=== PATIENT | male | born 1945 | race Caucasian/White ===

== ENCOUNTER 2016-07-21 18:34 | Outpatient (CLI) ==
[2016-07-21 22:03] VITALS: BMI 20.9
== END 2016-07-21 18:35 | disposition home or self-care (01) ==
LOC: AMBL 18:34
PROVIDERS: ATTEND Internal Medicine Geriatric Medicine
DX: R06.02 Shortness of breath (principal); R07.9 Chest pain, unspecified; I45.10 Unspecified right bundle-branch block; I69.398 Other sequelae of cerebral infarction; R47.9 Unspecified speech disturbances

== ENCOUNTER 2016-07-21 18:42 | Inpatient (IN) ==
[2016-07-21] MEDS ORDERED: XOPENEX 1.25 MG NEB STA (18:48)
[2016-07-21] MEDS ORDERED: ROCEPHIN ONE (19:01)
[2016-07-21] MEDS: ROCEPHIN 1 GM in SODIUM CHLORIDE 50 ML IV STA ×2 (19:03)
[2016-07-21 19:07] LABS: BASOPHILS % (AUTO) 0.3 % (0.0-3.0); EOSINOPHILS # (AUTO) 0.1 K/ul (0.0-0.7); EOSINOPHILS % (AUTO) 1.1 % (0.0-7.0); HEMATOCRIT 34.6 % (42.0-52.0); HEMOGLOBIN 12.2 g/dl (14.0-18.0); IMMATURE GRANULOCYTE % (AUTO) 0.7 % (0.0-5.0); LYMPHOCYTES # (AUTO) 1.4 K/uL (0.60-3.4); LYMPHOCYTES % (AUTO) 10.9 (10.0-50.0); MEAN CORPUSCULAR HGB CONC 35.3 (31.8-35.4); MEAN CORPUSCULAR VOLUME 93.5 fl (80.0-94.0); MONOCYTES # (AUTO) 0.8 K/uL (0.4-2.0); MONOCYTES % (AUTO) 6.1 (0-10); NEUTROPHILS # (AUTO) 10.7 K/ul (2.0-6.9); NEUTROPHILS % (AUTO) 80.9; PLATELET COUNT 298 10^3/uL (140-440); WHITE BLOOD COUNT 13.22 K/ul (4.2-10.2)
[2016-07-21] MEDS ORDERED: SODIUM CHLORIDE 1,000 ML IV STA (19:08)
[2016-07-21] MEDS ORDERED: ZOFRAN 4 MG/2 ML IVP STA (19:09)
[2016-07-21 19:32] LABS: PROTHROMBIN TIME 23.8 SEC (9.3-11.0)
[2016-07-21 19:43] LABS: ALANINE AMINOTRANSFERASE 32 U/L (12-78); ALBUMIN/GLOBULIN RATIO 1.33; ALKALINE PHOSPHATASE 105 U/L (56-119); ANION GAP 14.9; ASPARTATE AMINO TRANSFERASE 68 U/L (15-37); BILIRUBIN,TOTAL 0.32 mg/dL (0.00-1.20); BLOOD UREA NITROGEN 25 mg/dL (7-18); BUN/CREATININE RATIO 16.66; CALCIUM 9.5 mg/dL (8.2-10.2); CARBON DIOXIDE 26 mmol/L (23-31); CHLORIDE 100 mmol/L (98-107); CREATINE KINASE 140 U/L; GLUCOSE 117 mg/dL (82-115); POTASSIUM 3.9 mmol/L (3.5-5.1); SODIUM 137 mmol/L (136-145)
[2016-07-21 19:46] LABS: ABG BASE EXCESS 1 (-2.0-2.0); ABG HCO3 25.1 (22.0-26.0); ABG PCO2 38.9 mmHg (35-45); ABG PH 7.418 (7.35-7.45); ABG TCO2 26 (22.0-28.0)
[2016-07-21 19:48] LABS: CREATINE KINASE MB 2.9 ng/ml (0.0-3.6)
[2016-07-21 20:06] LABS: AMYLASE 2649 U/L (25-115)
--- NOTE | 2016-07-21 20:08 | CT ---
EXAM: CT of the chest without contrast. HISTORY: Dyspnea. Shortness of breath. COMPARISON: 03/09/2016 and 01/19/1950. TECHNIQUE: Contiguous axial images at 5 mm intervals obtained from the lung apices to the upper abd omen. Study was performed without IV contrast. Sagittal and coronal reformats were reviewed. FINDINGS: There is no lobar consolidation or effusion. Minimal atelectasis is seen in the right sanjiv ng base. Emphysematous changes are seen bilaterally. In the right upper lobe, there is a subpleura l nodular opacity, measuring 1.3 x 1.6 cm. Previously, this measured 1.2 1.4 cm. Adjacent inflamma tory process is seen. No other suspicious nodules are identified. Subpleural blebs are seen bilate rally. There are fibrotic changes in the right apex. Calcified granulomas are seen bilaterally. The heart size is within normal limits. Coronary artery calcifications are seen. Aortic valve calc ifications are noted. There are multiple calcified mediastinal lymph nodes. Limited views of the upper abdomen. The aorta is heavily calcified. There is a cyst in the right u pper kidney measuring 3.5 cm. The visualized portion of the liver, spleen, pancreas adrenal glands are normal. The osseous structures are normal for age. No acute fractures are identified. IMPRESSION: 1. No acute pulmonary disease. 2. Emphysema changes of the lungs. Subpleural blebs are seen. 3. Subpleural nodular density in the right upper lobe measures up to 1.6 x 1.3 cm. This is larger t alvarez on both prior studies. Given its change in size, recommend PET-CT. 4. Coronary artery disease.
--- NOTE | 2016-07-21 20:29 | CT ---
Exam: CT exam of the abdomen pelvis without intravenous contrast administration. Comparison: 03/09/2016. Reason for exam: Vomiting. FINDINGS: Image interpretation is limited by the lack of intravenous contrast administration. There is mild atelectasis in the partially imaged lung bases without focal consolidation or pleural effusion. Atherosclerotic disease is seen within the aorta and distal arterial vasculature. There is a significant amount of streak artifact seen on the patient's hands there are overlying the mid abdomen. Within the limitations of the exam, the spleen and right adrenal gland are unremarkable. There is s imilar appearing nodularity of the left adrenal gland. There is a 1.1 cm hypodensity in the right he patic lobe seen on coronal image number 36. There are multiple cystic appearing structures in both kidneys that are incompletely evaluated witho ut intravenous contrast administration. No inflammatory changes are seen in the mesenteric or pelvic fat. There is no intra-abdominal free air. Diverticular disease is seen throughout the colon witho ut surrounding inflammatory change. Degenerative disease of the lumbosacral spine without osteoblastic or osteolytic lesion. No hydronephrosis, hydroureter, or nephrolithiasis in either kidney. There are multiple nondilated fluid filled loops of small bowel. Cortical irregularity in the right acetabulum likely secondary to previous injury. Impression: 1. Similar appearing left adrenal gland nodularity. If clinical concern exists, follow-up imaging with an adrenal gland protocol or MRI may be performed. 2. Incompletely evaluated 1.1 cm hypodensity in the right hepatic lobe. 3. Multiple renal cysts and cystic renal structures bilaterally. Recommend follow-up evaluation wi th ultrasound for further characterization. 4. Multiple nondilated fluid filled loops of small bowel may suggest enteritis. 5. No acute imaging findings are seen within the abdomen or pelvis. 6. Likely old right acetabular fracture. Image interpretation faxed at 2023 hours on 07/21/2016.
[2016-07-21 20:35] LABS: LIPASE 13102 U/L (8-78)
[2016-07-21] MEDS ORDERED: NICODERM 21 MG TD STA (20:35)
--- NOTE | 2016-07-21 20:38 | ED.PDOC ---
General ED Provider: Dr. STEPHANIE MCCLOUD-ER Chief Complaint: Shortness of Air Stated Complaint: i was hurting and im sick Time Seen by Physician: 18:45 Mode of Arrival: Ambulance Information Source: Patient, Family, EMT Exam Limitations: No limitations Primary Care Provider: [facility] Nursing and Triage Documentation Reviewed and Agree: Yes GI Complaint Exam - Abdominal Pain Complaint/Exam Onset: Gradual Duration: this afternoon Symptoms Are: Still present Timing: Intermittent Initial Severity: Mild Current Severity: Mild Location of Pain: Epigastric Character: Reports: Dull, Aching, Cramping Aggravating: Reports: None Alleviating: Reports: Spontaneous resolution Associated Signs and Symptoms: Reports: Decreased appetite, Nausea, Vomiting. Denies: Diaphoresis, Fever, Cough, Chest pain, Dizziness, Back pain, Constipation, Blood in stool, Dysuria, Urinary frequency, Decreased urine output , Discharge, Diarrhea, Decreased activity AAA Risk Factors: Reports: Smoking, Hypertension, Atherosclerosis Cardiac Risk Factors: Reports: Hypertension, Smoking, CAD Testicular Torsion Risk Factors: Reports: None Surgical Obstruction Risk Factors: Reports: Colicky abdominal pain Abdominal Findings: Present: None Differential Diagnoses: Pancreatitis, Other Quality Indicator For Non-Traumatic Chest Pain/Syncope: EKG Performed Review of Systems - Review Of Systems Constitutional: Reports: No symptoms Eyes: Reports: No symptoms Ears, Nose, Mouth, Throat: Reports: No symptoms Respiratory: Reports: No symptoms Cardiac: Reports: No symptoms GI: Reports: Abdominal pain, Nausea, Vomiting : Reports: No symptoms Musculoskeletal: Reports: No symptoms Skin: Reports: No symptoms Neurological: Reports: No symptoms Endocrine: Reports: No symptoms Hematologic/Lymphatic: Reports: No symptoms All Other Systems: Reviewed and Negative Past Medical History - Past Medical History Endocrine: Reports: None Cardiovascular: Reports: Hypertension Respiratory: Reports: None Hematological: Reports: None Gastrointestinal: Reports: None Genitourinary: Reports: None Neuro/Psych: Reports: CVA Musculoskeletal: Reports: Other Cancer: Reports: None - Surgical History General Surgical History: Reports: Other (URETHRA SURGERY) - Family History Family History: Reports: Unknown - Social History Smoking Status: Current every day smoker Hx Substance Use: No Alcohol Screening: Heavy Lives: With family - Immunizations Tetanus Shot up to Date: Yes Physical Exam - Physical Exam Appearance: Well-appearing Pain Distress: Moderate Eyes: BRANDON, EOMI, Conjunctiva clear ENT: Ears normal, Nose normal, Oropharynx normal Neck: Supple Respiratory: Airway patent, Breath sounds clear, Breath sounds equal, Respirations nonlabored Cardiovascular: RRR, Pulses normal, No rub, No murmur GI/: Soft, No masses, Bowel sounds normal, No Organomegaly, Tender Musculoskeletal: Normal strength, ROM intact, No edema, No calf tenderness Skin: Warm Neurological: Sensation intact, Motor intact, Reflexes intact, Cranial nerves intact, Alert, Oriented Psychiatric: Affect appropriate, Mood appropriate Interpretation - Radiology Interpretation Radiology Interpretation By: Radiologist Radiology Results: Positive Exam Interpreted: CT Scan Re-Evaluation - Re-Evaluation Time of Re-Evaluation: 20:40 Status: Improved (no nausea or pain) Vital Signs Stable: Yes Pain Level: 0 Appearance: NAD Lungs: Clear Skin: Warm and Dry Neuro: Alert and Oriented X3 CV: RRR Physician Notification - Case Discussed Physician Notified: dr camp of admission and pulmonary nodule Time of Notification: 20:40 Critical Care Note - Critical Care Note Total Time (mins): 10 Course - Course Hematology/Chemistry: 07/21/16 19:00 07/21/16 19:00 Orders, Labs, Meds: Lab Review 07/21/16 19:00 WBC 13.22 H RBC 3.70 L Hgb 12.2 L Hct 34.6 L MCV 93.5 MCH 33.0 H MCHC 35.3 RDW Coeff of Audrey 13.2 Plt Count 298 Immature Gran % (Auto) 0.7 Neut % (Auto) 80.9 Lymph % (Auto) 10.9 [place] % (Auto) 6.1 Eos % (Auto) 1.1 Baso % (Auto) 0.3 Immature Gran # (Auto) 0.1 Neut # 10.7 H Lymph # 1.4 [place] # 0.8 Eos # 0.1 Baso # 0.0 PT 23.8 H INR 2.31 D-Dimer (Manual) 341.28 Puncture Site Lb O2 Saturation 92.0 L ABG pH 7.418 ABG pCO2 38.9 ABG pO2 62.0 L ABG HCO3 25.1 ABG Total CO2 26 ABG Base Excess 1 Nico Test + FiO2 % 21.0 Sodium 137 Potassium 3.9 Chloride 100 Carbon Dioxide 26 Anion Gap 14.9 BUN 25 H Creatinine 1.50 H Estimated GFR (MDRD) 46.00 BUN/Creatinine Ratio 16.66 Glucose 117 H Calcium 9.5 Total Bilirubin 0.32 AST 68 H ALT 32 Alkaline Phosphatase 105 Total Creatine Kinase 140 CK-MB (CK-2) 2.9 CK-MB (CK-2) % 2.60624 Troponin I < 0.0100 B-Natriuretic Peptide 18 Total Protein 7.0 Albumin 4.0 Globulin 3.0 Albumin/Globulin Ratio 1.33 Amylase 2649 H* Lipase 98983 H* Plasma/Serum Alcohol < 10.0 Orders Category Date Time Status ADMIT PATIENT INPATIENT .TO MEDSURG (MONITORED BED) ADMISSION 07/21/16 20: 42 Active ABG DRAW REQUEST Stat CARDIO 07/21/16 18:46 Completed EKG-(ED ONLY) Stat CARDIO 07/21/16 18:46 Completed NEBULIZER TREATMENT Stat CARDIO 07/21/16 18:48 Completed NEBULIZER TREATMENT Stat CARDIO 07/21/16 20:52 Ordered OXYGEN Routine CARDIO 07/21/16 20:43 Ordered ACTIVITY .BR with BRP CARE 07/21/16 20:42 Active INTAKE & OUTPUT Q8HR CARE 07/21/16 20:42 Active TELEMETRY MONITORING TELE CARE 07/21/16 20:42 Active VITAL SIGNS Q4HR CARE 07/21/16 20:42 Active NOTHING BY MOUTH DIETARY 07/21/16 Breakfast Ordered Flare Breaker [ED MERCHANDISE PROCESSOR APPLIED] .ONCE EMERGENCY 07/21/16 18:48 Active IV [ED IV/MEDIPORT/POWERPORT] .ONCE EMERGENCY 07/21/16 18:47 Active ABG Stat LAB 07/21/16 19:00 Completed AMYLASE DAILY@0600 LAB 07/22/16 06:00 Ordered AMYLASE Stat LAB 07/21/16 19:00 Completed B-TYPE NATRIURETIC PEPTIDE Stat LAB 07/21/16 19:00 Completed BLOOD CULTURE Stat LAB 07/21/16 19:00 Received CBC W/ AUTO DIFF DAILY@0600 LAB 07/22/16 06:00 Ordered CBC W/ AUTO DIFF DAILY@0600 LAB 07/23/16 06:00 Ordered CBC W/ AUTO DIFF DAILY@0600 LAB 07/24/16 06:00 Ordered CBC W/ AUTO DIFF DAILY@0600 LAB 07/25/16 06:00 Ordered CBC W/ AUTO DIFF DAILY@0600 LAB 07/26/16 06:00 Ordered CBC W/ AUTO DIFF DAILY@0600 LAB 07/27/16 06:00 Ordered CBC W/ AUTO DIFF DAILY@0600 LAB 07/28/16 06:00 Ordered CBC W/ AUTO DIFF DAILY@0600 LAB 07/29/16 06:00 Ordered CBC W/ AUTO DIFF DAILY@0600 LAB 07/30/16 06:00 Ordered CBC W/ AUTO DIFF DAILY@0600 LAB 07/31/16 06:00 Ordered CBC W/ AUTO DIFF DAILY@0600 LAB 08/01/16 06:00 Ordered CBC W/ AUTO DIFF DAILY@0600 LAB 08/02/16 06:00 Ordered CBC W/ AUTO DIFF DAILY@0600 LAB 08/03/16 06:00 Ordered CBC W/ AUTO DIFF DAILY@0600 LAB 08/04/16 06:00 Ordered CBC W/ AUTO DIFF DAILY@0600 LAB 08/05/16 06:00 Ordered CBC W/ AUTO DIFF DAILY@0600 LAB 08/06/16 06:00 Ordered CBC W/ AUTO DIFF DAILY@0600 LAB 08/07/16 06:00 Ordered CBC W/ AUTO DIFF DAILY@0600 LAB 08/08/16 06:00 Ordered CBC W/ AUTO DIFF DAILY@06 LAB 08/09/16 06:00 Ordered CBC W/ AUTO DIFF DAILY@06 LAB 08/10/16 06:00 Ordered CBC W/ AUTO DIFF Stat LAB 07/21/16 19:00 Completed COMPREHENSIVE METABOLIC PANEL DAILY@0600 LAB 07/22/16 06:00 Ordered COMPREHENSIVE METABOLIC PANEL DAILY@0600 LAB 07/23/16 06:00 Ordered COMPREHENSIVE METABOLIC PANEL DAILY@0600 LAB 07/24/16 06:00 Ordered COMPREHENSIVE METABOLIC PANEL DAILY@0600 LAB 07/25/16 06:00 Ordered COMPREHENSIVE METABOLIC PANEL DAILY@0600 LAB 07/26/16 06:00 Ordered COMPREHENSIVE METABOLIC PANEL DAILY@0600 LAB 07/27/16 06:00 Ordered COMPREHENSIVE METABOLIC PANEL DAILY@0600 LAB 07/28/16 06:00 Ordered COMPREHENSIVE METABOLIC PANEL DAILY@0600 LAB 07/29/16 06:00 Ordered COMPREHENSIVE METABOLIC PANEL DAILY@0600 LAB 07/30/16 06:00 Ordered COMPREHENSIVE METABOLIC PANEL DAILY@0600 LAB 07/31/16 06:00 Ordered COMPREHENSIVE METABOLIC PANEL DAILY@0600 LAB 08/01/16 06:00 Ordered COMPREHENSIVE METABOLIC PANEL DAILY@0600 LAB 08/02/16 06:00 Ordered COMPREHENSIVE METABOLIC PANEL DAILY@0600 LAB 08/03/16 06:00 Ordered COMPREHENSIVE METABOLIC PANEL DAILY@0600 LAB 08/04/16 06:00 Ordered COMPREHENSIVE METABOLIC PANEL DAILY@0600 LAB 08/05/16 06:00 Ordered COMPREHENSIVE METABOLIC PANEL DAILY@0600 LAB 08/06/16 06:00 Ordered COMPREHENSIVE METABOLIC PANEL DAILY@0600 LAB 08/07/16 06:00 Ordered COMPREHENSIVE METABOLIC PANEL DAILY@0600 LAB 08/08/16 06:00 Ordered COMPREHENSIVE METABOLIC PANEL DAILY@0600 LAB 08/09/16 06:00 Ordered COMPREHENSIVE METABOLIC PANEL DAILY@0600 LAB 08/10/16 06:00 Ordered COMPREHENSIVE METABOLIC PANEL Stat LAB 07/21/16 19:00 Completed CREATINE KINASE Stat LAB 07/21/16 19:00 Completed D-DIMER Stat LAB 07/21/16 19:00 Completed ETOH LEVEL [BLOOD ALCOHOL] Stat LAB 07/21/16 19:00 Completed LIPASE DAILY@0600 LAB 07/22/16 06:00 Ordered LIPASE Stat LAB 07/21/16 19:00 Completed PT WITH INR DAILY@0600 LAB 07/22/16 06:00 Ordered PT WITH INR DAILY@0600 LAB 07/23/16 06:00 Ordered PT WITH INR DAILY@0600 LAB 07/24/16 06:00 Ordered PT WITH INR DAILY@0600 LAB 07/25/16 06:00 Ordered PT WITH INR DAILY@0600 LAB 07/26/16 06:00 Ordered PT WITH INR DAILY@0600 LAB 07/27/16 06:00 Ordered PT WITH INR DAILY@0600 LAB 07/28/16 06:00 Ordered PT WITH INR DAILY@0600 LAB 07/29/16 06:00 Ordered PT WITH INR DAILY@0600 LAB 07/30/16 06:00 Ordered PT WITH INR DAILY@0600 LAB 07/31/16 06:00 Ordered PT WITH INR DAILY@0600 LAB 08/01/16 06:00 Ordered PT WITH INR DAILY@0600 LAB 08/02/16 06:00 Ordered PT WITH INR DAILY@0600 LAB 08/03/16 06:00 Ordered PT WITH INR DAILY@0600 LAB 08/04/16 06:00 Ordered PT WITH INR DAILY@0600 LAB 08/05/16 06:00 Ordered PT WITH INR DAILY@0600 LAB 08/06/16 06:00 Ordered PT WITH INR DAILY@0600 LAB 08/07/16 06:00 Ordered PT WITH INR DAILY@0600 LAB 08/08/16 06:00 Ordered PT WITH INR DAILY@0600 LAB 08/09/16 06:00 Ordered PT WITH INR DAILY@0600 LAB 08/10/16 06:00 Ordered PT WITH INR Stat LAB 07/21/16 19:00 Completed TROPONIN I Stat LAB 07/21/16 19:00 Completed 0.9 % Sodium Chloride [Saline Flush] MEDS 07/21/16 18:47 Ordered 1 syr IVF PRN PRN Ceftriaxone Sodium [Rocephin] MEDS 07/21/16 19:01 Discontinued 1 gm .ROUTE .STK-MED ONE Ceftriaxone Sodium [Rocephin] 1 gm MEDS 07/21/16 18:48 Discontinued 0.9 % Sodium Chloride [Sodium Chloride] 50 ml IV ONCE Hydromorphone HCl [Dilaudid 1 mg/ml Syringe] MEDS 07/21/16 20:46 Ordered 1 mg IVP Q4HR PRN Levalbuterol HCl [Xopenex 0.63 mg] MEDS 07/21/16 22:00 Ordered 1 vial NEB RTQ8H Levalbuterol HCl [Xopenex 1.25 mg] MEDS 07/21/16 18:48 Discontinued 1 vial NEB ONCE STA Lorazepam Inj [Ativan] MEDS 07/21/16 20:48 Ordered 1 mg IVP Q4H PRN Nicotine 21 mg [Nicoderm 21 mg] MEDS 07/22/16 09:00 Ordered 1 patch TD DAILY Nicotine 21 mg [Nicoderm 21 mg] MEDS 07/21/16 20:35 Discontinued 1 patch TD ONCE STA Ondansetron HCl/Pf [Zofran 4 mg/2 ml] MEDS 07/21/16 19:09 Discontinued 4 mg IVP ONCE STA Ondansetron HCl/Pf [Zofran 4 mg/2 ml] MEDS 07/21/16 20:47 Ordered 4 mg IVP Q4HR PRN Potassium Chloride/D5-0.9%NaCl [D5%-Ns-KCl 20 Meq/l IV MEDS 07/21/16 21:00 Ordered Jacki] 1,000 ml IV 125 mls/hr Promethazine HCl [Phenergan 50Mg/ml Amp] 12.5 mg MEDS 07/21/16 20:47 Ordered 0.9 % Sodium Chloride [Sodium Chloride] 50 ml IV Q6H Sodium Chloride 0.9% [Sodium Chloride] 1,000 ml MEDS 07/21/16 19:08 Discontinued IV 100 mls/hr RESUSCITATION STATUS Routine OTHERS 07/21/16 20:[address] ABDOMEN/PELVIS WO CONTRAST Stat RADS 07/21/16 19:[address] CHEST W/O CONTRAST Stat RADS 07/21/16 18:49 Completed Medications Generic Name Dose Route Start Last Admin Trade Name Nayeli PRN Reason Stop Dose Admin Hydromorphone HCl 1 mg 07/21/16 20:46 Dilaudid 1 Mg/Ml Syringe IVP Q4HR PRN Abdominal Pain Potassium Chloride/Dextrose/Sod Cl 1,000 mls @ 125 mls/hr 07/21/16 21:00 D5%-Ns-Kcl 20 Meq/L Iv Jacki IV .Q8H MELINDA Promethazine HCl 12.5 mg/ 50.25 mls @ 75 mls/hr 07/21/16 20:47 Sodium Chloride IV Q6H PRN Nausea / Vomiting Levalbuterol HCl 1 vial 07/21/16 22:00 Xopenex 0.63 Mg NEB RTQ8H MELINDA Lorazepam 1 mg 07/21/16 20:48 Ativan IVP Q4H PRN Anxiety Nicotine 1 patch 07/22/16 09:00 Nicoderm 21 Mg TD DAILY MELINDA Ondansetron HCl 4 mg 07/21/16 20:47 Zofran 4 Mg/2 Ml IVP Q4HR PRN Nausea / Vomiting Sodium Chloride 1 syr 07/21/16 18:47 Saline Flush IVF PRN PRN To flush IV Discontinued Medications Generic Name Dose Route Start Last Admin Trade Name Nayeli PRN Reason Stop Dose Admin Ceftriaxone Sodium 1 gm/ 50 mls @ 75 mls/hr 07/21/16 18:48 07/21/16 19:03 Sodium Chloride IV 07/21/16 19:27 Not Given ONCE STA Sodium Chloride 1,000 mls @ 100 mls/hr 07/21/16 19:08 07/21/16 20:08 Sodium Chloride IV 07/22/16 05:07 100 mls/hr .Q10H STA Administration Levalbuterol HCl 1 vial 07/21/16 18:48 07/21/16 19:14 Xopenex 1.25 Mg NEB 07/21/16 18:49 1 vial ONCE STA Administration Nicotine 1 patch 07/21/16 20:35 07/21/16 20:51 Nicoderm 21 Mg TD 07/21/16 20:36 1 patch ONCE STA Administration Ondansetron HCl 4 mg 07/21/16 19:09 07/21/16 19:17 Zofran 4 Mg/2 Ml IVP 07/21/16 19:10 4 mg ONCE STA Administration Vital Signs: Temp Pulse Resp BP Pulse Ox 07/21/16 18:43 96.9 F L 77 20 138/90 98 despite the pancreatic enzymes and nausea--mr sheffield is not complaining of pain at all) Departure - Departure Time of Disposition: 20:41 Disposition: ADMITTED INPATIENT Discharge Problem: Pancreatitis, Lung nodule Condition: Fair Pt referred to PMD for follow-up: Yes Allergies/Adverse Reactions: Allergies No Known Allergies Allergy (Unverified 07/21/16 19:09) Home Medications: Ambulatory Orders Famotidine 20 mg PO BID 07/21/16 Phenytoin Cap [Dilantin] 100 mg PO TID 07/21/16 Quinapril HCl 40 mg PO BID 07/21/16 Tizanidine HCl 4 mg PO BID 07/21/16 Warfarin Sodium [Coumadin] 3 mg PO DAILY 07/21/16 Disposition Discussed With: Patient, Family
[2016-07-21] MEDS ORDERED: DILAUDID 1 MG/ML SYRINGE IVP PRN (20:46)
[2016-07-21] MEDS ORDERED: PHENERGAN IV PRN (20:47)
[2016-07-21] MEDS ORDERED: SODIUM CHLORIDE IV PRN (20:47)
[2016-07-21] MEDS ORDERED: ZOFRAN 4 MG/2 ML IVP PRN (20:47)
[2016-07-21] MEDS ORDERED: ATIVAN IVP PRN (20:48)
[2016-07-21] MEDS ORDERED: PHENERGAN 50MG/ML AMP ONE (20:57)
[2016-07-21] MEDS: XOPENEX 0.63 MG NEB SCH (21:23)
[2016-07-21 22:03] VITALS: BMI 20.9
[2016-07-21] MEDS: D5%-NS-KCL 20 MEQ/L IV SOL 1,000 ML IV SCH (23:19)
[2016-07-22] MEDS: XOPENEX 0.63 MG NEB SCH ×3 (05:13→21:41)
[2016-07-22 06:23] LABS: BASOPHILS % (AUTO) 0.3 % (0.0-3.0); EOSINOPHILS % (AUTO) 0.3 % (0.0-7.0); HEMATOCRIT 31.7 % (42.0-52.0); IMMATURE GRANULOCYTE % (AUTO) 0.5 % (0.0-5.0); LYMPHOCYTES # (AUTO) 1.5 K/uL (0.60-3.4); LYMPHOCYTES % (AUTO) 20.5 (10.0-50.0); MEAN CORPUSCULAR HEMOGLOBIN 32.2 pg (27.0-31.0); MEAN CORPUSCULAR HGB CONC 34.7 (31.8-35.4); MEAN CORPUSCULAR VOLUME 92.7 fl (80.0-94.0); MONOCYTES # (AUTO) 0.5 K/uL (0.4-2.0); MONOCYTES % (AUTO) 7.3 (0-10); NEUTROPHILS # (AUTO) 5.2 K/ul (2.0-6.9); NEUTROPHILS % (AUTO) 71.1; PLATELET COUNT 249 10^3/uL (140-440); RED BLOOD COUNT 3.42 10^6/ul (4.70-6.10); WHITE BLOOD COUNT 7.28 K/ul (4.2-10.2)
[2016-07-22 06:43] LABS: PROTHROMBIN TIME 26.6 SEC (9.3-11.0)
[2016-07-22 06:50] LABS: ALBUMIN 3.6 g/dL (3.4-5.0); ALBUMIN/GLOBULIN RATIO 1.44; ANION GAP 11.9; BILIRUBIN,TOTAL 0.23 mg/dL (0.00-1.20); BUN/CREATININE RATIO 18.89; CALCIUM 8.7 mg/dL (8.2-10.2); CREATININE 1.27 mg/dL (0.60-1.10); POTASSIUM 3.9 mmol/L (3.5-5.1); TOTAL PROTEIN 6.1 g/dL (5.8-8.1)
[2016-07-22] MEDS: D5%-NS-KCL 20 MEQ/L IV SOL 1,000 ML IV SCH ×2 (07:32→16:41)
[2016-07-22] MEDS: PROTONIX IV 40 MG in SODIUM CHLORIDE 100 ML IV SCH (09:34)
[2016-07-22] MEDS: DILANTIN PO SCH ×3 (09:34→20:33)
[2016-07-22] MEDS: ACCUPRIL PO SCH ×2 (09:34→20:32)
[2016-07-22] MEDS: NICODERM 21 MG TD SCH (09:35)
[2016-07-22] MEDS ORDERED: THIAMINE IM SCH (22:30)
[2016-07-22] MEDS ORDERED: THIAMINE ONE (23:52)
[2016-07-23] MEDS: D5%-NS-KCL 20 MEQ/L IV SOL 1,000 ML IV SCH ×3 (00:23→12:45)
[2016-07-23] MEDS: XOPENEX 0.63 MG NEB SCH ×3 (05:07→21:46)
[2016-07-23 05:43] LABS: BASOPHILS % (AUTO) 0.6 % (0.0-3.0); EOSINOPHILS # (AUTO) 0.1 K/ul (0.0-0.7); EOSINOPHILS % (AUTO) 1.7 % (0.0-7.0); HEMATOCRIT 30.5 % (42.0-52.0); HEMOGLOBIN 10.2 g/dl (14.0-18.0); IMMATURE GRANULOCYTE % (AUTO) 0.3 % (0.0-5.0); LYMPHOCYTES # (AUTO) 1.3 K/uL (0.60-3.4); LYMPHOCYTES % (AUTO) 19.5 (10.0-50.0); MEAN CORPUSCULAR HEMOGLOBIN 32.2 pg (27.0-31.0); MEAN CORPUSCULAR HGB CONC 33.4 (31.8-35.4); MEAN CORPUSCULAR VOLUME 96.2 fl (80.0-94.0); MONOCYTES # (AUTO) 0.6 K/uL (0.4-2.0); MONOCYTES % (AUTO) 9.4 (0-10); NEUTROPHILS # (AUTO) 4.5 K/ul (2.0-6.9); NEUTROPHILS % (AUTO) 68.5; PLATELET COUNT 250 10^3/uL (140-440); RED BLOOD COUNT 3.17 10^6/ul (4.70-6.10); WHITE BLOOD COUNT 6.57 K/ul (4.2-10.2)
[2016-07-23 05:54] LABS: PROTHROMBIN TIME 27.1 SEC (9.3-11.0)
[2016-07-23 06:13] LABS: ALBUMIN 3.3 g/dL (3.4-5.0); ALBUMIN/GLOBULIN RATIO 1.32; ANION GAP 10.6; BILIRUBIN,TOTAL 0.32 mg/dL (0.00-1.20); BUN/CREATININE RATIO 17.7; CALCIUM 8.5 mg/dL (8.2-10.2); CREATININE 0.96 mg/dL (0.60-1.10); POTASSIUM 4.6 mmol/L (3.5-5.1); TOTAL PROTEIN 5.8 g/dL (5.8-8.1)
[2016-07-23] MEDS: NICODERM 21 MG TD SCH (08:45)
[2016-07-23] MEDS: ACCUPRIL PO SCH ×2 (08:45→20:59)
[2016-07-23] MEDS: DILANTIN PO SCH ×3 (08:45→21:00)
[2016-07-23] MEDS: PROTONIX IV 40 MG in SODIUM CHLORIDE 100 ML IV SCH (08:45)
[2016-07-23] MEDS ORDERED: COZAAR ONE (17:58)
[2016-07-23] MEDS: COZAAR PO SCH (18:00)
[2016-07-23] MEDS: ZANAFLEX PO SCH (21:00)
[2016-07-23] MEDS: THIAMINE IM SCH (21:00)
[2016-07-24 05:00] LABS: BASOPHILS # (AUTO) 0.1 K/uL (0-0.2); BASOPHILS % (AUTO) 0.6 % (0.0-3.0); EOSINOPHILS # (AUTO) 0.2 K/ul (0.0-0.7); EOSINOPHILS % (AUTO) 2.2 % (0.0-7.0); HEMATOCRIT 32.2 % (42.0-52.0); HEMOGLOBIN 11.2 g/dl (14.0-18.0); LYMPHOCYTES # (AUTO) 1.6 K/uL (0.60-3.4); LYMPHOCYTES % (AUTO) 17.8 (10.0-50.0); MEAN CORPUSCULAR HEMOGLOBIN 32.4 pg (27.0-31.0); MEAN CORPUSCULAR HGB CONC 34.8 (31.8-35.4); MEAN CORPUSCULAR VOLUME 93.1 fl (80.0-94.0); MONOCYTES % (AUTO) 10.8 (0-10); NEUTROPHILS % (AUTO) 67.6; PLATELET COUNT 266 10^3/uL (140-440); RED BLOOD COUNT 3.46 10^6/ul (4.70-6.10); WHITE BLOOD COUNT 8.81 K/ul (4.2-10.2)
[2016-07-24 05:08] LABS: PROTHROMBIN TIME 20.1 SEC (9.3-11.0)
[2016-07-24] MEDS: XOPENEX 0.63 MG NEB SCH ×3 (05:12→22:06)
[2016-07-24 05:33] LABS: ALBUMIN 3.4 g/dL (3.4-5.0); ALBUMIN/GLOBULIN RATIO 1.21; ANION GAP 12.9; BILIRUBIN,TOTAL 0.45 mg/dL (0.00-1.20); BUN/CREATININE RATIO 10.2; CALCIUM 9.2 mg/dL (8.2-10.2); CREATININE 0.98 mg/dL (0.60-1.10); POTASSIUM 4.9 mmol/L (3.5-5.1); TOTAL PROTEIN 6.2 g/dL (5.8-8.1)
[2016-07-24] MEDS: PROTONIX IV 40 MG in SODIUM CHLORIDE 100 ML IV SCH (08:44)
[2016-07-24] MEDS: ZANAFLEX PO SCH ×2 (08:44→21:52)
[2016-07-24] MEDS: COZAAR PO SCH (08:44)
[2016-07-24] MEDS: ACCUPRIL PO SCH ×2 (08:44→21:52)
[2016-07-24] MEDS: NICODERM 21 MG TD SCH (08:44)
[2016-07-24] MEDS: DILANTIN PO SCH ×3 (08:44→21:51)
[2016-07-24] MEDS ORDERED: PHENERGAN 25 MG/ML VIAL 12.5 MG in SODIUM CHLORIDE 50 ML IV PRN (09:25)
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
--- NOTE | 2016-07-24 12:36 | PCM.PROG ---
Attending Provider: ATTENDING PROVIDER: Dr. GLADYS BRUNO DATE OF SERVICE: 07/24/16 SUBJECTIVE: This 70 year old WHITE/ M was hospitalized 07/21/16. The patient is hospitalized with acute pancreatitis. The patient's amylase is 213 and lipase normal (was 2000 and 10,000 respectively). The patient is hungry. REVIEW OF SYSTEMS: CONSTITUTIONAL: No night sweats. No fatigue, malaise, lethargy. No fever or chills. HEENT: Eyes: No visual changes. No eye pain. No eye discharge. ENT: No runny nose. No epistaxis. No sinus pain. No odynophagia. No congestion. RESPIRATORY: No cough, no congestion. No hemoptysis. CARDIOVASCULAR: No angina symptoms. No CHF symptoms. No atypical chest pain for CAD. No palpitations. No shortness of breath. GASTROINTESTINAL: No abdominal pain. No nausea or vomiting. No diarrhea or constipation. No hematemesis. No hematochezia. GENITOURINARY: No urgency. No frequency. No dysuria. No hematuria. No obstructive symptoms. No discharge. No pain. No significant abnormal bleeding. MUSCULOSKELETAL: No musculoskeletal pain; no joint swelling. NEUROLOGICAL: Awake, alert, oriented to time, place and person. No headache. No neck pain. No syncope. No seizures. No dizziness. PSYCHIATRIC: Not anxious. No depression. No suicidal thoughts. No homicidal thoughts. SKIN: No rash. No lesions. No wounds. ENDOCRINE: No unexplained weight loss. No weight gain. HEMATOLOGIC/LYMPHATIC: No anemia. No purpura. No petechiae. No prolonged or excessive bleeding. No palpable lymph nodes. PHYSICAL EXAMINATION: GENERAL: The patient is awake, alert and oriented, lying in bed in no distress. VITAL SIGNS: Temperature 97.7 F, Pulse 84, Respiratory Rate 16, BP 141/77, Pulse Ox 95% HEENT: Head normocephalic, atraumatic. Eyes: Extraocular muscles are intact. Pupils are equal, round and reactive to light and accommodation. Ears: No lesions. Nose appeared normal. Throat: No exudate or erythema. NECK: Supple. No JVD, no carotid bruit. No lymphadenopathy or thyromegaly. LUNGS: Clear to auscultation. Percussion note normal. Chest symmetrical. HEART: S1, S2, no S3. No murmurs. No cyanosis or clubbing. No ascites. Pulses: Dorsalis pedis and posterior tibial pulses +1 to +2 both sides. ABDOMEN: Soft. Non-tender. Bowel sounds active. No CVA tenderness. No mass felt. EXTREMITIES: No edema. Full range of motion of all extremities, equal. NEUROLOGIC: No focal deficit. Cranial nerves II through XII are grossly intact. No headache, no double vision or headache. SKIN: Not dry. Intact. Turgor-normal. LYMPHATIC: No palpable lymph nodes/no lymphedema. MUSCULOSKELETAL: Normal joints with no swelling. Muscle tone is normal. LAB REVIEW: 07/24/16 04:20 07/24/16 04:20 07/24/16 04:20: WBC 8.81, RBC 3.46 L, Hgb 11.2 L, Hct 32.2 L, MCV 93.1, MCH 32.4 H, MCHC 34.8, RDW Coeff of Audrey 12.9, Plt Count 266, Immature Gran % (Auto) 1.0, Neut % (Auto) 67.6, Lymph % (Auto) 17.8, [place] % (Auto) 10.8 H, Eos % (Auto ) 2.2, Baso % (Auto) 0.6, Immature Gran # (Auto) 0.1, Neut # 6.0, Lymph # 1.6, [place] # 1.0, Eos # 0.2, Baso # 0.1, PT 20.1 H D, INR 1.95, Sodium 131 L, Potassium 4.9, Chloride 102, Carbon Dioxide 21 L, Anion Gap 12.9, BUN 10, Creatinine 0.98, Estimated GFR (MDRD) 76.00, BUN/Creatinine Ratio 10.20, Glucose 96, Calcium 9.2, Total Bilirubin 0.45, AST 25, ALT 29, Alkaline Phosphatase 95, Total Protein 6.2, Albumin 3.4, Globulin 2.8, Albumin/Globulin Ratio 1.21, Amylase 213 H D, Lipase 56 D, Phenytoin 8.82 L ASSESSMENT: 1. Acute pancreatitis resolved. 2. Alcoholism - no DTs. 3. Nicotine use - states he has quit. PLAN: 1. Soft diet. 2. D/C telemetry Plan and coordination of the patient's care discussed in the presence of [employer]cer and nurse. EDUCATION: Strongly advised the patient to quit alcohol. The patient refuses help. Counseling for smoking done; the patient states he has quit and on nicotine patch. CONDITION: Stable SCRIBED BY: JULIANNE PERSAUD, Machine Tool Technician Instructor scribed while in presence of service performed by Dr. GLADYS BRUNO on 07/24/16 ([id number])
[2016-07-24] MEDS: D5%-NS-KCL 20 MEQ/L IV SOL 1,000 ML IV SCH (14:43)
--- NOTE | 2016-07-24 14:57 | HP ---
DATE OF SERVICE: 07/21/16 REASON FOR HOSPITALIZATION: Abdominal pain and acute pancreatitis HISTORY OF PRESENT ILLNESS: The patient is a 70 year old white male who is an alcoholic for number of years was brought to the emergency room by family because of vomiting, nausea and abdominal pain. On further workup by the ER attending the patient's amylase is 1 ,000 with lipase of more than 10,000. After settling down in the emergency room with some pain medication the patient is feeling a lot better. The patient is heavy smoker and alcoholic for number of years. He also had a history of stroke which has made him handicap. He had been on the scooter and unable to ambulate without help. REVIEW OF SYSTEMS: CONSTITUTIONAL: No night sweats. No fatigue, malaise, lethargy. No fever or chills. HEENT: Eyes: No visual changes. No eye pain. No eye discharge. ENT: No runny nose. No epistaxis. No sinus pain. No sore throat. No odynophagia. No congestion. RESPIRATORY: No cough, no congestion. No hemoptysis. CARDIOVASCULAR: No angina symptoms. No CHF symptoms. No atypical chest pain for CAD. No palpitations. No shortness of breath. GASTROINTESTINAL: No abdominal pain. No nausea or vomiting. No diarrhea or constipation. No hematemesis. No hematochezia. GENITOURINARY: No urgency. No frequency. No dysuria. No hematuria. No obstructive symptoms. No discharge. No pain. No significant abnormal bleeding. MUSCULOSKELETAL: No musculoskeletal pain; no joint swelling. NEUROLOGICAL: No headache. No neck pain. No syncope. No seizures. No dizziness. PSYCHIATRIC: Not anxious. No depression. No suicidal thoughts. No homicidal thoughts. SKIN: No rash. No lesions. No wounds. ENDOCRINE: No unexplained weight loss. No weight gain. HEMATOLOGIC/LYMPHATIC: No anemia. No purpura. No petechiae. No prolonged or excessive bleeding. No palpable lymph nodes. PERSONAL/FAMILY/SOCIAL HISTORY: The patient lives by himself with help of daughter. Long history of alcohol abuse. Smokes a lot. Does most of the activity of daily living except bathing, needs some help. PAST MEDICAL/SURGICAL HISTORY: Hypertension GERD Post abdominal surgery, prostate surgery Dr. Brown. Hyperlipidemia Stroke syndrome, right hemiparesis Depression Laminectomy with disc removal, one cervical interspace MEDICATIONS: Dilantin 100mg PO three times a day Famotidine 20mg PO twice a day Coumadin 3mg PO daily Quinapril 40mg PO twice a day Tizanidine 4mg PO twice a day ALLERGIES: No known allergies PHYSICAL EXAMINATION: GENERAL: The patient is oriented to time, place and person, not in distress. VITAL SIGNS: Stable. HEENT: Head normocephalic, atraumatic. Eyes: Extraocular muscles are intact. Pupils are equal, round and reactive to light and accommodation. Ears: No lesions. Nose appeared normal. Throat: No exudate or erythema. NECK: Supple. No JVD, no carotid bruit. No lymphadenopathy or thyromegaly. LUNGS: Decreased breath sounds but clear to auscultation. Percussion note normal. Chest symmetrical. HEART: S1, S2, no S3. No murmurs. No cyanosis or clubbing. No ascites. Pulses: Dorsalis pedis and posterior tibial pulses +1 to +2 both sides. ABDOMEN: Soft. Tenderness in the left upper quadrant and epigastric area. Bowel sounds active. No CVA tenderness. No mass felt. Not distended. EXTREMITIES: No edema. Full range of motion of all extremities, equal. NEUROLOGIC: No focal deficit. Cranial nerves II through XII are grossly intact. No headache, no double vision or headache. SKIN: Not dry. Intact. Turgor - Mildly dehydrated. LYMPHATIC: No palpable lymph nodes/no lymphedema. MUSCULOSKELETAL: Normal joints with no swelling. Muscle tone is normal. ASSESSMENT: 1. Acute pancreatitis with nausea and vomiting 2. Alcoholism 3. Heavy smoking with chronic lung disease 4. Hypertension 5. Dyslipidemia 6. Status post CVA PLAN: 1. IV fluids 2. NPO 3. Analgesics 4. Thymine IV 5. Watch for DT's CONDITION: Stable Prognosis: Guarded Counseling for smoking and counseling for alcoholism done. He doesn't want any help for alcoholism. The patient already wants nicotine patch. TIME SPENT: More than [address] [facility]
--- NOTE | 2016-07-24 15:14 | PN ---
DATE OF SERVICE: 07/22/16 SUBJECTIVE: The patient is a 70 year old white male hospitalized with acute pancreatitis. The patient is feeling a lot better with no abdominal pain at all. He wants to eat and he is very hungry. REVIEW OF SYSTEMS: CONSTITUTIONAL: No night sweats. No fatigue, malaise, lethargy. No fever or chills. HEENT: Eyes: No visual changes. No eye pain. No eye discharge. ENT: No runny nose. No epistaxis. No sinus pain. No sore throat. No odynophagia. No congestion. RESPIRATORY: No cough, no congestion. No hemoptysis. CARDIOVASCULAR: No angina symptoms. No CHF symptoms. No atypical chest pain for CAD. No palpitations. No shortness of breath. GASTROINTESTINAL: No abdominal pain. No nausea or vomiting. No diarrhea or constipation. No hematemesis. No hematochezia. GENITOURINARY: No urgency. No frequency. No dysuria. No hematuria. No obstructive symptoms. No discharge. No pain. No significant abnormal bleeding. MUSCULOSKELETAL: No musculoskeletal pain; no joint swelling. NEUROLOGICAL: No headache. No neck pain. No syncope. No seizures. No dizziness. PSYCHIATRIC: Not anxious. No depression. No suicidal thoughts. No homicidal thoughts. SKIN: No rash. No lesions. No wounds. ENDOCRINE: No unexplained weight loss. No weight gain. HEMATOLOGIC/LYMPHATIC: No anemia. No purpura. No petechiae. No prolonged or excessive bleeding. No palpable lymph nodes. PHYSICAL EXAMINATION: GENERAL: The patient is oriented to time, place and person. VITAL SIGNS: Temperature 97.1, pulse 84, respiratory rate 20, blood pressure 144/82 and pulse 100. HEENT: Head normocephalic, atraumatic. Eyes: Extraocular muscles are intact. Pupils are equal, round and reactive to light and accommodation. Ears: No lesions. Nose appeared normal. Throat: No exudate or erythema. NECK: Supple. No JVD, no carotid bruit. No lymphadenopathy or thyromegaly. LUNGS: Decreased breath sounds but clear to auscultation. Percussion note normal. Chest symmetrical. HEART: S1, S2, no S3. No murmurs. No cyanosis or clubbing. No ascites. Pulses: Dorsalis pedis and posterior tibial pulses +1 to +2 both sides. ABDOMEN: Soft. Mild tenderness in right upper quadrant. Bowel sounds active. No CVA tenderness. No mass felt. EXTREMITIES: No edema. Full range of motion of all extremities, equal. NEUROLOGIC: No focal deficit. Cranial nerves II through XII are grossly intact. No headache, no double vision or headache. SKIN: Not dry. Intact. Turgor - normal. LYMPHATIC: No palpable lymph nodes/no lymphedema. MUSCULOSKELETAL: Normal joints with no swelling. Muscle tone is normal. LABS: Amylase from 2,649 down 2,100, lipase 13,000 still pending, AST 65 has gone up to 75, PT is 26.6 with INR 2.5 ASSESSMENT: 1. Acute pancreatis 2. Alcoholism 3. Heavy Smoking with chronic lung disease 4. Hypertension 5. Dyslipidemia 6. Status post CVA PLAN: 1. Hold Coumadin 2. Continue IV fluids 3. Continue NPO 4. Counseling for smoking done 5. Counseling for alcoholism done, patient refuses help for alcoholism 6. Will watch him for DT 7. Continue 1,000cc D5 1/2 normal saline Q 8 hours 8. Xopenex treatment 9. Nicoderm for the cessation of smoking 10. Zofran as needed. CONDITION: Stable TIME SPENT: More than 30 minutes. Plan and coordination of the patient's care discussed in the presence of nurse. JOSE E
[2016-07-24] MEDS: THIAMINE IM SCH (21:49)
[2016-07-25] MEDS: D5%-NS-KCL 20 MEQ/L IV SOL 1,000 ML IV SCH (04:40)
[2016-07-25] MEDS: XOPENEX 0.63 MG NEB SCH (05:00)
[2016-07-25 05:22] LABS: BASOPHILS % (AUTO) 0.5 % (0.0-3.0); EOSINOPHILS # (AUTO) 0.2 K/ul (0.0-0.7); EOSINOPHILS % (AUTO) 2.8 % (0.0-7.0); HEMATOCRIT 31.4 % (42.0-52.0); HEMOGLOBIN 11.2 g/dl (14.0-18.0); IMMATURE GRANULOCYTE % (AUTO) 0.4 % (0.0-5.0); LYMPHOCYTES # (AUTO) 1.5 K/uL (0.60-3.4); LYMPHOCYTES % (AUTO) 19.4 (10.0-50.0); MEAN CORPUSCULAR HEMOGLOBIN 32.6 pg (27.0-31.0); MEAN CORPUSCULAR HGB CONC 35.7 (31.8-35.4); MEAN CORPUSCULAR VOLUME 91.3 fl (80.0-94.0); MONOCYTES # (AUTO) 0.9 K/uL (0.4-2.0); MONOCYTES % (AUTO) 10.7 (0-10); NEUTROPHILS # (AUTO) 5.3 K/ul (2.0-6.9); NEUTROPHILS % (AUTO) 66.2; PLATELET COUNT 281 10^3/uL (140-440); RED BLOOD COUNT 3.44 10^6/ul (4.70-6.10); WHITE BLOOD COUNT 7.93 K/ul (4.2-10.2)
[2016-07-25 05:28] LABS: PROTHROMBIN TIME 13.8 SEC (9.3-11.0)
[2016-07-25 05:51] LABS: ALBUMIN 3.4 g/dL (3.4-5.0); ALBUMIN/GLOBULIN RATIO 1.06; ANION GAP 11.1; BILIRUBIN,TOTAL 0.44 mg/dL (0.00-1.20); BUN/CREATININE RATIO 13.13; CALCIUM 9.1 mg/dL (8.2-10.2); CREATININE 0.99 mg/dL (0.60-1.10); POTASSIUM 4.1 mmol/L (3.5-5.1); TOTAL PROTEIN 6.6 g/dL (5.8-8.1)
[2016-07-25] MEDS: DILANTIN PO SCH (08:03)
[2016-07-25] MEDS: PROTONIX IV 40 MG in SODIUM CHLORIDE 100 ML IV SCH (08:03)
[2016-07-25] MEDS: COZAAR PO SCH (08:04)
[2016-07-25] MEDS: ACCUPRIL PO SCH (08:04)
[2016-07-25] MEDS: ZANAFLEX PO SCH (08:04)
[2016-07-25] MEDS: NICODERM 21 MG TD SCH (08:05)
[2016-07-25 10:30] VITALS: BP 97/67; TEMP 97
--- NOTE | 2016-07-25 10:50 | CM.DICTOOL ---
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 WITH RIGHT HEMIPARESIS, 2000 HYPERTENSION DYSLIPIDEMIA GERD URETHRA SURGERY LAST VITALS Temp Pulse Resp BP Pulse Ox 97.7 F 80 20 139/78 96 07/25/16 05:21 07/25/16 05:21 07/25/16 05:21 07/25/16 05:21 07/25/16 05:21 ACTIVE MEDICATIONS Famotidine 20 mg PO BID Losartan Potassium (Cozaar) 50 mg PO DAILY [facility] ([facility]) Last Admin: 07/25/16 08:04 Dose: 50 mg Phenytoin Sodium (Dilantin) 100 mg PO TID [facility] Last Admin: 07/25/16 08:03 Dose: 100 mg Quinapril HCl (Accupril) 40 mg PO BID [facility] Last Admin: 07/25/16 08:04 Dose: 40 mg Tizanidine HCl (Zanaflex) 4 mg PO BID [facility] Last Admin: 07/25/16 08:04 Dose: 4 mg Warfarin Sodium (Coumadin) 3 mg PO DAILY ALLERGIES No Known Allergies Allergy (Unverified 07/21/16 19:09) NEW PRESCRIPTIONS: LOSARTAN POTASSIUM (COZAAR) 50 MG, TAKE ONE TABLET BY MOUTH DAILY SMOKING: THE PATIENT IS A CURRENT HEAVY SMOKER. HE HAS BEEN PROVIDED TEACHING REGARDING ADDED RISK FACTORS WITH CONTINUED USE. HE HAS ALSO BEEN PROVIDED BENEFITS OF SMOKING CESSATION. HE USED A NICOTINE PATCH DURING THIS STAY. THE PATIENT TELLS US HE HAS STOPPED SMOKING . DISEASE SPECIFIC EDUCATION: PANCREATITIS ALCOHOL AVOIDANCE DIET ACTIVITY FOLLOW UP LAB REVIEW: 07/25/16 05:16 07/25/16 05:16 07/25/16 05:16: WBC 7.93, RBC 3.44 L, Hgb 11.2 L, Hct 31.4 L, MCV 91.3, MCH 32.6 H, MCHC 35.7 H, RDW Coeff of Audrey 12.8, Plt Count 281, Immature Gran % (Auto ) 0.4, Neut % (Auto) 66.2, Lymph % (Auto) 19.4, [place] % (Auto) 10.7 H, Eos % ( Auto) 2.8, Baso % (Auto) 0.5, Immature Gran # (Auto) 0.0, Neut # 5.3, Lymph # 1.5, [place] # 0.9, Eos # 0.2, Baso # 0.0, PT 13.8 H D, INR 1.34, Sodium 130 L, Potassium 4.1, Chloride 103, Carbon Dioxide 20 L, Anion Gap 11.1, BUN 13, Creatinine 0.99, Estimated GFR (MDRD) 75.00, BUN/Creatinine Ratio 13.13, Glucose 100, Calcium 9.1, Total Bilirubin 0.44, AST 19, ALT 25, Alkaline Phosphatase 102, Total Protein 6.6, Albumin 3.4, Globulin 3.2, Albumin/Globulin Ratio 1.06, Amylase 139 H D, Lipase 56 PLAN: DISCHARGE HOME TODAY RETURN TO SEE DR. KIMBALL IN 7-10 DAYS. RETURN TO [facility] TO HAVE LABS DRAWN ON 07/28/16 (PT/INR) RESUME YOUR HOME MEDICATIONS PER LIST PROVIDED BY THE NURSING STAFF YOU MAY RESUME YOUR COUMADIN AT THE SAME DOSE (3 MG EVERY EVENING) NEW PRESCRIPTIONS: LOSARTAN POTASSIUM (COZAAR) 50 MG, TAKE ONE TABLET BY MOUTH DAILY ACTIVITY: GET PLENTY OF REST AT HOME. GRADUALLY INCREASE YOUR ACTIVITY ACCORDING TO YOUR TOLERATION DIET: FREQUENT SMALL MEALS DAILY SUMMARY: THE PATIENT IS ALERT AND ORIENTED X3. HE HAS A SPEECH IMPEDIMENT BY HISTORY. HE IS ABLE TO COMMUNICATE EFFECTIVELY DESPITE HIS DIFFICULTY. CURRRENTLY HE RESIDES AT HOME ALONE. 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 THESE SERVICES WILL BE CONTINUED AFTER DISCHARGE. THE PATIENT'S SKIN TURGOR IS INTACT AND WITHOUT DECUBITUS ULCERS. HIS HYDRATION STATUS IS IMPROVED. HE HAS SHOWN GOOD CLINICAL PROGRESS DURING THIS HOSPITALIZATION. HE IS AWARE AND AGREEABLE FOR TODAY'S DISCHARGE. GLADYS BRUNO M.D.
--- NOTE | 2016-07-25 11:16 | PN ---
DATE OF SERVICE: 07/23/16 SUBJECTIVE: The patient is a 70 year old white male hospitalized with acute pancreatitis. The is alcoholic. The patient so far is feeling a lot better. His serum amylase has gone down to 571 from more 2,000 on admission, Lipase is 277. It was 10,000 on admission. The patient feels hungry and he wants to eat. He has been hungry for past 24 hours. The patient is going to be started full liquid and avoid milk and milks products and advance it to soft diet as tolerated. The patient's IV fluids will be decreased to 70cc per hour. REVIEW OF SYSTEMS: CONSTITUTIONAL: No night sweats. No fatigue, malaise, lethargy. No fever or chills. HEENT: Eyes: No visual changes. No eye pain. No eye discharge. ENT: No runny nose. No epistaxis. No sinus pain. No sore throat. No odynophagia. No congestion. RESPIRATORY: No cough, no congestion. No hemoptysis. CARDIOVASCULAR: No angina symptoms. No CHF symptoms. No atypical chest pain for CAD. No palpitations. No shortness of breath. GASTROINTESTINAL: No abdominal pain. No nausea or vomiting. No diarrhea or constipation. No hematemesis. No hematochezia. GENITOURINARY: No urgency. No frequency. No dysuria. No hematuria. No obstructive symptoms. No discharge. No pain. No significant abnormal bleeding. MUSCULOSKELETAL: No musculoskeletal pain; no joint swelling. NEUROLOGICAL: No headache. No neck pain. No syncope. No seizures. No dizziness. PSYCHIATRIC: Not anxious. No depression. No suicidal thoughts. No homicidal thoughts. SKIN: No rash. No lesions. No wounds. ENDOCRINE: No unexplained weight loss. No weight gain. HEMATOLOGIC/LYMPHATIC: No anemia. No purpura. No petechiae. No prolonged or excessive bleeding. No palpable lymph nodes. PHYSICAL EXAMINATION: GENERAL: The patient is oriented to time, place and person. VITAL SIGNS: Temperature 97, pulse 80, respiratory rate 18, blood pressure 160/ 75 and pulse ox 95%. HEENT: Head normocephalic, atraumatic. Eyes: Extraocular muscles are intact. Pupils are equal, round and reactive to light and accommodation. Ears: No lesions. Nose appeared normal. Throat: No exudate or erythema. NECK: Supple. No JVD, no carotid bruit. No lymphadenopathy or thyromegaly. LUNGS: Decreased breath sound but clear to auscultation. Percussion note normal. Chest symmetrical. HEART: S1, S2, no S3. No murmurs. No cyanosis or clubbing. No ascites. Pulses: Dorsalis pedis and posterior tibial pulses +1 to +2 both sides. ABDOMEN: Soft. Nontender. Bowel sounds active. No CVA tenderness. No mass felt. EXTREMITIES: No edema. Full range of motion of all extremities, equal. NEUROLOGIC: No focal deficit. Cranial nerves II through XII are grossly intact. No headache, no double vision or headache. SKIN: Not dry. Intact. Turgor - normal. LYMPHATIC: No palpable lymph nodes/no lymphedema. MUSCULOSKELETAL: Normal joints with no swelling. Muscle tone is normal. LABS: Hgb 10.2, hct 30, WBC 6,500 normal differential, creatinine 0.9, BUN 17, potassium 4.6, glucose 95, amylase 531 and lipase 270. ASSESSMENT: 1. Acute pancreatitis seems to be resolving 2. Alcoholism with no evidence of DT the patient is on Thiamine 3. Chronic heavy smoking with chronic lung disease 4. Right Hemiparesis with left CVA, 15 years ago 5. Hypertension 6. Dyslipidemia PLAN: 1. As above start liquid and advance it to soft diet 2. Alcohol discussed with pancreatis, refuses to put away or refuses any help for alcoholism 3. For smoking he has started having Nicotine patch then smoked at the hospital 4. INR is 2.6 today 5. Dilantin level and add Cozaar 50mg to bring the systolic below 140. CONDITION: Stable TIME SPENT: More than 30 minutes. Plan and coordination of the patient's care discussed in the presence of nurse. JOSE E
--- NOTE | 2016-07-27 11:06 | DS ---
DATE OF SERVICE: 07/25/16 FINAL DIAGNOSIS: 1. Acute pancreatitis 2. Coronary artery disease 3. Chronic lung disease (Heavy smoker-stopped smoking 07/10) 4. Subpleural nodular opacity, right upper lobe 1.3x1.6cm (CT chest 07/21/16) 5. Alcoholism 6. Carotid occlusive disease (carotid Doppler ultrasound 01/16/15) 7. Left ICA complete occlusion, mild stenosis of proximal right ICA 8. CVA with right hemiparesis, 2000 9. Hypertension 10.Dyslipidemia 11.GERD 12.Urethra surgery LAST VITALS: Temperature 97.7, pulse 80, respiratory rate 20, blood pressure 139/79 and pulse ox 96%. DISCHARGE INSTRUCTIONS: Discharge home today. Return to see Dr. Hays in 7-10 days. Return to [facility] to have labs drawn on 07/28/16(PT/INR). Resume home medication as per list provided by the nursing staff. May resume Coumadin at the same dose (3mg every evening) MEDICATIONS AT DISCHARGE: Cozaar 50mg PO daily Dilantin 100mg PO three times a day Accupril 40mg Po twice a day Zanaflex 4mg PO twice a day Coumadin 3mg PO daily ALLERGIES: No known allergies NEW PRESCRIPTIONS: Cozaar 50mg take one tablet by mouth daily DIET INSTRUCTIONS: Frequent small meals daily ACTIVITY: Get plenty of rest at home. Gradually increase activity according to toleration. SMOKING: The patient is a current heavy smoker. He has been provided teaching regarding added risk factors with continued use. He has also been provided benefits of smoking cessation. he used a nicotine patch during this stay. The patient tells us he has stopped smoking. DISEASE SPECIFIC EDUCATION: Pancreatitis Alcohol avoidance Diet Activity Followup HOSPITAL COURSE: The patient is a 70 year old white male was hospitalized with acute pancreatitis. The patient's lipase was more than 10,000 and amylase was more than 2,000. Within few days that patient's amylase and lipase returned to normal. On the very first day within 24 hours he was hungry and ready to eat. He was kept NPO for nearly two days. At the time of discharge he is eating normally and he does not have any nausea, no vomiting and no abdominal pain. His bowel movements are regular and his amylase and lipase are normal. The patient's condition is normal and he was discharged in stable condition to be followed as an outpatient. He has declined any help for alcoholism and also advised to quit smoking. He is wearing the patch and he says that he is going to try to quit smoking. The patient had subpleural nodular in the right upper lobe 1.6x1.3cm this is larger than both prior studies. Given the change in the size the patient has been recommended PET CT scan. At present time the patient has declined to undergo. He wants to go home. The patient also has coronary artery disease by CT scan. He is has no symptoms. CONDITION: Stable. TIME SPENT: More than 60 minutes. JOSE E
--- NOTE | 2016-07-27 11:07 | PN ---
07/21/16: Level 5 07/22/16: Intermediate 07/23/16: Intermediate 07/24/16: Intermediate 07/25/16: D as in discharge MTDD
--- NOTE | 2016-07-27 11:21 | PN ---
DATE OF SERVICE: 07/25/16 SUBJECTIVE: The patient is a 70 year old white male hospitalized with acute pancreatitis which resulted from alcohol intake. The patient is intelligent and explained about it. He was strongly advised to quit drinking alcohol, he agreed. REVIEW OF SYSTEMS: CONSTITUTIONAL: No night sweats. No fatigue, malaise, lethargy. No fever or chills. HEENT: Eyes: No visual changes. No eye pain. No eye discharge. ENT: No runny nose. No epistaxis. No sinus pain. No sore throat. No odynophagia. No congestion. RESPIRATORY: No cough, no congestion. No hemoptysis. CARDIOVASCULAR: No angina symptoms. No CHF symptoms. No atypical chest pain for CAD. No palpitations. No shortness of breath. GASTROINTESTINAL: No abdominal pain. No nausea or vomiting. No diarrhea or constipation. No hematemesis. No hematochezia. GENITOURINARY: No urgency. No frequency. No dysuria. No hematuria. No obstructive symptoms. No discharge. No pain. No significant abnormal bleeding. MUSCULOSKELETAL: No musculoskeletal pain; no joint swelling. NEUROLOGICAL: No headache. No neck pain. No syncope. No seizures. No dizziness. PSYCHIATRIC: Not anxious. No depression. No suicidal thoughts. No homicidal thoughts. SKIN: No rash. No lesions. No wounds. ENDOCRINE: No unexplained weight loss. No weight gain. HEMATOLOGIC/LYMPHATIC: No anemia. No purpura. No petechiae. No prolonged or excessive bleeding. No palpable lymph nodes. PHYSICAL EXAMINATION: GENERAL: The patient is oriented to time, place and person. VITAL SIGNS: Temperature 97.7, pulse 80, respiratory rate 20, blood pressure 139 /78 and pulse 96%. HEENT: Head normocephalic, atraumatic. Eyes: Extraocular muscles are intact. Pupils are equal, round and reactive to light and accommodation. Ears: No lesions. Nose appeared normal. Throat: No exudate or erythema. NECK: Supple. No JVD, no carotid bruit. No lymphadenopathy or thyromegaly. LUNGS: Decreased breath sounds but clear to auscultation. Percussion note normal. Chest symmetrical. HEART: S1, S2, no S3. No murmurs. No cyanosis or clubbing. No ascites. Pulses: Dorsalis pedis and posterior tibial pulses +1 to +2 both sides. ABDOMEN: Soft. Nontender. Bowel sounds active. No CVA tenderness. No mass felt. EXTREMITIES: No edema. Full range of motion of all extremities, equal. NEUROLOGIC: No focal deficit. Cranial nerves II through XII are grossly intact. No headache, no double vision or headache. SKIN: Not dry. Intact. Turgor - normal. LYMPHATIC: No palpable lymph nodes/no lymphedema. MUSCULOSKELETAL: Normal joints with no swelling. Muscle tone is normal. LABS: Hgb 11.2, hct 31, WBC 7,900 normal differential, creatinine 0.9, BUN 13, potassium 4.1. The patient's lipase and amylase is normal. ASSESSMENT: 1. Acute pancreatitis, clinically as well as labs wynn resolved 2. Alcoholism 3. Chronic lung disease 4. CVA 5. Hypertension PLAN: 1. Discharge patient home 2. Advise to discontinued alcohol completely 3. Small multiple meals everyday, large meal can stimulate the pancreas and cause pancreatitis CONDITION: Stable PROGNOSIS: Poor because he is non-complaint and he is not going to listen. He is going to continue to smoke and drink. TIME SPENT: More than 30 minutes. Plan and coordination of the patient's care discussed in the presence of nurse. JOSE E
== END 2016-07-25 11:40 | disposition home or self-care (01) | DRG 439 ==
LOC: ED 18:42 → MEDSURG B 20:57
PROVIDERS: ADMIT Internal Medicine; ATTEND Internal Medicine
DX: K85.90 Acute pancreatitis without necrosis or infection, unspecified (principal); I69.351 Hemiplegia and hemiparesis following cerebral infarction affecting right dominant side; R91.1 Solitary pulmonary nodule; R06.02 Shortness of breath; I10 Essential (primary) hypertension; I25.10 Atherosclerotic heart disease of native coronary artery without angina pectoris; J44.9 Chronic obstructive pulmonary disease, unspecified; E78.5 Hyperlipidemia, unspecified; F10.20 Alcohol dependence, uncomplicated; F17.200 Nicotine dependence, unspecified, uncomplicated; Z86.79 Personal history of other diseases of the circulatory system; Z79.01 Long term (current) use of anticoagulants; Z79.899 Other long term (current) drug therapy
CPT/HCPCS: 36415; 80053; 80185; 80307; 82150; 82550; 82553; 82803; 83690; 83880; 84484; 85025; 85379; 85610; 87040; 93005; 93010; 94640; 96361; 96365; 96366; 96375; 99284; 99285

== ENCOUNTER 2016-07-28 07:58 | Outpatient (CLI) ==
[2016-07-28 08:38] LABS: PROTHROMBIN TIME 11.6 SEC (9.3-11.0)
== END 2016-07-28 07:59 | disposition home or self-care (01) ==
LOC: LAB 07:58
PROVIDERS: ATTEND Internal Medicine
DX: Z51.81 Encounter for therapeutic drug level monitoring (principal); Z79.01 Long term (current) use of anticoagulants
CPT/HCPCS: 36415; 85610

== ENCOUNTER 2016-08-14 10:09 | Outpatient (CLI) ==
[2016-08-14 11:03] LABS: PROTHROMBIN TIME 24.9 SEC (9.3-11.0)
== END 2016-08-14 10:10 | disposition home or self-care (01) ==
LOC: LAB 10:09
PROVIDERS: ATTEND Internal Medicine
DX: Z51.81 Encounter for therapeutic drug level monitoring (principal); Z79.899 Other long term (current) drug therapy; I63.50 Cerebral infarction due to unspecified occlusion or stenosis of unspecified cerebral artery
CPT/HCPCS: 36415; 85610

== ENCOUNTER 2017-04-04 07:20 | Outpatient (CLI) ==
--- NOTE | 2017-04-04 09:53 | CT ---
EXAM: CT THORAX HISTORY: Solitary pulmonary nodule. TECHNIQUE: CT thorax without intravenous contrast. Multiplanar images presented. Coronal and sagit shandra re-formations. COMPARISON: 07/21/2016 FINDINGS: Normal heart size. No pericardial effusion. Moderately severe atherosclerotic disease. No gross me diastinal or hilar mass/lymphadenopathy within limits of this unenhanced exam. Lungs reveal evidence of moderate emphysema. There is biapical paraseptal emphysema and irregular pl europarenchymal thickening, the latter likely related to fibrosis. Redemonstration of the posterior right apical irregular opacity mentioned previously has indeterminate currently measuring approximate ly 9.1 x 13.6 x 12.8 mm. This does not appear noticeably changed in size since previous exam and may be related to fibrosis. No obvious acute infiltrates. No vascular congestion or pleural fluid. The bones reveal exaggerated thoracic kyphosis. Incidental note of a 1.7 cm low attenuation lesion o f the anterior right hepatic lobe which is stable, possibly a cyst. IMPRESSION: 1. Moderate pulmonary emphysema with biapical irregular pleuroparenchymal thickening likely fibrotic in nature. The aforementioned posterior right upper lung nodule is not changed in size and may be pa rt of the fibrosis. 2. Moderately severe atherosclerotic disease.
== END 2017-04-04 07:21 | disposition home or self-care (01) ==
LOC: RAD 07:20
PROVIDERS: ATTEND Internal Medicine Pulmonary Disease
DX: R91.1 Solitary pulmonary nodule (principal); J43.2 Centrilobular emphysema
CPT/HCPCS: 36415; 82565; 84520

== ENCOUNTER 2017-04-05 20:28 | Outpatient (CLI) | END 2017-04-05 20:46 | disposition home or self-care (01) | LOC: AMBL 20:28 | PROVIDERS: ATTEND Emergency Medicine | DX: M54.5 Low back pain (principal) ==

== ENCOUNTER 2017-04-28 15:50 | Emergency (ER) ==
[2017-04-28 15:59] VITALS: BP 153/79; TEMP 100.3; BMI 20.6
--- NOTE | 2017-04-28 16:59 | ED.PDOC ---
General ED Provider: Dr. STEPHANIE GREEN Chief Complaint: Fall Stated Complaint: Lt hip pain. Onset after falling at home yesterday; Daughter states he recently fell resulting in 3 right rib fractures.Hx of CVA with Rt sided hemiplegia Time Seen by Physician: 17:15 Mode of Arrival: Wheelchair Information Source: Patient, Family Primary Care Provider: GLADYS JUDD Referred to ED by: PCP Nursing and Triage Documentation Reviewed and Agree: Yes Reviewed sepsis parameters & appropriate labs ordered?: Yes System Inflammatory Response Syndrome: Not Applicable Sepsis Protocol: For patient's 13 years and over: Temp is 96.8 and below OR 101 and greater Pulse >90 BPM Resp >20/minute Acutely Altered Mental Status Are patient's symptoms suggestive of a new infection, such as: -Pneumonia -Skin, Soft Tissue -Endocarditis -UTI -Bone, Joint Infection -Implantable Device -Acute Abdominal Infection -Wound Infection -Meningitis -Blood Stream Catheter Infection -Unknown System Inflammatory Response Syndrome: Not Applicable Musculoskeletal Complaint Exam - Hip/Pelvis Complaint/Exam Location of Pain: Reports: Right, Left Mechanism of Injury: Reports: Trauma Symptoms Are: Still present Initial Severity: Moderate Current Severity: Moderate Location: Reports: Diffuse Character: Reports: Sharp Aggravating: Reports: Movement Alleviating: Reports: None Associated Signs and Symptoms: Reports: Weakness Able to Bear Weight: No Review of Systems - Review Of Systems Constitutional: Reports: No symptoms, Fever, Weakness Eyes: Reports: No symptoms Ears, Nose, Mouth, Throat: Reports: No symptoms Respiratory: Reports: Cough Cardiac: Reports: No symptoms GI: Reports: No symptoms : Reports: No symptoms Musculoskeletal: Reports: No symptoms, Back pain, Joint pain, Joint swelling Skin: Reports: No symptoms Neurological: Reports: Other (Rt Hemiplegia) All Other Systems: Reviewed and Negative Past Medical History - Past Medical History Endocrine: Reports: None Cardiovascular: Reports: Hypertension Respiratory: Reports: None Hematological: Reports: None Gastrointestinal: Reports: None Genitourinary: Reports: None Neuro/Psych: Reports: CVA Musculoskeletal: Reports: Other Cancer: Reports: None - Surgical History General Surgical History: Reports: Other (URETHRA SURGERY) - Family History Family History: Reports: Unknown - Social History Smoking Status: Current every day smoker Hx Substance Use: No Alcohol Screening: Heavy - Immunizations Tetanus Shot up to Date: Yes Physical Exam - Physical Exam Appearance: Thin Ill-appearing: Moderate Pain Distress: Moderate Eyes: BRANDON, EOMI, Conjunctiva clear ENT: Ears normal, Nose normal, Oropharynx normal Neck: Nonsupple Respiratory: Airway patent, Breath sounds clear, Breath sounds equal Cardiovascular: RRR, Pulses normal, No rub GI/: Soft, Nontender, No masses, Tender Musculoskeletal: Normal strength, ROM intact, No edema Skin: Warm, Dry, Normal color Neurological: Motor intact (hemiplegic RUE/RLE), Alert Psychiatric: Affect appropriate (Has dysrthria/confusion/disorientation ) Critical Care Note - Critical Care Note Total Time (mins): 30 Course - Course Hematology/Chemistry: 04/28/17 17:20 04/28/17 17:20 Orders, Labs, Meds: Lab Review 04/28/17 04/28/17 04/28/17 17:20 17:20 17:20 WBC 11.91 H RBC 3.08 L Hgb 10.2 L Hct 28.8 L MCV 93.5 MCH 33.1 H MCHC 35.4 RDW Coeff of Audrey 12.8 Plt Count 262 Immature Gran % (Auto) 0.7 Neut % (Auto) 77.0 Lymph % (Auto) 11.5 Harvey % (Auto) 10.3 H Eos % (Auto) 0.2 Baso % (Auto) 0.3 Immature Gran # (Auto) 0.1 Neut # 9.2 H Lymph # 1.4 Harvey # 1.2 Eos # 0.0 Baso # 0.0 PT INR Sodium 136 Potassium 4.1 Chloride 104 Carbon Dioxide 23 Anion Gap 13.1 BUN 34 H Creatinine 1.34 H Estimated GFR (MDRD) 53.00 BUN/Creatinine Ratio 25.37 Glucose 82 Lactic Acid Calcium 9.7 Total Bilirubin 0.3 AST 30 ALT 33 Alkaline Phosphatase 100 Total Protein 7.0 Albumin 3.8 Globulin 3.2 Albumin/Globulin Ratio 1.19 Lipase 18 Procalcitonin 0.22 Urine Color Urine Clarity Urine pH Ur Specific [place] Urine Protein Urine Glucose (UA) Urine Ketones Urine Blood Urine Nitrite Urine Bilirubin Urine Urobilinogen Ur Leukocyte Esterase Urine Microscopic RBC Urine Microscopic WBC Ur Squamous Epith Cells Ur Renal Epithelial Cell Amorphous Sediment Urine Bacteria Hyaline Casts Urine Mucus 04/28/17 04/28/17 04/28/17 17:20 17:20 17:51 WBC RBC Hgb Hct MCV MCH MCHC RDW Coeff of Audrey Plt Count Immature Gran % (Auto) Neut % (Auto) Lymph % (Auto) Harvey % (Auto) Eos % (Auto) Baso % (Auto) Immature Gran # (Auto) Neut # Lymph # Harvey # Eos # Baso # PT 33.0 H INR 3.36 Sodium Potassium Chloride Carbon Dioxide Anion Gap BUN Creatinine Estimated GFR (MDRD) BUN/Creatinine Ratio Glucose Lactic Acid 14.1 Calcium Total Bilirubin AST ALT Alkaline Phosphatase Total Protein Albumin Globulin Albumin/Globulin Ratio Lipase Procalcitonin Urine Color Yellow Urine Clarity Clear Urine pH 5.5 Ur Specific [place] 1.020 Urine Protein Trace Urine Glucose (UA) Negative Urine Ketones Negative Urine Blood Trace-lysed Urine Nitrite Negative Urine Bilirubin Negative Urine Urobilinogen 0.2 Ur Leukocyte Esterase Negative Urine Microscopic RBC 2-5 Urine Microscopic WBC 0-2 Ur Squamous Epith Cells Not present Ur Renal Epithelial Cell 0-2 Amorphous Sediment Trace Urine Bacteria Trace Hyaline Casts 0-2 Urine Mucus Trace Orders Category Date Time Status EKG-(ED ONLY) Stat CARDIO 04/28/17 18:29 Ordered BLOOD CULTURE (ED ONLY) Stat LAB 04/28/17 17:20 Received CBC W/ AUTO DIFF Stat LAB 04/28/17 17:20 Completed CMP [COMPREHENSIVE METABOLIC PANEL] Stat LAB 04/28/17 17:20 Completed LACTIC ACID Stat LAB 04/28/17 17:20 Completed LIPASE Stat LAB 04/28/17 17:20 Completed PROCALCITONIN Stat LAB 04/28/17 17:20 Completed PT WITH INR Stat LAB 04/28/17 17:20 Completed URINALYSIS C & S IF INDICATED Stat LAB 04/28/17 17:51 Completed CHEST, 2 VIEWS PA & LAT Stat RADS 04/28/17 16:[address] ABDOMEN/PELVIS WO CONTRAST Stat RADS 04/28/17 16:[address] HIP LEFT WITHOUT CONTRAST Stat RADS 04/28/17 16:[address] LUMBAR SPINE W/O CONTRAST Stat RADS 04/28/17 16:45 Completed Vital Signs: Temp Pulse Resp BP Pulse Ox 04/28/17 15:53 100.3 F H 103 H 20 153/79 H 98 Departure - Departure Time of Disposition: 19:30 Disposition: TSF SHORT-TRM HOSP Discharge Problem: Pelvic fracture, Sacral fracture, Retroperitoneal hematoma Condition: Fair Pt referred to PMD for follow-up: No IPMP verified?: No Additional Instructions: Discussed with Dr Judd and explained condition /xray result/ Request transfer to Ortho in [facility] Discussed case with DR Clay of ortho service at [facility] who agreed to consult if patient transferred/call hospitalist/Dicuss with Dr Lopez who advised pt should be on trauma service therefore spoke with Dr Chacko Gen Surgeon who agreed to accept patient. Allergies/Adverse Reactions: Allergies No Known Allergies Allergy (Verified 04/28/17 16:03) Home Medications: Ambulatory Orders Phenytoin Cap [Dilantin] 100 mg PO TID 07/21/16 Quinapril HCl 40 mg PO BID 07/21/16 Warfarin Sodium [Coumadin] 3 mg PO DAILY 07/21/16 Ezetimibe/Simvastatin [Ezetimibe-Simvastatin 10-40 mg] 1 tab PO DAILY 04/28/17 Ferrous Sulfate 325 mg PO BID BREAKFAST&LUNCH 04/28/17 Oxycodone HCl/Acetaminophen [Oxycodon-Acetaminophen 7.5-325] 1 tab PO Q4-6H PRN 04/28/17 Pantoprazole Sodium 40 mg PO BID 04/28/17 Sucralfate 1 gm PO QID 04/28/17 Transfer Form Completed: Yes Disposition Discussed With: Patient, Family (Results of lab discussed with accepting physician; INR at 3.36, result called to ICU by Dave PHAN)
--- NOTE | 2017-04-28 17:23 | CT ---
EXAM: CT ABDOMEN AND PELVIS HISTORY: Abdominal pain TECHNIQUE: CT abdomen and pelvis without intravenous contrast. Images were reconstructed using 3 mm section thickness. Reformations were prepared. COMPARISON: 07/21/2016 FINDINGS: Diagnostic limitations exist without including contrast enhanced images. No focal hepatic or splenic lesions. Gallbladder, pancreas and adrenal glands reveal no acute finding. Renal cortical masses ap pear grossly stable and may represent cysts. One 2 cm entity of the lateral right renal cortex shoul d be evaluated by ultrasound. No hydronephrosis. Severe atherosclerotic disease. No gastric distension. Normal appendix. Nonobstructive bowel gas pattern. Urinary bladder within n ormal limits. Mild prostate enlargement. There is stranding of the lower anterior abdominal omentum . There is a small high-density fluid collection in the right anterior retroperitoneum placing minim al mass effect on the urinary bladder probably a hematoma. Bones are demineralized. There is a fracture of the anterior aspect of the right pubic bone which is new and may account for the hematoma and omental stranding. There is a new fracture of the right sac ral body. Old fracture of the right acetabulum. No pneumoperitoneum. Lung bases are clear. IMPRESSION: 1. New fractures involving the anterior right pubic bone and the right sacral body with a small lowe r anterior retroperitoneal hematoma. Old fracture of the right acetabulum incompletely united. 2. Masses of the renal cortices may represent cysts. Especially one lateral proximally 2 cm right r enal cortical finding should be followed by ultrasound on a non emergent basis.
--- NOTE | 2017-04-28 17:31 | CT ---
EXAM: CT left hip without intravenous contrast 04/28/2017. Sagittal and coronal reformatted images obtained HISTORY: Pain COMPARISON: 07/21/2016 FINDINGS: No gross soft tissue abnormality. The visualized portion of the bony pelvis appears intac t. The left hip aligns normally. The proximal femur is intact. Mild chronic osteoarthritic degenerative change. No fracture or dislocation. IMPRESSION: No acute process.
--- NOTE | 2017-04-28 17:32 | CT ---
Exam: CT scan of lumbar spine. Date: 04/28/2017. Comparison: None. HISTORY: Fell with pain. TECHNIQUE: Helical scan of the lumbar spine was performed. FINDINGS: There are five lumbar vertebral bodies with 13 degrees of levoscoliosis. There is straigh tening of the normal lumbar lordosis. There is mild loss of intervertebral disc space height at L5-S 1. The vertebral body heights are maintained at all levels. No spondylolysis or spondylolisthesis i s seen. Vascular calcifications are present. Segmental analysis: T12-L1: There is a fracture through the medial left 12th rib at the costovertebral junction with poss ible associated nondisplaced fracture of the left T12 transverse process. There is no significant im pression upon the thecal sac. The foramen are patent. L1-2: There is a possible transverse fracture of the left L1 transverse process. There is no signif icant impression upon the thecal sac. There is mild right neural foraminal narrowing from facet hype rtrophy. L2-3: There is central canal stenosis from diffuse disc bulge which extends into the right neural fo ramen. The canal diameter measures just under 1 cm. There is mild right neural foraminal narrowing. L3-4: There is diffuse disc bulge with an impression upon the thecal sac, but the canal diameter exc eeds 1 cm. There is mild right neural foraminal narrowing from facet ligamentum flavum hypertrophy. L4-5: There is a diffuse disc bulge with mild impression upon the thecal sac. There is mild right n eural foraminal narrowing from facet ligamentum flavum hypertrophy. L5-S1: There is mild diffuse disc bulge with mild impression upon the thecal sac. The foramen are p atent. There is a vertical nondisplaced fracture through the right sacral ala. Impression: There is a vertical nondisplaced fracture through the right sacral ala with a fracture t hrough the medial left 12th rib at the costovertebral junction with possible associated nondisplaced fracture of the left T12 and left L1 transverse processes. In addition, there is subtle diffuse scler osis involving the sacrum which could indicate additional fractures through the body of the sacrum. I f further evaluation is needed then MRI may be of value. Multilevel degenerative changes as described above including central canal stenosis at L2-3.
--- NOTE | 2017-04-28 17:56 | DI ---
EXAM: Chest two views HISTORY: Pain COMPARISON: 02/28/2016 TECHNIQUE: Two views of the chest were performed FINDINGS: No airspace consolidation. Granulomatous calcification. Emphysematous change. Chronic mavis cification or postsurgical change right lung apex. There is no pleural effusion or pneumothorax. The heart is normal in size. The mediastinal contour is unchanged, noting atherosclerosis. There are n o acute abnormalities of the bones. IMPRESSION: Emphysematous change. No acute cardiopulmonary process.
--- NOTE | 2017-05-01 13:23 | ER ---
DATE OF SERVICE: 04/28/2017 HISTORY OF PRESENT ILLNESS: This 71-year-old male was brought to the emergency room late this afternoon by his family with report that he had sustained multiple falls recently. He fell last Sunday and required evaluation at [facility] ER and was advised that he had fractured right ribs. Today apparently he fell again sustaining injuries to his hip and pelvis and could not bear weight. The patient has a known past history of a previous old left-sided CVA with right-sided hemiplegia and hemiparesis. The patient does not answer questions well. He has a degree of dysarthria and has difficulty with some degree of comprehension. PAST MEDICAL HISTORY: Significant in addition to the CVA of pancreatitis, a lung nodule, hypertension , hyperlipidemia, chronic pain, gastroesophageal reflux and chronic Coumadin therapy. In addition, he has a known history of moderate pulmonary emphysema and a posterior right upper lung nodule which has not changed from previous CT scan from March. PHYSICAL EXAMINATION: Examination was performed revealing the patient's vital signs: BP 153/79, pulse 103, respirations, 02 sat 98%, temperature 100.3. He was pleasant, alert and cooperative to examination. He has a significant degree of dysarthria and difficulties with dysarthria. HEENT: Clear. NECK: Soft and supple. No adenopathy. CHEST: Auscultation reveals lungs to be clear. CARDIAC: Regular rate and rhythm. ABDOMEN: Soft, tenderness to palpation in the right lower quadrant with guarding with no rebound. Bowel sounds are normoactive. MUSCULOSKELETAL: Revealed significant tenderness to palpation about his pelvis and low back. LOWER EXTREMITIES: Reveals the left lower extremity to be straightened with no evidence of external rotation or shortening. He has difficulty with movement of the right lower extremity because of his previous stroke. DIAGNOSTIC LABS: Were obtained including serum chemistry and hematology. His x-rays demonstrated chest x-ray showing emphysematous changes. CT scan of the left hip shows no evidence of fracture. CT scan of the pelvis and abdomen demonstrates evidence of a vertical nondisplaced fracture through the right sacral ala,fracture through the medial left 12th rib at the costovertebral junction and associated nondisplaced fracture left T12 and left L1. In addition there is subtle sclerosis involving the sacrum suspicious for additional fracture through the body of the sacrum. There is multiple level degenerative disk disease. In addition, images on the CT scan of the abdomen showed findings suggestive of a small lower anterior retroperitoneal hematoma, fractures involving anterior right pubic bone and right cerebral body. ASSESSMENT: 1. MULTIPLE PELVIC FRACTURES 2. SACRAL FRACTURE 3. RIB FRACTURES 4. HYPERTENSION 5. HISTORY OF PANCREATITIS 6. HISTORY OF PREVIOUS CVA PLAN: I consulted Dr. Judd who recommended transferring the patient to [facility] or [facility]. Orthopedic solution specialist at [facility] was consulted, Dr. Clay , who agreed to see the patient in consult, recommended consulting with the hospitalist. I spoke with Dr. Feliciano, the hospitalist, who agreed to see the patient in consult but because of this being a trauma patient it was finally suggested we consult with general surgery; therefore, Dr. Chacko was contacted. The case was discussed with her, she was very cordial and agreed to accept the patient in transfer and would admit the patient to the ICU. Additional evaluation including a PT/INR will be obtained because of the patient's history of being on Coumadin therapy. At this time, the patient has an IV running of 0.9 NS at 80 cc/hr. He has remained clinically stable throughout the course of this ER stay. Results of my findings and plan of treatment were then explained to the patient's family with their stated understanding and in agreement. JOSE E
== END 2017-04-28 19:20 | disposition short-term general hospital (02) ==
LOC: ED 15:50
DX: S32.10XA Unspecified fracture of sacrum, initial encounter for closed fracture (principal); S32.9XXA Fracture of unspecified parts of lumbosacral spine and pelvis, initial encounter for closed fracture; S36.892A Contusion of other intra-abdominal organs, initial encounter; I69.351 Hemiplegia and hemiparesis following cerebral infarction affecting right dominant side; S22.41XD Multiple fractures of ribs, right side, subsequent encounter for fracture with routine healing; W19.XXXA Unspecified fall, initial encounter; I10 Essential (primary) hypertension; F17.210 Nicotine dependence, cigarettes, uncomplicated; Z79.01 Long term (current) use of anticoagulants; Z79.899 Other long term (current) drug therapy
CPT/HCPCS: 36415; 80053; 81001; 83605; 83690; 84145; 85025; 85610; 87040; 99285

== ENCOUNTER 2017-09-13 10:13 | Outpatient (CLI) | payer OTHER ==
--- NOTE | 2017-09-13 11:25 | CT ---
EXAM: CT of the abdomen pelvis without contrast History: Abdominal and pelvic pain, trauma. Comparison: CT chest 09/13/2017, CT abdomen pelvis 04/28/2017 Technique: Multiplanar CT images through the abdomen pelvis were obtained without the administration of IV contrast. Findings: Coronary calcifications. Lung bases are free of consolidation. There is a new compressio n fracture involving superior endplate of L2 with about 60% loss of height. Healing right pelvic frac tures with callous formation. Healing right sacral fracture with callus formation. There is a heali ng fracture of the left 11th and 12th lateral ribs with callus formation. Atherosclerotic vascular calcifications. No change in the right renal cysts. No renal stones and no hydronephrosis. Nonspecific bilateral perinephric stranding. No discrete gallstones identified by CT. Stable small simple hepatic cyst. Spleen is unremarkable. No peripancreatic inflammation. Adr enal glands are within normal limits. No dilated loops of bowel. No bladder wall thickening. Prost ate is not enlarged. No free air and no ascites. Scattered colonic stool. Colonic diverticulosis. Impression: 1. No acute intra-abdominal or pelvic process. 2. Colonic diverticulosis. 3. Atherosclerotic vascular disease. 4. New compression fracture of L2. 5. Healing right pelvic fractures and healing right sacral fracture. Also healing left-sided rib fr actures.
--- NOTE | 2017-09-13 11:29 | CT ---
EXAM: CT chest without contrast. HISTORY: Initial presentation for chest pain following a fall. Right pulmonary nodule. COMPARISON: 04/04/2017, 07/21/2016, 03/09/2016, 01/19/2015. TECHNIQUE: Multiple axial images of the chest were obtained without intravenous contrast. Images we re reformatted in the sagittal and coronal planes. FINDINGS: Evaluation for lymphadenopathy is limited by lack of intravenous contrast but calcified me diastinal and hilar lymph nodes are present. Heart size is normal. Atherosclerotic calcifications a re present. The ascending aorta measures up to 3.9 cm diameter. Biapical scarring noted with calcifications at the right apex. Calcified granulomatous changes are p resent. Posterior right upper lobe 1 x 0.9 cm nodule on axial image 15 present with adjacent ground- glass opacities. Mild emphysematous changes present. No consolidation, pleural effusion or pneumoth orax identified. Limited images of the upper abdomen demonstrate a right renal cyst. Old right and left-sided rib fra ctures are present. Mild superior endplate compression deformities of T12 and L2 are noted. IMPRESSION: 1. Stable right upper lobe nodule since 2014. 2. Emphysema and calcified granulomatous changes. 3. Atherosclerosis with ascending thoracic aorta measuring 3.9 cm.
== END 2017-09-13 10:14 | disposition home or self-care (01) ==
LOC: RAD 10:13
PROVIDERS: ATTEND Internal Medicine
DX: R07.9 Chest pain, unspecified (principal); W19.XXXA Unspecified fall, initial encounter; S32.9XXD Fracture of unspecified parts of lumbosacral spine and pelvis, subsequent encounter for fracture with routine healing

== ENCOUNTER 2017-10-01 08:38 | Inpatient (IN) | payer OTHER ==
[2017-10-01] MEDS ORDERED: SODIUM CHLORIDE 500 ML IV STA (08:51)
--- NOTE | 2017-10-01 09:00 | ED.PDOC ---
General ED Provider: Dr. CARTER MCCONNELL Chief Complaint: Fall Stated Complaint: fall Time Seen by Physician: 08:40 (nery present at all times ) Mode of Arrival: Ambulance Information Source: Patient, Family, EMT Exam Limitations: No limitations Primary Care Provider: GLADYS BRUNO Referred to ED by: Other (no neck pain admitts to heavy smoking) Nursing and Triage Documentation Reviewed and Agree: Yes Does patient meet sepsis criteria?: Yes If yes, has appropriate treatment been initiated?: No System Inflammatory Response Syndrome: Not Applicable Sepsis Protocol: For patient's 13 years and over: Temp is 96.8 and below OR 101 and greater Pulse >90 BPM Resp >20/minute Acutely Altered Mental Status Are patient's symptoms suggestive of a new infection, such as: -Pneumonia -Skin, Soft Tissue -Endocarditis -UTI -Bone, Joint Infection -Implantable Device -Acute Abdominal Infection -Wound Infection -Meningitis -Blood Stream Catheter Infection -Unknown Neurological Complaint Exam - Weakness Complaint/Exam Last Known Well: uncertain but frequent fall is the concer on the family and weaker no pain Onset: Gradual Duration: 1 week Symptoms Are: Still present Timing: Intermittent Episodes Lasting: Days Initial Severity: Moderate Current Severity: Mild Character: Reports: Weak Aggravating: Reports: Headache Alleviating: Reports: None Associated Signs and Symptoms: Denies: Nausea, Vomiting, Diaphoresis, Tinnitus, Chest pain, Short of air, Palpitations, Unsteady gait, GI blood loss, Visual changes, Decreased oral intake, Change in medication, Change in diet, OTC meds, Loss of balance Related History: Similar episode (falls right leg is in a BRACE AT THE LEVEL OF THE KNEE A CHRONIC ISSUE) Cardiac Risk Factors: Reports: Hypertension, Smoking CVA Risk Factors: Reports: Hypertension, Smoking Related Surgical History: Reports: None JVD Present: No Carotid Bruit Present: No Rectal Heme Positive: No Glascow Coma Scale (see protocol): 15 Nystagmus Present: Yes Gag Reflex Present: No Meningeal Signs Positive: No Focal Weakness: Present: None Focal Sensory Loss: Present: None Gait: Unable Romberg Test Positive: No (UNABLE TO PERFORM ) Heel to Toe Normal: No (UNABLE ) Differential Diagnoses: CAD, Dysrhythmia, Hypovolemia, Medication reaction, Metabolic abnormalities, Vasovagal reaction Quality Indicators for Cardiac Chest Pain: EKG in 10min. Quality Indicators for AMI: EKG in 10min. Quality Indicator For Non-Traumatic Chest Pain/Syncope: EKG Performed Review of Systems - Review Of Systems Constitutional: Reports: Malaise, Weakness Eyes: Reports: No symptoms Ears, Nose, Mouth, Throat: Reports: No symptoms Respiratory: Reports: Cough Cardiac: Reports: No symptoms GI: Reports: No symptoms : Reports: No symptoms Musculoskeletal: Reports: No symptoms Skin: Reports: No symptoms Neurological: Reports: No symptoms Endocrine: Reports: No symptoms Hematologic/Lymphatic: Reports: No symptoms All Other Systems: Reviewed and Negative Past Medical History - Past Medical History Previously Healthy: Yes Endocrine: Reports: None Cardiovascular: Reports: Hypertension Respiratory: Reports: None Hematological: Reports: None Gastrointestinal: Reports: None Genitourinary: Reports: None Neuro/Psych: Reports: CVA Musculoskeletal: Reports: Other Cancer: Reports: None - Surgical History General Surgical History: Reports: Other (URETHRA SURGERY) - Family History Family History: Reports: Unknown - Social History Smoking Status: Current every day smoker Hx Substance Use: No Alcohol Screening: Heavy - Immunizations Tetanus Shot up to Date: Yes Physical Exam - Physical Exam Appearance: Ill-appearing Ill-appearing: Mild Pain Distress: Mild Eyes: BRANDON, EOMI, Conjunctiva clear ENT: Dry mucosa Respiratory: Airway patent, Breath sounds clear, Breath sounds equal, Respirations nonlabored Cardiovascular: RRR, Pulses normal, No rub, No murmur GI/: Soft, Nontender, No masses, Bowel sounds normal, No Organomegaly Musculoskeletal: Normal strength, ROM intact, No edema, No calf tenderness Skin: Warm, Dry, Normal color Neurological: Sensation intact, Motor intact, Reflexes intact, Cranial nerves intact, Alert, Oriented Psychiatric: Affect appropriate, Mood appropriate Critical Care Note - Critical Care Note Total Time (mins): 0 Course - Course Hematology/Chemistry: 10/01/17 09:15 10/01/17 09:15 Orders, Labs, Meds: Lab Review 10/01/17 10/01/17 10/01/17 09:07 09:15 09:15 WBC 9.89 RBC 2.35 L Hgb 7.5 L Hct 22.3 L MCV 94.9 H MCH 31.9 H MCHC 33.6 RDW Coeff of Audrey 14.5 Plt Count 339 Immature Gran % (Auto) 0.5 Neut % (Auto) 81.0 Lymph % (Auto) 9.8 L [place] % (Auto) 8.4 Eos % (Auto) 0.0 Baso % (Auto) 0.3 Immature Gran # (Auto) 0.1 Neut # (Auto) 8.0 H Lymph # (Auto) 1.0 [place] # (Auto) 0.8 Eos # (Auto) 0.0 Baso # (Auto) 0.0 Puncture Site R rad O2 Saturation 99.0 ABG pH 7.500 H ABG pCO2 30.9 L ABG pO2 112.0 H ABG HCO3 24.1 ABG Total CO2 25 ABG Base Excess 1 Nico Test + FiO2 % 21.0 Sodium 135 L Potassium 4.3 Chloride 102 Carbon Dioxide 24 Anion Gap 13.3 BUN 40 H Creatinine 1.25 H Estimated GFR (MDRD) 57.00 BUN/Creatinine Ratio 32.00 Glucose 130 H Lactic Acid Calcium 9.2 Total Bilirubin 0.7 AST 15 ALT 9 L Alkaline Phosphatase 100 Total Creatine Kinase 460 CK-MB (CK-2) 2.8 CK-MB (CK-2) % 0.41463 Troponin I 0.0230 B-Natriuretic Peptide Total Protein 6.6 Albumin 3.3 L Globulin 3.3 Albumin/Globulin Ratio 1.00 Procalcitonin TSH 1.023 Free T4 0.96 10/01/17 10/01/17 10/01/17 09:15 09:15 09:15 WBC RBC Hgb Hct MCV MCH MCHC RDW Coeff of Audrey Plt Count Immature Gran % (Auto) Neut % (Auto) Lymph % (Auto) [place] % (Auto) Eos % (Auto) Baso % (Auto) Immature Gran # (Auto) Neut # (Auto) Lymph # (Auto) [place] # (Auto) Eos # (Auto) Baso # (Auto) Puncture Site O2 Saturation ABG pH ABG pCO2 ABG pO2 ABG HCO3 ABG Total CO2 ABG Base Excess Nico Test FiO2 % Sodium Potassium Chloride Carbon Dioxide Anion Gap BUN Creatinine Estimated GFR (MDRD) BUN/Creatinine Ratio Glucose Lactic Acid 11.2 Calcium Total Bilirubin AST ALT Alkaline Phosphatase Total Creatine Kinase CK-MB (CK-2) CK-MB (CK-2) % Troponin I B-Natriuretic Peptide 32 Total Protein Albumin Globulin Albumin/Globulin Ratio Procalcitonin 0.19 TSH Free T4 Orders Category Date Time Status ABG DRAW REQUEST Routine CARDIO 10/01/17 08:50 Ordered ABG DRAW REQUEST Stat CARDIO 10/01/17 09:07 Completed EKG-(ED ONLY) Stat CARDIO 10/01/17 08:49 Completed ED IV/MEDIPORT/POWERPORT .ONCE EMERGENCY 10/01/17 08:49 Active ARTERIAL BLOOD GAS [ABG] Stat LAB 10/01/17 09:07 Completed B-TYPE NATRIURETIC PEPTIDE Stat LAB 10/01/17 09:15 Completed BLOOD CULTURE Stat LAB 10/01/17 09:15 Received CBC W/ AUTO DIFF Stat LAB 10/01/17 09:15 Completed COMPREHENSIVE METABOLIC PANEL Stat LAB 10/01/17 09:15 Completed CREATINE KINASE Stat LAB 10/01/17 09:15 Completed FREE T4 (FREE THYROXINE) Stat LAB 10/01/17 09:15 Completed LACTIC ACID Stat LAB 10/01/17 09:15 Completed PROCALCITONIN Stat LAB 10/01/17 09:15 Completed THYROID STIMULATING HORMONE Stat LAB 10/01/17 09:15 Completed TROPONIN I Stat LAB 10/01/17 09:15 Completed URINALYSIS C & S IF INDICATED Stat LAB 10/01/17 08:49 Uncollected 0.9 % Sodium Chloride [Saline Flush] MEDS 10/01/17 08:49 Active 1 syr IVF PRN PRN Sodium Chloride 0.9% [Sodium Chloride] 500 ml MEDS 10/01/17 08:51 Active IV 100 mls/hr CT CHEST W/O CONTRAST Stat RADS 10/01/17 08:[address] HEAD W/O CONTRAST Stat RADS 10/01/17 08:50 Completed Medications Generic Name Dose Route Start Last Admin Trade Name Freq PRN Reason Stop Dose Admin Sodium Chloride 500 mls @ 100 mls/hr 10/01/17 08:51 10/01/17 09:38 Sodium Chloride IV 10/01/17 13:50 100 mls/hr .Q5H STA Administration Sodium Chloride 1 syr 10/01/17 08:49 Saline Flush IVF PRN PRN To flush IV Vital Signs: Temp Pulse Resp BP Pulse Ox 10/01/17 08:38 98.6 F 93 H 16 123/82 100 Departure - Departure Time of Disposition: 11:00 Disposition: ADMITTED INPATIENT Discharge Problem: Weakness, Renal insufficiency Anemia Qualifiers: Anemia type: unspecified type Qualified Code(s): D64.9 - Anemia, unspecified Instructions: Weakness (ED) Condition: Good Pt referred to PMD for follow-up: Yes IPMP verified?: No Additional Instructions: Please call your Family Physician as soon as possible to schedule a follow-up appointment. Allergies/Adverse Reactions: Allergies No Known Allergies Allergy (Verified 04/28/17 16:03) Home Medications: Ambulatory Orders Phenytoin Cap [Dilantin] 100 mg PO TID 07/21/16 Quinapril HCl 40 mg PO BID 07/21/16 Warfarin Sodium [Coumadin] 3 mg PO DAILY 07/21/16 Ezetimibe/Simvastatin [Ezetimibe-Simvastatin 10-40 mg] 1 tab PO DAILY 04/28/17 Ferrous Sulfate 325 mg PO BID BREAKFAST&LUNCH 04/28/17 Oxycodone HCl/Acetaminophen [Oxycodon-Acetaminophen 7.5-325] 1 tab PO Q4-6H PRN 04/28/17 Pantoprazole Sodium 40 mg PO BID 04/28/17 Sucralfate 1 gm PO QID 04/28/17 Tizanidine HCl [Zanaflex] 4 mg PO BID 10/01/17 Triamterene/Hydrochlorothiazid [Dyazide 37.5-25 Capsule] 1 each PO 3 TIMES PER WEEK 10/01/17 Disposition Discussed With: Patient
--- NOTE | 2017-10-01 10:11 | CT ---
EXAM: CT head without contrast HISTORY: Headache with fall last night and history of seizures COMPARISON: CT head 03/09/2016 and MRI brain 06/09/2010 TECHNIQUE: Serial axial images of the brain were obtained from the skull base to the vertex without IV contrast. FINDINGS: There is a left cerebral hemisphere encephalomalacia and low attenuation extending into th e basal ganglia consistent with change of chronic infarct. There is scattered generalized volume los s throughout the intracranial contents. There is low attenuation in the remaining periventricular wh ite matter. The ventricles, cisterns and sulci are unchanged. The elizondo-white matter junction is sta ble. No midline shift or mass is identified. There is no abnormal intra or extra-axial fluid collec tion. The paranasal sinuses and mastoid air cells are clear. The osseous calvarium is intact. IMPRESSION: No acute intracranial abnormality or hemorrhage. If further evaluation is indicated, MRI may be obta ined. Scattered microangiopathy and changes of encephalomalacia and prior left-sided MCA territory stroke.
--- NOTE | 2017-10-01 10:17 | CT ---
EXAM: CT chest without contrast. HISTORY: Cough. COMPARISON: 09/13/2017, 04/04/2017, 03/09/2016. TECHNIQUE: Multiple axial images of the chest were obtained without intravenous contrast. Images we re reformatted in the sagittal and coronal planes. FINDINGS: Evaluation for lymphadenopathy is limited by lack of intravenous contrast. Calcified medi astinal and hilar lymph nodes are present. Heart size is normal. Atherosclerotic calcifications pre sent. Ascending aorta measures up to 3.8 cm diameter. No pericardial effusion detected. Calcified granulomata noted in both lungs. Biapical scarring again seen. Mild emphysematous changes are present. Nodular consolidation in the posterior right upper lobe is stable which measures appro ximately 1.1 x 0.8 cm on axial image 19. No pleural effusion or pneumothorax detected. Probable muc us in the trachea and right main bronchus. No acute abnormality identified in the upper abdomen. Old bilateral rib fractures and old T12 and L2 compression deformities again seen. IMPRESSION: 1. No acute cardiopulmonary process. 2. Stable right upper lobe micronodule, biapical scarring and evidence of prior granulomatous diseas e. 3. Emphysema. 4. Atherosclerosis. 5. Sequela of prior granulomatous disease.
[2017-10-01] MEDS ORDERED: PERCOCET 7.5-325 PO PRN (10:23)
[2017-10-01] MEDS ORDERED: THIAMINE 100 MG in SODIUM CHLORIDE 50 ML IV STA (10:29)
[2017-10-01] MEDS ORDERED: ATIVAN IVP PRN (10:31)
[2017-10-01] MEDS ORDERED: THIAMINE ONE (10:37)
[2017-10-01] MEDS ORDERED: LIBRIUM PO STA (11:32)
[2017-10-01] MEDS ORDERED: NON-FORMULARY MEDICATION (Ferrous Sulfate [Ferrous Sulfate] 325 MG) PO SCH (12:00)
[2017-10-01 12:20] VITALS: BMI 17.9
[2017-10-01] MEDS: SODIUM CHLORIDE 1,000 ML IV SCH (12:41)
[2017-10-01] MEDS: CARAFATE PO SCH ×3 (12:54→20:31)
[2017-10-01] MEDS: FERROUS SULFATE PO SCH (12:54)
--- NOTE | 2017-10-01 15:06 | HP ---
DATE OF SERVICE: 10/01/17 REASON FOR HOSPITALIZATION/HISTORY OF PRESENT ILLNESS: 72 year old white male who has a history of recurrent CVA and wheelchair bound. He has weakness on both sides due to multiple CVA's. He is a heavy drinker. He is Coumadin for the CVA apparently experienced some falls over the weekend and his daughter brought to him to the emergency room. PAST MEDICAL HISTORY: L2 compression fracture History of multiple falls Retroperitoneal hematoma History of pelvic fracture Right upper lobe nodule, stable GERD Hypertension Esophageal reflux Prostate Hypertrophy Dyslipidemia CVA with right hemiparesis Anemia Depression Alcohol Abuse COPD Elevated liver function Peripheral arterial disease Left ICA stenosis PAST SURGICAL HISTORY: Status post prostate surgery History of laminectomy years ago REVIEW OF SYSTEMS: CONSTITUTIONAL: No night sweats. No fatigue, malaise, lethargy. No fever or chills. Weakness. Pallor. HEENT: Eyes: No visual changes. No eye pain. No eye discharge. ENT: No runny nose. No epistaxis. No sinus pain. No sore throat. No odynophagia. No ear pain. No congestion. RESPIRATORY: No cough, no congestion. No hemoptysis. No shortness of breath. CARDIOVASCULAR: No angina symptoms. No CHF symptoms. No atypical chest pain for CAD. No palpitations. No PND. No orthopnea. GASTROINTESTINAL: No abdominal pain. No nausea or vomiting. No diarrhea or constipation. No hematemesis. No hematochezia. GENITOURINARY: No urgency. No frequency. No dysuria. No hematuria. No obstructive symptoms. No discharge. No pain. No significant abnormal bleeding. MUSCULOSKELETAL: No musculoskeletal pain. No joint swelling. No arthritis. NEUROLOGICAL: No headache. No neck pain. No syncope. No seizures. No dizziness. PSYCHIATRIC: Not anxious. No depression. No suicidal thoughts. No homicidal thoughts. SKIN: No rash. No lesions. No wounds. ENDOCRINE: No unexplained weight loss. No weight gain. HEMATOLOGIC/LYMPHATIC: No anemia. No purpura. No petechiae. No prolonged or excessive bleeding. No palpable lymph nodes. PERSONAL/FAMILY/SOCIAL HISTORY: The patient currently lives alone and he is wheelchair bound although tries to do most of his activities of daily living. He is a current heavy smoker, 2 packs per day for number of years. He has heavy alcohol consumption. He is . MEDICATIONS: Dilantin 100mg PO three times a day Coumadin 3mg Po daily Quinapril HCl 40mg Po twice a day Sucralfate gram PO four times a day Pantoprazole Sodium 40mg PO twice a day Oxycodone-Acetaminophen 7.5-325 PO Q 4-6 hours PRN Ferrous Sulfate 325mg PO twice a day Ezetimibe-Simvastatin 10-40 one tablet PO daily Dyazide 37.5-25mg PO MOWEFR Zanaflex 4mg Po twice a day ALLERGIES: No known allergies PHYSICAL EXAMINATION: GENERAL: The patient is alert and oriented to person and place and time. HEENT: Head normocephalic, atraumatic. Eyes: Extraocular muscles are intact. Pupils are equal, round and reactive to light and accommodation. Ears: No lesions. Nose appeared normal. Throat: No exudate or erythema. NECK: Supple. No JVD, no carotid bruit. No lymphadenopathy or thyromegaly. LUNGS: Severely diminished breath sounds bilaterally. Pallor. Clear to auscultation. Percussion note normal. Chest symmetrical. HEART: S1, S2, no S3. No murmurs. No cyanosis or clubbing. No ascites. Pulses: Dorsalis pedis and posterior tibial pulses +1 to +2 bilaterally. Regular rate and rhythm. ABDOMEN: Soft. Nontender. Bowel sounds active. No CVA tenderness. No mass felt. EXTREMITIES: No edema. Full range of motion of all extremities, equal. NEUROLOGIC: No focal deficit. Cranial nerves II through XII are grossly intact. No headache, no double vision or headache. SKIN: Not dry. Intact. Turgor - normal. LYMPHATIC: No palpable lymph nodes/no lymphedema. MUSCULOSKELETAL: Normal joints with no swelling. Muscle tone is normal. LABS: ABG on room air pH 7.5, pCO2 30.9, pO2 112, bicarb 24.1, TCO2 25, O2 saturation 99, WBC 9.89, hgb 7.5, hct 22.3, plt count 339, sodium 135, potassium 4.3, BUN 40, creatinine 1.25, GFR 57, total bilirubin 0.7, AST 15, ALT 9, Total protein 6.6, Albumin 3.3, Globulin 3.3, Free T4 0.96, TSH 0.1023, BNP 32, PT 51, INR 5.36, PTT 70.4. CT of the chest showed no acute cardiopulmonary process, stable right upper lobe nodules, emphysema and Arthrosclerosis. CT of the head without contrast showed no acute intracranial abnormality or hemorrhage. Scattered microangiopathy and changes in encephalomalacia and prior to left sided MCA stroke. ASSESSMENT: 1. Acute anemia 2. Hypercoagulation 3. Severe COPD 4. CVA with right sided hemiparesis 5. Stable right upper lobe nodule 6. Generalized weakness 7. History of falls 8. L2 compression fracture 9. GERD 10.Dyslipidemia 11.Depression 12.Alcohol abuse PLAN: 1. Will admit to the floor 2. Type and cross and transfuse two units of packed red blood cells. 3. Stool for occult blood 4. U/A 5. Routine Telemetry orders 6. CBC and CMP daily 7. PT/INR daily 8. Hold Coumadin 9. Oxygen as needed for now 10.Continue home medications 11. Thiamine 12. Add Librium 25mg three times a day scheduled PO and one now 13. Regular diet 14. IV fluids normal saline at 75cc an hour 15. Fall precautions. Will monitor closely. TIME SPENT: More than 70 minutes. JOSE E
[2017-10-01] MEDS: LIBRIUM PO SCH ×2 (16:21→20:31)
[2017-10-01] MEDS: DILANTIN PO SCH ×2 (16:22→20:31)
[2017-10-01] MEDS ORDERED: COUMADIN PO SCH (17:00)
[2017-10-01] MEDS: PROTONIX PO SCH (17:26)
[2017-10-01] MEDS: ZANAFLEX PO SCH (20:30)
[2017-10-01] MEDS: ACCUPRIL PO SCH (20:31)
[2017-10-01] MEDS ORDERED: NON-FORMULARY MEDICATION (Tizanidine Hcl [Zanaflex] 4 MG) PO SCH (21:00)
[2017-10-02] MEDS: SODIUM CHLORIDE 1,000 ML IV SCH ×2 (06:16→22:55)
[2017-10-02] MEDS: PROTONIX PO SCH ×2 (06:16→16:06)
[2017-10-02] MEDS: CARAFATE PO SCH ×4 (06:16→20:51)
[2017-10-02] MEDS ORDERED: SIMVASTATIN PO SCH (09:00)
[2017-10-02] MEDS ORDERED: EZETIMIBE PO SCH (09:00)
--- NOTE | 2017-10-02 09:52 | PCM.PROG ---
Attending Provider: ATTENDING PROVIDER: Dr. GLADYS BRUNO This patient is seen with Fanny Chaparro, Nurse Practitioner. DATE OF SERVICE: 10/02/17 SUBJECTIVE: This 72 year old WHITE/ M was hospitalized 10/01/17. Lying in bed alert. The patient had multiple falls over the weekend where he was unable to get himself up. Will do further scans on back, pelvis and hips. REVIEW OF SYSTEMS: CONSTITUTIONAL: Worsening weakness. No night sweats. No malaise, lethargy. No fever or chills. HEENT: Eyes: No visual changes. No eye pain. No eye discharge. ENT: No runny nose. No epistaxis. No sinus pain. No odynophagia. No congestion. RESPIRATORY: No cough, no congestion. No hemoptysis. No shortness of breath. CARDIOVASCULAR: No angina symptoms. No CHF symptoms. No atypical chest pain for CAD. No palpitations. No orthopnea.. GASTROINTESTINAL: No abdominal pain. No nausea or vomiting. No diarrhea or constipation. No hematemesis. No hematochezia. GENITOURINARY: No urgency. No frequency. No dysuria. No hematuria. No obstructive symptoms. No discharge. No pain. No significant abnormal bleeding. MUSCULOSKELETAL: Generalized pain. NEUROLOGICAL: Awake, alert, oriented to time, place and person. No headache. No neck pain. No syncope. No seizures. No dizziness. PSYCHIATRIC: Not anxious. No depression. No suicidal thoughts. No homicidal thoughts. SKIN: No rash. No lesions. No wounds. ENDOCRINE: No unexplained weight loss. No weight gain. HEMATOLOGIC/LYMPHATIC: Anemia. No purpura. No petechiae. No prolonged or excessive bleeding. No palpable lymph nodes. PHYSICAL EXAMINATION: GENERAL: The patient is awake, alert and oriented, lying in bed in no distress. VITAL SIGNS: Temperature 97.4 F, Pulse 81, Respiratory Rate 18, BP 121/64, Pulse Ox 100% HEENT: Head normocephalic, atraumatic. Eyes: Extraocular muscles are intact. Pupils are equal, round and reactive to light and accommodation. Ears: No lesions. Nose appeared normal. Throat: No exudate or erythema. NECK: Supple. No JVD, no carotid bruit. No lymphadenopathy or thyromegaly. LUNGS: Diminished breath sounds. Clear to auscultation. Percussion note normal. Chest symmetrical. HEART: S1, S2, no S3. No murmurs. No cyanosis or clubbing. No ascites. Pulses: Dorsalis pedis and posterior tibial pulses +1 to +2 both sides. ABDOMEN: Soft. Non-tender. Bowel sounds active. No CVA tenderness. No mass felt. EXTREMITIES: No edema. Full range of motion of all extremities, equal. NEUROLOGIC: No focal deficit. Cranial nerves II through XII are grossly intact. No headache, no double vision or headache. SKIN: Not dry. Intact. Turgor-normal. LYMPHATIC: No palpable lymph nodes/no lymphedema. MUSCULOSKELETAL: Normal joints with no swelling. Muscle tone is normal. LAB REVIEW: 10/02/17 05:00 10/02/17 05:00 10/02/17 05:00: WBC 8.92, RBC 2.79 L, Hgb 8.9 L, Hct 25.9 L, MCV 92.8, MCH 31.9 H, MCHC 34.4, RDW Coeff of Audrey 14.5, Plt Count 287, Immature Gran % (Auto) 0.7, Neut % (Auto) 73.7, Lymph % (Auto) 15.1, [place] % (Auto) 9.3, Eos % (Auto) 0.9, Baso % (Auto) 0.3, Immature Gran # (Auto) 0.1, Neut # (Auto) 6.6, Lymph # (Auto ) 1.4, [place] # (Auto) 0.8, Eos # (Auto) 0.1, Baso # (Auto) 0.0 10/02/17 05:00: Sodium 134 L, Potassium 4.2, Chloride 105, Carbon Dioxide 22 L, Anion Gap 11.2, BUN 35 H, Creatinine 1.05, Estimated GFR (MDRD) 69.00, BUN/ Creatinine Ratio 33.33, Glucose 107, Calcium 8.5, Total Bilirubin 0.6, AST 14 L , ALT 7 L, Alkaline Phosphatase 76, Total Creatine Kinase 466, CK-MB (CK-2) 2.7 , CK-MB (CK-2) % 0.01101, Troponin I 0.0110, Total Protein 5.6 L, Albumin 2.8 L , Globulin 2.8, Albumin/Globulin Ratio 1.00 10/01/17 22:51: Hgb 8.7 L, Hct 25.6 L 10/01/17 22:51: Total Creatine Kinase 388, CK-MB (CK-2) 2.2, CK-MB (CK-2) % 0.19087, Troponin I 0.0170 10/01/17 16:20: Urine Color Yellow, Urine Clarity Clear, Urine pH 6.0, Ur Specific [place] 1.015, Urine Protein Negative, Urine Glucose (UA) Negative, Urine Ketones Negative, Urine Blood Negative, Urine Nitrite Negative, Urine Bilirubin Negative, Urine Urobilinogen 0.2, Ur Leukocyte Esterase Negative 10/01/17 11:30: Blood Type O POSITIVE, Antibody Screen Negative, Crossmatch (AHG ) See Detail 10/01/17 09:15: Phenytoin 12.47 10/01/17 09:15: Blood Type O POSITIVE 10/01/17 09:15: PT 51.0 H, INR 5.36 H*, APTT 70.4 H 10/01/17 09:15: Procalcitonin 0.19 10/01/17 09:15: Lactic Acid 11.2 10/01/17 09:15: B-Natriuretic Peptide 32 10/01/17 09:15: Sodium 135 L, Potassium 4.3, Chloride 102, Carbon Dioxide 24, Anion Gap 13.3, BUN 40 H, Creatinine 1.25 H, Estimated GFR (MDRD) 57.00, BUN/ Creatinine Ratio 32.00, Glucose 130 H, Calcium 9.2, Total Bilirubin 0.7, AST 15 , ALT 9 L, Alkaline Phosphatase 100, Total Creatine Kinase 460, CK-MB (CK-2) 2.8 , CK-MB (CK-2) % 0.17934, Troponin I 0.0230, Total Protein 6.6, Albumin 3.3 L, Globulin 3.3, Albumin/Globulin Ratio 1.00, TSH 1.023, Free T4 0.96 10/01/17 09:15: WBC 9.89, RBC 2.35 L, Hgb 7.5 L, Hct 22.3 L, MCV 94.9 H, MCH 31.9 H, MCHC 33.6, RDW Coeff of Audrey 14.5, Plt Count 339, Immature Gran % (Auto) 0.5, Neut % (Auto) 81.0, Lymph % (Auto) 9.8 L, [place] % (Auto) 8.4, Eos % (Auto) 0.0, Baso % (Auto) 0.3, Immature Gran # (Auto) 0.1, Neut # (Auto) 8.0 H, Lymph # (Auto) 1.0, [place] # (Auto) 0.8, Eos # (Auto) 0.0, Baso # (Auto) 0.0 10/01/17 09:07: Puncture Site R rad, O2 Saturation 99.0, ABG pH 7.500 H, ABG pCO2 30.9 L, ABG pO2 112.0 H, ABG HCO3 24.1, ABG Total CO2 25, ABG Base Excess 1 , Nico Test +, FiO2 % 21.0 ASSESSMENT: ANEMIA HYPERCOAGULATION RECENT MULTIPLE FALLS HISTORY OF PELVIC FRACTURE HYPONATREMIA DEHYDRATION ALCHOL ABUSE COPD PLAN: 1. INR daily 2. Stool for occult blood 3. CT hips and pelvis and L-spine without contrast 4. A1C Plan and coordination of the patient's care discussed in the presence of Continuous Improvement Black Belt and nurse. CONDITION: Stable SCRIBED BY: JULIANNE PERSAUD Home Care Nurse scribed while in presence of service performed by Dr. Bruno/Fanny Chaparro APRN on 10/02/17 ([id number])
[2017-10-02] MEDS: ACCUPRIL PO SCH ×2 (10:20→20:50)
[2017-10-02] MEDS: ZANAFLEX PO SCH ×2 (10:23→20:50)
[2017-10-02] MEDS: FERROUS SULFATE PO SCH ×2 (10:23→14:57)
[2017-10-02] MEDS: DILANTIN PO SCH ×3 (10:23→20:51)
[2017-10-02] MEDS: LIBRIUM PO SCH ×3 (10:23→20:51)
[2017-10-02] MEDS: ZETIA PO SCH (10:24)
[2017-10-02] MEDS: ZOCOR PO SCH (10:24)
[2017-10-02] MEDS: NICODERM 21 MG TD SCH (10:24)
--- NOTE | 2017-10-02 14:15 | CT ---
EXAM: CT pelvis HISTORY: Fall at home, pain. TECHNIQUE: CT pelvis without contrast. Multiplanar images provided. FINDINGS: Comparison is to 09/13/2017. Bones are significantly demineralized. Redemonstration of fractures involving the right acetabulum, lower iliac and pubic bones as well as the lower right sacral ala. Some these fractures show early h ealing reaction. No definite new fracture is seen. The acetabular fracture may have slightly greater distraction when compared to previous. Hip joints are intact. The sacroiliac joints are intact. There has been development of large hematomas about the right hip laterally which are difficult to me asure due to their multilocular architecture although the largest discrete entity which is just later al to the greater trochanter measures 4.6 x 10.5 cm axial dimension. Some of these hematomas extendin g inferiorly off of the field of view. The intrapelvic structures are intact including the urinary b ladder. There is no obvious retroperitoneal hemorrhage or intraperitoneal blood product. Severe ath erosclerotic disease is incidentally noted. IMPRESSION: 1. Multiple right-sided pelvic fractures, some which have slightly greater distraction since previou s exam although no definite evidence of new fracture is seen. 2. Interval development of large right-sided hip hematomas.
--- NOTE | 2017-10-02 14:27 | CT ---
EXAM: CT lumbar spine without contrast. HISTORY: Fall at home with back pain COMPARISON: CT lumbar spine 04/28/2017 TECHNIQUE: Serial axial images of the spine were obtained from the lower thoracic spine through the pelvis without contrast. These were viewed in multiple planes. FINDINGS: Vertebral bodies demonstrate new, 60 - 70% compression fracture of the superior endplate o f L2 and mild superior endplate compression compression deformity at the T12. This area was not eval uated on prior study. There is scattered moderate facet arthropathy. There is narrowing of the lumbo sacral junction. Small posterior disc bulges are unremarkable. There is a nondisplaced posterior rig ht 12th rib fracture. There are healing changes of old right sacral fracture. L1-L2: There is mild facet arthropathy with no central or neural foraminal narrowing. L2-L3: Broad-based disc bulge and facet arthropathy with no significant central or neural L3-L4: Broad-based disc bulge with facet arthropathy with no significant central or neural foraminal narrowing. L4-L5: Broad-based disc bulge with facet arthropathy and no significant neural foraminal narrowing. L5-S1: Disc space narrowing with posterior disc osteophyte Limited views of the soft tissues are unchanged. IMPRESSION: 1. New compression fracture at L2 with questionable superior endplate deformity at T12. 2. 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 3. Nondisplaced right 12th rib fracture.
[2017-10-02] MEDS ORDERED: VITAMIN K ORAL SOLUTION 5 MG/5 ML PO STA (15:11)
[2017-10-02] MEDS: TORADOL IVP SCH ×2 (16:02→20:46)
[2017-10-03] MEDS: PROTONIX PO SCH ×2 (05:50→17:19)
[2017-10-03] MEDS: TORADOL IVP SCH (05:50)
[2017-10-03] MEDS: CARAFATE PO SCH ×4 (05:50→21:05)
[2017-10-03] MEDS: ZOCOR PO SCH (09:23)
[2017-10-03] MEDS: LIBRIUM PO SCH ×3 (09:23→21:04)
[2017-10-03] MEDS: ZANAFLEX PO SCH (09:23)
[2017-10-03] MEDS: ACCUPRIL PO SCH ×2 (09:24→21:05)
[2017-10-03] MEDS: DILANTIN PO SCH ×3 (09:24→21:05)
[2017-10-03] MEDS: ZETIA PO SCH (09:24)
[2017-10-03] MEDS: DYAZIDE PO SCH (09:24)
[2017-10-03] MEDS: NICODERM 21 MG TD SCH (09:24)
[2017-10-03] MEDS: FERROUS SULFATE PO SCH ×2 (09:24→13:06)
--- NOTE | 2017-10-03 09:50 | PN ---
DATE OF SERVICE: 10/02/17 SUBJECTIVE: The patient was seen and examined with Nurse Practitioner. The patient was hospitalized with profound anemia, symptomatic. He has been given two units of packed red cells, it is 8.9. The patient is abrasive to his daughter, He needs to go to the nurse home where he is taken care of. He needs physical therapy, he is still declining it. He is unable to take care of himself. We will do stool of occult blood. INR to be done daily. The patient is alcoholic, no DT's so far. CONDITION: Stable. TIME SPENT: More than 30 minutes. Plan and coordination of the patient's care discussed in the presence of nurse. JOSE E
--- NOTE | 2017-10-03 10:42 | PN ---
DATE OF SERVICE: 10/01/17 ADMIT NOTE SUBJECTIVE: 72 year old white male was seen in the hospital with profound anemia. The patient will be given 2 units of packed red cells. His cardiovascular status is stable. He is alcoholic with no evidence of active GI bleed. He was explained about alcoholic gastritis and bleeding. Advised to discontinue any nonsteroid anti-inflammatory. The patient's hgb was 10.3 a month and a half ago and now it is 7.3, he is symptomatic from it. He is short of breath, unable to walk and falling more frequently. The patient's doesn't have DT's right now. We will watch DT's. He will be continued on Thiamine. CONDITION: Stable PROGNOSIS: Poor The patient was seen and examined with Nurse Practitioner. TIME SPENT: More than 30 minutes. Plan and coordination of the patient's care discussed in the presence of nurse. JOSE E
[2017-10-03] MEDS ORDERED: TORADOL IVP PRN (11:04)
[2017-10-03] MEDS ORDERED: PERCOCET 7.5-325 PO PRN (11:04)
[2017-10-03] MEDS: SODIUM CHLORIDE 1,000 ML IV SCH ×2 (13:09→13:10)
[2017-10-03] MEDS ORDERED: DECADRON 4 MG/ML SDV 4 MG in SODIUM CHLORIDE 50 ML IV STA (13:14)
[2017-10-03] MEDS ORDERED: DECADRON 4 MG/ML SDV ONE (13:55)
[2017-10-03] MEDS ORDERED: LIBRIUM PO SCH (15:00)
[2017-10-04] MEDS: PROTONIX PO SCH ×2 (06:11→16:58)
[2017-10-04] MEDS: CARAFATE PO SCH ×4 (06:11→20:40)
[2017-10-04] MEDS: SODIUM CHLORIDE 1,000 ML IV SCH ×2 (06:14→21:44)
[2017-10-04] MEDS: NICODERM 21 MG TD SCH (08:47)
[2017-10-04] MEDS: ZOCOR PO SCH (08:48)
[2017-10-04] MEDS: ZETIA PO SCH (08:48)
[2017-10-04] MEDS: FERROUS SULFATE PO SCH ×2 (08:48→12:49)
[2017-10-04] MEDS: LIBRIUM PO SCH ×3 (08:49→20:40)
[2017-10-04] MEDS: DILANTIN PO SCH ×3 (08:49→20:40)
[2017-10-04] MEDS: ATIVAN PO SCH ×2 (08:54→15:26)
[2017-10-04] MEDS: ACCUPRIL PO SCH ×2 (08:54→20:39)
--- NOTE | 2017-10-04 08:59 | PCM.PROG ---
Attending Provider: ATTENDING PROVIDER: Dr. GLADYS BRUNO This patient is seen with Fanny Chaparro, Nurse Practitioner. DATE OF SERVICE: 10/04/17 SUBJECTIVE: This 72 year old WHITE/ M was hospitalized 10/01/17. The patient is lying in bed, alert. The patient is agitated. He wants to leave today and is refusing to go to [facility] for rehab. Hemoglobin is stable at 9.7 today. REVIEW OF SYSTEMS: CONSTITUTIONAL: Weakness. No night sweats. No malaise, lethargy. No fever or chills. HEENT: Eyes: No visual changes. No eye pain. No eye discharge. ENT: No runny nose. No epistaxis. No sinus pain. No odynophagia. No congestion. RESPIRATORY: No cough, no congestion. No hemoptysis. No shortness of breath. CARDIOVASCULAR: No angina symptoms. No CHF symptoms. No atypical chest pain for CAD. No palpitations. No orthopnea.. GASTROINTESTINAL: No abdominal pain. No nausea or vomiting. No diarrhea or constipation. No hematemesis. No hematochezia. GENITOURINARY: No urgency. No frequency. No dysuria. No hematuria. No obstructive symptoms. No discharge. No pain. No significant abnormal bleeding. MUSCULOSKELETAL: No musculoskeletal pain; no joint swelling. NEUROLOGICAL: Awake, alert, oriented to place and person. No headache. No neck pain. No syncope. No seizures. No dizziness. PSYCHIATRIC: Agitated. No depression. No suicidal thoughts. No homicidal thoughts. SKIN: No rash. No lesions. No wounds. ENDOCRINE: No unexplained weight loss. No weight gain. HEMATOLOGIC/LYMPHATIC: No anemia. No purpura. No petechiae. No prolonged or excessive bleeding. No palpable lymph nodes. PHYSICAL EXAMINATION: GENERAL: The patient is awake, alert and oriented, lying in bed in no distress. VITAL SIGNS: Temperature 97.5 F, Pulse 80, Respiratory Rate 19, BP 149/83, Pulse Ox 99% HEENT: Head normocephalic, atraumatic. Eyes: Extraocular muscles are intact. Pupils are equal, round and reactive to light and accommodation. Ears: No lesions. Nose appeared normal. Throat: No exudate or erythema. NECK: Supple. No JVD, no carotid bruit. No lymphadenopathy or thyromegaly. LUNGS: Diminished breath sounds. Clear to auscultation. Percussion note normal. Chest symmetrical. HEART: S1, S2, no S3. No murmurs. No cyanosis or clubbing. No ascites. Pulses: Dorsalis pedis and posterior tibial pulses +1 to +2 both sides. ABDOMEN: Soft. Non-tender. Bowel sounds active. No CVA tenderness. No mass felt. EXTREMITIES: No edema. Full range of motion of all extremities, equal. NEUROLOGIC: Agitation, irritability. No focal deficit. Cranial nerves II through XII are grossly intact. No headache, no double vision or headache. SKIN: Positive for large hematoma right hip. Warm and dry. Intact. Turgor- normal. LYMPHATIC: No palpable lymph nodes/no lymphedema. MUSCULOSKELETAL: Normal joints with no swelling. Muscle tone is normal. LAB REVIEW: 10/04/17 04:30 10/04/17 04:30 10/04/17 04:30: Sodium 130 L, Potassium 4.8, Chloride 105, Carbon Dioxide 17 L, Anion Gap 12.8, BUN 33 H, Creatinine 0.93, Estimated GFR (MDRD) 80.00, BUN/ Creatinine Ratio 35.48, Glucose 81 L, Calcium 8.6, Total Bilirubin 0.6, AST 38 H , ALT 27, Alkaline Phosphatase 88, Total Protein 5.6 L, Albumin 2.5 L, Globulin 3.1, Albumin/Globulin Ratio 0.81 10/04/17 04:30: WBC 9.19, RBC 3.07 L, Hgb 9.7 L, Hct 29.6 L, MCV 96.4 H, MCH 31.6 H, MCHC 32.8, RDW Coeff of Audrey 14.8, Plt Count 301, Immature Gran % (Auto) 0.4, Neut % (Auto) 67.4, Lymph % (Auto) 21.1, [place] % (Auto) 9.0, Eos % (Auto) 1.8, Baso % (Auto) 0.3, Immature Gran # (Auto) 0.0, Neut # (Auto) 6.2, Lymph # ( Auto) 1.9, [place] # (Auto) 0.8, Eos # (Auto) 0.2, Baso # (Auto) 0.0 10/04/17 04:30: PT 13.2 H, INR 1.33 10/03/17 20:29: Hgb 9.1 L 10/03/17 20:22: Hct 26.1 L 10/03/17 08:45: Uric Acid 5.9 10/03/17 08:35: PT 17.6 H D, INR 1.79 D 10/03/17 08:35: Sodium 133 L, Potassium 3.7, Chloride 104, Carbon Dioxide 23, Anion Gap 9.7, BUN 32 H, Creatinine 0.90, Estimated GFR (MDRD) 83.00, BUN/ Creatinine Ratio 35.55, Glucose 90, Calcium 8.5, Total Bilirubin 0.6, AST 22, ALT 12, Alkaline Phosphatase 73, Total Protein 5.1 L, Albumin 2.5 L, Globulin 2.6, Albumin/Globulin Ratio 0.96 10/03/17 08:35: WBC 6.49, RBC 2.34 L, Hgb 7.7 L, Hct 22.2 L, MCV 94.9 H, MCH 32.9 H, MCHC 34.7, RDW Coeff of Audrey 14.6, Plt Count 268, Immature Gran % (Auto) 1.1, Neut % (Auto) 69.8, Lymph % (Auto) 16.9, [place] % (Auto) 9.4, Eos % (Auto) 2.5, Baso % (Auto) 0.3, Immature Gran # (Auto) 0.1, Neut # (Auto) 4.5, Lymph # ( Auto) 1.1, [place] # (Auto) 0.6, Eos # (Auto) 0.2, Baso # (Auto) 0.0 10/01/17 11:30: Blood Type O POSITIVE, Antibody Screen Negative, Crossmatch (AHG ) See Detail ASSESSMENT: 1. ANEMIA 2. HYPERCOAGULATION, RESOLVED 3. RECENT MULTIPLE FALLS 4. LARGE RIGHT HIP HEMATOMA 5. HISTORY OF PELVIC FRACTURE 6. HYPONATREMIA 7. DEHYDRATION 8. ALCOHOL ABUSE 9. COPD PLAN: 1. Ativan 1 mg b.i.d. (one now and one at 4 p.m.) 2. Restart Coumadin 2 mg Plan and coordination of the patient's care discussed in the presence of Direct Marketing Analyst and nurse. CONDITION: Stable SCRIBED BY: JULIANNE PERSAUD Dinkey Skinner scribed while in presence of service performed by Dr. Bruno/Fanny Chaparro APRN on 10/04/17 ([id number])
--- NOTE | 2017-10-04 09:16 | PN ---
DATE OF SERVICE: 10/03/17 SUBJECTIVE: The patient has aches and pain which are somewhat generalized. He is somewhat sleepy. REVIEW OF SYSTEMS: CONSTITUTIONAL: No night sweats. No fatigue, malaise, lethargy. No fever or chills. HEENT: Eyes: No visual changes. No eye pain. No eye discharge. ENT: No runny nose. No epistaxis. No sinus pain. No sore throat. No odynophagia. No congestion. RESPIRATORY: No cough, no congestion. No hemoptysis. No shortness of breath. CARDIOVASCULAR: No angina symptoms. No CHF symptoms. No atypical chest pain for CAD. No palpitations. No orthopnea. GASTROINTESTINAL: No abdominal pain. No nausea or vomiting. No diarrhea or constipation. No hematemesis. No hematochezia. GENITOURINARY: No urgency. No frequency. No dysuria. No hematuria. No obstructive symptoms. No discharge. No pain. No significant abnormal bleeding. MUSCULOSKELETAL: No musculoskeletal pain; no joint swelling. NEUROLOGICAL: No headache. No neck pain. No syncope. No seizures. No dizziness. PSYCHIATRIC: Not anxious. No depression. No suicidal thoughts. No homicidal thoughts. SKIN: No rash. No lesions. No wounds. ENDOCRINE: No unexplained weight loss. No weight gain. HEMATOLOGIC/LYMPHATIC: No anemia. No purpura. No petechiae. No prolonged or excessive bleeding. No palpable lymph nodes. PHYSICAL EXAMINATION: GENERAL: The patient is oriented to person and place. HEENT: Head normocephalic, atraumatic. Eyes: Extraocular muscles are intact. Pupils are equal, round and reactive to light and accommodation. Ears: No lesions. Nose appeared normal. Throat: No exudate or erythema. NECK: Supple. No JVD, no carotid bruit. No lymphadenopathy or thyromegaly. LUNGS: Clear to auscultation. Percussion note normal. Chest symmetrical. HEART: S1, S2, no S3. No murmurs. No cyanosis or clubbing. No ascites. Pulses: Dorsalis pedis and posterior tibial pulses +1 to +2 both sides. ABDOMEN: Soft. Nontender. Bowel sounds active. No CVA tenderness. No mass felt. EXTREMITIES: No edema. Full range of motion of all extremities, equal. Right sided hemiparesis. NEUROLOGIC: No focal deficit. Cranial nerves II through XII are grossly intact. No headache, no double vision or headache. SKIN: Not dry. Intact. Turgor - normal. LYMPHATIC: No palpable lymph nodes/no lymphedema. MUSCULOSKELETAL: Normal joints with no swelling. Muscle tone is normal. LABS: Hgb 7.7, hct 22. ASSESSMENT: 1. Coagulopathy with high INR and PTT likely combination of alcoholism and Coumadin therapy 2. Large hematoma which seems to have stayed the same or decreased in size on the right pelvic area. 3. He was explained about L2 new compression fracture and also fractures of the pelvic bones. Eventually after long discussion he has agreed to go to the assisted for physical therapy. Daughter in the room and she is happy about that. PLAN: 1. The patient will be given 1 unit of packed red cells because the patient is still light headed and weak according to him 2. The patient was given 1mg Vitamin K, now INR is 1.9 which is acceptable. TIME SPENT: More than 30 minutes. Plan and coordination of the patient's care discussed in the presence of nurse. JOSE E
[2017-10-04] MEDS ORDERED: COUMADIN PO SCH (17:00)
[2017-10-05] MEDS: CARAFATE PO SCH ×2 (05:47→11:10)
[2017-10-05] MEDS: PROTONIX PO SCH (05:47)
[2017-10-05] MEDS: ZETIA PO SCH (08:51)
[2017-10-05] MEDS: LIBRIUM PO SCH (08:51)
[2017-10-05] MEDS: SODIUM CHLORIDE 1,000 ML IV SCH ×2 (08:52→08:53)
[2017-10-05] MEDS: ACCUPRIL PO SCH (08:52)
[2017-10-05] MEDS: ATIVAN PO SCH (08:52)
[2017-10-05] MEDS: FERROUS SULFATE PO SCH ×2 (08:52→12:35)
[2017-10-05] MEDS: DYAZIDE PO SCH (08:52)
[2017-10-05] MEDS: DILANTIN PO SCH (08:52)
[2017-10-05] MEDS: ZOCOR PO SCH (08:52)
--- NOTE | 2017-10-05 08:54 | PCM.PROG ---
Attending Provider: ATTENDING PROVIDER: Dr. GLADYS BRUNO DATE OF SERVICE: 10/05/17 SUBJECTIVE: This 72 year old WHITE/ M was hospitalized 10/01/17. The patient is doing well, not in any distress. Hemoglobin and hematocrit are stable. No evidence of active GI bleeding. Blood loss probably likely in the pelvic area with large hematoma, which seems to be resolving. The patient has multiple fractures mostly old involving pelvic bones, compression fractures, fracture of the rib. The patient is high risk for fall, is noncompliant, an alcoholic and is a smoker. He has abusive language, reluctantly [facility]. The patient lives at home alone with help of daughter. The daughter strongly feels that he should be in the [facility] but the patient has declined that. The patient's prognosis is poor. The [facility] has agreed to [facility] to [facility] for [facility]. LAB REVIEW: 10/05/17 04:30 10/05/17 04:30 10/05/17 04:30: Sodium 130 L, Potassium 4.7, Chloride 104, Carbon Dioxide 20 L, Anion Gap 10.7, BUN 22 H, Creatinine 0.90, Estimated GFR (MDRD) 83.00, BUN/ Creatinine Ratio 24.44, Glucose 89, Calcium 8.5, Total Bilirubin 0.5, AST 26, ALT 23, Alkaline Phosphatase 84, Total Protein 5.3 L, Albumin 2.4 L, Globulin 2.9, Albumin/Globulin Ratio 0.83 10/05/17 04:30: WBC 7.76, RBC 2.98 L, Hgb 9.4 L, Hct 30.0 L, MCV 100.7 H, MCH 31.5 H, MCHC 31.3 L, RDW Coeff of Audrey 15.2 H, Plt Count 397 D, Immature Gran % (Auto) 0.5, Neut % (Auto) 71.4, Lymph % (Auto) 17.3, [place] % (Auto) 8.0, Eos % ( Auto) 2.3, Baso % (Auto) 0.5, Immature Gran # (Auto) 0.0, Neut # (Auto) 5.5, Lymph # (Auto) 1.3, [place] # (Auto) 0.6, Eos # (Auto) 0.2, Baso # (Auto) 0.0 10/05/17 04:30: PT 12.6 H, INR 1.27 10/04/17 10:45: Stl Occult Blood (IFOB) Positive, Stool Occult Blood #2 No specimen received, Stool Occult Blood #3 No specimen received CONDITION: Stable SCRIBED BY: JULIANNE PERSAUD, [employer] scribed while in presence of service performed by Dr. GLADYS BRUNO on 10/05/17 ([id number])
[2017-10-05] MEDS: NICODERM 21 MG TD SCH (08:55)
[2017-10-05 09:38] VITALS: BP 150/75; TEMP 98.8
--- NOTE | 2017-10-05 11:33 | CM.DICTOOL ---
ADMISSION: 10/01/17 10:52 DISCHARGE: 10/05/17 DATE OF SERVICE: 10/05/17 FINAL DIAGNOSIS PROFOUND ANEMIA (TRANSFUSED 2 UNITS PRBC'S 10/01/17, 1 UNIT ON 10/03/17) MULTIPLE RIGHT SIDED PELVIC FRACTURES BY HISTORY LARGE RIGHT SIDED HIP HEMATOMAS (10/02/17) RIGHT SACRAL FRACTURE, HEALING (09-13-17) LEFT SIDED RIB FRACTURES (09-13-17) COMPRESSION FRACTURE AT T12 & L2 () COLONIC DIVERTICULOSIS (CT ABD/PELVIS 09-13-17) HISTORY OF RECENT AND MULTIPLE FALLS AT HOME RIGHT UPPER LOBE LUNG NODULE, STABLE, 2015 GERD HYPERTENSION COPD GERD BPH DYSLIPIDEMIA CVA WITH RIGHT HEMIPARESIS, 2002 ANEMIA DEPRESSION ALCOHOL ABUSE HISTORY OF ELEVATED LIVER FUNCTION LABS LEFT ICA STENOSIS PROSTATE SURGERY LAMINECTOMY CURRENT EVERYDAY SMOKER LAST VITALS Temp Pulse Resp BP Pulse Ox 98.8 F 92 H 24 150/75 H 99 10/05/17 09:37 10/05/17 09:37 10/05/17 09:37 10/05/17 09:37 10/05/17 09:37 TAKE THESE MEDICATIONS AT HOME Chlordiazepoxide HCl (Librium) 10 mg PO TID [facility] Last Admin: 10/05/17 08:51 Dose: 10 mg Ezetimibe/Simvastatin 10-40 mg PO DAILY [facility] Last Admin: 10/05/17 08:51 Dose: 10-40 mg Ferrous Sulfate (Ferrous Sulfate) 324 mg PO BID BREAKFAST&LUNCH [facility] Last Admin: 10/05/17 08:52 Dose: 324 mg Lorazepam (Ativan) 0.5 mg PO 0700,1600 [facility] Last Admin: 10/05/17 08:52 Dose: 0.5 mg Oxycodone/Acetaminophen (Percocet 7.5-325) 0.5 tab BID [facility] PRN Reason: Analgesia Pantoprazole Sodium (Protonix) 40 mg PO BIDAC [facility] Last Admin: 10/05/17 05:47 Dose: 40 mg Phenytoin Sodium (Dilantin) 100 mg PO TID [facility] Last Admin: 10/05/17 08:52 Dose: 100 mg Quinapril HCl (Accupril) 40 mg PO BID [facility] Last Admin: 10/05/17 08:52 Dose: 40 mg Sucralfate (Carafate) 1 gm PO ACHS [facility] Last Admin: 10/05/17 05:47 Dose: 1 gm Triamterene/HCTZ (Dyazide) 1 cap PO MoWeFr@0900 [facility] Last Admin: 10/05/17 08:52 Dose: 1 cap Warfarin Sodium (Coumadin) 3 mg PO QPM [facility] Last Admin: 10/04/17 16:58 Dose: 2 mg ALLERGIES No Known Allergies Allergy (Verified 04/28/17 16:03) NEW PRESCRIPTIONS: Chlordiazepoxide HCl [Librium] 10 mg PO TID #90 capsule 10/05/17 Lorazepam [Ativan] 0.5 mg PO 0700,1600 #60 tablet 10/05/17 Oxycodone HCl/Acetaminophen [Percocet 7.5-325 mg Tablet] 1 each PO BID #60 tablet 10/05/17 SMOKING: CURRENT SMOKER THE PATIENT HAS NOT SMOKED DURING THIS HOSPITALIZATION. WE HAVE PROVIDED A NICOTINE PATCH. HE IS AWARE OF THE RISKS AND BENEFITS OF SMOKING VS CESSATION. HE HAS NO DESIRE TO STOP SMOKING. WE WILL CONTINUE TO PROVIDE EDUCATION AND ENCOURAGEMENT FOR COMPLETE CESSATION. DISEASE SPECIFIC EDUCATION: FRACTURES PT/INR (COUMADIN DOSING) ANEMIA BLOOD TRANSFUSIONS HALFWAY ADMISSION HOME MEDICATIONS TO BE CONTINUED CHANGES IN THE HOME MEDICATIONS FOLLOW UP LAB REVIEW: 10/05/17 04:30 10/05/17 04:30 10/05/17 04:30: Sodium 130 L, Potassium 4.7, Chloride 104, Carbon Dioxide 20 L, Anion Gap 10.7, BUN 22 H, Creatinine 0.90, Estimated GFR (MDRD) 83.00, BUN/ Creatinine Ratio 24.44, Glucose 89, Calcium 8.5, Total Bilirubin 0.5, AST 26, ALT 23, Alkaline Phosphatase 84, Total Protein 5.3 L, Albumin 2.4 L, Globulin 2.9, Albumin/Globulin Ratio 0.83 10/05/17 04:30: WBC 7.76, RBC 2.98 L, Hgb 9.4 L, Hct 30.0 L, MCV 100.7 H, MCH 31.5 H, MCHC 31.3 L, RDW Coeff of Audrey 15.2 H, Plt Count 397 D, Immature Gran % (Auto) 0.5, Neut % (Auto) 71.4, Lymph % (Auto) 17.3, [place] % (Auto) 8.0, Eos % ( Auto) 2.3, Baso % (Auto) 0.5, Immature Gran # (Auto) 0.0, Neut # (Auto) 5.5, Lymph # (Auto) 1.3, [place] # (Auto) 0.6, Eos # (Auto) 0.2, Baso # (Auto) 0.0 10/05/17 04:30: PT 12.6 H, INR 1.27 10/04/17 10:45: Stl Occult Blood (IFOB) Positive, Stool Occult Blood #2 No specimen received, Stool Occult Blood #3 No specimen received PLAN: DISCHARGE TO [facility] TODAY, 10/05/17 DR. BRUNO/ELIJAH LEONARD, CANDELARIO, WILL FOLLOW THE PATIENT DURING USUAL HALFWAY ROUNDS IN APPROXIMATELY ONE WEEK RESUME YOUR HOME MEDICATIONS AT THE HALFWAY PER LIST PROVIDED BY THE [facility] NURSING STAFF TIZANIDINE HCL (ZANAFLEX) HAS BEEN DISCONTINUED BY PLEASE NOTE THE CHANGES IN THE PERCOCET DOSING FROM 7.5-325 MG, 0.5 TAB (ONE- HALF TAB) PO Q4-6H PRN CHANGED TO BID SCHEDULED PRESCRIPTIONS OXYCODONE/ACETAMINOPHEN (PERCOCET) 7.5-325 MG, GIVE 0.5 (ONE-HALF) TABLET PO BID SCHEDULED ACTIVITY MAY PARTICIPATE IN HALFWAY ACTIVITY PROGRAM TOLERATED PT/OT PLEASE EVALUATE AND TREAT INDICATED DIET REGULAR VIDEO NEWS EDITOR PLEASE CONSULT TO PROVIDE FOR OPTIMAL NUTRITIONAL NEEDS LABS PT/INR, CBC WITH DIFF AND CMP ON 10/08/16 V/S DAILY SUMMARY THE PATIENT IS ALERT AND ORIENTED X3. HE HAS SPEECH DIFFICULTY DUE TO A PAST CVA BUT IS ABLE TO MAKE HIS WANTS AND NEEDS KNOWN. HE OFTEN BECOMES IRRITATED AND USES PROFANITY BUT HAS NOT BECOME VIOLENT. HE IS INCONTINENT OF BOTH BOWEL AND BLADDER AND REQUIRES ASSISTANCE WITH ADL'S. HE IS ABLE TO FEED HIMSELF BUT IS NOT ABLE TO AMBULATE DUE TO THE SEVERE RIGHT SIDED WEAKNESS. HE USES A MOTORIZED SCOOTER FOR MOBILITY AT HOME. MR. CORONADO HAS BEEN LIVING ALONE PRIOR TO THIS HOSPITALIZATION. HIS DAUGHTER, CONY SUN, HAS BEEN PROVIDING CARE AND ASSISTANCE. RECENTLY MR. CORONADO HAS BEEN FALLING FREQUENTLY AND REQUIRES MORE ASSISTANCE. HE HAS BEEN UNABLE TO PERFORM SELF CARE AT THE LEVEL HE NOW REQUIRES. BOTH CONY AND THE PATIENT ARE AGREEABLE FOR ADMISSION TO A LOCAL HALFWAY AFTER DISCHARGE. THEY HAVE CHOSEN [facility]. THIS HALFWAY HAS ACCEPTED MR. CORONADO FOR ADMISSION THERE. THE RIGHT HIP HAS A LARGE AREA OF ECCHYMOSIS FROM THE ANTERIOR PORTION EXTENDING LATERALLY TO THE RIGHT UPPER BUTTOCKS/RIGHT SACRUM. THERE IS ALSO A LARGE HEMATOMA TO THE RIGHT ANTEROLATERAL HIP REGION EXTENDING TO THE GROIN AREA. THE HEMATOMA IS FLUCTUANT AND HAS VERY LIGHT BRUISING. BOTH THESE ARE FROM PAST AND RECENT FALLS THE PATIENT SUSTAINED AT HOME. HE ALSO HAS OLD LEFT SIDE RIB FRACTURES, OLD RIGHT SIDE RIB FRACTURES AND SUPERIOR ENDPLATE COMPRESSION FRACTURES AT T12 AND L2. ALL ARE DUE TO PAST FALLS SUSTAINED AT HOME. THERE IS NO VISIBLE EVIDENCE OF THE OLD INJURIES. THESE ARE NOTED RADIOLOGICALLY. THE PATIENT IS THIN BUT HAS A GOOD APPETITE. HIS HYDRATION STATUS IS GOOD. HE HAS SEVERE WEAKNESS TO THE RIGHT LIMBS DUE TO PAST CVA, BUT ATTEMPTS TO REMAIN INDEPENDENT POSSIBLE. HE DESIRES TO BECOME STRONGER AND HAVE MORE STAMINA SO THAT HE MAY RETURN TO HIS HOME. WE HAVE MADE NECESSARY CHANGES TO THE HOME MEDICATIONS INCLUDING CONSIDERATION FOR PAIN CONTROL WHILE AT THE HALFWAY. WE WILL MONITOR HIS PT/INR AND OTHER LABS CLOSELY. AND WILL FOLLOW HIM THERE. CURRENT CODE STATUS DO NOT RESUSCITATE ELIJAH LEONARD APRN GLADYS BRUNO M.D.
--- NOTE | 2017-10-05 14:15 | DS ---
DATE OF SERVICE: 10/05/17 FINAL DIAGNOSIS: PROFOUND ANEMIA (TRANSFUSED 2 UNITS PRBC'S 10/01/17, 1 UNIT ON 10/03/17) MULTIPLE RIGHT SIDED PELVIC FRACTURES BY HISTORY LARGE RIGHT SIDED HIP HEMATOMAS (10/02/17) RIGHT SACRAL FRACTURE, HEALING (09-13-17) LEFT SIDED RIB FRACTURES (09-13-17) COMPRESSION FRACTURE AT T12 & L2 () COLONIC DIVERTICULOSIS (CT ABD/PELVIS 09-13-17) HISTORY OF RECENT AND MULTIPLE FALLS AT HOME RIGHT UPPER LOBE LUNG NODULE, STABLE, 2014 GERD HYPERTENSION COPD GERD BPH DYSLIPIDEMIA CVA WITH RIGHT HEMIPARESIS, 2002 ANEMIA DEPRESSION ALCOHOL ABUSE HISTORY OF ELEVATED LIVER FUNCTION LABS LEFT ICA STENOSIS PROSTATE SURGERY LAMINECTOMY CURRENT EVERYDAY SMOKER LAST VITALS: Temp Pulse Resp BP Pulse Ox 98.8 F 92 H 24 150/75 H 99 TAKE THESE MEDICATIONS AT HOME: Chlordiazepoxide HCl (Librium) 10 mg PO TID MELINDA Ezetimibe/Simvastatin 10-40 mg PO DAILY MELINDA Ferrous Sulfate (Ferrous Sulfate) 324 mg PO BID BREAKFAST&LUNCH MELINDA Lorazepam (Ativan) 0.5 mg PO 0700,1600 MELINDA Oxycodone/Acetaminophen (Percocet 7.5-325) 0.5 tab BID MELINDA Pantoprazole Sodium (Protonix) 40 mg PO BIDAC MELINDA Phenytoin Sodium (Dilantin) 100 mg PO TID MELINDA Quinapril HCl (Accupril) 40 mg PO BID MELINDA Sucralfate (Carafate) 1 gm PO ACHS MELINDA Triamterene/HCTZ (Dyazide) 1 cap PO MoWeFr@0900 MELINDA Warfarin Sodium (Coumadin) 3 mg PO QPM MELINDA ALLERGIES: No Known Allergies Allergy (Verified 04/28/17 16:03) NEW PRESCRIPTIONS: Chlordiazepoxide HCl [Librium] 10 mg PO TID #90 capsule 10/05/17 Lorazepam [Ativan] 0.5 mg PO 0700,1600 #60 tablet 10/05/17 Oxycodone HCl/Acetaminophen [Percocet 7.5-325 mg Tablet] 1 each PO BID #60 tablet 10/05/17 SMOKING: CURRENT SMOKER THE PATIENT HAS NOT SMOKED DURING THIS HOSPITALIZATION. WE HAVE PROVIDED A NICOTINE PATCH. HE IS AWARE OF THE RISKS AND BENEFITS OF SMOKING VS CESSATION. HE HAS NO DESIRE TO STOP SMOKING. WE WILL CONTINUE TO PROVIDE EDUCATION AND ENCOURAGEMENT FOR COMPLETE CESSATION. DISEASE SPECIFIC EDUCATION: FRACTURES PT/INR (COUMADIN DOSING) ANEMIA BLOOD TRANSFUSIONS DETENTION ADMISSION HOME MEDICATIONS TO BE CONTINUED CHANGES IN THE HOME MEDICATIONS FOLLOW UP PLAN: DISCHARGE TO [facility] TODAY, 10/05/17 DR. BRUNO/ELIJAH LEONARD APRN, WILL FOLLOW THE PATIENT DURING USUAL DETENTION ROUNDS IN APPROXIMATELY ONE WEEK RESUME YOUR HOME MEDICATIONS AT THE DETENTION PER LIST PROVIDED BY THE [facility] TIZANIDINE HCL (ZANAFLEX) HAS BEEN DISCONTINUED BY PLEASE NOTE THE CHANGES IN THE PERCOCET DOSING FROM 7.5-325 MG, 0.5 TAB (ONE- HALF TAB) PO Q4-6H PRN CHANGED TO BID SCHEDULED ACTIVITY: MAY PARTICIPATE IN DETENTION ACTIVITY PROGRAM TOLERATED PT/OT PLEASE EVALUATE AND TREAT INDICATED DIET: REGULAR FLUE BLOWER PLEASE CONSULT TO PROVIDE FOR OPTIMAL NUTRITIONAL NEEDS LABS: PT/INR, CBC WITH DIFF AND CMP ON 10/08/16 V/S: DAILY HOSPITAL COURSE: The patient was hospitalized with anemia and there was no evidence of active GI bleed. The patient likely had blood loss because of right sided pelvic hematoma. The patient is also alcoholic and could have alcoholic gastritis. Nutritional problems. The patient was given a couple of units of packed red cells. On discharge the patient's hgb was 9 with hct 28. It is has been stable. He was restarted on Coumadin and is going to the [facility] for physical therapy and occupational therapy. His pelvic fractures are old and also has rib fracture along with a new compression fracture, L2. The patient has history of old CVA. He is more or less in a wheelchair. He is heavy smoker. The patient is a high risk for fall. He continued to fall inspite of the precautions because he doesn't listen to the instructions. He has very abusive language. The daughter understands that patient is high risk for fall. The patient has reluctantly agreed to go to the [facility] for physical therapy and occupational therapy after that he is going to go home and live by himself. He has severe osteoporosis. He refuses any medications. PROGNOSIS: Poor. TIME SPENT: More than 60 minutes. MTDD
--- NOTE | 2017-10-05 14:17 | PN ---
10/01/17: Level 5 10/02/17: Intermediate 10/03/17: Intermediate 10/04/17: Intermediate 10/05/17: D as in discharge MTDD
--- NOTE | 2017-10-05 15:58 | DS ---
DATE OF SERVICE: 10/05/17 FINAL DIAGNOSIS: PROFOUND ANEMIA (TRANSFUSED 2 UNITS PRBC'S 10/01/17, 1 UNIT ON 10/03/17) MULTIPLE RIGHT SIDED PELVIC FRACTURES BY HISTORY LARGE RIGHT SIDED HIP HEMATOMAS (10/02/17) RIGHT SACRAL FRACTURE, HEALING (09-13-17) LEFT SIDED RIB FRACTURES (09-13-17) COMPRESSION FRACTURE AT T12 & L2 () COLONIC DIVERTICULOSIS (CT ABD/PELVIS 09-13-17) HISTORY OF RECENT AND MULTIPLE FALLS AT HOME RIGHT UPPER LOBE LUNG NODULE, STABLE, 2014 GERD HYPERTENSION COPD GERD BPH DYSLIPIDEMIA CVA WITH RIGHT HEMIPARESIS, 2002 ANEMIA DEPRESSION ALCOHOL ABUSE HISTORY OF ELEVATED LIVER FUNCTION LABS LEFT ICA STENOSIS PROSTATE SURGERY LAMINECTOMY CURRENT EVERYDAY SMOKER LAST VITALS: Temp Pulse Resp BP Pulse Ox 98.8 F 92 H 24 150/75 H 99 TAKE THESE MEDICATIONS AT HOME: Chlordiazepoxide HCl (Librium) 10 mg PO TID MELINDA Ezetimibe/Simvastatin 10-40 mg PO DAILY MELINDA Ferrous Sulfate (Ferrous Sulfate) 324 mg PO BID BREAKFAST&LUNCH MELINDA Lorazepam (Ativan) 0.5 mg PO 0700,1600 MELINDA Oxycodone/Acetaminophen (Percocet 7.5-325) 0.5 tab BID MELINDA Pantoprazole Sodium (Protonix) 40 mg PO BIDAC MELINDA Phenytoin Sodium (Dilantin) 100 mg PO TID MELINDA Quinapril HCl (Accupril) 40 mg PO BID MELINDA Sucralfate (Carafate) 1 gm PO ACHS MELINDA Triamterene/HCTZ (Dyazide) 1 cap PO MoWeFr@0900 MELINDA Warfarin Sodium (Coumadin) 3 mg PO QPM MELINDA ALLERGIES: No Known Allergies Allergy (Verified 04/28/17 16:03) NEW PRESCRIPTIONS: Chlordiazepoxide HCl [Librium] 10 mg PO TID #90 capsule 10/05/17 Lorazepam [Ativan] 0.5 mg PO 0700,1600 #60 tablet 10/05/17 Oxycodone HCl/Acetaminophen [Percocet 7.5-325 mg Tablet] 1 each PO BID #60 tablet 10/05/17 SMOKING: CURRENT SMOKER THE PATIENT HAS NOT SMOKED DURING THIS HOSPITALIZATION. WE HAVE PROVIDED A NICOTINE PATCH. HE IS AWARE OF THE RISKS AND BENEFITS OF SMOKING VS CESSATION. HE HAS NO DESIRE TO STOP SMOKING. WE WILL CONTINUE TO PROVIDE EDUCATION AND ENCOURAGEMENT FOR COMPLETE CESSATION. DISEASE SPECIFIC EDUCATION: FRACTURES PT/INR (COUMADIN DOSING) ANEMIA BLOOD TRANSFUSIONS INTERMEDIATE ADMISSION HOME MEDICATIONS TO BE CONTINUED CHANGES IN THE HOME MEDICATIONS FOLLOW UP PLAN: DISCHARGE TO [facility] TODAY, 10/05/17 DR. 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 Initial hgb was 7.1 he was hypercoagulated with an initial INR 5.3. The following day after admission it elevated even more to 5.85. He was given 1mg of Vitamin K PO. He was transfused two units of packed red cells on 10/01 then again one unit on 10/03. He has a history of falls. He has severe weakness and is limited due to history of multiple strokes. CT scan of the pelvis and hips showed that he had multiple right sided pelvic fractures which were from a previous fall back in March and April of this past year for which he also had a retroperitoneal hematoma so there were no new fractures during this fall, the right sacral fracture was healing however it did say that he has very large right sided hip hematoma which felt that was part of the reason his hgb was dropping. He has left sided rib fractures which were also old. Compression fractures at T12(also old) a new one at L2. He is an alcoholic and he is very noncompliant and he is very difficulty to deal with. He refuses most recommendations. He is heavy current daily smoker. He previously lives at home by himself. When brought to the emergency room by his daughter this was the third time that he had fallen within the past week. Finally after much discussion he has agreed to go to [facility] for physical therapy. He adamantly states that she reed not want to stay there. Due to his heavy alcohol use she has been on Librium 10mg PO three times a day since admission along with Ativan 0.5mg twice a day along with all his other home medications. We put him on Toradol 30mg IV for pain control. All his fractures have been reviewed and discussed with him. He demonstrates understandings. His anemia has been discussed. Hgb has been stable for the past two days and is 9.4 today. All of his medications have been reviewed. His INR went down after the Vitamin K administration to 1.3. We restarted his Coumadin yesterday with no change in his hgb as it is stable. We will give him prescriptions for his Percocet as he has takes half a tablet twice a day scheduled. He will also with Ativan. He will have a repeat CBC, CMP and PT/INR on Sunday at the assisted and then I will plan on following him there. Fall precautions have been discussed. He is to undergo physical and occupational therapy there and we will continue to follow him closely. TIME SPENT: More than 60 minutes. JOSE E
== END 2017-10-05 12:30 | DRG 551 ==
LOC: ED 08:38 → MEDSURG B 10:52
PROVIDERS: ADMIT Internal Medicine; ATTEND Internal Medicine
PROC: 30233N1 Transfusion of Nonautologous Red Blood Cells into Peripheral Vein, Percutaneous Approach (ICD-10-PCS; principal; 2017-10-01)
PROC: 30233N1 Transfusion of Nonautologous Red Blood Cells into Peripheral Vein, Percutaneous Approach (ICD-10-PCS; 2017-10-03)
DX: S32.029A Unspecified fracture of second lumbar vertebra, initial encounter for closed fracture (principal); I63.9 Cerebral infarction, unspecified; S32.82XA Multiple fractures of pelvis without disruption of pelvic ring, initial encounter for closed fracture; S22.31XA Fracture of one rib, right side, initial encounter for closed fracture; D68.59 Other primary thrombophilia; I10 Essential (primary) hypertension; I25.10 Atherosclerotic heart disease of native coronary artery without angina pectoris; I49.9 Cardiac arrhythmia, unspecified; D64.9 Anemia, unspecified; N28.9 Disorder of kidney and ureter, unspecified; N40.0 Benign prostatic hyperplasia without lower urinary tract symptoms; M79.661 Pain in right lower leg; J44.9 Chronic obstructive pulmonary disease, unspecified; R51 Headache; S70.01XA Contusion of right hip, initial encounter; K21.9 Gastro-esophageal reflux disease without esophagitis; F32.9 Major depressive disorder, single episode, unspecified; F10.10 Alcohol abuse, uncomplicated; W19.XXXA Unspecified fall, initial encounter; Z72.0 Tobacco use; Z91.81 History of falling
CPT/HCPCS: 36415; 36430; 80053; 80185; 81001; 82272; 82550; 82553; 82803; 83036; 83605; 83880; 84145; 84439; 84443; 84484; 84550; 85014; 85018; 85025; 85610; 85730; 86850; 86900; 86922; 87040; 87070; 93005; 93010; 96360; 96361; 99284

== ENCOUNTER 2018-01-28 09:59 | Emergency (ER) | payer OTHER ==
[2018-01-28 10:07] VITALS: BP 146/85; TEMP 99.6; BMI 21.2
--- NOTE | 2018-01-28 11:08 | ED.PDOC ---
General ED Provider: Dr. STEPHANIE HURST MD Chief Complaint: Fall Stated Complaint: falling lately decrease energy in th emorning Time Seen by Physician: 10:50 Mode of Arrival: Wheelchair Information Source: Patient, Family Exam Limitations: No limitations Primary Care Provider: GLADYS BRUNO Nursing and Triage Documentation Reviewed and Agree: Yes Does patient meet sepsis criteria?: No If yes, has appropriate treatment been initiated?: Yes System Inflammatory Response Syndrome: Not Applicable Sepsis Protocol: For patient's 13 years and over: Temp is 96.8 and below OR 101 and greater Pulse >90 BPM Resp >20/minute Acutely Altered Mental Status Are patient's symptoms suggestive of a new infection, such as: -Pneumonia -Skin, Soft Tissue -Endocarditis -UTI -Bone, Joint Infection -Implantable Device -Acute Abdominal Infection -Wound Infection -Meningitis -Blood Stream Catheter Infection -Unknown Miscellaneous Complaint Exam - Physical Examination Complaint/Exam Onset/Duration: week Symptoms Are: Still present Timing: Intermittent Episodes Lasting: Minutes Initial Severity: Mild Current Severity: Mild Review of Systems - Review Of Systems Constitutional: Reports: No symptoms Eyes: Reports: No symptoms Ears, Nose, Mouth, Throat: Reports: No symptoms Respiratory: Reports: No symptoms Cardiac: Reports: No symptoms GI: Reports: No symptoms : Reports: No symptoms Musculoskeletal: Reports: No symptoms Skin: Reports: No symptoms Neurological: Reports: No symptoms, Weakness Endocrine: Reports: No symptoms Hematologic/Lymphatic: Reports: No symptoms All Other Systems: Reviewed and Negative Past Medical History - Past Medical History Previously Healthy: Yes Endocrine: Reports: None Cardiovascular: Reports: Hypertension Respiratory: Reports: None Hematological: Reports: None Gastrointestinal: Reports: None Genitourinary: Reports: None Neuro/Psych: Reports: CVA Musculoskeletal: Reports: Other Cancer: Reports: None - Surgical History General Surgical History: Reports: Other (URETHRA SURGERY) - Family History Family History: Reports: Unknown - Social History Smoking Status: Current every day smoker, Heavy tobacco smoker Hx Substance Use: No Alcohol Screening: Occasionally Lives: Alone Physical Exam - Physical Exam Appearance: Well-appearing, No pain distress, Well-nourished, Thin Ill-appearing: Mild Pain Distress: None Eyes: BRANDON, EOMI, Conjunctiva clear ENT: Ears normal, Nose normal, Oropharynx normal Respiratory: Airway patent, Breath sounds clear, Breath sounds equal, Respirations nonlabored, Rhonchi Cardiovascular: RRR, Pulses normal, No rub, No murmur GI/: Soft, Nontender, No masses, Bowel sounds normal, No Organomegaly Musculoskeletal: Normal strength, ROM intact, No edema, No calf tenderness Skin: Warm, Dry, Normal color Neurological: Focal Deficit Psychiatric: Affect appropriate, Mood appropriate Critical Care Note - Critical Care Note Total Time (mins): 0 Course - Course Hematology/Chemistry: 01/28/18 11:10 01/28/18 11:10 Orders, Labs, Meds: Lab Review 01/28/18 01/28/18 11:10 11:10 WBC 9.67 RBC 3.52 L Hgb 11.5 L Hct 32.5 L MCV 92.3 MCH 32.7 H MCHC 35.4 RDW Coeff of Audrey 14.0 Plt Count 300 Immature Gran % (Auto) 0.4 Neut % (Auto) 72.1 Lymph % (Auto) 14.8 Williams % (Auto) 11.7 H Eos % (Auto) 0.4 Baso % (Auto) 0.6 Immature Gran # (Auto) 0.0 Neut # (Auto) 7.0 H Lymph # (Auto) 1.4 Williams # (Auto) 1.1 Eos # (Auto) 0.0 Baso # (Auto) 0.1 Sodium 133.1 L Potassium 3.56 Chloride 99.0 Carbon Dioxide 28.8 Anion Gap 8.86 BUN 17.7 Creatinine 1.14 H Estimated GFR (MDRD) 63.00 BUN/Creatinine Ratio 15.52 Glucose 104.9 Calcium 9.20 Orders Category Date Time Status BMP [BASIC METABOLIC PANEL] Stat LAB 01/28/18 11:10 Completed CBC W/ AUTO DIFF Stat LAB 01/28/18 11:10 Completed CXR [CHEST, 1V AP ONLY] Stat RADS 01/28/18 12:26 Ordered Vital Signs: Temp Pulse Resp BP Pulse Ox 01/28/18 10:00 99.6 F 96 H 20 146/85 H 96 Departure - Departure Time of Disposition: 07:15 Disposition: HOME SELF-CARE Discharge Problem: Weakness Anemia Qualifiers: Anemia type: iron deficiency Instructions: Weakness (ED) Condition: Stable Pt referred to PMD for follow-up: Yes IPMP verified?: No Allergies/Adverse Reactions: Allergies No Known Allergies Allergy (Verified 01/28/18 10:06) Home Medications: Ambulatory Orders Phenytoin Cap [Dilantin] 100 mg PO TID 07/21/16 Quinapril HCl 40 mg PO BID 07/21/16 Warfarin Sodium [Coumadin] 3 mg PO DAILY 07/21/16 Ezetimibe/Simvastatin [Ezetimibe-Simvastatin 10-40 mg] 1 tab PO DAILY 04/28/17 Ferrous Sulfate 325 mg PO BID BREAKFAST&LUNCH 04/28/17 Pantoprazole Sodium 40 mg PO BID 04/28/17 Sucralfate 1 gm PO QID 04/28/17 Triamterene/Hydrochlorothiazid [Dyazide 37.5-25 Capsule] 1 each PO MOWEFR Oxycodone HCl/Acetaminophen [Percocet 7.5-325 mg Tablet] 1 each PO BID #60 tablet 10/05/17 Tizanidine HCl [Zanaflex] 4 mg PO BID 01/28/18
--- NOTE | 2018-01-28 13:02 | DI ---
EXAM: Chest one view, frontal view only. HISTORY: Shortness of breath. COMPARISON: 10/01/2017. FINDINGS: Heart size is normal. Atherosclerotic calcifications present. The lungs are clear save f or calcified granulomatous changes. Right upper lobe nodule noted on prior CT is poorly seen by radi ograph. No pleural effusion or pneumothorax identified. No acute osseous abnormality is seen. Since the prior study, there has been no significant interval change. IMPRESSION: No acute process.
== END 2018-01-28 13:34 | disposition home or self-care (01) ==
LOC: ED 09:59
DX: D50.9 Iron deficiency anemia, unspecified (principal); R53.1 Weakness; R29.6 Repeated falls; W19.XXXA Unspecified fall, initial encounter; I10 Essential (primary) hypertension; Z86.73 Personal history of transient ischemic attack (TIA), and cerebral infarction without residual deficits; F17.210 Nicotine dependence, cigarettes, uncomplicated; Z79.01 Long term (current) use of anticoagulants; Z79.899 Other long term (current) drug therapy
CPT/HCPCS: 36415; 80048; 85025; 99283

== ENCOUNTER 2018-06-12 06:12 | Emergency (ER) | payer OTHER ==
[2018-06-12 06:27] VITALS: BP 169/96; TEMP 99; BMI 18.6
--- NOTE | 2018-06-12 06:55 | ED.PDOC ---
General ED Provider: Dr. STEPHANIE HURST MD Chief Complaint: Abdominal Pain Stated Complaint: Abd Pain Time Seen by Physician: 06:44 Mode of Arrival: Ambulance Information Source: Patient Exam Limitations: Altered mental status, Physical impairment, Other (s/p stroke , aphasia) Primary Care Provider: GLADYS BRUNO Nursing and Triage Documentation Reviewed and Agree: Yes Does patient meet sepsis criteria?: No If yes, has appropriate treatment been initiated?: Yes System Inflammatory Response Syndrome: Not Applicable Sepsis Protocol: For patient's 13 years and over: Temp is 96.8 and below OR 101 and greater Pulse >90 BPM Resp >20/minute Acutely Altered Mental Status Are patient's symptoms suggestive of a new infection, such as: -Pneumonia -Skin, Soft Tissue -Endocarditis -UTI -Bone, Joint Infection -Implantable Device -Acute Abdominal Infection -Wound Infection -Meningitis -Blood Stream Catheter Infection -Unknown Review of Systems - Review Of Systems Constitutional: Reports: No symptoms Eyes: Reports: No symptoms Ears, Nose, Mouth, Throat: Reports: No symptoms Respiratory: Reports: No symptoms Cardiac: Reports: No symptoms GI: Reports: Abdominal pain (called daughter said he neede tpo go to hospital h /o pancreatitis) : Reports: No symptoms Musculoskeletal: Reports: No symptoms Skin: Reports: No symptoms Neurological: Reports: No symptoms Endocrine: Reports: No symptoms Hematologic/Lymphatic: Reports: No symptoms All Other Systems: Reviewed and Negative Past Medical History - Past Medical History Previously Healthy: Yes Endocrine: Reports: None Cardiovascular: Reports: Hypertension Respiratory: Reports: None Hematological: Reports: None Gastrointestinal: Reports: None Genitourinary: Reports: None Neuro/Psych: Reports: CVA Musculoskeletal: Reports: Other Cancer: Reports: None - Surgical History General Surgical History: Reports: Other (URETHRA SURGERY) - Family History Family History: Reports: Unknown - Social History Smoking Status: Current every day smoker, Heavy tobacco smoker Hx Substance Use: Yes (ALCOHOL) Alcohol Screening: Heavy - Immunizations Tetanus Shot up to Date: Yes Physical Exam - Physical Exam Appearance: Thin Ill-appearing: Mild Pain Distress: None Eyes: BRANDON, EOMI, Conjunctiva clear ENT: Ears normal Neck: Supple Respiratory: Airway patent, Breath sounds clear, Breath sounds equal, Respirations nonlabored Cardiovascular: RRR, Pulses normal, No rub, No murmur GI/: Soft, Nontender, No masses, Bowel sounds normal Musculoskeletal: Normal strength, ROM intact, No edema, No calf tenderness Skin: Warm Neurological: Sensation intact, Motor intact, Reflexes intact, Cranial nerves intact, Alert, Oriented Psychiatric: Affect appropriate, Mood appropriate Interpretation - Radiology Interpretation Radiology Results: Negative Xray Comments: largfe amt gas non-obstructing Critical Care Note - Critical Care Note Total Time (mins): 0 Course - Course Hematology/Chemistry: 06/12/18 07:09 06/12/18 07:09 Orders, Labs, Meds: Lab Review 06/12/18 06/12/18 06/12/18 07:09 07:09 07:22 WBC 9.61 RBC 3.71 L Hgb 12.1 L Hct 34.6 L MCV 93.3 MCH 32.6 H MCHC 35.0 RDW Coeff of Audrey 13.0 Plt Count 285 Immature Gran % (Auto) 0.5 Neut % (Auto) 75.9 Lymph % (Auto) 13.1 Warrick % (Auto) 9.2 Eos % (Auto) 0.8 Baso % (Auto) 0.5 Immature Gran # (Auto) 0.1 Neut # (Auto) 7.3 H Lymph # (Auto) 1.3 Warrick # (Auto) 0.9 Eos # (Auto) 0.1 Baso # (Auto) 0.1 Sodium 133.8 L Potassium 3.86 Chloride 101.3 Carbon Dioxide 25.7 Anion Gap 10.66 BUN 19.0 Creatinine 0.95 Estimated GFR (MDRD) 78.00 BUN/Creatinine Ratio 20.00 Glucose 99.4 Calcium 9.29 Total Bilirubin 0.40 AST 35.7 ALT 47.1 Alkaline Phosphatase 122.7 H Total Protein 6.85 Albumin 4.09 Globulin 2.76 Albumin/Globulin Ratio 1.48 Amylase 105.0 Urine Color Yellow Urine Clarity Clear Urine pH 7.5 Ur Specific Philipp 1.015 Urine Protein Negative Urine Glucose (UA) Negative Urine Ketones Negative Urine Blood Negative Urine Nitrite Negative Urine Bilirubin Negative Urine Urobilinogen 0.2 Ur Leukocyte Esterase Negative Orders Category Date Time Status IV [ED IV/MEDIPORT/POWERPORT] .ONCE EMERGENCY 06/12/18 07:00 Active AMYLASE Stat LAB 06/12/18 07:09 Completed CBC W/ AUTO DIFF Stat LAB 06/12/18 07:09 Completed CMP [COMPREHENSIVE METABOLIC PANEL] Stat LAB 06/12/18 07:09 Completed UA [URINALYSIS C & S IF INDICATED] Stat LAB 06/12/18 07:22 Completed 0.9 % Sodium Chloride [Saline Flush] MEDS 06/12/18 07:00 Active 1 syr IVF PRN PRN Sodium Chloride 0.9% [Sodium Chloride] 500 ml MEDS 06/12/18 07:01 Discontinued IV BOLUS KUB [ABDOMEN 1 VIEW] Stat RADS 06/12/18 07:00 Completed Medications Generic Name Dose Route Start Last Admin Trade Name Freq PRN Reason Stop Dose Admin Sodium Chloride 1 syr 06/12/18 07:00 Saline Flush IVF PRN PRN To flush IV Discontinued Medications Generic Name Dose Route Start Last Admin Trade Name Freq PRN Reason Stop Dose Admin Sodium Chloride 500 mls @ 500 mls/hr 06/12/18 07:01 06/12/18 07:31 Sodium Chloride IV 06/12/18 08:00 500 mls/hr BOLUS STA Administration Vital Signs: Temp Pulse Resp BP Pulse Ox 06/12/18 06:15 99 F 91 H 20 169/96 H 95 Departure - Departure Time of Disposition: 08:42 Disposition: HOME SELF-CARE Discharge Problem: Abdominal pain in male Instructions: Simethicone (By mouth) Condition: Good Pt referred to PMD for follow-up: Yes IPMP verified?: No Allergies/Adverse Reactions: Allergies No Known Allergies Allergy (Verified 06/12/18 06:25) Home Medications: Ambulatory Orders Phenytoin Cap [Dilantin] 100 mg PO TID 07/21/16 Quinapril HCl 40 mg PO BID 07/21/16 Warfarin Sodium [Coumadin] 3 mg PO DAILY 07/21/16 Ezetimibe/Simvastatin [Ezetimibe-Simvastatin 10-40 mg] 1 tab PO DAILY 04/28/17 Ferrous Sulfate 325 mg PO BID BREAKFAST&LUNCH 04/28/17 Pantoprazole Sodium 40 mg PO BID 04/28/17 Sucralfate 1 gm PO QID 04/28/17 Triamterene/Hydrochlorothiazid [Dyazide 37.5-25 Capsule] 1 each PO MOWEFR Tizanidine HCl [Zanaflex] 4 mg PO BID 01/28/18 Disposition Discussed With: Patient, Family
[2018-06-12] MEDS ORDERED: SODIUM CHLORIDE 500 ML IV STA (07:01)
--- NOTE | 2018-06-12 07:52 | DI ---
Exam: Single view of the abdomen. Comparison: CT abdomen pelvis performed 09/13/2017. Reason for exam: Pain. History of pancreatitis. FINDINGS: The bowel gas pattern is nonspecific and nonobstructive. Air filled loops of small and la rge bowel are seen throughout the abdomen. Stool is seen to the level rectosigmoid. Impression: Nonspecific, nonobstructive bowel gas pattern with a large amount of nondilated air-filled loops of b owel seen throughout the abdomen and pelvis. Findings can be seen with enteritis and diarrhea.
[2018-06-12] MEDS ORDERED: MYLICON PO STA (08:04)
== END 2018-06-12 08:50 | disposition home or self-care (01) ==
LOC: ED 06:12
DX: R10.9 Unspecified abdominal pain (principal)
CPT/HCPCS: 36415; 80053; 81001; 82150; 85025; 96360; 99284

== ENCOUNTER 2018-06-14 14:15 | Emergency (ER) ==
[2018-06-14 14:16] VITALS: BMI 18.6
[2018-06-14 14:20] VITALS: BP 102/66; TEMP 99.1
--- NOTE | 2018-06-14 15:08 | ED.PDOC ---
General ED Provider: Dr. 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 Time Seen by Physician: 14:20 Mode of Arrival: Ambulance Information Source: Patient, Family, EMT Exam Limitations: No limitations Primary Care Provider: GLADYS BRUNO Nursing and Triage Documentation Reviewed and Agree: Yes Does patient meet sepsis criteria?: No System Inflammatory Response Syndrome: Not Applicable Sepsis Protocol: For patient's 13 years and over: Temp is 96.8 and below OR 101 and greater Pulse >90 BPM Resp >20/minute Acutely Altered Mental Status Are patient's symptoms suggestive of a new infection, such as: -Pneumonia -Skin, Soft Tissue -Endocarditis -UTI -Bone, Joint Infection -Implantable Device -Acute Abdominal Infection -Wound Infection -Meningitis -Blood Stream Catheter Infection -Unknown Musculoskeletal Complaint Exam - Hip/Pelvis Complaint/Exam Mechanism of Injury: Reports: Trauma Onset/Duration: fell within last week/falls frequently due to his condition/ Symptoms Are: Still present Initial Severity: Moderate Current Severity: Mild Location: Reports: Discrete Character: Reports: Aching Aggravating: Reports: Movement Alleviating: Reports: Rest Related History: Reports: Similar episode Able to Bear Weight: No Related Surgical History: Reports: None Pelvis Palpation: Stable Hip/Pelvis Findings: Present: Extremity shortened Tenderness: Present: Right Range of Motion Limited In: Present: Flexion, Extension NV Bundle Intact Distal to Injury: Yes Differential Diagnoses: Contusion, Dislocation, Fracture, Sciatica Review of Systems - Review Of Systems Constitutional: Reports: Malaise Eyes: Reports: No symptoms Ears, Nose, Mouth, Throat: Reports: No symptoms Respiratory: Reports: No symptoms Cardiac: Reports: No symptoms GI: Reports: No symptoms : Reports: No symptoms Musculoskeletal: Reports: Muscle pain Skin: Reports: No symptoms Neurological: Reports: Unable to move lower ext, Weakness, Other Endocrine: Reports: No symptoms Hematologic/Lymphatic: Reports: No symptoms All Other Systems: Reviewed and Negative Past Medical History - Past Medical History Previously Healthy: Yes Endocrine: Reports: None Cardiovascular: Reports: Hypertension Respiratory: Reports: None Hematological: Reports: None Gastrointestinal: Reports: None Genitourinary: Reports: None Neuro/Psych: Reports: CVA Musculoskeletal: Reports: Other Cancer: Reports: None - Surgical History General Surgical History: Reports: Other (URETHRA SURGERY) - Family History Family History: Reports: Unknown - Social History Smoking Status: Current every day smoker, Heavy tobacco smoker Hx Substance Use: No Alcohol Screening: Heavy - Immunizations Tetanus Shot up to Date: No Physical Exam - Physical Exam Appearance: Thin Ill-appearing: Mild Pain Distress: Mild Eyes: BRANDON ENT: Ears normal Neck: Supple Respiratory: Airway patent Cardiovascular: RRR GI/: Soft Musculoskeletal: Normal strength Skin: Warm Psychiatric: Affect appropriate Critical Care Note - Critical Care Note Total Time (mins): 0 Course - Course Orders, Labs, Meds: Orders Category Date Time Status TIBIA/FIBULA, RIGHT 2 VIEW Stat RADS 06/14/18 15:45 Completed Vital Signs: Temp Pulse Resp BP Pulse Ox 06/14/18 14:16 99.1 F 102 H 16 102/66 95 Departure - Departure Time of Disposition: 17:25 Disposition: HOME SELF-CARE Discharge Problem: Lower extremity pain Instructions: Paresthesia (ED) Condition: Good Pt referred to PMD for follow-up: Yes (follow with PCP) IPMP verified?: No Allergies/Adverse Reactions: Allergies No Known Allergies Allergy (Verified 06/14/18 15:34) Home Medications: Ambulatory Orders Phenytoin Cap [Dilantin] 100 mg PO TID 07/21/16 Quinapril HCl 40 mg PO BID 07/21/16 Warfarin Sodium [Coumadin] 3 mg PO DAILY 07/21/16 Ezetimibe/Simvastatin [Ezetimibe-Simvastatin 10-40 mg] 1 tab PO DAILY 04/28/17 Ferrous Sulfate 325 mg PO BID BREAKFAST&LUNCH 04/28/17 Pantoprazole Sodium 40 mg PO BID 04/28/17 Sucralfate 1 gm PO QID 04/28/17 Triamterene/Hydrochlorothiazid [Dyazide 37.5-25 Capsule] 1 each PO MOWEFR Tizanidine HCl [Zanaflex] 4 mg PO BID 01/28/18 Disposition Discussed With: Patient, Family
--- NOTE | 2018-06-14 16:08 | DI ---
EXAM: Two views of the right tibia and fibula. History: Right lower leg pain. Findings: Atherosclerotic vascular calcifications. No acute fracture or dislocation. Mild tricompa rtmental joint space narrowing at the knee with small osteophytes. There is mild osteopenia. Impression: 1. No acute osseous abnormality. 2. Mild arthritis. 3. Atherosclerotic vascular disease. 4. Mild osteopenia
== END 2018-06-14 17:50 | disposition home or self-care (01) ==
LOC: ED 14:15
DX: M79.661 Pain in right lower leg (principal); W19.XXXA Unspecified fall, initial encounter; R47.01 Aphasia; R29.6 Repeated falls; I10 Essential (primary) hypertension; F17.210 Nicotine dependence, cigarettes, uncomplicated; Z86.73 Personal history of transient ischemic attack (TIA), and cerebral infarction without residual deficits; Z79.01 Long term (current) use of anticoagulants; Z79.899 Other long term (current) drug therapy; I69.361 Other paralytic syndrome following cerebral infarction affecting right dominant side; G82.20 Paraplegia, unspecified
CPT/HCPCS: 99283

== ENCOUNTER 2018-06-18 12:33 | Inpatient (IN) ==
[2018-06-18] MEDS ORDERED: NITROSTAT SL PRN (13:34)
[2018-06-18] MEDS ORDERED: VISTARIL INJ IM PRN (13:34)
[2018-06-18] MEDS ORDERED: TYLENOL PO PRN (13:34)
[2018-06-18] MEDS ORDERED: ATROPINE SULFATE PFS IVP PRN (13:34)
[2018-06-18] MEDS ORDERED: TORADOL IVP PRN (13:41)
[2018-06-18] MEDS: LIBRIUM PO SCH ×2 (14:41→21:23)
[2018-06-18] MEDS: DILANTIN PO SCH ×2 (14:41→21:23)
[2018-06-18] MEDS: NICODERM 21 MG TD SCH (14:48)
[2018-06-18] MEDS: SODIUM CHLORIDE 1,000 ML IV SCH (16:24)
[2018-06-18] MEDS: CARAFATE PO SCH ×2 (16:47→21:23)
[2018-06-18] MEDS: PROTONIX PO SCH (16:47)
--- NOTE | 2018-06-18 16:57 | CT ---
Exam: Chest CT with and without contrast. HISTORY: Generalized weakness. Procedures: contiguous axial images were obtained through the chest prior to and following the intra venous administration of contrast. Sagittal and coronal reformatted images were also created and rev iewed. Comparison: CT chest without contrast 10/01/[address] chest without contrast 03/09/2016.. Findings: Please refer to the dedicated CT of the abdomen and pelvis this same date for details belo w the diaphragms. There is no axillary lymphadenopathy. A 6 mm hypodense nodule in the right thyroi d lobe appears stable. There is redemonstration of calcified mediastinal and hilar lymph nodes. No noncalcified mediastinal lymphadenopathy is identified. There is diffuse atherosclerotic disease, in cluding the coronary arteries. The ascending thoracic aorta measures up to 3.6 cm x 3.7 cm. No thor acic aortic dissection is identified. Lung windows again demonstrate pulmonary emphysematous disease . There is redemonstration of a peripherally calcified bleb at the right apex with adjacent pleural parenchymal thickening. Mild left apical pleural parenchymal thickening/scarring appears stable. In the posterior aspect of the right upper lobe is a subpleural nodule measuring up to 10 mm which does not appear changed from prior. Calcified granulomata are again noted. Bone windows demonstrate multilevel degenerative disease in the spine, mild. There is no acute fract ure seen. No osseous erosions. Impressions: Pulmonary emphysematous disease. Atherosclerosis, including the coronary arteries. Ectatic ascending thoracic aorta up to 3.6 cm x 3.7 cm, stable. Subpleural nodule in the posterior right upper lobe does not appear changed compared to 03/09/2016. No explanation for generalized weakness is identified on this examination. Findings were faxed to the nurses station at 4:45 p.m.
--- NOTE | 2018-06-18 17:02 | CT ---
Exam: CT head with and without contrast. HISTORY: Generalized weakness. Procedures: 5 mm contiguous axial images were obtained through the skull prior to and following the intravenous administration of contrast. Sagittal and coronal reformated images were also created and reviewed. Comparison: 10/01/2017. FINDINGS: There is redemonstration of prominence of the bilateral lateral ventricles and cerebral paul lci. There is redemonstration of a left frontal temporal parietal encephalomalacia. Mild diffuse pe riventricular white matter hypodensity is again noted.There is no intracranial hemorrhage, mass effec t, hydrocephalus, extra-axial fluid collection or midline shift. The ventricles and basal cisterns a re patent. There is no evidence of acute large vessel infarct. There is no abnormal enhancement see n. Bone windows demonstrate normal aeration of the mastoid air cells and the visualized portions of the paranasal sinuses. Atherosclerotic plaque is noted. There is no acute fracture. IMPRESSION: No acute intracranial process. Redemonstration of cerebral atrophy and changes most likely related to microvascular ischemic disease . Redemonstration of left frontal temporal parietal encephalomalacia. Findings were faxed to the nurses station at 4:45 p.m.
--- NOTE | 2018-06-18 17:35 | DI ---
Exam: Right tibia and fibula two-view. HISTORY: Right lower extremity weakness. Comparison: 06/14/2018. Findings: Four images of the right tibia and fibula are submitted. These demonstrate diffusely oste openic patient with no acute fracture or dislocation. There is no osseous erosion or radiodense fore ign body. Atherosclerotic plaque is again noted. There is no focal soft tissue swelling. Impressions: No acute fracture or dislocation in the right tibia or fibula. Atherosclerosis. The examination appears stable from 06/14/2018.
--- NOTE | 2018-06-18 17:36 | DI ---
Exam: Right foot three-view. HISTORY: Right extremity weakness. Comparison: 06/19/2013. Findings: Three images of the right foot are submitted. These demonstrate a diffusely osteopenic pa tient with no acute fracture or dislocation. Mild degenerative disease is again noted at the first m etatarsophalangeal joint. The subtalar joints appear maintained. There is no osseous erosion or rad iodense foreign body. Atherosclerotic plaque is seen. There is no focal soft tissue swelling. Impressions: No acute fracture or dislocation of the right foot. Atherosclerosis.
--- NOTE | 2018-06-18 17:57 | CT ---
EXAM: CT abdomen pelvis with and without contrast HISTORY: Generalized weakness COMPARISON: None TECHNIQUE: CT abdomen pelvis performed with and without intravenous contrast. Coronal and sagittal reformatted images obtained. FINDINGS: Please refer to separate report CT chest regarding findings in the lower chest. No free air. Old healed fracture right inferior and superior pubic rami. Chronic remodeling changes right sacral ala likely due to old fracture. Mild compression deformity T12. Moderate chronic comp ression deformity L2. Acute compression fracture L4 with severe loss of vertebral body height centra lly . 2 mm retropulsion superior endplate L4 contributing to central canal narrowing (associated pos terior disc osteophyte complex and facet arthrosis) causing probably moderate central canal narrowing . Stable hypodensity in the liver, image 27 measures 1.4 cm, unchanged from 2016, most consistent with benign etiology, probably a hemangioma. Additional small stable liver cyst. Gallbladder unremarkabl e. Pancreas unremarkable. Spleen unremarkable. Adrenals unremarkable. Bilateral renal cysts measu ring up to 4.1 cm in the right kidney. Additionally, there is a 2.4 cm lesion right mid kidney later ally that is similar to minimally increased from 12/22/2015. This is mildly increased in density on postcontrast imaging, may reflect mild enhancement versus pseudo enhancement. High density left perico l lesion measuring 1.7 cm image 32 without enhancement, likely a hemorrhagic cyst. Additional sub ce ntimeter hypodensities in the kidneys, too small to characterize. No hydronephrosis or nephrolithia sis. Aorta normal in caliber. Extensive atherosclerosis. Bladder unremarkable. Suggestion of TURP defect. Wall thickening of the stomach versus underdistension. No dilated loops small bowel. Appe ndix appears normal. Colonic diverticulosis. Mild retention in the colon. IMPRESSION: 1. Acute compression fracture L4 with severe loss of vertebral body height centrally. 2 mm retropul trisha superior endplate L4 contributing to central canal narrowing (associated posterior disc osteophy te complex and facet arthrosis) causing probably moderate central canal narrowing. 2. Indeterminate 2.4 cm right renal lesion could be benign or neoplastic, similar to minimally incre ased from 12/22/2015. Recommend correlation with ultrasound. Additional probable complex hyperdense left renal cyst and additional bilateral renal cysts. 3. Old healed fracture right inferior and superior pubic rami. Chronic remodeling changes right sac ral ala likely due to old fracture. Mild compression deformity T12. Moderate chronic compression de formity L2. 4. Extensive atherosclerosis 5. Colonic diverticulosis 6. Mild fecal retention in the colon.
[2018-06-18] MEDS ORDERED: NON-FORMULARY MEDICATION (Tizanidine Hcl [Zanaflex] 4 MG) PO SCH (21:00)
[2018-06-18] MEDS: ZANAFLEX PO SCH (21:23)
[2018-06-18] MEDS: ACCUPRIL PO SCH (21:23)
[2018-06-19] MEDS: PROTONIX PO SCH ×2 (05:40→16:33)
[2018-06-19] MEDS: CARAFATE PO SCH ×4 (05:40→20:39)
[2018-06-19] MEDS: SODIUM CHLORIDE 1,000 ML IV SCH ×2 (05:41→23:45)
[2018-06-19] MEDS ORDERED: DECADRON 4 MG/ML SDV IM STA (07:49)
[2018-06-19] MEDS ORDERED: ROCEPHIN 1 GM in SODIUM CHLORIDE 50 ML IV STA (07:49)
[2018-06-19] MEDS ORDERED: CITRATE OF MAGNESIA PO STA (07:49)
[2018-06-19] MEDS ORDERED: NON-FORMULARY MEDICATION (Ferrous Sulfate [Ferrous Sulfate] 325 MG) PO SCH (08:00)
--- NOTE | 2018-06-19 08:35 | PCM.PROG ---
Attending Provider: ATTENDING PROVIDER: Dr. GLADYS BRUNO This patient is seen with Fanny Chaparro, Nurse Practitioner. DATE OF SERVICE: 06/19/18 SUBJECTIVE: This 72 year old WHITE/ M was hospitalized 06/18/18. The patient is resting comfortably. CT shows new compression fracture at L4, stable right renal lesion and showing constipation. REVIEW OF SYSTEMS: CONSTITUTIONAL: No night sweats. No fatigue, malaise, lethargy. No fever or chills. HEENT: Eyes: No visual changes. No eye pain. No eye discharge. ENT: No runny nose. No epistaxis. No sinus pain. No odynophagia. No congestion. RESPIRATORY: No cough, no congestion. No hemoptysis. No shortness of breath. CARDIOVASCULAR: No angina symptoms. No CHF symptoms. No atypical chest pain for CAD. No palpitations. No orthopnea.. GASTROINTESTINAL: No abdominal pain. No nausea or vomiting. No diarrhea or constipation. No hematemesis. No hematochezia. GENITOURINARY: No urgency. No frequency. No dysuria. No hematuria. No obstructive symptoms. No discharge. No pain. No significant abnormal bleeding. MUSCULOSKELETAL: No musculoskeletal pain; no joint swelling. Back pain. NEUROLOGICAL: Awake, alert, oriented to time, place and person. No headache. No neck pain. No syncope. No seizures. No dizziness. PSYCHIATRIC: Not anxious. No depression. No suicidal thoughts. No homicidal thoughts. SKIN: No rash. No lesions. No wounds. ENDOCRINE: No unexplained weight loss. No weight gain. HEMATOLOGIC/LYMPHATIC: No anemia. No purpura. No petechiae. No prolonged or excessive bleeding. No palpable lymph nodes. PHYSICAL EXAMINATION: GENERAL: The patient is awake, alert and oriented, lying in bed in no distress. VITAL SIGNS: Temperature 98.1 F, Pulse 82, Respiratory Rate 15, BP 120/69, Pulse Ox 95% HEENT: Head normocephalic, atraumatic. Eyes: Extraocular muscles are intact. Pupils are equal, round and reactive to light and accommodation. Ears: No lesions. Nose appeared normal. Throat: No exudate or erythema. NECK: Supple. No JVD, no carotid bruit. No lymphadenopathy or thyromegaly. LUNGS: Diminished breath sounds. Clear to auscultation. Percussion note normal. Chest symmetrical. HEART: S1, S2, no S3. No murmurs. No cyanosis or clubbing. No ascites. Pulses: Dorsalis pedis and posterior tibial pulses +1 to +2 both sides. ABDOMEN: Soft. Non-tender. Bowel sounds active. No CVA tenderness. No mass felt. EXTREMITIES: No edema. Full range of motion of all extremities, equal. NEUROLOGIC: No focal deficit. Cranial nerves II through XII are grossly intact. No headache, no double vision or headache. SKIN: Not dry. Intact. Turgor-normal. LYMPHATIC: No palpable lymph nodes/no lymphedema. MUSCULOSKELETAL: Normal joints with no swelling. Muscle tone is normal. LAB REVIEW: 06/19/18 04:50 06/19/18 04:50 06/19/18 04:50: Sodium 136.0, Potassium 3.99, Chloride 104.6, Carbon Dioxide 25.3, Anion Gap 10.09, BUN 18.9, Creatinine 1.13 H, Estimated GFR (MDRD) 64.00, BUN/Creatinine Ratio 16.72, Glucose 96.9, Calcium 9.00, Total Bilirubin 0.30, AST 22.5, ALT 21.4, Alkaline Phosphatase 117.8, Total Protein 6.23 L, Albumin 3.94, Globulin 2.29, Albumin/Globulin Ratio 1.72 06/19/18 04:50: PT 23.2 H D, INR 2.38 06/19/18 04:50: WBC 7.32, RBC 3.41 L, Hgb 10.9 L, Hct 32.0 L, MCV 93.8, MCH 32.0 H, MCHC 34.1, RDW Coeff of Audrey 13.0, Plt Count 294, Immature Gran % (Auto) 0.5, Neut % (Auto) 59.9, Lymph % (Auto) 24.9, [place] % (Auto) 11.1 H, Eos % (Auto ) 2.9, Baso % (Auto) 0.7, Immature Gran # (Auto) 0.0, Neut # (Auto) 4.4, Lymph # (Auto) 1.8, [place] # (Auto) 0.8, Eos # (Auto) 0.2, Baso # (Auto) 0.1 06/18/18 16:30: Urine Color Yellow, Urine Clarity Cloudy, Urine pH 7.0, Ur Specific [place] 1.015, Urine Protein 1+, Urine Glucose (UA) Negative, Urine Ketones 1+, Urine Blood Trace-intact, Urine Nitrite Positive, Urine Bilirubin Negative, Urine Urobilinogen 0.2, Ur Leukocyte Esterase 1+, Urine Microscopic RBC 0-2, Urine Microscopic WBC 10-20, Ur Squamous Epith Cells 5-10, Urine Bacteria 2+ 06/18/18 14:05: Phenytoin 7.33 L 06/18/18 14:05: PT 31.3 H, INR 3.24 06/18/18 14:05: Sodium 135.5, Potassium 4.17, Chloride 99.8, Carbon Dioxide 26.8 , Anion Gap 13.07, BUN 20.3 H, Creatinine 1.18 H, Estimated GFR (MDRD) 61.00, BUN/Creatinine Ratio 17.20, Glucose 89.3, Calcium 9.42, Total Bilirubin 0.37, AST 31.1, ALT 26.8, Alkaline Phosphatase 129.3 H, Total Protein 7.06, Albumin 4.59, Globulin 2.47, Albumin/Globulin Ratio 1.85 06/18/18 14:05: WBC 8.54, RBC 3.67 L, Hgb 11.9 L, Hct 34.5 L, MCV 94.0, MCH 32.4 H, MCHC 34.5, RDW Coeff of Audrey 12.7, Plt Count 301, Immature Gran % (Auto) 0.4, Neut % (Auto) 67.9, Lymph % (Auto) 19.2, [place] % (Auto) 10.1 H, Eos % (Auto ) 1.9, Baso % (Auto) 0.5, Immature Gran # (Auto) 0.0, Neut # (Auto) 5.8, Lymph # (Auto) 1.6, [place] # (Auto) 0.9, Eos # (Auto) 0.2, Baso # (Auto) 0.0 ASSESSMENT: Please see below. 1. L4 Compression fracture. 2. Constipation 3. COPD 4. Worsening generalized weakness. 5. Noncompliance. PLAN: 1. 1cc Decadron 2. 1 gram Rocephin once 3. Half bottle Magnesium Citrate 4. Decrease fluids to 50cc. Plan and coordination of the patient's care discussed in the presence of Dermatology Nurse and nurse. SCRIBED BY: ESTELLA TODD, [employer] Technician scribed while in presence of service performed by Dr. Bruno/Fanny Chaparro APRN on 06/19/18 ([id number])
[2018-06-19] MEDS: ZANAFLEX PO SCH ×2 (08:53→20:39)
[2018-06-19] MEDS: LIBRIUM PO SCH ×3 (08:53→20:38)
[2018-06-19] MEDS: ACCUPRIL PO SCH ×2 (08:53→20:38)
[2018-06-19] MEDS: DILANTIN PO SCH ×3 (08:54→20:38)
[2018-06-19] MEDS: ZETIA PO SCH (08:54)
[2018-06-19] MEDS: ZOCOR PO SCH (08:54)
[2018-06-19] MEDS ORDERED: SIMVASTATIN PO SCH (09:00)
[2018-06-19] MEDS ORDERED: EZETIMIBE PO SCH (09:00)
[2018-06-19] MEDS: DYAZIDE PO SCH (09:05)
[2018-06-19] MEDS: ASPIRIN EC PO SCH (09:05)
[2018-06-19] MEDS: FERROUS SULFATE PO SCH ×2 (09:05→11:46)
[2018-06-19] MEDS: NICODERM 21 MG TD SCH (09:07)
--- NOTE | 2018-06-19 14:48 | HP ---
DATE OF SERVICE: 06/18/18 REASON FOR HOSPITALIZATION/HISTORY OF PRESENT ILLNESS: The patient came to the ER twice last week with abdominal pain and right foot pain. He has had multiple falls in the past 2-3 weeks. No control of right lower extremity anymore. He is unable to transfer himself. PAST MEDICAL HISTORY: TIA 1998 Pancreatitis Enlarged prostate Paralyzed right due to stroke Hypertension Coronary artery disease PAST SURGICAL HISTORY: Neck, years ago [id number] REVIEW OF SYSTEMS: CONSTITUTIONAL: No fever, Fatigue. HEENT: No sinus drainage, no sore throat. RESPIRATORY: No cough, no congestion. CARDIOVASCULAR: No atypical chest pain for coronary artery disease. No angina , CHF symptoms, palpitations or shortness of breath. GASTROINTESTINAL: No melena or abdominal pain. No GERD. GENITOURINARY: No hematuria, no prostatism, no polyuria. 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 GAIT: Wheelchair MUSCULOSKELETAL: Osteoarthritis pain, no joint swelling. ENDOCRINE: No weight loss, no weight gain. SKIN: Not dry, no rash. PSYCHIATRIC: Anxious, no depression, no suicidal thoughts, no homicidal thoughts. SOCIAL HISTORY: Marital Status: . Alcohol Usage: Yes. Tobacco Usage: Yes. FAMILY HISTORY: Father - Lung cancer and CAD Mother -CAD Brother 3 healthy Sister 2 healthy MEDICATIONS: Dilantin 100mg three times a day Quinapril 40mg twice a day Coumadin 3mg daily Ezetimibe/Simvastatin 10/40 Po daily Iron 325mg Po twice a day Protonix 40mg Po twice a day Carafate 1gram four times a day Dyazide one daily Zanaflex 4mg twice a day ALLERGIES: No known drug allergies PHYSICAL EXAMINATION: V/S: Pulse 107, blood pressure 102/70, oxygen saturation 97%. GENERAL APPEARANCE: Oriented times three. HEENT: Normal. NECK: No JVP, no bruits. RESPIRATORY: decreased breath sounds. CARDIOVASCULAR: S1, S2, no S3, no murmurs. No cyanosis, clubbing. No ascites. GI/ABDOMEN: No tenderness. Bowel sounds are active. EXTREMITIES: No edema, pulses +1, equal. Right foot pain with addiction DESIGN TECHNOLOGY PROFESSOR: Deep tendon reflexes, sensory, motor and gait all normal. RECTAL: Colonoscopy the patient refused./PELVIC: Colocare pt refused. /PROSTATE : 09/16 (0-8) . ASSESSMENT: 1. Right foot pain 2. Generalized weakness, worsening 3. Right lower extremity weakness. 4. L2 compression fracture with no new defect 5. History of pelvic fracture/falls 6. Right upper lobe mass 7. GERD 8. Hypertension 9. 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 Crowley 18.History of ulcers on buttocks. PLAN: 1. Admit 2. Routine telemetry-no cardiac markers 3. Normal saline @ 75cc and hour IV 4. Continue home medications 5. Nicotine patch 6. O2 @1-[address] of brain with and without contrast 8. CT abdomen and pelvis and chest with and without 9. X-ray right foot and tibia and fibula 10.Chest x-ray 11.Daily INR 12.Librium 10mg Po three times a day 13.Toradol 30mg IV Q 8 hours PRN and now 14.CBC and CMP now and daily 15.Dilantin level 16.Regular diet TIME SPENT: More than 70 minutes. MTDD
[2018-06-19] MEDS: COUMADIN PO SCH (16:34)
[2018-06-20] MEDS: CARAFATE PO SCH ×4 (06:06→20:59)
[2018-06-20] MEDS: PROTONIX PO SCH ×2 (06:06→16:15)
--- NOTE | 2018-06-20 08:32 | PCM.PROG ---
Attending Provider: ATTENDING PROVIDER: Dr. GLADYS BRUNO This patient is seen with Fanny Chaparro, Nurse Practitioner. DATE OF SERVICE: 06/20/18 SUBJECTIVE: This 72 year old WHITE/ M was hospitalized 06/18/18. The patient is resting comfortably. He is eating well and no back pain. Still with weakness. We have been discussing whether he will go to [facility] for rehab. REVIEW OF SYSTEMS: CONSTITUTIONAL: No night sweats. No fatigue, malaise, lethargy. No fever or chills. HEENT: Eyes: No visual changes. No eye pain. No eye discharge. ENT: No runny nose. No epistaxis. No sinus pain. No odynophagia. No congestion. RESPIRATORY: No cough, no congestion. No hemoptysis. No shortness of breath. CARDIOVASCULAR: No angina symptoms. No CHF symptoms. No atypical chest pain for CAD. No palpitations. No orthopnea.. GASTROINTESTINAL: No abdominal pain. No nausea or vomiting. No diarrhea or constipation. No hematemesis. No hematochezia. GENITOURINARY: No urgency. No frequency. No dysuria. No hematuria. No obstructive symptoms. No discharge. No pain. No significant abnormal bleeding. MUSCULOSKELETAL: No musculoskeletal pain; no joint swelling. Weakness. NEUROLOGICAL: Awake, alert, oriented to time, place and person. No headache. No neck pain. No syncope. No seizures. No dizziness. PSYCHIATRIC: Not anxious. No depression. No suicidal thoughts. No homicidal thoughts. SKIN: No rash. No lesions. No wounds. ENDOCRINE: No unexplained weight loss. No weight gain. HEMATOLOGIC/LYMPHATIC: No anemia. No purpura. No petechiae. No prolonged or excessive bleeding. No palpable lymph nodes. PHYSICAL EXAMINATION: GENERAL: The patient is awake, alert and oriented, lying in bed in no distress. VITAL SIGNS: Temperature 97.8 F, Pulse 75, Respiratory Rate 16, BP 132/72, Pulse Ox 97% HEENT: Head normocephalic, atraumatic. Eyes: Extraocular muscles are intact. Pupils are equal, round and reactive to light and accommodation. Ears: No lesions. Nose appeared normal. Throat: No exudate or erythema. NECK: Supple. No JVD, no carotid bruit. No lymphadenopathy or thyromegaly. LUNGS: Diminished breath sounds. Clear to auscultation. Percussion note normal. Chest symmetrical. HEART: S1, S2, no S3. No murmurs. No cyanosis or clubbing. No ascites. Pulses: Dorsalis pedis and posterior tibial pulses +1 to +2 both sides. ABDOMEN: Soft. Non-tender. Bowel sounds active. No CVA tenderness. No mass felt. EXTREMITIES: No edema. Full range of motion of all extremities, equal. NEUROLOGIC: No focal deficit. Cranial nerves II through XII are grossly intact. No headache, no double vision or headache. SKIN: Not dry. Intact. Turgor-normal. LYMPHATIC: No palpable lymph nodes/no lymphedema. MUSCULOSKELETAL: Normal joints with no swelling. Muscle tone is normal. LAB REVIEW: 06/20/18 04:30 06/20/18 04:30 06/20/18 04:30: Sodium 133.1 L, Potassium 4.27, Chloride 102.8, Carbon Dioxide 22.0, Anion Gap 12.57, BUN 17.2, Creatinine 1.05, Estimated GFR (MDRD) 69.00, BUN/Creatinine Ratio 16.38, Glucose 95.8, Calcium 8.89, Total Bilirubin 0.25, AST 31.2, ALT 29.2, Alkaline Phosphatase 116.1, Total Protein 6.32, Albumin 3.97 , Globulin 2.35, Albumin/Globulin Ratio 1.68 06/20/18 04:30: PT 16.7 H D, INR 1.70 06/20/18 04:30: WBC 8.84, RBC 3.32 L, Hgb 10.7 L, Hct 31.1 L, MCV 93.7, MCH 32.2 H, MCHC 34.4, RDW Coeff of Audrey 12.7, Plt Count 284, Immature Gran % (Auto) 0.6, Neut % (Auto) 63.7, Lymph % (Auto) 23.1, [place] % (Auto) 9.7, Eos % (Auto) 2.3, Baso % (Auto) 0.6, Immature Gran # (Auto) 0.1, Neut # (Auto) 5.6, Lymph # ( Auto) 2.0, [place] # (Auto) 0.9, Eos # (Auto) 0.2, Baso # (Auto) 0.1 ASSESSMENT: Please see below. 1. L4 Compression fracture. 2. Constipation 3. COPD 4. Worsening generalized weakness. 5. Noncompliance. PLAN: 1. Physical and occupation therapy. Plan and coordination of the patient's care discussed in the presence of Oil Field Tester and nurse. SCRIBED BY: Ezekiel OSPINA scribed while in presence of service performed by Dr. Bruno/Fanny Chaparro APRN on 06/20/18 ([id number])
[2018-06-20] MEDS: ROCEPHIN 1 GM in SODIUM CHLORIDE 50 ML IV SCH (09:02)
[2018-06-20] MEDS: NICODERM 21 MG TD SCH (09:03)
[2018-06-20] MEDS: ACCUPRIL PO SCH ×2 (09:04→20:59)
[2018-06-20] MEDS: LIBRIUM PO SCH ×3 (09:04→20:59)
[2018-06-20] MEDS: DILANTIN PO SCH ×3 (09:04→20:59)
[2018-06-20] MEDS: ASPIRIN EC PO SCH (09:04)
[2018-06-20] MEDS: ZOCOR PO SCH (09:05)
[2018-06-20] MEDS: ZANAFLEX PO SCH ×2 (09:05→20:59)
[2018-06-20] MEDS: ZETIA PO SCH (09:05)
[2018-06-20] MEDS: FERROUS SULFATE PO SCH ×2 (10:05→12:43)
--- NOTE | 2018-06-20 10:50 | RS.PTINEVL ---
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 - Level of function Abilities prior to this admission: pt transferred to power chair independently, independent with ADL's, however pt with multiple falls. Current Level of Function: Partially Dependent Current Equipment Used at Home: wheelchair, brace for right leg, grab bar bathroom , wheelchair ramp Pain Assessement - Location R LE Description: Aching Pain Behavior: Irritability, Facial Grimacing Pain Aggravating Factors: Changing Position, Standing Effects of Pain: pt unable to rate pain due to expressive aphasia Interventions - Objective Patient Orientation: Person Current Interventions: IV's Observation: pt with AFO on R foot. Range of Motion - ROM Right Upper Extremity AROM: Moderate limitation (pt with flexion contracture RUE ) Left Upper Extremity AROM: WFL's Right Lower Extremity AROM: Moderate limitation (pt with decreased knee ext on RLE) Left Lower Extremity AROM: WFL's Muscle Strength - Muscle Strength Right Upper Extremity Strength: Severe Weakness (pt with no active movement due to CVA) Left Upper Extremity Strength: Mild Weakness (grossly 4/5 difficult to MMT due to pt uncooperative and confused) Right Lower Extremity Strength: Severe Weakness (pt with hip flex 1+/5, knee flex/ext 2-/5, ankle DF/PF 0/5) Left Lower Extremity Strength: Mild Weakness (grossly 4-/5) Comments:: difficult to MMT due to pt confusion and non cooperative Sensation - Sensation Right Upper Extremity Sensation: Impaired Left Upper Extremity Sensation: Intact/Normal Right Lower Extremity Sensation: Impaired Left Lower Extremity Sensation: Intact/Normal Palpation Palpation Findings: Tenderness (R LE with AAROM) Balance - Sitting Balance and Reactions Static Sitting Balance: Fair Dynamic Sitting Balance: Poor Sitting Equilibrium Reactions: Delayed Left, Absent Right Sitting Protective Reactions: Delayed Left, Absent Right - Standing Balance and Reactions Static Standing Balance: Poor Dynamic Standing Balance: Poor Standing Equilibrium Reactions: Delayed Left, Absent Right Standing Protective Reactions: Delayed Left, Absent Right - Comments Balance Assessment Comments: pt able to sit at side of bed with min x 1 frequent loss of balance to R and backward. Functional Mobility - Bed Mobility Rolling R/L: Min Assist, Mod Assist, 1 person assist Supine to Sit: Min Assist, Mod Assist, 2 person assist - Transfers Sit to Stand: Mod Assist, 2 person assist Stand to Sit: Mod Assist, 2 person assist Stand Pivot Transfers: Mod Assist, 2 person assist - Safety Awareness Safety Awareness: Poor SHWETA INDEX SCORE: n/a Ambulation - Ambulation Ambulation Comments: pt unable to amb at this time. Treatment time - Time with patient Length of Evaluation: 26 Total treatment time: 29 Patient Education - Education Patient Education: Activity Modification, Education of Plan of Care Teaching Recipient: Patient Teaching Methods: Discussion Comments: discussion with patient regarding safety with transfers and POC. Assessment - Assessment Problem List:: Decreased level of function, Requires training/education, Decreased safety/Risk of falls, Weakness, Pain limits previous level of function , Cognitive status limits abilities Rehab Potential: Fair Further Therapy Indicated?: Yes Candidate for Swing Bed for Therapy Services?: Feel pt may not be a candidate for swing bed due to feel pt may require longer term rehab to improve functional ability. Evaluation Complexity: HISTORY: Medium (CVA, COPD, HTN, falls), EXAM OF BODY SYSTEMS: Medium (strength, balance, pain, endurance, transfers ), CLINICAL PRESENTATION: Medium (evolving), CLINICAL DECISION MAKING: Medium Short Term Goals GOAL #1: pt demonstrate rolling and bridging in bed with min to CGA x 1 Goal to be met by: 06/22/18 GOAL #2: Transfer sup to/from sit min x 1 Goal to be met by: 06/22/18 GOAL #3: Transfer sit to/from stand mod x 1 Goal to be met by: 06/22/18 GOAL #4: Stand pivot bed to/from chair with mod x 1 Goal to be met by: 06/22/18 [facility] Goals GOAL #1: pt demonstrate independence with bed mobility Goal to be met by: 06/25/18 GOAL #2: Transfer sup to/from sit CGA, sit to/from stand min x 1 Goal to be met by: 06/25/18 GOAL #3: pt stand pivot bed to/from chair with min x 1 Goal to be met by: 06/25/18 Plan Plan of Care: Therapeutic EX, Therapeutic Activity Frequency of Treatment: 1-2 X day, as tolerated Duration of Treatment: 5 days Anticipated Discharge Destination: undetermined possible LTC Treatment Diagnosis (ICD 10 Codes): multiple falls R 29.6. weakness M62.81. balance impaired R26.81 Has the Physician been added for Co-signature?: Yes
[2018-06-20] MEDS: SODIUM CHLORIDE 1,000 ML IV SCH (13:00)
[2018-06-20] MEDS: COUMADIN PO SCH (16:16)
[2018-06-21] MEDS: CARAFATE PO SCH ×2 (05:35→10:38)
[2018-06-21 05:36] VITALS: BP 138/80; TEMP 99.3
[2018-06-21] MEDS: PROTONIX PO SCH (05:49)
--- NOTE | 2018-06-21 09:29 | PCM.PROG ---
Attending Provider: ATTENDING PROVIDER: Dr. GLADYS BRUNO DATE OF SERVICE: 06/21/18 SUBJECTIVE: This 72 year old WHITE/ M was hospitalized 06/18/18 with generalized weakness, possibility of UTI. The patient seems to be a lot better. He is oriented to time, place and person. no fever or chills. Appetite has been good. There was a possibility of him going to the care home but he flatly declined that he would not go to care home. Urine culture growing staph. REVIEW OF SYSTEMS: CONSTITUTIONAL: No night sweats. No fatigue, malaise, lethargy. No fever or chills. HEENT: Eyes: No visual changes. No eye pain. No eye discharge. ENT: No runny nose. No epistaxis. No sinus pain. No odynophagia. No congestion. RESPIRATORY: No cough, no congestion. No hemoptysis. No shortness of breath. CARDIOVASCULAR: No angina symptoms. No CHF symptoms. No atypical chest pain for CAD. No palpitations. No orthopnea.. GASTROINTESTINAL: No abdominal pain. No nausea or vomiting. No diarrhea or constipation. No hematemesis. No hematochezia. GENITOURINARY: No urgency. No frequency. No dysuria. No hematuria. No obstructive symptoms. No discharge. No pain. No significant abnormal bleeding. MUSCULOSKELETAL: No musculoskeletal pain; no joint swelling. NEUROLOGICAL: Awake, alert, oriented to time, place and person. No headache. No neck pain. No syncope. No seizures. No dizziness. PSYCHIATRIC: Not anxious. No depression. No suicidal thoughts. No homicidal thoughts. SKIN: No rash. No lesions. No wounds. ENDOCRINE: No unexplained weight loss. No weight gain. HEMATOLOGIC/LYMPHATIC: No anemia. No purpura. No petechiae. No prolonged or excessive bleeding. No palpable lymph nodes. PHYSICAL EXAMINATION: GENERAL: The patient is awake, alert and oriented, lying in bed in no distress. VITAL SIGNS: Temperature 99.3 F, Pulse 91, Respiratory Rate 24, BP 138/80, Pulse Ox 95% HEENT: Head normocephalic, atraumatic. Eyes: Extraocular muscles are intact. Pupils are equal, round and reactive to light and accommodation. Ears: No lesions. Nose appeared normal. Throat: No exudate or erythema. NECK: Supple. No JVD, no carotid bruit. No lymphadenopathy or thyromegaly. LUNGS: Clear to auscultation. Percussion note normal. Chest symmetrical. HEART: S1, S2, no S3. No murmurs. No cyanosis or clubbing. No ascites. Pulses: Dorsalis pedis and posterior tibial pulses +1 to +2 both sides. ABDOMEN: Soft. Non-tender. Bowel sounds active. No CVA tenderness. No mass felt. EXTREMITIES: No edema. Full range of motion of all extremities, equal. Right hemiplagia with contractures of right upper extremity and to some extent left. He is able to transfer on his own. NEUROLOGIC: No focal deficit. Cranial nerves II through XII are grossly intact. No headache, no double vision or headache. SKIN: Warm and dry. Intact. Turgor-normal. LYMPHATIC: No palpable lymph nodes/no lymphedema. MUSCULOSKELETAL: Normal joints with no swelling. Muscle tone is normal. LAB REVIEW: 06/21/18 05:00 06/21/18 05:00 06/21/18 05:00: Sodium 132.6 L, Potassium 4.36, Chloride 101.1, Carbon Dioxide 23.4, Anion Gap 12.46, BUN 15.0, Creatinine 0.88, Estimated GFR (MDRD) 85.00, BUN/Creatinine Ratio 17.04, Glucose 89.0, Calcium 9.29, Total Bilirubin 0.31, AST 47.1, ALT 42.5, Alkaline Phosphatase 132.4 H, Total Protein 6.69, Albumin 4.26, Globulin 2.43, Albumin/Globulin Ratio 1.75 06/21/18 05:00: WBC 8.64, RBC 3.56 L, Hgb 11.5 L, Hct 33.3 L, MCV 93.5, MCH 32.3 H, MCHC 34.5, RDW Coeff of Audrey 12.7, Plt Count 335, Immature Gran % (Auto) 0.5, Neut % (Auto) 68.2, Lymph % (Auto) 19.8, [place] % (Auto) 8.4, Eos % (Auto) 2.4, Baso % (Auto) 0.7, Immature Gran # (Auto) 0.0, Neut # (Auto) 5.9, Lymph # ( Auto) 1.7, [place] # (Auto) 0.7, Eos # (Auto) 0.2, Baso # (Auto) 0.1 ASSESSMENT: Please see below. 1. L4 compression fracture, it is asymptomatic 2. No new neurological deficit PLAN: 1. Septra twice a day for 5 days. Plan and coordination of the patient's care discussed in the presence of Primer Inspector and nurse. SCRIBED BY: ESTELLA TODD Division Chief scribed while in presence of service performed by Dr. GLADYS BRUNO on 06/21/18 ([id number])
[2018-06-21] MEDS: ZANAFLEX PO SCH (10:07)
[2018-06-21] MEDS: DYAZIDE PO SCH (10:07)
[2018-06-21] MEDS: FERROUS SULFATE PO SCH (10:07)
[2018-06-21] MEDS: ZETIA PO SCH (10:09)
[2018-06-21] MEDS: ACCUPRIL PO SCH (10:09)
[2018-06-21] MEDS: ZOCOR PO SCH (10:09)
[2018-06-21] MEDS: DILANTIN PO SCH (10:10)
[2018-06-21] MEDS: LIBRIUM PO SCH (10:10)
[2018-06-21] MEDS: ASPIRIN EC PO SCH (10:10)
[2018-06-21] MEDS: ROCEPHIN 1 GM in SODIUM CHLORIDE 50 ML IV SCH (10:28)
[2018-06-21] MEDS: NICODERM 21 MG TD SCH (10:28)
--- NOTE | 2018-06-21 10:32 | CM.DICTOOL ---
ADMISSION: 06/18/18 12:33 DISCHARGE: JUNE 21, 2018 DATE OF SERVICE: 06/21/18 FINAL DIAGNOSIS ACUTE L4 COMPRESSION FRACTURE GENERALIZED WEAKNESS, INCREASING RECENT FALLS ABDOMINAL PAIN HYPERTENSION COPD, MODERATE/SEVERE PER PFT 07-23-2016 HISTORY OF CVA RIGHT HEMIPARESIS OCCLUSION LICA, CAROTID ULTRASOUND 2014 (DR. HIGGINBOTHAM) HISTORY OF PELVIC FRACTURE (09/[address]) HISTORY OF L2 COMPRESSION FRACTURE (PER LUMBAR CT 09/2017) DIVERTICULOSIS PER CT (2018) GERD DEPRESSION LAST VITALS Temp Pulse Resp BP Pulse Ox 99.3 F 91 H 24 138/80 95 06/21/18 05:35 06/21/18 05:35 06/21/18 05:35 06/21/18 05:35 06/21/18 05:35 TAKE THESE MEDICATIONS AT HOME Chlordiazepoxide HCl (Librium) 10 mg PO TID [facility] Last Admin: 06/20/18 20:59 Dose: 10 mg Ezetimibe (Zetia) 10 mg PO DAILY [facility] Last Admin: 06/20/18 09:05 Dose: 10 mg Ferrous Sulfate (Ferrous Sulfate) 324 mg PO BID BREAKFAST&LUNCH [facility] Last Admin: 06/20/18 12:43 Dose: 324 mg Pantoprazole Sodium (Protonix) 40 mg PO BIDAC [facility] Last Admin: 06/21/18 05:49 Dose: 40 mg Phenytoin Sodium (Dilantin) 100 mg PO TID [facility] Last Admin: 06/20/18 20:59 Dose: 100 mg Quinapril HCl (Accupril) 40 mg PO BID [facility] Last Admin: 06/20/18 20:59 Dose: 40 mg Simvastatin (Zocor) 40 mg PO DAILY [facility] Last Admin: 06/20/18 09:05 Dose: 40 mg Sucralfate (Carafate) 1 gm PO ACHS [facility] Last Admin: 06/21/18 05:35 Dose: 1 gm Tizanidine HCl (Zanaflex) 4 mg PO BID [facility] Last Admin: 06/20/18 20:59 Dose: 4 mg Triamterene/HCTZ (Dyazide) 1 cap PO MoWeFr@0900 [facility] Last Admin: 06/19/18 09:05 Dose: 1 cap Warfarin Sodium (Coumadin) 3 mg PO QPM [facility] Last Admin: 06/20/18 16:16 Dose: 3 mg SEPTRA 1 TABLET BID FOR 5 DAYS LAST ADMIN: ALLERGIES No Known Allergies Allergy (Verified 06/14/18 15:34) DISCONTINUED MEDICATIONS NONE NEW PRESCRIPTIONS: SEPTRA 1 TABLET BID FOR 5 DAYS SMOKING: ADVISED TO STOP SMOKING, NOT RECEPTIVE TO NICOTINE PATCH DISEASE SPECIFIC EDUCATION: ACTIVITY APPOINTMENT PRESCRIPTION LAB REVIEW: 06/21/18 05:00 06/21/18 05:00 06/21/18 05:00: Sodium 132.6 L, Potassium 4.36, Chloride 101.1, Carbon Dioxide 23.4, Anion Gap 12.46, BUN 15.0, Creatinine 0.88, Estimated GFR (MDRD) 85.00, BUN/Creatinine Ratio 17.04, Glucose 89.0, Calcium 9.29, Total Bilirubin 0.31, AST 47.1, ALT 42.5, Alkaline Phosphatase 132.4 H, Total Protein 6.69, Albumin 4.26, Globulin 2.43, Albumin/Globulin Ratio 1.75 06/21/18 05:00: WBC 8.64, RBC 3.56 L, Hgb 11.5 L, Hct 33.3 L, MCV 93.5, MCH 32.3 H, MCHC 34.5, RDW Coeff of Audrey 12.7, Plt Count 335, Immature Gran % (Auto) 0.5, Neut % (Auto) 68.2, Lymph % (Auto) 19.8, [place] % (Auto) 8.4, Eos % (Auto) 2.4, Baso % (Auto) 0.7, Immature Gran # (Auto) 0.0, Neut # (Auto) 5.9, Lymph # ( Auto) 1.7, [place] # (Auto) 0.7, Eos # (Auto) 0.2, Baso # (Auto) 0.1 PLAN: DISCHARGE HOME DIET: REGULAR TOLERATED ACTIVITY: UP TOLERATED WITH BRACE TO RLE AN APPOINTMENT IS SCHEDULED WITH DR. BRUNO/ELIJAH LEONARD APRN ON June AT 2 PM. CODE STATUS: DNR MR. CORONADO IS ALERT TO PERSON, PLACE AND SITUATION. HE REQUIRES ASSISTANCE WITH DRESSING, MEDICATIONS AND MEAL PREPARATION. HE IS ABLE TO FEED HIMSELF. HE IS ABLE TO APPLY THE BRACE TO THE RLE AND TRANSFER SELF FROM THE CHAIR TO THE BED AND BED TO CHAIR. HE IS UNABLE TO AMBULATE DUE TO CVA WITH RIGHT HEMIPARESIS. HE USES THE URINAL, BUT HAS DRIBBLING AND URINARY INCONTINENCE AT TIMES. MR. CORONADO IS ABLE TO SPEAK SOME WORDS CLEARLY, BUT OTHER WORDS ARE GARBLED. HE LIVES ALONE AND HAS ASSISTANCE FROM [place] 4 HOURS DAILY. THE DAUGHTER, KATIUSKA CLIFTON) AND THE SON ARE AWARE OF MR. CORONADO'S DESIRE TO RETURN HOME. HE HAS DECLINED REHAB PLACEMENT AND WILL BE RETURNING TO HIS HOME. THE FAMILY IS SUPPORTIVE AND THE SON WILL TRANSPORT THE PATIENT HOME. MEAL INTAKES ARE GOOD AT 50-100%. SKIN TURGOR IS GOOD AND SKIN IS FREE OF DECUBITUS ULCERS. GLADYS BRUNO MD
--- NOTE | 2018-06-24 14:19 | PN ---
06/18/18: Level 5 06/19/18: Intermediate 06/20/18: Intermediate 06/21/18: D as in discharge. MTDD
--- NOTE | 2018-06-27 10:40 | DS ---
DATE OF SERVICE: 06/21/18 FINAL DIAGNOSIS: 1. ACUTE L4 COMPRESSION FRACTURE 2. GENERALIZED WEAKNESS, INCREASING 3. RECENT FALLS 4. ABDOMINAL PAIN 5. HYPERTENSION 6. COPD, MODERATE/SEVERE PER PFT 07-23-2016 7. HISTORY OF CVA 8. RIGHT HEMIPARESIS 9. OCCLUSION LICA, CAROTID ULTRASOUND 2014 (DR. HIGGINBOTHAM) 10. HISTORY OF PELVIC FRACTURE (09/[address]) 11. HISTORY OF L2 COMPRESSION FRACTURE (PER LUMBAR CT 09/2017) 12. DIVERTICULOSIS PER CT (2018) 13. GERD 14. DEPRESSION VITAL SIGNS: Temperature 99.3, pulse 91, respiratory rate 24, BP 138/80, pulse ox 95 DISCHARGE INSTRUCTIONS: AN APPOINTMENT IS SCHEDULED WITH DR. BRUNO/ELIJAH LEONARD APRN ON June AT 2 PM. MEDICATIONS AT DISCHARGE: Chlordiazepoxide HCl (Librium) 10 mg PO TID [facility] Last Admin: 06/20/18 20:59 Dose: 10 mg Ezetimibe (Zetia) 10 mg PO DAILY [facility] Last Admin: 06/20/18 09:05 Dose: 10 mg Ferrous Sulfate (Ferrous Sulfate) 324 mg PO BID BREAKFAST&LUNCH [facility] Last Admin: 06/20/18 12:43 Dose: 324 mg Pantoprazole Sodium (Protonix) 40 mg PO BIDAC [facility] Last Admin: 06/21/18 05:49 Dose: 40 mg Phenytoin Sodium (Dilantin) 100 mg PO TID [facility] Last Admin: 06/20/18 20:59 Dose: 100 mg Quinapril HCl (Accupril) 40 mg PO BID [facility] Last Admin: 06/20/18 20:59 Dose: 40 mg Simvastatin (Zocor) 40 mg PO DAILY [facility] Last Admin: 06/20/18 09:05 Dose: 40 mg Sucralfate (Carafate) 1 gm PO ACHS [facility] Last Admin: 06/21/18 05:35 Dose: 1 gm Tizanidine HCl (Zanaflex) 4 mg PO BID [facility] Last Admin: 06/20/18 20:59 Dose: 4 mg Triamterene/HCTZ (Dyazide) 1 cap PO MoWeFr@0900 [facility] Last Admin: 06/19/18 09:05 Dose: 1 cap Warfarin Sodium (Coumadin) 3 mg PO QPM [facility] Last Admin: 06/20/18 16:16 Dose: 3 mg SEPTRA 1 TABLET BID FOR 5 DAYS LAST ADMIN: NEW PRESCRIPTIONS: SEPTRA 1 TABLET BID FOR 5 DAYS DISCONTINUED MEDICATIONS: NONE DIET INSTRUCTIONS: REGULAR TOLERATED ACTIVITY: UP TOLERATED WITH BRACE TO RLE SMOKING: ADVISED TO STOP SMOKING, NOT RECEPTIVE TO NICOTINE PATCH DISEASE SPECIFIC EDUCATION: ACTIVITY APPOINTMENT [facility] COURSE: 72-year-old white male hospitalized with right foot pain with generalized osteoarthritis and weakness. The patient also had abnormal urine so he was put on Rocephin. The patient's urine cultures came back as Staph Epidermidis likely colonization sensitive to Septra. Will give the patient Septra b.i.d. for five days. It was decided when the patient was brought to the office by one of the daughters that the patient is going to one of the nursing homes. The patient, as usual, is oriented to time, place and person and decided to go home. The daughter is aware of it. Discussion was held with the patient and he flatly refused to go to the [facility]. The patient has been to the [facility] in the past and has signed out a couple of times in the past. His behavior was also somewhat abrasive to the nursing staff members at the [facility]. At discharge the patient's hemoglobin was 11.5, hematocrit 33, WBC 8,600, normal differential. Creatinine 0.5, BUN 15, potassium 4.3. Condition stable. TIME SPENT: More than 60 minutes. MTDD
== END 2018-06-21 10:50 | disposition home or self-care (01) | DRG 57 ==
LOC: MEDSURG B 12:33
PROVIDERS: ADMIT Internal Medicine; ATTEND Internal Medicine
DX: G81.91 Hemiplegia, unspecified affecting right dominant side (principal); I10 Essential (primary) hypertension; J44.9 Chronic obstructive pulmonary disease, unspecified; F32.9 Major depressive disorder, single episode, unspecified; M25.571 Pain in right ankle and joints of right foot; E78.5 Hyperlipidemia, unspecified; K59.00 Constipation, unspecified; K21.9 Gastro-esophageal reflux disease without esophagitis; R53.1 Weakness; R10.9 Unspecified abdominal pain; Z91.19 Patient's noncompliance with other medical treatment and regimen; Z86.73 Personal history of transient ischemic attack (TIA), and cerebral infarction without residual deficits
CPT/HCPCS: 36415; 80053; 80185; 81001; 85025; 85610; 87086; 87186; 93005; 93010

== ENCOUNTER 2018-06-24 07:34 | Inpatient (IN) ==
--- NOTE | 2018-06-24 08:32 | ED.PDOC ---
General ED Provider: Dr. 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 waling however falling is a problem. Time Seen by Physician: 07:50 Mode of Arrival: Wheelchair Information Source: Patient, Family Exam Limitations: Clinical condition Primary Care Provider: GLADYS BRUNO Referred to ED by: Other Nursing and Triage Documentation Reviewed and Agree: Yes Does patient meet sepsis criteria?: No System Inflammatory Response Syndrome: Not Applicable Sepsis Protocol: For patient's 13 years and over: Temp is 96.8 and below OR 101 and greater Pulse >90 BPM Resp >20/minute Acutely Altered Mental Status Are patient's symptoms suggestive of a new infection, such as: -Pneumonia -Skin, Soft Tissue -Endocarditis -UTI -Bone, Joint Infection -Implantable Device -Acute Abdominal Infection -Wound Infection -Meningitis -Blood Stream Catheter Infection -Unknown Neurological Complaint Exam - Weakness Complaint/Exam Last Known Well: before an old CVA Onset: Gradual Duration: on/off Symptoms Are: Still present Timing: Constant Episodes Lasting: Hours Initial Severity: Moderate Current Severity: Moderate Aggravating: Reports: Exertion Associated Signs and Symptoms: Reports: Loss of balance Related History: Similar episode Cardiac Risk Factors: Reports: Hypertension CVA Risk Factors: Reports: Hypertension JVD Present: No Carotid Bruit Present: No Rectal Heme Positive: No Glascow Coma Scale (see protocol): normal Nystagmus Present: No Gag Reflex Present: Yes Meningeal Signs Positive: No Focal Weakness: Present: RUE, RLE Focal Sensory Loss: Present: RUE, RLE Gait: Ataxic [id number]: Abnormal right Differential Diagnoses: Other Review of Systems - Review Of Systems Constitutional: Reports: No symptoms Eyes: Reports: No symptoms Ears, Nose, Mouth, Throat: Reports: No symptoms Respiratory: Reports: No symptoms Cardiac: Reports: No symptoms GI: Reports: No symptoms : Reports: No symptoms Musculoskeletal: Reports: Muscle stiffness, Other Neurological: Reports: Unable to move lower ext, Unable to move upper ext, Weakness Endocrine: Reports: No symptoms Hematologic/Lymphatic: Reports: No symptoms All Other Systems: Reviewed and Negative Past Medical History - Past Medical History Previously Healthy: Yes Endocrine: Reports: None Cardiovascular: Reports: Hypertension Respiratory: Reports: None Hematological: Reports: None Gastrointestinal: Reports: None Genitourinary: Reports: None Neuro/Psych: Reports: CVA Musculoskeletal: Reports: Other Cancer: Reports: None - Surgical History General Surgical History: Reports: Other (URETHRA SURGERY) - Family History Family History: Reports: Unknown - Social History Smoking Status: Current every day smoker, Heavy tobacco smoker Hx Substance Use: No Alcohol Screening: Heavy Physical Exam - Physical Exam Appearance: Ill-appearing Ill-appearing: Mild Pain Distress: Mild Eyes: BRANDON ENT: Ears normal Neck: Supple Respiratory: Airway patent Cardiovascular: RRR GI/: Soft Musculoskeletal: Normal strength Skin: Warm Neurological: Focal Deficit Psychiatric: Anxious Re-Evaluation - Re-Evaluation Time of Re-Evaluation: 11:52 Status: Unchanged Vital Signs Stable: Yes Appearance: NAD Lungs: Clear Skin: Warm and Dry Neuro: Alert and Oriented X3 CV: RRR Additional Comments: Elevation of Fede from 15 to 42 over last few days Physician Notification - Case Discussed Physician Notified: Dr Bruno consulted abou pts EKG and BUN/creat. Time of Notification: 11:53 Critical Care Note - Critical Care Note Total Time (mins): 0 Course - Course Hematology/Chemistry: 06/24/18 08:55 06/24/18 08:55 Orders, Labs, Meds: Lab Review 06/24/18 06/24/18 06/24/18 08:55 08:55 08:55 WBC 8.74 RBC 3.67 L Hgb 11.8 L Hct 34.5 L MCV 94.0 MCH 32.2 H MCHC 34.2 RDW Coeff of Audrey 13.0 Plt Count 407 Immature Gran % (Auto) 0.6 Neut % (Auto) 71.2 Lymph % (Auto) 17.0 [place] % (Auto) 9.6 Eos % (Auto) 0.9 Baso % (Auto) 0.7 Immature Gran # (Auto) 0.1 Neut # (Auto) 6.2 Lymph # (Auto) 1.5 [place] # (Auto) 0.8 Eos # (Auto) 0.1 Baso # (Auto) 0.1 PT 19.7 H INR 2.01 Sodium Potassium Chloride Carbon Dioxide Anion Gap BUN Creatinine Estimated GFR (MDRD) BUN/Creatinine Ratio Glucose Calcium Total Bilirubin AST ALT Alkaline Phosphatase Total Creatine Kinase CK-MB (CK-2) CK-MB (CK-2) % Troponin I 0.013 Total Protein Albumin Globulin Albumin/Globulin Ratio Urine Color Urine Clarity Urine pH Ur Specific [place] Urine Protein Urine Glucose (UA) Urine Ketones Urine Blood Urine Nitrite Urine Bilirubin Urine Urobilinogen Ur Leukocyte Esterase Urine Microscopic WBC Ur Squamous Epith Cells Hyaline Casts 06/24/18 06/24/18 08:55 09:25 WBC RBC Hgb Hct MCV MCH MCHC RDW Coeff of Audrey Plt Count Immature Gran % (Auto) Neut % (Auto) Lymph % (Auto) [place] % (Auto) Eos % (Auto) Baso % (Auto) Immature Gran # (Auto) Neut # (Auto) Lymph # (Auto) [place] # (Auto) Eos # (Auto) Baso # (Auto) PT INR Sodium 133.7 L Potassium 4.64 Chloride 100.1 Carbon Dioxide 23.4 Anion Gap 14.84 BUN 42.6 H Creatinine 2.28 H Estimated GFR (MDRD) 28.00 BUN/Creatinine Ratio 18.68 Glucose 101.1 Calcium 9.49 Total Bilirubin 0.26 AST 35.8 ALT 44.6 Alkaline Phosphatase 178.0 H Total Creatine Kinase 245.6 H CK-MB (CK-2) 4.660 H CK-MB (CK-2) % 1.8900 Troponin I Total Protein 6.73 Albumin 4.57 Globulin 2.16 Albumin/Globulin Ratio 2.11 Urine Color Yellow Urine Clarity Clear Urine pH 5.5 Ur Specific [place] 1.020 Urine Protein Trace Urine Glucose (UA) Negative Urine Ketones Negative Urine Blood Negative Urine Nitrite Negative Urine Bilirubin 1+ Urine Urobilinogen 0.2 Ur Leukocyte Esterase Negative Urine Microscopic WBC 5-10 Ur Squamous Epith Cells 0-2 Hyaline Casts 2-5 Orders Category Date Time Status EKG-(ED ONLY) Stat CARDIO 06/24/18 08:51 Completed CBC W/ AUTO DIFF Stat LAB 06/24/18 08:55 Completed COMPREHENSIVE METABOLIC PANEL Stat LAB 06/24/18 08:55 Completed CREATINE KINASE Stat LAB 06/24/18 08:55 Completed PT WITH INR Stat LAB 06/24/18 08:55 Completed TROPONIN I Stat LAB 06/24/18 08:55 Completed URINALYSIS WITH MICROSCOPIC Stat LAB 06/24/18 09:25 Completed CHEST, 1V AP ONLY Stat RADS 06/24/18 10:[address] HEAD W/O CONTRAST Stat RADS 06/24/18 08:45 Completed HIP, RIGHT 2 VIEWS Stat RADS 06/24/18 08:48 Completed SHOULDER, RIGHT MIN 2V Stat RADS 06/24/18 08:46 Completed Vital Signs: Temp Pulse Resp BP Pulse Ox 06/24/18 07:46 98.1 F 110 H 20 145/58 H 98 Departure - Departure Time of Disposition: 11:54 Disposition: ADMITTED INPATIENT Discharge Problem: Acute renal failure, Abnormal EKG Instructions: Left Hemispheric Stroke (DC) Condition: Fair Pt referred to PMD for follow-up: Yes IPMP verified?: No Allergies/Adverse Reactions: Allergies No Known Allergies Allergy (Verified 06/24/18 07:45) Home Medications: Ambulatory Orders Phenytoin Cap [Dilantin] 100 mg PO TID 07/21/16 Quinapril HCl 40 mg PO BID 07/21/16 Warfarin Sodium [Coumadin] 3 mg PO DAILY 07/21/16 Ezetimibe/Simvastatin [Ezetimibe-Simvastatin 10-40 mg] 1 tab PO DAILY 04/28/17 Ferrous Sulfate 325 mg PO BID BREAKFAST&LUNCH 04/28/17 Pantoprazole Sodium 40 mg PO BID 04/28/17 Sucralfate 1 gm PO QID 04/28/17 Triamterene/Hydrochlorothiazid [Dyazide 37.5-25 Capsule] 1 each PO MOWEFR Tizanidine HCl [Zanaflex] 4 mg PO BID 01/28/18 Sulfamethoxazole/Trimethoprim [Bactrim 400-80 mg Tablet] 1 each PO BID #10 tablet 06/21/18 Disposition Discussed With: Patient, Family
--- NOTE | 2018-06-24 10:11 | DI ---
EXAM: RIGHT SHOULDER HISTORY: Shoulder pain after fall FINDINGS: Right shoulder three-view. No fracture or dislocation is seen. Osteoarthritis of the elder nts is noted. No soft tissue finding IMPRESSION: 1. No fracture or dislocation.
--- NOTE | 2018-06-24 10:12 | DI ---
EXAM: RIGHT HIP, 2 VIEWS HISTORY: Hip pain after fall FINDINGS: No fracture or dislocation is seen. There is mild to moderate osteoarthritis of the hip. Vascular calcifications are present. IMPRESSION: 1. No fracture or dislocation identified.
--- NOTE | 2018-06-24 10:22 | CT ---
EXAM: CT BRAIN HISTORY: Fall TECHNIQUE: CT brain without intravenous contrast. 5-mm axial sections with Reformations. COMPARISON: 06/18/2018 FINDINGS: Redemonstration of generalized atrophy and chronic microvascular ischemic disease. There is a modera te-to-large amount of encephalomalacia in the left supratentorial brain consistent with previous inf arction. There is mild compensatory ventriculomegaly. These findings are stable. There is no evide nce of recent large vessel distribution ischemic infarction, intracranial hemorrhage or mass. There is no subdural hematoma. No skull fracture is seen. Mastoid process air cells are aerated and the v isualized paranasal sinuses clear. IMPRESSION: 1. No acute intracranial findings or injury. No skull fracture.
--- NOTE | 2018-06-24 10:50 | DI ---
EXAM: CHEST FRONTAL VIEW HISTORY: Cough. COMPARISON: 01/28/2018 FINDINGS: Heart size remains within normal limits. Ectasia and atherosclerosis of the aorta. No ac [place] infiltrates are seen. No vascular congestion. There is no consolidation, visible pleural fluid or pneumothorax. Bones reveal no acute fracture. IMPRESSION: No acute cardiopulmonary process.
[2018-06-24] MEDS ORDERED: SODIUM CHLORIDE 500 ML IV STA (11:50)
[2018-06-24 14:40] VITALS: BMI 18.1
[2018-06-24] MEDS: DILANTIN PO SCH ×2 (14:57→21:00)
[2018-06-24] MEDS: DEXTROSE 5%-1/2NS IV SOLUTION 1,000 ML IV SCH (16:30)
[2018-06-24] MEDS: COUMADIN PO SCH (16:30)
[2018-06-24] MEDS: CARAFATE PO SCH ×2 (16:30→21:00)
[2018-06-24] MEDS: PROTONIX PO SCH (16:30)
[2018-06-24] MEDS: BACTRIM DS 800/160 MG PO SCH (21:00)
[2018-06-24] MEDS: ACCUPRIL PO SCH (21:00)
[2018-06-24] MEDS: ZANAFLEX PO SCH (21:00)
[2018-06-24] MEDS ORDERED: SULFAMETHOXAZOLE PO SCH (21:00)
[2018-06-24] MEDS ORDERED: [UNRECOGNIZED DRUG - OTHER] PO SCH (21:00)
[2018-06-24] MEDS ORDERED: NON-FORMULARY MEDICATION (Tizanidine Hcl [Zanaflex] 4 MG) PO SCH (21:00)
[2018-06-24] MEDS ORDERED: TRIMETHOPRIM PO SCH (21:00)
[2018-06-25] MEDS: DEXTROSE 5%-1/2NS IV SOLUTION 1,000 ML IV SCH ×2 (05:48→18:39)
[2018-06-25] MEDS: CARAFATE PO SCH ×4 (05:49→20:31)
[2018-06-25] MEDS: PROTONIX PO SCH ×2 (05:49→16:06)
[2018-06-25] MEDS ORDERED: NON-FORMULARY MEDICATION (Ferrous Sulfate [Ferrous Sulfate] 325 MG) PO SCH (08:00)
[2018-06-25] MEDS ORDERED: SIMVASTATIN PO SCH (09:00)
[2018-06-25] MEDS ORDERED: EZETIMIBE PO SCH (09:00)
[2018-06-25] MEDS ORDERED: COUMADIN PO SCH (09:00)
[2018-06-25] MEDS: DILANTIN PO SCH ×3 (09:08→20:31)
[2018-06-25] MEDS: ZANAFLEX PO SCH ×2 (09:09→20:31)
[2018-06-25] MEDS: ZETIA PO SCH (09:09)
[2018-06-25] MEDS: BACTRIM DS 800/160 MG PO SCH ×2 (09:09→20:31)
[2018-06-25] MEDS: ACCUPRIL PO SCH ×2 (09:09→20:31)
[2018-06-25] MEDS: ZOCOR PO SCH (09:10)
[2018-06-25] MEDS: NICODERM 21 MG TD SCH (09:11)
[2018-06-25] MEDS: FERROUS SULFATE PO SCH ×2 (09:18→12:34)
--- NOTE | 2018-06-25 09:21 | PCM.PROG ---
Attending Provider: ATTENDING PROVIDER: Dr. GLADYS BRUNO DATE OF SERVICE: 06/25/18 SUBJECTIVE: This 72 year old WHITE/ M was hospitalized 06/24/18 with acute renal failure. The patient's condition has improved. Skin turgor is better. REVIEW OF SYSTEMS: CONSTITUTIONAL: No night sweats. No fatigue, malaise, lethargy. No fever or chills. HEENT: Eyes: No visual changes. No eye pain. No eye discharge. ENT: No runny nose. No epistaxis. No sinus pain. No odynophagia. No congestion. RESPIRATORY: No cough, no congestion. No hemoptysis. No shortness of breath. CARDIOVASCULAR: No angina symptoms. No CHF symptoms. No atypical chest pain for CAD. No palpitations. No orthopnea.. GASTROINTESTINAL: No abdominal pain. No nausea or vomiting. No diarrhea or constipation. No hematemesis. No hematochezia. GENITOURINARY: No urgency. No frequency. No dysuria. No hematuria. No obstructive symptoms. No discharge. No pain. No significant abnormal bleeding. MUSCULOSKELETAL: No musculoskeletal pain; no joint swelling. NEUROLOGICAL: Awake, alert, oriented to time, place and person. No headache. No neck pain. No syncope. No seizures. No dizziness. PSYCHIATRIC: Not anxious. No depression. No suicidal thoughts. No homicidal thoughts. SKIN: No rash. No lesions. No wounds. ENDOCRINE: No unexplained weight loss. No weight gain. HEMATOLOGIC/LYMPHATIC: No anemia. No purpura. No petechiae. No prolonged or excessive bleeding. No palpable lymph nodes. PHYSICAL EXAMINATION: GENERAL: The patient is awake, alert and oriented, sitting in bed in no distress. VITAL SIGNS: Temperature 98.4 F, Pulse 62, Respiratory Rate 16, BP 130/71, Pulse Ox 94% HEENT: Head normocephalic, atraumatic. Eyes: Extraocular muscles are intact. Pupils are equal, round and reactive to light and accommodation. Ears: No lesions. Nose appeared normal. Throat: No exudate or erythema. NECK: Supple. No JVD, no carotid bruit. No lymphadenopathy or thyromegaly. LUNGS: Decreased breath sounds, clear to auscultation. Percussion note normal. Chest symmetrical. HEART: S1, S2, no S3. No murmurs. No cyanosis or clubbing. No ascites. Pulses: Dorsalis pedis and posterior tibial pulses +1 to +2 both sides. ABDOMEN: Soft. Non-tender. Bowel sounds active. No CVA tenderness. No mass felt. EXTREMITIES: No edema. Full range of motion of all extremities, equal. NEUROLOGIC: No focal deficit. Cranial nerves II through XII are grossly intact. No headache, no double vision or headache. SKIN: Warm and dry. Intact. Turgor-better. LYMPHATIC: No palpable lymph nodes/no lymphedema. MUSCULOSKELETAL: Normal joints with no swelling. Muscle tone is normal. LAB REVIEW: 06/25/18 04:15 06/25/18 04:15 06/25/18 04:15: Sodium 132.7 L, Potassium 4.24, Chloride 101.9, Carbon Dioxide 22.0, Anion Gap 13.04, BUN 34.7 H, Creatinine 1.43 H D, Estimated GFR (MDRD) 49.00, BUN/Creatinine Ratio 24.26, Glucose 103.0, Calcium 8.86, Total Bilirubin 0.25, AST 32.7, ALT 40.3, Alkaline Phosphatase 149.6 H D, Total Protein 6.15 L, Albumin 3.88, Globulin 2.27, Albumin/Globulin Ratio 1.70 06/25/18 04:15: PT 21.2 H, INR 2.17 06/25/18 04:15: WBC 6.07, RBC 3.25 L, Hgb 10.5 L, Hct 30.6 L, MCV 94.2 H, MCH 32.3 H, MCHC 34.3, RDW Coeff of Audrey 12.7, Plt Count 341, Immature Gran % (Auto) 0.3, Neut % (Auto) 56.4, Lymph % (Auto) 27.3, [place] % (Auto) 11.5 H, Eos % (Auto ) 3.5, Baso % (Auto) 1.0, Immature Gran # (Auto) 0.0, Neut # (Auto) 3.4, Lymph # (Auto) 1.7, [place] # (Auto) 0.7, Eos # (Auto) 0.2, Baso # (Auto) 0.1 06/24/18 09:25: Urine Color Yellow, Urine Clarity Clear, Urine pH 5.5, Ur Specific [place] 1.020, Urine Protein Trace, Urine Glucose (UA) Negative, Urine Ketones Negative, Urine Blood Negative, Urine Nitrite Negative, Urine Bilirubin 1+, Urine Urobilinogen 0.2, Ur Leukocyte Esterase Negative, Urine Microscopic WBC 5-10, Ur Squamous Epith Cells 0-2, Hyaline Casts 2-5 06/24/18 08:55: Sodium 133.7 L, Potassium 4.64, Chloride 100.1, Carbon Dioxide 23.4, Anion Gap 14.84, BUN 42.6 H, Creatinine 2.28 H, Estimated GFR (MDRD) 28.00 , BUN/Creatinine Ratio 18.68, Glucose 101.1, Calcium 9.49, Total Bilirubin 0.26 , AST 35.8, ALT 44.6, Alkaline Phosphatase 178.0 H, Total Creatine Kinase 245.6 H, CK-MB (CK-2) 4.660 H, CK-MB (CK-2) % 1.8900, Total Protein 6.73, Albumin 4.57 , Globulin 2.16, Albumin/Globulin Ratio 2.11 06/24/18 08:55: WBC 8.74, RBC 3.67 L, Hgb 11.8 L, Hct 34.5 L, MCV 94.0, MCH 32.2 H, MCHC 34.2, RDW Coeff of Audrey 13.0, Plt Count 407, Immature Gran % (Auto) 0.6, Neut % (Auto) 71.2, Lymph % (Auto) 17.0, [place] % (Auto) 9.6, Eos % (Auto) 0.9, Baso % (Auto) 0.7, Immature Gran # (Auto) 0.1, Neut # (Auto) 6.2, Lymph # ( Auto) 1.5, [place] # (Auto) 0.8, Eos # (Auto) 0.1, Baso # (Auto) 0.1 06/24/18 08:55: Troponin I 0.013 06/24/18 08:55: PT 19.7 H, INR 2.01 ASSESSMENT/PLAN: 1. The patient has continued to smoke and drink but is going to [facility]. Daughter Jennifer is present. Kidney functions are better. 2. Possibility of seizure at home entertained by daughter. Will do Dilantin level. No arrhythmias. 3. Cardiovascular status is stable. PLAN: 1. EKG if not already done. 2. Anticipate discharge tomorrow to [facility] 3. Dilantin level. 4. D/C telemetry. CONDITION: STABLE SCRIBED BY: JULIANNE PERSAUD, [employer] Front Desk Clerk scribed while in presence of service performed by Dr. GLADYS BRUNO on 06/25/18 ([id number])
--- NOTE | 2018-06-25 13:50 | HP ---
DATE OF SERVICE: 06/24/18 REASON FOR HOSPITALIZATION/HISTORY OF PRESENT ILLNESS: 72 year old white male was brought to the emergency room after the patient had alledgedly fallen. The patient is living by himself and is an unreliable historian. Difficulty communicating and noncompliant. Last hospitalization that was just a few days ago he was discharged from the hospital after being hospitalized 06/18/18. He was supposed to go to the prison but he declined. He went home against families wishes. He is oriented to place, person and time. The patient underwent full workup with CT of the brain which was negative. No acute findings. Chest x-ray is normal. The patient was hospitalized because of his abnormal creatinine and BUN. On discharged during last hospitalization the creatine and BUN were normally and today the BUN is approximately 2.28 with BUN of 42 which is quite abnormal with practically GFR of 28 with renal failure. The patient looks dehydrated when I was examining him in the emergency room. The patient was tired, worn out and would answer too many questions. He was oriented to person and place. According to the family he hasn't been eating much. PAST MEDICAL HISTORY/PAST SURGICAL HISTORY: TIA in 1998. Generalized right side with stroke Pancreatitis Enlarged prostate Hypertension Coronary artery disease C-Spine surgery TURP REVIEW OF SYSTEMS: CONSTITUTIONAL: No night sweats. Fatigued and looks tired. No fever or chills. HEENT: Eyes: No visual changes. No eye pain. No eye discharge. ENT: No runny nose. No epistaxis. No sinus pain. No sore throat. No odynophagia. No ear pain. No congestion. RESPIRATORY: Mild cough, no congestion. No hemoptysis. No shortness of breath. CARDIOVASCULAR: No angina symptoms. No CHF symptoms. No atypical chest pain for CAD. No palpitations. No PND. No orthopnea. GASTROINTESTINAL: No abdominal pain. No nausea or vomiting. No diarrhea or constipation. No hematemesis. No hematochezia. Poor appetite for past couple of days. GENITOURINARY: No urgency. No frequency. No dysuria. No hematuria. No obstructive symptoms. No discharge. No pain. No significant abnormal bleeding. MUSCULOSKELETAL: No musculoskeletal pain. No joint swelling. No arthritis. NEUROLOGICAL: No headache. No neck pain. No syncope. No seizures. No dizziness. Unable to move to right upper and lower extremity. PSYCHIATRIC: Not anxious. No depression. No suicidal thoughts. No homicidal thoughts. SKIN: No rash. No lesions. No wounds. ENDOCRINE: No unexplained weight loss. No weight gain. HEMATOLOGIC/LYMPHATIC: No anemia. No purpura. No petechiae. No prolonged or excessive bleeding. No palpable lymph nodes. PERSONAL/FAMILY/SOCIAL HISTORY: The patient is . Alcohol abuse and tobacco abuse. The patient lives by himself with help of caretakers. The daughters are trying to take care of him. Several time he ended up in the prison but he was very obnoxious with obnoxious behavior there he was discharged from the prison. Father from lung cancer, coronary artery disease. Mother coronary artery disease. Three brothers and there is two sisters healthy. MEDICATIONS: Ezetimibe/Simvastatin Ferrous sulfate Pantoprazole Dilantin Quinapril Carafate Zanaflex Dyazide Coumadin ALLERGIES: No known allergies PHYSICAL EXAMINATION: GENERAL: The patient is oriented to place and person. VITAL SIGNS: Temperature 98.8, pulse 80, respiratory rate 15, blood pressure 113/70. HEENT: Head normocephalic, atraumatic. Eyes: Extraocular muscles are intact. Pupils are equal, round and reactive to light and accommodation. Ears: No lesions. Nose: Crusted lesion. Throat: No exudate or erythema. NECK: Supple. No JVP, no carotid bruit. No lymphadenopathy or thyromegaly. LUNGS: Clear to auscultation. Percussion note normal. Chest symmetrical. HEART: S1, S2, no S3. No murmurs. No cyanosis or clubbing. No ascites. Pulses: Dorsalis pedis and posterior tibial pulses +1 bilaterally. ABDOMEN: Soft. Nontender. Bowel sounds active. No CVA tenderness. No mass felt. EXTREMITIES: No edema. Right upper extremity and right lower extremity hemiparesis. NEUROLOGIC: No focal deficit. Cranial nerves II through XII are grossly intact. No headache, no double vision or headache. SKIN: Not dry. Intact. Turgor - normal. LYMPHATIC: No palpable lymph nodes/no lymphedema. MUSCULOSKELETAL: Normal joints with no swelling. Muscle tone is normal. LABS: INR 2.01 acceptable, hgb 11.8, hct 34, WBC 8,[address] Practically negative [address] scan no acute findings. Chest x-ray no acute findings. Creatinine 2.2, BUN 42, GFR 28, CK 245, CK-MB 4.6, CK-MB fraction 1.8. Troponin negative. EKG sinus rhythm, RBBB. ASSESSMENT: 1. Acute renal failure with dehydration 2. Frequent falls 3. Acute L4 compression fracture during last hospitalization on 06/18/18 4. Hypertension 5. COPD 6. History of smoking 7. Alcoholism 8. History of CVA with right hemiparesis 9. 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 Crowley 10.History of pelvic fracture 2017 11.History of L2 compression fracture 2017 12.Diverticulosis of colon 13.Reflux disease 14.Depression 15.The patient is alcoholic and has history of alcoholic pancreatitis PLAN: 1. Continue all the medication at home 2. IV fluids 75cc an hour 3. The patient was given 500cc bolus 4. Daily CBC and CMP 5. The patient is wanting to go the prison. He was supposed to go to the prison today. We will make the patient's condition stabilized and monitor the patient's cardiovascular status. CONDITION: Stable PROGNOSIS: Poor considering the patient's noncompliance with medications and overall medical problems he has with abnormal behavior. TIME SPENT: More than 70 minutes. MTDD
[2018-06-25] MEDS: COUMADIN PO SCH (16:06)
[2018-06-26 05:10] VITALS: BP 137/74; TEMP 98.1
[2018-06-26] MEDS: CARAFATE PO SCH ×2 (06:03→11:45)
[2018-06-26] MEDS: PROTONIX PO SCH (06:03)
[2018-06-26] MEDS: DEXTROSE 5%-1/2NS IV SOLUTION 1,000 ML IV SCH (08:10)
[2018-06-26] MEDS: ZETIA PO SCH (08:11)
[2018-06-26] MEDS: ACCUPRIL PO SCH (08:11)
[2018-06-26] MEDS: NICODERM 21 MG TD SCH (08:12)
[2018-06-26] MEDS: DILANTIN PO SCH (08:12)
[2018-06-26] MEDS: ZANAFLEX PO SCH (08:12)
[2018-06-26] MEDS: FERROUS SULFATE PO SCH ×2 (08:12→11:45)
[2018-06-26] MEDS: ZOCOR PO SCH (08:12)
[2018-06-26] MEDS ORDERED: DYAZIDE PO SCH (09:00)
--- NOTE | 2018-06-26 09:46 | PCM.PROG ---
Attending Provider: ATTENDING PROVIDER: Dr. GLADYS BRUNO DATE OF SERVICE: 06/26/18 SUBJECTIVE: This 72 year old WHITE/ M was hospitalized 06/24/18 with acute renal failure. He was dehydrated. He has history of CVA with right hemiparesis and hemiplegia. He also has dementia. He is a heavy smoker and alcohol abuse. [facility] REVIEW OF SYSTEMS: CONSTITUTIONAL: No night sweats. No fatigue, malaise, lethargy. No fever or chills. HEENT: Eyes: No visual changes. No eye pain. No eye discharge. ENT: No runny nose. No epistaxis. No sinus pain. No odynophagia. No congestion. RESPIRATORY: No cough, no congestion. No hemoptysis. No shortness of breath. CARDIOVASCULAR: No angina symptoms. No CHF symptoms. No atypical chest pain for CAD. No palpitations. No orthopnea.. GASTROINTESTINAL: No abdominal pain. No nausea or vomiting. No diarrhea or constipation. No hematemesis. No hematochezia. GENITOURINARY: No urgency. No frequency. No dysuria. No hematuria. No obstructive symptoms. No discharge. No pain. No significant abnormal bleeding. MUSCULOSKELETAL: No musculoskeletal pain; no joint swelling. NEUROLOGICAL: Awake, alert, oriented to time, place and person. No headache. No neck pain. No syncope. No seizures. No dizziness. PSYCHIATRIC: Not anxious. No depression. No suicidal thoughts. No homicidal thoughts. SKIN: No rash. No lesions. No wounds. ENDOCRINE: No unexplained weight loss. No weight gain. HEMATOLOGIC/LYMPHATIC: No anemia. No purpura. No petechiae. No prolonged or excessive bleeding. No palpable lymph nodes. PHYSICAL EXAMINATION: GENERAL: The patient is awake, alert and oriented, sitting in bed in no distress. VITAL SIGNS: Temperature 98.1 F, Pulse 74, Respiratory Rate 16, BP 137/74, Pulse Ox 97% HEENT: Head normocephalic, atraumatic. Eyes: Extraocular muscles are intact. Pupils are equal, round and reactive to light and accommodation. Ears: No lesions. Nose appeared normal. Throat: No exudate or erythema. NECK: Supple. No JVD, no carotid bruit. No lymphadenopathy or thyromegaly. LUNGS: Clear to auscultation. Percussion note normal. Chest symmetrical. HEART: S1, S2, no S3. No murmurs. No cyanosis or clubbing. No ascites. Pulses: Dorsalis pedis and posterior tibial pulses +1 to +2 both sides. ABDOMEN: Soft. Non-tender. Bowel sounds active. No CVA tenderness. No mass felt. EXTREMITIES: No edema. Positive for right hemiplegia. Full range of motion of all extremities, equal. NEUROLOGIC: No focal deficit. Cranial nerves II through XII are grossly intact. No headache, no double vision or headache. SKIN: Warm and dry. Intact. Turgor-normal. LYMPHATIC: No palpable lymph nodes/no lymphedema. MUSCULOSKELETAL: Normal joints with no swelling. Muscle tone is normal. LAB REVIEW: 06/26/18 05:00 06/26/18 05:00 06/26/18 05:00: Sodium 132.7 L, Potassium 4.18, Chloride 102.1, Carbon Dioxide 24.1, Anion Gap 10.68, BUN 23.8 H, Creatinine 1.16 H, Estimated GFR (MDRD) 62.00 , BUN/Creatinine Ratio 20.51, Glucose 98.9, Calcium 8.85, Total Bilirubin 0.21, AST 31.1, ALT 35.8, Alkaline Phosphatase 146.5 H, Total Protein 6.08 L, Albumin 3.84, Globulin 2.24, Albumin/Globulin Ratio 1.71 06/26/18 05:00: PT 18.4 H, INR 1.87 06/26/18 05:00: WBC 5.95, RBC 3.25 L, Hgb 10.3 L, Hct 30.6 L, MCV 94.2 H, MCH 31.7 H, MCHC 33.7, RDW Coeff of Audrey 12.7, Plt Count 383, Immature Gran % (Auto) 0.7, Neut % (Auto) 63.2, Lymph % (Auto) 21.5, [place] % (Auto) 10.9 H, Eos % (Auto ) 2.9, Baso % (Auto) 0.8, Immature Gran # (Auto) 0.0, Neut # (Auto) 3.8, Lymph # (Auto) 1.3, [place] # (Auto) 0.7, Eos # (Auto) 0.2, Baso # (Auto) 0.1 06/25/18 04:20: Phenytoin 4.89 L ASSESSMENT: 1. Renal failure seems to have resolved. Skin turgor a lot better. 2. Other medical conditions are stable and unchanged. PLAN: 1. Discharged to [facility] for rehabilitation. Yesterday, I spoke with the daughter , Jennifer, and it is the desire of the family and patient and they are agreeable at this time. Plan and coordination of the patient's care discussed in the presence of Machine Repairer Maintenance and nurse. CONDITION: Stable SCRIBED BY: JULIANNE PERSAUD [employer] scribed while in presence of service performed by Dr. GLADYS BRUNO on 06/26/18 ([id number])
--- NOTE | 2018-06-26 11:34 | CM.DICTOOL ---
ADMISSION: 06/24/18 12:02 DISCHARGE: JUNE 26, 2018 DATE OF SERVICE: 06/26/18 FINAL DIAGNOSIS ACUTE RENAL FAILURE FALL RECENT L4 COMPRESSION FRACTURE HYPERTENSION COPD, MODERATE/SEVERE PER FPT 07-23-2016 HISTORY OF CVA RIGHT HEMIPARESIS OCCLUSION LICA, (CAROTID ULTRASOUND 2014) HISTORY OF PELVIC FRACTURE ([address]) HISTORY OF L2 COMPRESSION FRACTURE (09/[address]) DIVERTICULOSIS ([address]) GERD DEPRESSION LAST VITALS Temp Pulse Resp BP Pulse Ox 98.1 F 74 16 137/74 97 06/26/18 05:10 06/26/18 05:10 06/26/18 05:10 06/26/18 05:10 06/26/18 05:10 TAKE THESE MEDICATIONS AT HOME Ezetimibe (Zetia) 10 mg PO DAILY [facility] Last Admin: 06/26/18 08:11 Dose: 10 mg Ferrous Sulfate (Ferrous Sulfate) 324 mg PO BID BREAKFAST&LUNCH [facility] Last Admin: 06/26/18 08:12 Dose: 324 mg Pantoprazole Sodium (Protonix) 40 mg PO BIDAC [facility] Last Admin: 06/26/18 06:03 Dose: 40 mg Phenytoin Sodium (Dilantin) 100 mg PO TID [facility] Last Admin: 06/26/18 08:12 Dose: 100 mg Quinapril HCl (Accupril) 40 mg PO BID [facility] Last Admin: 06/26/18 08:11 Dose: 40 mg Simvastatin (Zocor) 40 mg PO DAILY [facility] Last Admin: 06/26/18 08:12 Dose: 40 mg Sucralfate (Carafate) 1 gm PO ACHS [facility] Last Admin: 06/26/18 06:03 Dose: 1 gm Tizanidine HCl (Zanaflex) 4 mg PO BID [facility] Last Admin: 06/26/18 08:12 Dose: 4 mg Triamterene/HCTZ (Dyazide) 1 cap PO MoWeFr@0900 [facility] Last Admin: 06/26/18 08:11 Dose: 1 cap Warfarin Sodium (Coumadin) 3 mg PO QPM [facility] Last Admin: 06/25/18 16:06 Dose: 3 mg Sulfamethoxazole/Trimethoprim [Bactrim 400-80mg Tablet] PO BID [facility] for TWO days Last Admin: ALLERGIES No Known Allergies Allergy (Verified 06/24/18 07:45) DISCONTINUED MEDICATIONS NONE NEW PRESCRIPTIONS: SULFAMETHOXAZOLE/TRIMETHOPRIM [BACTRIM 400-80 MG TABLET] 1 TABLET BY MOUTH TWICE A DAY FOR TWO DAYS. SMOKING: ENCOURAGED TO STOP SMOKING, BUT PATIENT CONTINUES TO SMOKE. DISEASE SPECIFIC EDUCATION: SMOKING CESSATION DISCUSSED NEED FOR SKILLED PT/OT LAB REVIEW: 06/26/18 05:00 06/26/18 05:00 06/26/18 05:00: Sodium 132.7 L, Potassium 4.18, Chloride 102.1, Carbon Dioxide 24.1, Anion Gap 10.68, BUN 23.8 H, Creatinine 1.16 H, Estimated GFR (MDRD) 62.00 , BUN/Creatinine Ratio 20.51, Glucose 98.9, Calcium 8.85, Total Bilirubin 0.21, AST 31.1, ALT 35.8, Alkaline Phosphatase 146.5 H, Total Protein 6.08 L, Albumin 3.84, Globulin 2.24, Albumin/Globulin Ratio 1.71 06/26/18 05:00: PT 18.4 H, INR 1.87 06/26/18 05:00: WBC 5.95, RBC 3.25 L, Hgb 10.3 L, Hct 30.6 L, MCV 94.2 H, MCH 31.7 H, MCHC 33.7, RDW Coeff of Audrey 12.7, Plt Count 383, Immature Gran % (Auto) 0.7, Neut % (Auto) 63.2, Lymph % (Auto) 21.5, [place] % (Auto) 10.9 H, Eos % (Auto ) 2.9, Baso % (Auto) 0.8, Immature Gran # (Auto) 0.0, Neut # (Auto) 3.8, Lymph # (Auto) 1.3, [place] # (Auto) 0.7, Eos # (Auto) 0.2, Baso # (Auto) 0.1 PLAN: DISCHARGE TO [facility] DIET: REGULAR DIET WITH REGULAR CONSISTENCY AND THIN LIQUIDS ACTIVITY: UP TO DINING ROOM FOR MEALS PER PT/OT. PT. WEARS A BRACE TO RIGHT LEG. VITAL SIGNS DAILY FOR ONE WEEK, THEN WEEKLY WEIGHT MONTHLY CBC, CMP, PT WITH INR IN ONE WEEK PT WITH INR WEEKLY CBC, CMP EVERY 3 MONTHS LIPIDS, TSH EVERY 6 MONTHS PT/OT EVALUATION INCONTINENT CARE NEEDED DECUBITUS PRECAUTIONS NEEDED MAY PARTICIPATE IN ACTIVITY PROGRAM PATIENT TO BE SEEN ON PRISON ROUNDS BY ELIJAH LEONARD APRN IN 7-10 DAYS. CODE STATUS DNR ALERT, ORIENTED TIMES THREE. HE IS AWARE OF DISCHARGE TO [facility] FOR THERAPY. FAMILY IS AWARE AND AGREEABLE WITH PLAN. SPEECH IS GARBLED AT TIMES, WITH SOME PHRASES BEING CLEAR. HE IS ABLE TO FEED HIMSELF BUT REQUIRES ASSISTANCE WITH BATHING AND DRESSING. HE IS ABLE TO TRANSFER WITH ASSISTANCE OF ONE STAFF MEMBER. HE IS NORMALLY CONTINENT AND USES A URINAL BUT HAS AN OCCASIONAL ACCIDENT. HE IS CONTINENT OF BOWELS. HIS APPETITE IS GOOD. SKIN TURGOR HAS IMPROVED, HYDRATION STATUS HAS IMPROVED. SKIN IS INTACT EXCEPT FOR SMALL ABRASION ON HIS NOSE. GLADYS BRUNO MD
--- NOTE | 2018-06-27 11:19 | DS ---
DATE OF SERVICE: 06/26/18 FINAL DIAGNOSIS: 1. ACUTE RENAL FAILURE 2. FALL 3. RECENT L4 COMPRESSION FRACTURE 4. HYPERTENSION 5. COPD, MODERATE/SEVERE PER FPT 07-23-2016 6. HISTORY OF CVA 7. RIGHT HEMIPARESIS 8. OCCLUSION LICA, (CAROTID ULTRASOUND 2014) 9. HISTORY OF PELVIC FRACTURE ([address]) 10. HISTORY OF L2 COMPRESSION FRACTURE (09/[address]) 11. DIVERTICULOSIS ([address]) 12. GERD 13. DEPRESSION LAST VITAL SIGNS: Temperature 98.1, pulse 74, respiratory rate 16, BP 137/74, pulse ox 97. DISCHARGE INSTRUCTIONS: 1. DISCHARGE TO [facility]. 2. PATIENT TO BE SEEN ON DETENTION ROUNDS BY ELIJAH LEONARD APRN IN 7-10 DAYS. 3. VITAL SIGNS DAILY FOR ONE WEEK, THEN WEEKLY. 4. WEIGHT MONTHLY. 5. CBC, CMP, PT WITH INR IN ONE WEEK. 6. PT WITH INR WEEKLY. 7. CBC, CMP EVERY 3 MONTHS. 8. LIPIDS, TSH EVERY 6 MONTHS. 9. PT/OT EVALUATION. 10. INCONTINENT CARE NEEDED. 11. DECUBITUS PRECAUTIONS NEEDED. MEDICATIONS AT DISCHARGE: Ezetimibe (Zetia) 10 mg PO DAILY [facility] Last Admin: 06/26/18 08:11 Dose: 10 mg Ferrous Sulfate (Ferrous Sulfate) 324 mg PO BID BREAKFAST&LUNCH [facility] Last Admin: 06/26/18 08:12 Dose: 324 mg Pantoprazole Sodium (Protonix) 40 mg PO BIDAC [facility] Last Admin: 06/26/18 06:03 Dose: 40 mg Phenytoin Sodium (Dilantin) 100 mg PO TID [facility] Last Admin: 06/26/18 08:12 Dose: 100 mg Quinapril HCl (Accupril) 40 mg PO BID [facility] Last Admin: 06/26/18 08:11 Dose: 40 mg Simvastatin (Zocor) 40 mg PO DAILY [facility] Last Admin: 06/26/18 08:12 Dose: 40 mg Sucralfate (Carafate) 1 gm PO ACHS [facility] Last Admin: 06/26/18 06:03 Dose: 1 gm Tizanidine HCl (Zanaflex) 4 mg PO BID [facility] Last Admin: 06/26/18 08:12 Dose: 4 mg Triamterene/HCTZ (Dyazide) 1 cap PO MoWeFr@0900 [facility] Last Admin: 06/26/18 08:11 Dose: 1 cap Warfarin Sodium (Coumadin) 3 mg PO QPM [facility] Last Admin: 06/25/18 16:06 Dose: 3 mg Sulfamethoxazole/Trimethoprim PO BID [facility] for TWO days NEW PRESCRIPTIONS: SULFAMETHOXAZOLE/TRIMETHOPRIM 1 TABLET BY MOUTH TWICE A DAY FOR TWO DAYS. DISCONTINUED MEDICATIONS: NONE DIET INSTRUCTIONS: REGULAR DIET WITH REGULAR CONSISTENCY AND THIN LIQUIDS ACTIVITY: UP TO DINING ROOM FOR MEALS; PER PT/OT, PT, WEARS A BRACE TO RIGHT LEG. SMOKING: ENCOURAGED TO STOP SMOKING, BUT PATIENT CONTINUES TO SMOKE. DISEASE SPECIFIC EDUCATION: SMOKING CESSATION DISCUSSED NEED FOR SKILLED PT/OT HOSPITAL COURSE: 72-year-old white male hospitalized with dehydration, acute renal failure with creatinine of 2.2, BUN 47. The patient has been staying by himself. The daughters wanted him to go to the care home which on the last day of his hospitalization on previous hospitalization, that was two days ago he declined. He went home and probably had nothing to drink or eat. He is heavy smoker, drinks alcohol. The patient was rehydrated, given IV fluids. His creatinine now is 1.1, BUN 23, skin turgor is a lot better. He agreed to go to the care home. His fall risk is high. The patient is noncompliant, abusive, difficult to take care of. Prognosis is poor. TIME SPENT: More than 60 minutes. MTDD
--- NOTE | 2018-06-27 11:21 | PN ---
BILLING 06/24/18 LEVEL 5 - ADMISSION DAY 06/25/18 INTERMEDIATE 06/26/18 DISCHARGE MTDD
== END 2018-06-26 13:30 | DRG 683 ==
LOC: ED 07:34 → MEDSURG B 12:02
PROVIDERS: ADMIT Internal Medicine; ATTEND Internal Medicine
DX: N17.9 Acute kidney failure, unspecified (principal); G81.91 Hemiplegia, unspecified affecting right dominant side; S32.049D Unspecified fracture of fourth lumbar vertebra, subsequent encounter for fracture with routine healing; I10 Essential (primary) hypertension; J44.9 Chronic obstructive pulmonary disease, unspecified; K21.9 Gastro-esophageal reflux disease without esophagitis; F32.9 Major depressive disorder, single episode, unspecified; E86.0 Dehydration; W19.XXXA Unspecified fall, initial encounter; Z86.73 Personal history of transient ischemic attack (TIA), and cerebral infarction without residual deficits; Z72.0 Tobacco use; Z72.89 Other problems related to lifestyle
CPT/HCPCS: 36415; 80053; 80185; 81001; 82550; 82553; 84484; 85025; 85610; 87081; 93005; 93010; 99284

== ENCOUNTER 2018-06-26 13:28 | Outpatient (CLI) | payer OTHER | END 2018-06-26 13:35 | LOC: AMBL 13:28 | PROVIDERS: ATTEND Emergency Medicine | DX: Z86.73 Personal history of transient ischemic attack (TIA), and cerebral infarction without residual deficits (principal) ==

== ENCOUNTER 2019-03-05 12:13 | Inpatient (IN) ==
[2019-03-05] MEDS ORDERED: NITROSTAT SL PRN (12:42)
[2019-03-05] MEDS ORDERED: ATROPINE SULFATE PFS IVP PRN (12:42)
[2019-03-05] MEDS ORDERED: VISTARIL INJ IM PRN (12:42)
[2019-03-05] MEDS ORDERED: LASIX IVP STA (12:42)
[2019-03-05] MEDS ORDERED: TYLENOL PO PRN (12:42)
[2019-03-05 13:46] VITALS: BMI 18.8
[2019-03-05] MEDS: AZACTAM 1 GM in SODIUM CHLORIDE 50 ML IV SCH ×2 (13:49→20:34)
[2019-03-05] MEDS ORDERED: DYAZIDE PO SCH (14:30)
[2019-03-05] MEDS: ROCEPHIN 1 GM/50 ML D5W 1 GM/50 ML BAG IV SCH (14:54)
[2019-03-05] MEDS: DILANTIN PO SCH ×2 (14:54→20:36)
--- NOTE | 2019-03-05 15:53 | DI ---
EXAM: Chest frontal view HISTORY: Shortness of breath FINDINGS: Compared to 06/24/2018. Heart size is within normal limits. Atherosclerotic disease is n oted. There are scattered calcifications suggesting old granulomatous disease. No acute infiltrates are seen. No vascular congestion. There is no consolidation, visible pleural fluid or pneumothorax . Bones reveal no acute fracture. IMPRESSION: No acute cardiopulmonary process.
[2019-03-05] MEDS: NICODERM 21 MG TD SCH (16:54)
[2019-03-05] MEDS: PROTONIX PO SCH (16:55)
[2019-03-05] MEDS: CARAFATE PO SCH ×2 (16:55→20:36)
[2019-03-05] MEDS ORDERED: COUMADIN PO SCH (17:00)
[2019-03-05] MEDS: ACCUPRIL PO SCH (20:36)
[2019-03-05] MEDS: ZANAFLEX PO SCH (20:36)
[2019-03-05] MEDS ORDERED: NON-FORMULARY MEDICATION (Tizanidine [Zanaflex] 4 MG) PO SCH (21:00)
[2019-03-06] MEDS: PROTONIX PO SCH ×2 (05:41→17:30)
[2019-03-06] MEDS: CARAFATE PO SCH ×4 (05:41→20:31)
[2019-03-06] MEDS ORDERED: NON-FORMULARY MEDICATION (Ferrous Sulfate 325 MG) PO SCH (08:00)
--- NOTE | 2019-03-06 08:56 | PCM.PROG ---
Attending Provider: ATTENDING PROVIDER: Dr. GLADYS JUDD This patient is seen with Fanny Chaparro, Nurse Practitioner. DATE OF SERVICE: 03/06/19 SUBJECTIVE: This 73 year old /WHITE M was hospitalized 03/05/19. The patient is resting comfortably. Lesion on foot less red and swollen with scant drainage. Still awaiting consult by Dr. Geller, he has been told. REVIEW OF SYSTEMS: CONSTITUTIONAL: No night sweats. No fatigue, malaise, lethargy. No fever or chills. HEENT: Eyes: No visual changes. No eye pain. No eye discharge. ENT: No runny nose. No epistaxis. No sinus pain. No odynophagia. No congestion. RESPIRATORY: No cough, no congestion. No hemoptysis. No shortness of breath. CARDIOVASCULAR: No angina symptoms. No CHF symptoms. No atypical chest pain for CAD. No palpitations. No orthopnea.. GASTROINTESTINAL: No abdominal pain. No nausea or vomiting. No diarrhea or constipation. No hematemesis. No hematochezia. GENITOURINARY: No urgency. No frequency. No dysuria. No hematuria. No obstructive symptoms. No discharge. No pain. No significant abnormal bleeding. MUSCULOSKELETAL: No musculoskeletal pain; no joint swelling. NEUROLOGICAL: Awake, alert, oriented to time, place and person. No headache. No neck pain. No syncope. No seizures. No dizziness. PSYCHIATRIC: Not anxious. No depression. No suicidal thoughts. No homicidal thoughts. SKIN: No rash. No lesions. Wound, right foot. ENDOCRINE: No unexplained weight loss. No weight gain. HEMATOLOGIC/LYMPHATIC: No anemia. No purpura. No petechiae. No prolonged or excessive bleeding. No palpable lymph nodes. PHYSICAL EXAMINATION: GENERAL: The patient is awake, alert and oriented, lying in bed in no distress. VITAL SIGNS: Temperature 97.8 F, Pulse 89, Respiratory Rate 16, BP 151/81, Pulse Ox 96% HEENT: Head normocephalic, atraumatic. Eyes: Extraocular muscles are intact. Pupils are equal, round and reactive to light and accommodation. Ears: No lesions. Nose appeared normal. Throat: No exudate or erythema. NECK: Supple. No JVD, no carotid bruit. No lymphadenopathy or thyromegaly. LUNGS: Diminished breath sounds. Clear to auscultation. Percussion note normal. Chest symmetrical. HEART: S1, S2, no S3. No murmurs. No cyanosis or clubbing. No ascites. Pul ses: Dorsalis pedis and posterior tibial pulses +1 to +2 both sides. ABDOMEN: Soft. Non-tender. Bowel sounds active. No CVA tenderness. No mass felt. EXTREMITIES: No edema. Full range of motion of all extremities, equal. NEUROLOGIC: No focal deficit. Cranial nerves II through XII are grossly intact. No headache, no double vision or headache. SKIN: Not dry. Intact. Turgor-normal. Approximately 1.5 inch lesion outer aspect of right foot with darkened tissue mild surrounding erythema. LYMPHATIC: No palpable lymph nodes/no lymphedema. MUSCULOSKELETAL: Normal joints with no swelling. Muscle tone is normal. LAB REVIEW: 03/06/19 06:15 03/06/19 06:15 03/06/19 06:15: Sodium 136.1, Potassium 4.06, Chloride 100.6, Carbon Dioxide 30.5 H, Anion Gap 9.06, BUN 17.5, Creatinine 1.01, Estimated GFR (MDRD) 72.00, BUN/Creatinine Ratio 17.32, Glucose 105.9, Calcium 9.78, Total Bilirubin 0.33, AST 32.4, ALT 29.8, Alkaline Phosphatase 138.0 H D, Total Protein 7.55, Albumin 4.15, Globulin 3.40, Albumin/Globulin Ratio 1.22 03/06/19 06:15: PT 20.9 H, INR 2.23 03/06/19 06:15: WBC 9.10, RBC 3.43 L, Hgb 10.9 L, Hct 32.7 L, MCV 95.3 H, MCH 31.8 H, MCHC 33.3, RDW Coeff of Audrey 12.7, Plt Count 414, Immature Gran % (Auto) 0.3, Neut % (Auto) 74.0, Lymph % (Auto) 15.7, [place] % (Auto) 9.2, Eos % (Auto) 0.3, Baso % (Auto) 0.5, Immature Gran # (Auto) 0.0, Neut # (Auto) 6.7, Lymph # (Auto) 1.4, [place] # (Auto) 0.8, Eos # (Auto) 0.0, Baso # (Auto) 0.1 03/05/19 20:45: POC Venous Troponin I 0.04 03/05/19 20:45: Total Creatine Kinase 165.0, CK-MB (CK-2) 2.980 H, CK-MB (CK-2) % 1.8000, Troponin I < 0.012 03/05/19 15:55: Urine Color Yellow, Urine Clarity Clear, Urine pH 7.0, Ur Specific [place] 1.020, Urine Protein Negative, Urine Glucose (UA) Negative, Urine Ketones Negative, Urine Blood Trace-intact, Urine Nitrite Negative, Urine Bilirubin Negative, Urine Urobilinogen 0.2, Ur Leukocyte Esterase Negative, Urine Microscopic RBC 0-2, Ur Squamous Epith Cells 0-2 03/05/19 13:03: Sodium 137.0, Potassium 3.98, Chloride 99.8, Carbon Dioxide 29. 3, Anion Gap 11.88, BUN 14.3, Creatinine 0.95, Estimated GFR (MDRD) 78.00, BUN/Creatinine Ratio 15.05, Glucose 123.7 H, Calcium 10.02, Total Bilirubin 0.29, AST 40.9, ALT 38.2, Alkaline Phosphatase 175.0 H, Total Creatine Kinase 116.7, CK-MB (CK-2) 1.870, CK-MB (CK-2) % 1.6000, Troponin I < 0.012, Total Protein 8.26 H, Albumin 4.59, Globulin 3.67, Albumin/Globulin Ratio 1.25 03/05/19 13:03: WBC 8.29, RBC 3.60 L, Hgb 11.6 L, Hct 34.8 L, MCV 96.7 H, MCH 32.2 H, MCHC 33.3, RDW Coeff of Audrey 12.6, Plt Count 432, Immature Gran % (Auto) 0.4, Neut % (Auto) 70.2, Lymph % (Auto) 19.3, [place] % (Auto) 7.8, Eos % (Auto) 1.7, Baso % (Auto) 0.6, Immature Gran # (Auto) 0.0, Neut # (Auto) 5.8, Lymph # (Auto) 1.6, [place] # (Auto) 0.7, Eos # (Auto) 0.1, Baso # (Auto) 0.1 ASSESSMENT: Please see below. 1. Right foot cellulitis 2. Ulcer right foot 3. CVA with hemiparesis 4. Noncompliance PLAN: 1. Daily INR 2. Continue Antibiotics Plan and coordination of the patient's care discussed in the presence of Customer Assistance Representative and nurse. SCRIBED BY: Ezekiel OSPINA scribed while in presence of service performed by Dr. Judd/Fanny Chaparro APRN on 03/06/19 ([id number])
[2019-03-06] MEDS ORDERED: COUMADIN PO SCH (09:00)
[2019-03-06] MEDS ORDERED: EZETIMIBE SIMVASTATIN PO SCH (09:00)
[2019-03-06] MEDS: DILANTIN PO SCH ×3 (09:08→20:30)
[2019-03-06] MEDS: ASPIRIN EC PO SCH (09:08)
[2019-03-06] MEDS: VITAMIN C PO SCH (09:08)
[2019-03-06] MEDS: NICODERM 21 MG TD SCH (09:09)
[2019-03-06] MEDS: DYAZIDE PO SCH (09:09)
[2019-03-06] MEDS: FERROUS SULFATE PO SCH ×2 (09:09→12:01)
[2019-03-06] MEDS: ZANAFLEX PO SCH ×2 (09:09→20:30)
[2019-03-06] MEDS: ZINC-220 PO SCH (09:09)
[2019-03-06] MEDS: AZACTAM 1 GM in SODIUM CHLORIDE 50 ML IV SCH ×2 (09:09→20:34)
[2019-03-06] MEDS: ACCUPRIL PO SCH ×2 (09:09→20:30)
[2019-03-06] MEDS: ROCEPHIN 1 GM/50 ML D5W 1 GM/50 ML BAG IV SCH (10:01)
[2019-03-06] MEDS: COUMADIN PO SCH (17:15)
[2019-03-06] MEDS: ZOCOR PO SCH (17:15)
[2019-03-06] MEDS: ZETIA PO SCH (17:15)
[2019-03-07] MEDS: CARAFATE PO SCH ×4 (05:36→20:05)
[2019-03-07] MEDS: PROTONIX PO SCH ×2 (05:37→15:59)
--- NOTE | 2019-03-07 09:24 | PCM.PROG ---
Attending Provider: ATTENDING PROVIDER: Dr. GLADYS JUDD This patient is seen with Fanny Chaparro, Nurse Practitioner. DATE OF SERVICE: 03/07/19 SUBJECTIVE: This 73 year old /WHITE M was hospitalized 03/05/19. The patient is resting comfortably. Dr. Geller to debride the area today. No fever. REVIEW OF SYSTEMS: CONSTITUTIONAL: No night sweats. No fatigue, malaise, lethargy. No fever or chills. HEENT: Eyes: No visual changes. No eye pain. No eye discharge. ENT: No runny nose. No epistaxis. No sinus pain. No odynophagia. No congestion. RESPIRATORY: No cough, no congestion. No hemoptysis. No shortness of breath. CARDIOVASCULAR: No angina symptoms. No CHF symptoms. No atypical chest pain for CAD. No palpitations. No orthopnea.. GASTROINTESTINAL: No abdominal pain. No nausea or vomiting. No diarrhea or constipation. No hematemesis. No hematochezia. GENITOURINARY: No urgency. No frequency. No dysuria. No hematuria. No obstructive symptoms. No discharge. No pain. No significant abnormal bleeding. MUSCULOSKELETAL: No musculoskeletal pain; no joint swelling. NEUROLOGICAL: Awake, alert, oriented to time, place and person. No headache. No neck pain. No syncope. No seizures. No dizziness. PSYCHIATRIC: Not anxious. No depression. No suicidal thoughts. No homicidal thoughts. SKIN: No rash. No lesions. Ulcer right foot. ENDOCRINE: No unexplained weight loss. No weight gain. HEMATOLOGIC/LYMPHATIC: No anemia. No purpura. No petechiae. No prolonged or excessive bleeding. No palpable lymph nodes. PHYSICAL EXAMINATION: GENERAL: The patient is awake, alert and oriented, lying in bed in no distress. VITAL SIGNS: Temperature 97.4 F, Pulse 87, Respiratory Rate 16, BP 144/76, Pulse Ox 97% HEENT: Head normocephalic, atraumatic. Eyes: Extraocular muscles are intact. Pupils are equal, round and reactive to light and accommodation. Ears: No lesions. Nose appeared normal. Throat: No exudate or erythema. NECK: Supple. No JVD, no carotid bruit. No lymphadenopathy or thyromegaly. LUNGS: Diminished breath sounds. Clear to auscultation. Percussion note normal. Chest symmetrical. HEART: S1, S2, no S3. No murmurs. No cyanosis or clubbing. No ascites. Pulses: Dorsalis pedis and posterior tibial pulses +1 to +2 both sides. ABDOMEN: Soft. Non-tender. Bowel sounds active. No CVA tenderness. No mass felt. EXTREMITIES: No edema. Full range of motion of all extremities, equal. Approximately 1.5 inch lesion outer aspect of right foot with darkened tissue mild surrounding erythema, improving redness. NEUROLOGIC: No focal deficit. Cranial nerves II through XII are grossly intact. No headache, no double vision or headache. SKIN: Not dry. Intact. Turgor-normal. LYMPHATIC: No palpable lymph nodes/no lymphedema. MUSCULOSKELETAL: Normal joints with no swelling. Muscle tone is normal. LAB REVIEW: 03/07/19 05:05 03/07/19 05:05 03/07/19 05:05: Sodium 134.8, Potassium 4.26, Chloride 98.3, Carbon Dioxide 29.3, Anion Gap 11.46, BUN 17.8, Creatinine 1.02, Estimated GFR (MDRD) 72.00, BUN/Creatinine Ratio 17.45, Glucose 104.7, Calcium 9.92, Total Bilirubin 0.39, AST 42.7, ALT 34.9, Alkaline Phosphatase 153.6 H, Total Protein 7.78, Albumin 4.40, Globulin 3.38, Albumin/Globulin Ratio 1.30 03/07/19 05:05: PT 15.8 H D, INR 1.66 03/07/19 05:05: WBC 9.21, RBC 3.56 L, Hgb 11.3 L, Hct 34.2 L, MCV 96.1 H, MCH 31.7 H, MCHC 33.0, RDW Coeff of Audrey 12.7, Plt Count 458 H, Immature Gran % (Auto) 0.5, Neut % (Auto) 71.4, Lymph % (Auto) 17.2, [place] % (Auto) 9.4, Eos % (Auto) 1.0, Baso % (Auto) 0.5, Immature Gran # (Auto) 0.1, Neut # (Auto) 6.6, Lymph # (Auto) 1.6, [place] # (Auto) 0.9, Eos # (Auto) 0.1, Baso # (Auto) 0.1, Neutrophils % (Manual) Cancelled, Band Neutrophils % Cancelled, Lymphocytes % (Manual) Cancelled, Monocytes % (Manual) Cancelled, Eosinophils % (Manual) Cancelled, Basophils % (Manual) Cancelled, Metamyelocytes % Cancelled, Myelocytes % Cancelled, Promyelocytes % Cancelled, Plasma Cell # (Manual) Cancelled, Nucleated RBCs Cancelled, Differential Comment Cancelled, Hypersegmented Neuts Cancelled, Reactive Lymphocytes Cancelled, Blast Cells Cancelled, Other Cell Type Cancelled, Toxic Granulation Cancelled, Dohle Bodies Cancelled, Ailyn Rods Cancelled, WBC Morphology Comment Cancelled, Platelet Estimate Cancelled, Clumped Platelets Cancelled, Giant Platelets Cancelled, Plt Morphology Comment Cancelled, Polychromasia Cancelled, Hypochromasia Cancelled, Poikilocytosis Cancelled, Basophilic Stippling Cancelled, Anisocytosis Cancelled, Microcytosis Cancelled, Macrocytosis Cancelled, Spherocytes Cancelled, Pappenheimer Bodies Cancelled, Sickle Cells Cancelled, Target Cells Cancelled, Tear Drop Cells Cancelled, Ovalocytes Cancelled, Stomatocytes Cancelled, Helmet Cells Cancelled, [place] Bodies Cancelled, [place] Rings Cancelled, [place] Cells Cancelled, Acanthocytes (Spur) Cancelled, Rouleaux Cancelled, Schistocytes Cancelled, RBC Morph Comment Cancelled ASSESSMENT: Please see below. 1. Right foot cellulitis 2. Ulcer right foot 3. CVA with hemiparesis 4. Noncompliance of medications, followup and lifestyle PLAN: 1. Dr. Geller to debride 2. Rocephin time four more days 3. Wound Culture still pending. Plan and coordination of the patient's care discussed in the presence of Cleaner Assistant and nurse. SCRIBED BY: Ezekiel OSPINA scribed while in presence of service performed by Dr. Judd/Fanny Chaparro APRN on 03/07/19 ([id number])
[2019-03-07] MEDS: VITAMIN C PO SCH (09:43)
[2019-03-07] MEDS: DILANTIN PO SCH ×3 (09:43→20:06)
[2019-03-07] MEDS: DYAZIDE PO SCH (09:43)
[2019-03-07] MEDS: ACCUPRIL PO SCH ×2 (09:43→20:06)
[2019-03-07] MEDS: ZINC-220 PO SCH (09:43)
[2019-03-07] MEDS: ZANAFLEX PO SCH ×2 (09:44→20:06)
[2019-03-07] MEDS: ROCEPHIN 1 GM/50 ML D5W 1 GM/50 ML BAG IV SCH (09:44)
[2019-03-07] MEDS: ASPIRIN EC PO SCH (09:44)
[2019-03-07] MEDS: NICODERM 21 MG TD SCH (09:45)
[2019-03-07] MEDS: FERROUS SULFATE PO SCH ×2 (09:48→12:04)
[2019-03-07] MEDS: AZACTAM 1 GM in SODIUM CHLORIDE 50 ML IV SCH ×2 (10:53→20:05)
[2019-03-07] MEDS: ZETIA PO SCH (15:59)
[2019-03-07] MEDS: COUMADIN PO SCH (15:59)
[2019-03-07] MEDS: ZOCOR PO SCH (15:59)
[2019-03-08] MEDS: CARAFATE PO SCH ×4 (05:43→20:12)
[2019-03-08] MEDS: PROTONIX PO SCH ×2 (05:43→17:05)
[2019-03-08] MEDS: NICODERM 21 MG TD SCH (09:08)
[2019-03-08] MEDS: DYAZIDE PO SCH (09:09)
[2019-03-08] MEDS: ASPIRIN EC PO SCH (09:09)
[2019-03-08] MEDS: ACCUPRIL PO SCH ×2 (09:09→20:12)
[2019-03-08] MEDS: VITAMIN C PO SCH (09:10)
[2019-03-08] MEDS: ZANAFLEX PO SCH ×2 (09:10→20:13)
[2019-03-08] MEDS: ROCEPHIN 1 GM/50 ML D5W 1 GM/50 ML BAG IV SCH (09:10)
[2019-03-08] MEDS: ZINC-220 PO SCH (09:10)
[2019-03-08] MEDS: DILANTIN PO SCH ×3 (09:10→20:12)
[2019-03-08] MEDS: FERROUS SULFATE PO SCH ×2 (09:13→12:00)
[2019-03-08] MEDS: AZACTAM 1 GM in SODIUM CHLORIDE 50 ML IV SCH (10:21)
[2019-03-08] MEDS: ZOCOR PO SCH (17:05)
[2019-03-08] MEDS: ZETIA PO SCH (17:05)
[2019-03-08] MEDS: COUMADIN PO SCH (17:05)
[2019-03-09] MEDS: CARAFATE PO SCH ×4 (05:51→20:56)
[2019-03-09] MEDS: PROTONIX PO SCH ×2 (05:51→16:17)
[2019-03-09] MEDS: ZINC-220 PO SCH (08:30)
[2019-03-09] MEDS: ROCEPHIN 1 GM/50 ML D5W 1 GM/50 ML BAG IV SCH (08:30)
[2019-03-09] MEDS: DILANTIN PO SCH ×3 (08:31→20:55)
[2019-03-09] MEDS: ACCUPRIL PO SCH ×2 (08:31→20:55)
[2019-03-09] MEDS: ZANAFLEX PO SCH ×2 (08:31→20:56)
[2019-03-09] MEDS: VITAMIN C PO SCH (08:31)
[2019-03-09] MEDS: DYAZIDE PO SCH (08:31)
[2019-03-09] MEDS: NICODERM 21 MG TD SCH (08:32)
[2019-03-09] MEDS: ASPIRIN EC PO SCH (08:36)
[2019-03-09] MEDS: FERROUS SULFATE PO SCH ×2 (08:36→12:11)
[2019-03-09] MEDS: COUMADIN PO SCH (16:16)
[2019-03-09] MEDS: ZETIA PO SCH (16:17)
[2019-03-09] MEDS: ZOCOR PO SCH (16:18)
[2019-03-09] MEDS ORDERED: SILVADENE CREAM TP SCH (16:30)
[2019-03-09] MEDS ORDERED: SILVADENE CREAM TP ONE (16:32)
[2019-03-09] MEDS: EPSOM SALT TP SCH (20:38)
[2019-03-09] MEDS: SILVADENE CREAM TP SCH (20:57)
[2019-03-09] MEDS ORDERED: EPSOM SALT TP SCH (21:00)
[2019-03-10] MEDS: NORCO 5-325 PO PRN (00:27)
[2019-03-10] MEDS: CARAFATE PO SCH ×4 (05:41→20:31)
[2019-03-10] MEDS: PROTONIX PO SCH ×2 (05:41→17:06)
[2019-03-10] MEDS: ROCEPHIN 1 GM/50 ML D5W 1 GM/50 ML BAG IV SCH (08:44)
[2019-03-10] MEDS: NICODERM 21 MG TD SCH ×2 (08:44→08:58)
[2019-03-10] MEDS: DILANTIN PO SCH ×3 (08:45→20:30)
[2019-03-10] MEDS: ASPIRIN EC PO SCH (08:45)
[2019-03-10] MEDS: DYAZIDE PO SCH (08:45)
[2019-03-10] MEDS: VITAMIN C PO SCH (08:46)
[2019-03-10] MEDS: ACCUPRIL PO SCH ×2 (08:46→20:31)
[2019-03-10] MEDS: FERROUS SULFATE PO SCH ×2 (08:46→12:26)
[2019-03-10] MEDS: ZANAFLEX PO SCH ×2 (08:46→20:31)
[2019-03-10] MEDS: ZINC-220 PO SCH (08:46)
[2019-03-10] MEDS: SILVADENE CREAM TP SCH ×2 (08:47→20:32)
[2019-03-10] MEDS: EPSOM SALT TP SCH ×2 (08:48→20:32)
--- NOTE | 2019-03-10 09:07 | PCM.PROG ---
Attending Provider: ATTENDING PROVIDER: Dr. GLADYS JUDD This patient is seen with Fanny Chaparro, Nurse Practitioner. DATE OF SERVICE: 03/10/19 SUBJECTIVE: This 73 year old /WHITE M was hospitalized 03/05/19. The patient is sitting in the chair resting comfortably. Dr. Geller debrided yesterday and the area is more red and irritated today. Wound culture is pending. REVIEW OF SYSTEMS: CONSTITUTIONAL: Positive for weakness. No night sweats. No fatigue, malaise, le thargy. No fever or chills. HEENT: Eyes: No visual changes. No eye pain. No eye discharge. ENT: No runny nose. No epistaxis. No sinus pain. No odynophagia. No congestion. RESPIRATORY: No cough, no congestion. No hemoptysis. No shortness of breath. CARDIOVASCULAR: No angina symptoms. No CHF symptoms. No atypical chest pain for CAD. No palpitations. No orthopnea.. GASTROINTESTINAL: No abdominal pain. No nausea or vomiting. No diarrhea or constipation. No hematemesis. No hematochezia. GENITOURINARY: No urgency. No frequency. No dysuria. No hematuria. No obstructive symptoms. No discharge. No pain. No significant abnormal bleeding. MUSCULOSKELETAL: No musculoskeletal pain; no joint swelling. NEUROLOGICAL: Awake, alert, oriented to time, place and person. No headache. No neck pain. No syncope. No seizures. No dizziness. PSYCHIATRIC: Not anxious. No depression. No suicidal thoughts. No homicidal thoughts. SKIN: Positive for wound left lower extremity. No rash. No lesions. ENDOCRINE: No unexplained weight loss. No weight gain. HEMATOLOGIC/LYMPHATIC: No anemia. No purpura. No petechiae. No prolonged or excessive bleeding. No palpable lymph nodes. PHYSICAL EXAMINATION: GENERAL: The patient is awake, alert and oriented, lying/sitting in bed in no distress. VITAL SIGNS: Temperature 98.4 F, Pulse 73, Respiratory Rate 16, BP 147/65, Pulse Ox 100% HEENT: Head normocephalic, atraumatic. Eyes: Extraocular muscles are intact. Pupils are equal, round and reactive to light and accommodation. Ears: No lesions. Nose appeared normal. Throat: No exudate or erythema. NECK: Supple. No JVD, no carotid bruit. No lymphadenopathy or thyromegaly. LUNGS: Diminished breath sounds. Clear to auscultation. Percussion note normal. Chest symmetrical. HEART: S1, S2, no S3. No murmurs. No cyanosis or clubbing. No ascites. Pulses: Dorsalis pedis and posterior tibial pulses +1 to +2 both sides. ABDOMEN: Soft. Non-tender. Bowel sounds active. No CVA tenderness. No mass felt. EXTREMITIES: Positive for 1 1/2 inch ulcer outer aspect right foot area with surrounding erythema and serosanguinous drainage. No edema. Full range of motion of all extremities, equal. NEUROLOGIC: No focal deficit. Cranial nerves II through XII are grossly intact. No headache, no double vision or headache. SKIN: Not dry. Intact. Turgor-normal. LYMPHATIC: No palpable lymph nodes/no lymphedema. MUSCULOSKELETAL: Normal joints with no swelling. Muscle tone is normal. LAB REVIEW: 03/10/19 05:00 03/10/19 05:00 03/10/19 05:00: Sodium 132.5 L, Potassium 4.63, Chloride 100.7, Carbon Dioxide 25.4, Anion Gap 11.03, BUN 35.9 H, Creatinine 1.04, Estimated GFR (MDRD) 70.00, BUN/Creatinine Ratio 34.51, Glucose 100.1, Calcium 9.38, Total Bilirubin 0.23, AST 51.2, ALT 35.9, Alkaline Phosphatase 135.2 H, Total Protein 7.07, Albumin 3.90, Globulin 3.17, Albumin/Globulin Ratio 1.23 03/10/19 05:00: PT 16.1 H, INR 1.69 03/10/19 05:00: WBC 7.90, RBC 3.45 L, Hgb 10.9 L, Hct 33.0 L, MCV 95.7 H, MCH 31.6 H, MCHC 33.0, RDW Coeff of Audrey 12.6, Plt Count 449 H, Immature Gran % (Auto) 0.9, Neut % (Auto) 68.3, Lymph % (Auto) 19.1, [place] % (Auto) 9.4, Eos % (Auto) 1.5, Baso % (Auto) 0.8, Immature Gran # (Auto) 0.1, Neut # (Auto) 5.4, Lymph # (Auto) 1.5, [place] # (Auto) 0.7, Eos # (Auto) 0.1, Baso # (Auto) 0.1 ASSESSMENT: Please see below. 1. Right foot cellulitis 2. Ulcer right foot 3. CVA with hemiparesis 4. Noncompliance of medications, followup and lifestyle PLAN: 1. Continue IV antibiotics. 2. The patient has an appointment for arterial study tomorrow. 3. It will be difficult to heal area due to patient's noncompliance. It is not likely he will follow with wound care or continue wound care instructions at home due to long history of noncompliance with medication, lifestyle, and followup. Plan and coordination of the patient's care discussed in the presence of Videogame Designer and nurse. CONDITION: Stable SCRIBED BY: JULIANNE PERSAUD Barrel Loader And Cleaner scribed while in presence of service performed by Dr. Judd/Fanny Chaparro APRN on 03/10/19 ([id number])
--- NOTE | 2019-03-10 09:35 | PN ---
%. DATE OF SERVICE: 03/08/19 SUBJECTIVE: 73 year old white male hospitalized with cellulitis of the right foot with right foot ulcer. The patient's ulcer has dark scab, no evidence of any drainage or infection. It is drying up. Less cellulitis noted. The patient still is uncooperative and refusing to put his legs up. The main problem is his noncompliance of medication, diet, lifestyle and heavy smoking, practically all aspects of medical care. REVIEW OF SYSTEMS: CONSTITUTIONAL: No night sweats. No fatigue, malaise, lethargy. No fever or chills. HEENT: Eyes: No visual changes. No eye pain. No eye discharge. ENT: No runny nose. No epistaxis. No sinus pain. No sore throat. No odynophagia. No congestion. RESPIRATORY: No cough, no congestion. No hemoptysis. No shortness of breath. CARDIOVASCULAR: No angina symptoms. No CHF symptoms. No atypical chest pain for CAD. No palpitations. No PND. No orthopnea. GASTROINTESTINAL: No abdominal pain. No nausea or vomiting. No diarrhea or constipation. No hematemesis. No hematochezia. GENITOURINARY: No urgency. No frequency. No dysuria. No hematuria. No obstructive symptoms. No discharge. No pain. No significant abnormal bleeding. MUSCULOSKELETAL: No musculoskeletal pain; no joint swelling. NEUROLOGICAL: No headache. No neck pain. No syncope. No seizures. No dizziness. PSYCHIATRIC: Not anxious. No depression. No suicidal thoughts. No homicidal thoughts. SKIN: No rash. No lesions. No wounds. ENDOCRINE: No unexplained weight loss. No weight gain. HEMATOLOGIC/LYMPHATIC: No anemia. No purpura. No petechiae. No prolonged or excessive bleeding. No palpable lymph nodes. PHYSICAL EXAMINATION: VITAL SIGNS: Temperature 98.4, pulse 70, respiratory rate 16, blood pressure 140/70 and pulse ox 9 HEENT: Head normocephalic, atraumatic. Eyes: Extraocular muscles are intact. Pupils are equal, round and reactive to light and accommodation. Ears: No lesions. Nose appeared normal. Throat: No exudate or erythema. NECK: Supple. No JVD, no carotid bruit. No lymphadenopathy or thyromegaly. LUNGS: Decreased breath sounds but clear to auscultation. Percussion note normal. Chest symmetrical. HEART: S1, S2, no S3. No murmurs. No cyanosis or clubbing. No ascites. Pulses: Dorsalis pedis and posterior tibial pulses +1 to +2 bilaterally. ABDOMEN: Soft. Nontender. Bowel sounds active. No CVA tenderness. No mass felt. EXTREMITIES: No edema. Full range of motion of all extremities, equal. NEUROLOGIC: No focal deficit. Cranial nerves II through XII are grossly intact. No headache, no double vision or headache. SKIN: Not dry. Intact. Turgor - normal. The ulcer on the leg seems to be dried up and with health scab. No drainage. The cellulitis is confined to localized area, very small surrounding the ulcer. LYMPHATIC: No palpable lymph nodes/no lymphedema. MUSCULOSKELETAL: Normal joints with no swelling. Muscle tone is normal. PLAN: 1. Continue IV antibiotics 2. Dr. Geller rn medical surgical is to debride the ulcer. 3. Elevate the leg 4. Counseling for smoking done 5. The patient is going to be followed by [facility]. CONDITION: Stable. TIME SPENT: More than 30 minutes. Plan and coordination of the patient's care discussed in the presence of nurse. JOSE E
--- NOTE | 2019-03-10 10:46 | PN ---
DATE OF SERVICE: 03/09/19 SUBJECTIVE: 73 year old white male hospitalized with right foot ulcer, lateral aspect seems to be covered with healthy eschar surrounded by yellowish. The patient is going to be debrided by Dr. Geller today. REVIEW OF SYSTEMS: CONSTITUTIONAL: No night sweats. No fatigue, malaise, lethargy. No fever or chills. HEENT: Eyes: No visual changes. No eye pain. No eye discharge. ENT: No runny nose. No epistaxis. No sinus pain. No sore throat. No odynophagia. No congestion. RESPIRATORY: No cough, no congestion. No hemoptysis. No shortness of breath. CARDIOVASCULAR: No angina symptoms. No CHF symptoms. No atypical chest pain for CAD. No palpitations. No PND. No orthopnea. GASTROINTESTINAL: No abdominal pain. No nausea or vomiting. No diarrhea or constipation. No hematemesis. No hematochezia. GENITOURINARY: No urgency. No frequency. No dysuria. No hematuria. No obstructive symptoms. No discharge. No pain. No significant abnormal bleeding. MUSCULOSKELETAL: No musculoskeletal pain; no joint swelling. NEUROLOGICAL: No headache. No neck pain. No syncope. No seizures. No dizziness. PSYCHIATRIC: Not anxious. No depression. No suicidal thoughts. No homicidal thoughts. SKIN: No rash. No lesions. No wounds. ENDOCRINE: No unexplained weight loss. No weight gain. HEMATOLOGIC/LYMPHATIC: No anemia. No purpura. No petechiae. No prolonged or excessive bleeding. No palpable lymph nodes. PHYSICAL EXAMINATION: VITAL SIGNS: Temperature 97.5, pulse 80, respiratory rate 18, blood pressure 125/65 and pulse ox 100% on room air. HEENT: Head normocephalic, atraumatic. Eyes: Extraocular muscles are intact. Pupils are equal, round and reactive to light and accommodation. Ears: No lesions. Nose appeared normal. Throat: No exudate or erythema. NECK: Supple. No JVD, no carotid bruit. No lymphadenopathy or thyromegaly. LUNGS: Clear to auscultation. Percussion note normal. Chest symmetrical. HEART: S1, S2, no S3. No murmurs. No cyanosis or clubbing. No ascites. Pulses: Dorsalis pedis and posterior tibial pulses +1 to +2 bilaterally. ABDOMEN: Soft. Nontender. Bowel sounds active. No CVA tenderness. No mass felt. EXTREMITIES: No edema. Full range of motion of all extremities, equal. Right foot is much less swollen. Redness. Ulcers seems to be healing with healthy eschar so far but may need some debridement. Dr. Geller is going to do the debridement. NEUROLOGIC: No focal deficit. Cranial nerves II through XII are grossly intact. No headache, no double vision or headache. SKIN: Not dry. Intact. Turgor - normal. LYMPHATIC: No palpable lymph nodes/no lymphedema. MUSCULOSKELETAL: Normal joints with no swelling. Muscle tone is normal. LABS: Hgb 10.2, hct 30, WBC 7,000 normal differential, creatinine 1.3, BUN 35, potassium 4.6. CONDITION: Stable PROGNOSIS: Poor because when he goes home he has nobody to take care of him during the day time. Most of the time he is noncompliant, very abusive, fowl language and smokes home. He has to depends on family members to have things taken care of. The family members are working. Beside multiple medical problems the patient has he is on wheel chair. noncompliant of all aspects of medical care. TIME SPENT: More than 30 minutes. Plan and coordination of the patient's care discussed in the presence of nurse. JOSE E
--- NOTE | 2019-03-10 11:04 | PN ---
DATE OF SERVICE: 03/07/19 SUBJECTIVE: The patient was seen and examined with the Nurse Practitioner. The patient's condition has improved. The leg edema is much less and cellulitis seems to have resolved. Dr. Geller is to do debridement of the ulcer. Atrial study has been scheduled to be done as an outpatient. The patient is noncompliant. His prognosis is poor and his lifestyle his poor. He will continue to smoke. He swears every other word. His transportation depends on the daughter who seems to be reliable. The patient is very uncooperative. TIME SPENT: More than 30 minutes. Plan and coordination of the patient's care discussed in the presence of nurse. JOSE E
--- NOTE | 2019-03-10 11:42 | CONS ---
DATE OF CONSULTATION: 03/05/19 REASON FOR CONSULTATION/HISTORY OF PRESENT ILLNESS: This patient was hospitalized because of swelling and redness of the right foot. I was asked to see the patient in conjunction with the swelling and redness. The patient had a previous right hemiparesis post CVA. He lays exclusively on his right side. The patient has residual problems with his speech and speech is sudden and jerky, probably from the CVA. He does understand however. Examination was directed mainly to the foot. The right foot is indeed swollen, edematous with some redness and ulceration on the lateral side mid metatarsal lateral area, fifth, approximately measures about 2 cm in its widest diameter and rounded. The large scab is dark, necrotic but no significant drainage. This patient is receiving two antibiotics, Azactam as well as Rocephin. He has moderate anemia 11.6 hemoglobin, 34.8 hematocrit. MCV 96.7, MCH 32.2. RBC 3.6. CK slightly elevated MB 2.980, troponin normal 0.012. ASSESSMENT: 1. CELLULITIS RIGHT FOOT. 2. DECUBITUS ULCER, LATERAL RIGHT FOOT, FIFTH METATARSAL AREA. PLAN: 1. Continue antibiotic. 2. Should soak foot in warm water with Epsom salt. 3. Debridement of the ulcer. Thank you for allowing me to see the patient with you. JOSE E
--- NOTE | 2019-03-10 12:45 | CONS ---
DATE OF CONSULTATION FOLLOWUP: 03/07/19 SUBJECTIVE: The redness and swelling is less. The dark area is circular, about the same. We will probably soak it again with warm water and Epsom salt. Debridement will probably be carried out but will wait until the swelling has progressed further. JOSE E
--- NOTE | 2019-03-10 13:15 | CONS ---
DATE OF CONSULTATION FOLLOWUP: 03/09/19 REASON FOR CONSULTATION: The patient is alert and cooperative. Mental status is stable. The foot was soaked for about 15 minutes and the patient was placed in left lateral decubitus position which he agreed. The area was then debrided sharply using suture removal set and scalpel #15. There was some drainage. Two sets of cultures were obtained. After removing some of the dark tissue, red tissue was noted underneath. The patient does feel pain from time to time. ASSESSMENT: 1. DECUBITUS ULCER, RIGHT LATERAL FOOT, MID FIFTH METATARSAL AREA. DEBRIDEMENT DONE TODAY. PLAN: 1. Continue the same medication. 2. Culture and sensitivity, two sets of specimen. 3. Silvadene cream to be applied after soaking the foot. The foot will be soaked in warm water with Epsom salt twice a day for about 15 to 30 minutes. 4. The debridement will be carried out again tomorrow and no changes in the antibiotic at this time. His alkaline phosphatase remained elevated and his BUN is climbing 17.5 to 35. The GFR is down from 72 to 52. This is probably secondary to the dehydration rather than nephropathy. I would order an x-ray of the right foot since there was not one done. The patient's medications reviewed. The patient is receiving Protonix as well as Carafate. He is also receiving Iron. No B Complex however. He is also receiving Coumadin, Zocor and Zetia, [place] for pain, Zinc 220 daily, Dyazide daily, Zanaflex, Accupril 40 mg twice a day. MTDD
--- NOTE | 2019-03-10 13:34 | PN ---
DATE OF SERVICE: 03/10/19 SUBJECTIVE: The patient was seen and examined with the Nurse Practitioner. The patient's condition is stable. The patient's ulcer was debrided. The patient is being followed by Dr. Geller. The patient also was discussed with Dr. Geller who did the debridement, he wants a CT scan of the foot to rule out any osteomyelitis. We will do it and he wants the patient to be followed by [facility] which patient has already been ordered to have an appointment but he is noncompliant of all aspects of medical care. His prognosis for healing ulcer is poor in spite of the great care that he is getting. TIME SPENT: More than 30 minutes. Plan and coordination of the patient's care discussed in the presence of nurse. JOSE E
--- NOTE | 2019-03-10 13:58 | CT ---
EXAM: CT right foot HISTORY: Cellulitis, pressure ulcer. TECHNIQUE: CT right foot without contrast. Multiplanar images. FINDINGS: Bones are severely demineralized. There is irregularity of the dorsal base of the great toe which ma y represent a discontinuous spur or fracture of indeterminate age. Correlate clinically. Joints are intact. There is diffuse mild to moderate arthropathy. No well-defined region of dajuan bony destru ction to indicate definite osteomyelitis. Region of suspected pressure ulcer was not conveyed within the history although there is some soft tissue thickening inferior to the metatarsal heads. No well -defined abscess or drainable fluid collection is seen. There is swelling of the dorsum of the foot distally. No soft tissue foreign body or gas collection is seen. Vascular calcifications are presen t. IMPRESSION: 1. No discrete ulcer or abscess is definitely identified. 2. Irregularity at the dorsal base of the first proximal phalanx as described. 3. Generalized demineralization. 4. Generalized arthropathy.
--- NOTE | 2019-03-10 14:49 | HP ---
DATE OF SERVICE: 03/05/19 REASON FOR HOSPITALIZATION: Right foot swelling, redness with ulcer on the lateral aspect, duration 4 to 6 weeks or even longer. HISTORY OF PRESENT ILLNESS: 73-year-old white male was seen in the office. He came in by wheelchair pushed by Jennifer, the daughter. According to the daughter, the patient is not listening as usual, cellulitis and the patient needed to be hospitalized. It took nearly 20 to 25 minutes of pleading and he eventually agreed to stay in the hospital for two nights. The patient says he is feeling fine. PAST MEDICAL/SURGICAL HISTORY: Hypertension Compression fracture Pelvic fracture Right upper lobe mass Reflux disease Status post prostate surgery Dyslipidemia CVA with right hemiparesis Depression Chronic lung disease/COPD Alcoholic hepatitis Increased LFTs Left internal carotid artery stenosis followed by other doctor. History of decubitus ulcers on the buttocks History of smoking History of noncompliance for a long time Neck surgery years ago TURP 1998 REVIEW OF SYSTEMS: CONSTITUTIONAL: He is feeling fine. No fever, no fatigue. HEENT: No sinus drainage, no sore throat. RESPIRATORY: No cough, no congestion. CARDIOVASCULAR: No atypical chest pain for coronary artery disease. No angina, CHF symptoms, palpitations or shortness of breath. GASTROINTESTINAL: No melena or abdominal pain. No GERD. GENITOURINARY: No hematuria, no prostatism, no polyuria. SHOW HORSE DRIVER: No blackout, no dizziness, no headache, no double vision. MUSCULOSKELETAL: No osteoarthritis pain, no joint swelling. ENDOCRINE: No weight loss, no weight gain. SKIN: Not dry, no rash. PSYCHIATRIC: Not anxious, no depression, no suicidal thoughts, no homicidal thoughts. PERSONAL/FAMILY/SOCIAL HISTORY: The patient is , noncompliant of all aspects of medical care. He has foul language, heavy smoker (two packs per day since 1965), heavy alcohol abuse (two beers, two shots of [place]), unkept in the wheelchair. He has a long history of CVA with right hemiparesis, depression with peripheral arterial disease. He has five children. Retired. Family History: Fatehr - lung cancer and CAD. Mother - CAD. Brother(s) Three healthy. Sister(s) Two healthy. MEDICATIONS: (CURRENT) Phenytoin 100 mg p.o. t.i.d. Warfarin (Coumadin) 3 mg p.o. daily Quinapril 40 mg p.o. b.i.d. Sucralfate 1 gm p.o.q.i.d. Pantoprazole 40 mg p.o. b.i.d. Ferrous Sulfate 325 mg p.o. b.i.d. Breakfast and Lunch Ezetimibe-Simvastatin 10-40 mg one tab p.o. daily Triamterene-Hydrochlorothiazide 37.5-25 mg one each p.o. daily Zanaflex 4 mg p.o. b.i.d. ALLERGIES: NKDA PHYSICAL EXAMINATION: V/S: Temperature 98.4, pulse 102/min, respiratory rate 15, blood pressure 144/72, pulse ox 98% on room air. GENERAL APPEARANCE: Oriented times three. HEENT: Normal. NECK: No JVP, no carotid bruits. No lymphadenopathy. RESPIRATORY: Lungs have decreased breath sounds with mild expiratory wheeze. Percussion note normal. CARDIOVASCULAR: On auscultation, S1, S2, no S3, no murmur. No cyanosis, clubbing. No ascites. GI/ABDOMEN: Soft. No tenderness. Bowel sounds are active. EXTREMITIES: The patient has contracture of the right upper extremity contracture, contracture of the right lower extremity. The patient is in a wheelchair. There is a 1 1/2 inch diameter ulcer covered with eschar in the mid portion of the lateral aspect of the right foot with mild redness of the foot with swelling. Chronic swelling noted on the left lower extremity. +1 pitting. Pulses +1, equal. SHOW HORSE DRIVER: Deep tendon reflexes, sensory, motor and gait all normal. RECTAL/PROSTATE: Refused Foot Care. Refused colonoscopy screening. Prostate 12/09 (0.8). SKIN: Looks dry. LABS: INR 3.3. ASSESSMENT: 1. RIGHT FOOT ULCER LATERAL 1 1/2 WITH CELLULITIS 2. CVA WITH RIGHT HEMIPARESIS 3. SMOKING 4. NONCOMPLIANCE OF MEDICATIONS/FOLLOWUP/RECOMMENDATIONS 5. DEPRESSION 6. HISTORY OF ALCOHOLIC PANCREATITIS 7. COPD 8. INCREASED LFT'S 9. LEFT ICA STENOSIS DR. HIGGINBOTHAM 10. HISTORY OF ULCER ON BUTTOCKS 11. L2 COMPRESSION FRACTURE WITH NO NEW DEFECT 12. HISTORY OF PELVIC FRACTURE/FALLS 13. RIGHT UPPER LOBE MASS 14. GERD 15. HYPERTENSION 16. ESOPHAGEAL REFLUX 17. PROSTATE SURGERY 18. DYSLIPIDEMIA PLAN: 1. Admit. 2. Telemetry orders. 3. Continue all medications. 4. Rocephin 1 gm IV 24 hourly. 5. Azactam 1 gm q.12 hourly. 6. Elevate legs. 7. Culture ulcer. 8. Lasix 20 mg IV now. 9. Dr. Geller for consult. 10. Wound care consult. 11. Arterial studies at [facility]. PROGNOSIS: Poor TIME SPENT: More than 70 minutes. MTDD
[2019-03-10] MEDS: ZETIA PO SCH (17:06)
[2019-03-10] MEDS: ZOCOR PO SCH (17:06)
[2019-03-10] MEDS: COUMADIN PO SCH (17:07)
[2019-03-11] MEDS: CARAFATE PO SCH ×4 (05:32→21:28)
[2019-03-11] MEDS: PROTONIX PO SCH ×2 (05:32→17:03)
--- NOTE | 2019-03-11 09:06 | PCM.PROG ---
Attending Provider: ATTENDING PROVIDER: Dr. GLADYS JUDD This patient is seen with Fanny Chaparro, Nurse Practitioner. DATE OF SERVICE: 03/11/19 SUBJECTIVE: This 73 year old /WHITE M was hospitalized 03/05/19. The patient is sitting in chair resting comfortably. Erythema slightly improved. He had CT and showed no evidence of abscess. REVIEW OF SYSTEMS: CONSTITUTIONAL: No night sweats. No fatigue, malaise, lethargy. No fever or chills. HEENT: Eyes: No visual changes. No eye pain. No eye discharge. ENT: No runny nose. No epistaxis. No sinus pain. No odynophagia. No congestion. RESPIRATORY: No cough, no congestion. No hemoptysis. No shortness of breath. CARDIOVASCULAR: No angina symptoms. No CHF symptoms. No atypical chest pain for CAD. No palpitations. No orthopnea.. GASTROINTESTINAL: No abdominal pain. No nausea or vomiting. No diarrhea or constipation. No hematemesis. No hematochezia. GENITOURINARY: No urgency. No frequency. No dysuria. No hematuria. No obstructive symptoms. No discharge. No pain. No significant abnormal bleeding. MUSCULOSKELETAL: No musculoskeletal pain; no joint swelling. NEUROLOGICAL: Awake, alert, oriented to time, place and person. No headache. No neck pain. No syncope. No seizures. No dizziness. PSYCHIATRIC: Not anxious. No depression. No suicidal thoughts. No homicidal thoughts. SKIN: Positive for cellulitis right foot. No rash. No lesions. ENDOCRINE: No unexplained weight loss. No weight gain. HEMATOLOGIC/LYMPHATIC: No anemia. No purpura. No petechiae. No prolonged or excessive bleeding. No palpable lymph nodes. PHYSICAL EXAMINATION: GENERAL: The patient is awake, alert and oriented, lying/sitting in chair in no distress. VITAL SIGNS: Temperature 97.7 F, Pulse 67, Respiratory Rate 18, BP 131/68, Pulse Ox 99% HEENT: Head normocephalic, atraumatic. Eyes: Extraocular muscles are intact. Pupils are equal, round and reactive to light and accommodation. Ears: No lesions. Nose appeared normal. Throat: No exudate or erythema. NECK: Supple. No JVD, no carotid bruit. No lymphadenopathy or thyromegaly. LUNGS: Clear to auscultation. Percussion note normal. Chest symmetrical. HEART: S1, S2, no S3. No murmurs. No cyanosis or clubbing. No ascites. Pulses: Dorsalis pedis and posterior tibial pulses +1 to +2 both sides. ABDOMEN: Soft. Non-tender. Bowel sounds active. No CVA tenderness. No mass felt. EXTREMITIES: Improving surrounding erythema of ulcer right foot. Full range of motion of all extremities, equal. NEUROLOGIC: No focal deficit. Cranial nerves II through XII are grossly intact. No headache, no double vision or headache. SKIN: Not dry. Intact. Turgor-normal. LYMPHATIC: No palpable lymph nodes/no lymphedema. MUSCULOSKELETAL: Normal joints with no swelling. Muscle tone is normal. LAB REVIEW: 03/11/19 04:45 03/11/19 04:45 03/11/19 04:45: Sodium 133.0 L, Potassium 4.54, Chloride 99.2, Carbon Dioxide 26.8, Anion Gap 11.54, BUN 33.9 H, Creatinine 1.09, Estimated GFR (MDRD) 66.00, BUN/Creatinine Ratio 31.10, Glucose 98.1, Calcium 9.69, Total Bilirubin 0.25, AST 51.2, ALT 47.4, Alkaline Phosphatase 136.6 H, Total Protein 7.23, Albumin 4.05, Globulin 3.18, Albumin/Globulin Ratio 1.27 03/11/19 04:45: WBC 8.40, RBC 3.35 L, Hgb 10.6 L, Hct 32.3 L, MCV 96.4 H, MCH 31.6 H, MCHC 32.8, RDW Coeff of Audrey 12.8, Plt Count 494 H, Immature Gran % (Auto) 0.8, Neut % (Auto) 68.8, Lymph % (Auto) 18.3, [place] % (Auto) 9.9, Eos % (Auto) 1.5, Baso % (Auto) 0.7, Immature Gran # (Auto) 0.1, Neut # (Auto) 5.8, Lymph # (Auto) 1.5, [place] # (Auto) 0.8, Eos # (Auto) 0.1, Baso # (Auto) 0.1 03/05/19 15:55: Organism ID Comment H, Bacterial ID Final report H ASSESSMENT: Please see below. 1. Right foot cellulitis 2. Ulcer right foot 3. CVA with hemiparesis 4. Noncompliance of medications, followup and lifestyle PLAN: 1. Continue wound care orders per Dr. Geller. 2. Will reschedule arterial study at discharge. 3. Referral to wound care at [facility] if not already done. 4. Dilantin level if not done. Plan and coordination of the patient's care discussed in the presence of Honey Blender and nurse. CONDITION: Stable SCRIBED BY: Ezekiel RHOADES scribed while in presence of service performed by Dr. Judd/Fanny Chaparro APRN on 03/11/19 ([id number])
[2019-03-11] MEDS: EPSOM SALT TP SCH ×2 (09:38→21:36)
[2019-03-11] MEDS: FERROUS SULFATE PO SCH ×2 (09:38→12:04)
[2019-03-11] MEDS: SILVADENE CREAM TP SCH ×2 (09:38→21:34)
[2019-03-11] MEDS: ZINC-220 PO SCH (09:39)
[2019-03-11] MEDS: VITAMIN C PO SCH (09:39)
[2019-03-11] MEDS: ZANAFLEX PO SCH ×2 (09:39→21:27)
[2019-03-11] MEDS: ACCUPRIL PO SCH ×2 (09:39→21:27)
[2019-03-11] MEDS: ASPIRIN EC PO SCH (09:39)
[2019-03-11] MEDS: DILANTIN PO SCH ×3 (09:39→21:27)
[2019-03-11] MEDS: NICODERM 21 MG TD SCH ×2 (09:40→09:43)
[2019-03-11] MEDS: ROCEPHIN 1 GM/50 ML D5W 1 GM/50 ML BAG IV SCH (09:40)
[2019-03-11] MEDS: DYAZIDE PO SCH (09:40)
[2019-03-11] MEDS: ATIVAN PO PRN (11:19)
--- NOTE | 2019-03-11 12:51 | PN ---
DATE OF SERVICE: 03/06/19 SUBJECTIVE: The patient was seen and examined today with the Nurse Practitioner. The patient's cellulitis is a lot better. The edema is much less. The patient's arterial study has been scheduled. Again, strongly advised to followup with Dr. Crowley. We also told the daughter about it. The patient's ulcer is going to be seen by Dr. Geller. He is going to be followed in Wound Care. He has continued to smoke. The patient is noncompliant of medications, lifestyle, followup and recommendation.He is noncompliant of all aspects of medical care. His prognosis is poor. TIME SPENT: More than 30 minutes. Plan and coordination of the patient's care discussed in the presence of nurse. JOSE E
[2019-03-11] MEDS: ZETIA PO SCH (17:03)
[2019-03-11] MEDS: ZOCOR PO SCH (17:03)
[2019-03-11] MEDS: COUMADIN PO SCH (17:03)
[2019-03-11] MEDS ORDERED: SILVADENE CREAM TP SCH (21:30)
[2019-03-12] MEDS: CARAFATE PO SCH ×4 (05:49→20:59)
[2019-03-12] MEDS: PROTONIX PO SCH ×2 (05:50→16:53)
--- NOTE | 2019-03-12 08:30 | PCM.PROG ---
Attending Provider: ATTENDING PROVIDER: Dr. GLADYS BRUNO DATE OF SERVICE: 03/12/19 SUBJECTIVE: This 73 year old /WHITE M was hospitalized 03/05/19 with right foot ulcer. The patient is being follower by Dr. Geller. REVIEW OF SYSTEMS: CONSTITUTIONAL: No night sweats. No fatigue, malaise, lethargy. No fever or chills. HEENT: Eyes: No visual changes. No eye pain. No eye discharge. ENT: No runny nose. No epistaxis. No sinus pain. No odynophagia. No congestion. RESPIRATORY: No cough, no congestion. No hemoptysis. No shortness of breath. CARDIOVASCULAR: No angina symptoms. No CHF symptoms. No atypical chest pain for CAD. No palpitations. No orthopnea.. GASTROINTESTINAL: No abdominal pain. No nausea or vomiting. No diarrhea or constipation. No hematemesis. No hematochezia. Appetite good. GENITOURINARY: No urgency. No frequency. No dysuria. No hematuria. No obstru ctive symptoms. No discharge. No pain. No significant abnormal bleeding. MUSCULOSKELETAL: No musculoskeletal pain; no joint swelling. NEUROLOGICAL: Awake, alert, oriented to time, place and person. No headache. No neck pain. No syncope. No seizures. No dizziness. As usual he has fowl language. PSYCHIATRIC: Not anxious. No depression. No suicidal thoughts. No homicidal thoughts. SKIN: No rash. No lesions. No wounds. ENDOCRINE: No unexplained weight loss. No weight gain. HEMATOLOGIC/LYMPHATIC: No anemia. No purpura. No petechiae. No prolonged or excessive bleeding. No palpable lymph nodes. PHYSICAL EXAMINATION: GENERAL: The patient is awake, alert and oriented, sitting in bed in no distress. VITAL SIGNS: Temperature 98.0 F, Pulse 74, Respiratory Rate 18, BP 121/65, Pulse Ox 99% HEENT: Head normocephalic, atraumatic. Eyes: Extraocular muscles are intact. Pupils are equal, round and reactive to light and accommodation. Ears: No lesions. Nose appeared normal. Throat: No exudate or erythema. NECK: Supple. No JVD, no carotid bruit. No lymphadenopathy or thyromegaly. LUNGS: Clear to auscultation. Percussion note normal. Chest symmetrical. HEART: S1, S2, no S3. No murmurs. No cyanosis or clubbing. No ascites. Pulses: Dorsalis pedis and posterior tibial pulses +1 to +2 both sides. ABDOMEN: Soft. Non-tender. Bowel sounds active. No CVA tenderness. No mass felt. EXTREMITIES: Right foot ulcer seems to be healing. It has been draining. Swelling is much less. Full range of motion of all extremities, equal. NEUROLOGIC: No focal deficit. Cranial nerves II through XII are grossly intact. No headache, no double vision or headache. SKIN: Warm and dry. Intact. Turgor-normal. LYMPHATIC: No palpable lymph nodes/no lymphedema. MUSCULOSKELETAL: Normal joints with no swelling. Muscle tone is normal. LAB REVIEW: 03/12/19 04:00 03/12/19 04:00 03/12/19 04:00: PT 18.5 H, INR 1.96 03/12/19 04:00: Sodium 132.2 L, Potassium 4.80, Chloride 97.5 L, Carbon Dioxide 25.1, Anion Gap 14.40, BUN 41.1 H, Creatinine 1.21 H, Estimated GFR (MDRD) 59.00, BUN/Creatinine Ratio 33.96, Glucose 105.1, Calcium 9.63, Total Bilirubin 0.29, AST 52.2, ALT 50.3 H, Alkaline Phosphatase 149.9 H, Total Protein 7.44, Albumin 4.24, Globulin 3.20, Albumin/Globulin Ratio 1.32 03/12/19 04:00: WBC 9.42, RBC 3.41 L, Hgb 10.8 L, Hct 32.6 L, MCV 95.6 H, MCH 31.7 H, MCHC 33.1, RDW Coeff of Audrey 13.0, Plt Count 519 H, Immature Gran % (Auto) 1.0, Neut % (Auto) 68.4, Lymph % (Auto) 18.8, [place] % (Auto) 10.0, Eos % (Auto) 1.2, Baso % (Auto) 0.6, Immature Gran # (Auto) 0.1, Neut # (Auto) 6.5, Lymph # (Auto) 1.8, [place] # (Auto) 0.9, Eos # (Auto) 0.1, Baso # (Auto) 0.1 03/11/19 04:45: Phenytoin 6.58 L ASSESSMENT: Please see below. 1. Cellulitis, right foot. PLAN: 1. Continue antibiotics 2. elevate legs 2. The patient is noncompliant of all aspects of medical care. Plan and coordination of the patient's care discussed in the presence of Accounting Machine Operator and nurse. CONDITION: Stable SCRIBED BY: Ezekiel OSPINA scribed while in presence of service performed by Dr. GLADYS BRUNO on 03/12/19 ([id number])
[2019-03-12] MEDS: ROCEPHIN 1 GM/50 ML D5W 1 GM/50 ML BAG IV SCH (08:57)
[2019-03-12] MEDS: NICODERM 21 MG TD SCH (08:59)
[2019-03-12] MEDS: DILANTIN PO SCH ×3 (09:01→20:59)
[2019-03-12] MEDS: FERROUS SULFATE PO SCH ×2 (09:02→11:33)
[2019-03-12] MEDS: ZINC-220 PO SCH (09:03)
[2019-03-12] MEDS: ZANAFLEX PO SCH ×2 (09:03→20:59)
[2019-03-12] MEDS: VITAMIN C PO SCH (09:03)
[2019-03-12] MEDS: ACCUPRIL PO SCH ×2 (09:03→20:58)
[2019-03-12] MEDS: ATIVAN PO PRN (09:04)
[2019-03-12] MEDS: ASPIRIN EC PO SCH (09:04)
[2019-03-12] MEDS: EPSOM SALT TP SCH ×2 (09:04→21:01)
[2019-03-12] MEDS: SILVADENE CREAM TP SCH ×2 (09:05→22:09)
[2019-03-12] MEDS: ZOCOR PO SCH (16:52)
[2019-03-12] MEDS: COUMADIN PO SCH (16:53)
[2019-03-12] MEDS: ZETIA PO SCH (16:53)
[2019-03-13] MEDS: CARAFATE PO SCH ×4 (05:42→21:31)
[2019-03-13] MEDS: PROTONIX PO SCH ×2 (05:42→17:56)
[2019-03-13] MEDS: NICODERM 21 MG TD SCH (08:15)
[2019-03-13] MEDS: ACCUPRIL PO SCH ×2 (08:15→21:31)
[2019-03-13] MEDS: ZINC-220 PO SCH (08:16)
[2019-03-13] MEDS: ASPIRIN EC PO SCH (08:16)
[2019-03-13] MEDS: ZANAFLEX PO SCH ×2 (08:16→21:31)
[2019-03-13] MEDS: VITAMIN C PO SCH (08:16)
[2019-03-13] MEDS: DILANTIN PO SCH ×3 (08:16→21:31)
[2019-03-13] MEDS ORDERED: SODIUM CHLORIDE 1,000 ML IV SCH (09:00)
[2019-03-13] MEDS: ROCEPHIN 1 GM/50 ML D5W 1 GM/50 ML BAG IV SCH (09:06)
[2019-03-13] MEDS: FERROUS SULFATE PO SCH ×2 (09:07→11:18)
[2019-03-13] MEDS: SILVADENE CREAM TP SCH (09:07)
[2019-03-13] MEDS: EPSOM SALT TP SCH ×2 (09:07→21:37)
--- NOTE | 2019-03-13 10:45 | PCM.PROG ---
Attending Provider: ATTENDING PROVIDER: Dr. GLADYS JUDD This patient is seen with Fanny Chaparro, Nurse Practitioner. DATE OF SERVICE: 03/13/19 SUBJECTIVE: This 73 year old /WHITE M was hospitalized 03/05/19. The patient is sitting in a chair resting comfortably. Pain and swelling have significantly improved. Redness slightly improved. Awaiting second debridement by Dr. Geller. REVIEW OF SYSTEMS: CONSTITUTIONAL: No night sweats. No fatigue, malaise, lethargy. No fever or chills. HEENT: Eyes: No visual changes. No eye pain. No eye discharge. ENT: No runny nose. No epistaxis. No sinus pain. No odynophagia. No congestion. RESPIRATORY: No cough, no congestion. No hemoptysis. No shortness of breath. CARDIOVASCULAR: No angina symptoms. No CHF symptoms. No atypical chest pain for CAD. No palpitations. No orthopnea.. GASTROINTESTINAL: No abdominal pain. No nausea or vomiting. No diarrhea or constipation. No hematemesis. No hematochezia. GENITOURINARY: No urgency. No frequency. No dysuria. No hematuria. No obstructive symptoms. No discharge. No pain. No significant abnormal bleeding. MUSCULOSKELETAL: No musculoskeletal pain; no joint swelling. NEUROLOGICAL: Awake, alert, oriented to time, place and person. Left-sided weakness. No headache. No neck pain. No syncope. No seizures. No dizziness. PSYCHIATRIC: Not anxious. No depression. No suicidal thoughts. No homicidal thoughts. SKIN: Right foot ulcer improving. No rash. ENDOCRINE: No unexplained weight loss. No weight gain. HEMATOLOGIC/LYMPHATIC: No anemia. No purpura. No petechiae. No prolonged or excessive bleeding. No palpable lymph nodes. PHYSICAL EXAMINATION: GENERAL: The patient is awake, alert and oriented, lying/sitting in bed in no distress. VITAL SIGNS: Temperature 98.4 F, Pulse 81, Respiratory Rate 16, BP 123/71, Pulse Ox 100% HEENT: Head normocephalic, atraumatic. Eyes: Extraocular muscles are intact. Pupils are equal, round and reactive to light and accommodation. Ears: No lesions. Nose appeared normal. Throat: No exudate or erythema. NECK: Supple. No JVD, no carotid bruit. No lymphadenopathy or thyromegaly. LUNGS: Clear to auscultation. Percussion note normal. Chest symmetrical. HEART: S1, S2, no S3. No murmurs. No cyanosis or clubbing. No ascites. Pulses: Dorsalis pedis and posterior tibial pulses +1 to +2 both sides. ABDOMEN: Soft. Non-tender. Bowel sounds active. No CVA tenderness. No mass felt. EXTREMITIES: Improving surrounding erythema of ulcer right foot. Full range of motion of all extremities, equal. NEUROLOGIC: No focal deficit. Cranial nerves II through XII are grossly intact. No headache, no double vision or headache. SKIN: Not dry. Intact. Turgor-normal. LYMPHATIC: No palpable lymph nodes/no lymphedema. MUSCULOSKELETAL: Normal joints with no swelling. Muscle tone is normal. LAB REVIEW: 03/13/19 04:45 03/13/19 04:45 03/13/19 04:45: Sodium 132.0 L, Potassium 4.54, Chloride 98.5, Carbon Dioxide 26.7, Anion Gap 11.34, BUN 42.2 H, Creatinine 1.17 H, Estimated GFR (MDRD) 61.00, BUN/Creatinine Ratio 36.06, Glucose 103.4, Calcium 9.66, Total Bilirubin 0.26, AST 62.9 H, ALT 48.5, Alkaline Phosphatase 142.2 H, Total Protein 7.39, Albumin 4.18, Globulin 3.21, Albumin/Globulin Ratio 1.30 03/13/19 04:45: WBC 8.66, RBC 3.41 L, Hgb 10.8 L, Hct 32.4 L, MCV 95.0 H, MCH 31.7 H, MCHC 33.3, RDW Coeff of [place] 12.8, Plt Count 500 H, Immature Gran % (Auto) 0.8, Neut % (Auto) 69.2, Lymph % (Auto) 18.1, [place] % (Auto) 9.8, Eos % (Auto) 1.2, Baso % (Auto) 0.9, Immature Gran # (Auto) 0.1, Neut # (Auto) 6.0, Lymph # (Auto) 1.6, [place] # (Auto) 0.9, Eos # (Auto) 0.1, Baso # (Auto) 0.1 03/13/19 04:45: PT 20.4 H, INR 2.17 03/05/19 15:55: Aerob & Anaerob Suscept 03/05/19 15:55: Aerob & Anaerob Suscept Not Reportable ASSESSMENT: Please see below. 1. Cellulitis, right foot. 2. Mild dehydration. PLAN: 1. NS IV 75 cc/hr times one bag. 2. Rocephin times two more days. 3. Continue to hold Dyazide. 4. Resume antibiotics. 5. Continue to hold Dyazide. 6. Resume antibiotics. 7. The patient had a wound care appointment on 03/18/19 with [facility]. Plan and coordination of the patient's care discussed in the presence of Ingot Header and nurse. EDUCATION: The patient has a long history of noncompliance with medications, diet, and lifestyle. It is very likely he will not keep appointments. Hospital complications have been discussed with family and patient. Daughters are aware. CONDITION: Stable SCRIBED BY: JULIANNE PERSAUD Solution Make Up Operator scribed while in presence of service performed by Dr. Judd/Fanny Chaparro APRN on 03/13/19 ([id number])
[2019-03-13] MEDS: NORCO 5-325 PO PRN (11:18)
[2019-03-13] MEDS: ATIVAN PO PRN ×2 (11:18→21:31)
--- NOTE | 2019-03-13 12:45 | PN ---
DATE OF SERVICE: 03/11/19 SUBJECTIVE: The patient was seen and examined with Nurse Practitioner. The patient's condition is stable. His right foot seems to be a lot better, less redness and no swelling. The patient is being taken care of by Dr. Geller with debridement and followup. The patient is going to be followed by [facility]. The patient is noncompliant and heavy smoker. He uses abusive language and he is noncompliant of all aspects of medical care. His prognosis is poor for healing. TIME SPENT: More than 30 minutes. Plan and coordination of the patient's care discussed in the presence of nurse. JOSE E
--- NOTE | 2019-03-13 12:53 | PN ---
DATE OF SERVICE: 03/13/19 SUBJECTIVE: The patient was seen and examined with the Nurse Practitioner. The patient's condition is stable. The right side ulcer seems to be healing. The patient's prognosis is not good considering his noncompliance of all aspects of medical care. The patient is refusing to go to the [facility] where he is the best taken care of. He is by himself with the help of daughter and the care is not adequate. The daughters know but they can't help it. The patient is oriented to place and person. TIME SPENT: More than 30 minutes. Plan and coordination of the patient's care discussed in the presence of nurse. JOSE E
--- NOTE | 2019-03-13 12:53 | PN ---
12: Level 5 03/06/19: Intermediate 12/13: Intermediate 14: Intermediate 15: Intermediate 16: Intermediate 17: Intermediate 19: Intermediate 03/13/19: D as in discharge MTDD
[2019-03-13] MEDS ORDERED: LIDOCAINE HCL 1% SDV SUBCUT STA (13:53)
[2019-03-13] MEDS ORDERED: LIDOCAINE HCL 1% SDV SUBCUT ONE (15:41)
[2019-03-13] MEDS: ZOCOR PO SCH (17:56)
[2019-03-13] MEDS: COUMADIN PO SCH (17:57)
[2019-03-13] MEDS: ZETIA PO SCH (17:57)
[2019-03-13] MEDS ORDERED: SILVADENE CREAM TP SCH (21:00)
[2019-03-14 05:13] VITALS: BP 114/67; TEMP 97.8
[2019-03-14] MEDS: CARAFATE PO SCH ×2 (05:57→12:45)
[2019-03-14] MEDS: PROTONIX PO SCH (05:57)
[2019-03-14] MEDS: ATIVAN PO PRN (08:28)
[2019-03-14] MEDS: ROCEPHIN 1 GM/50 ML D5W 1 GM/50 ML BAG IV SCH (08:28)
[2019-03-14] MEDS: NICODERM 21 MG TD SCH (08:28)
[2019-03-14] MEDS: VITAMIN C PO SCH (08:29)
[2019-03-14] MEDS: DILANTIN PO SCH (08:29)
[2019-03-14] MEDS: ASPIRIN EC PO SCH (08:29)
[2019-03-14] MEDS: NORCO 5-325 PO PRN (08:29)
[2019-03-14] MEDS: ZANAFLEX PO SCH (08:29)
[2019-03-14] MEDS: ZINC-220 PO SCH (08:29)
[2019-03-14] MEDS: ACCUPRIL PO SCH (08:29)
[2019-03-14] MEDS ORDERED: BACTROBAN TP SCH (09:00)
[2019-03-14] MEDS: EPSOM SALT TP SCH (09:07)
--- NOTE | 2019-03-14 09:22 | PCM.PROG ---
Attending Provider: ATTENDING PROVIDER: Dr. GLADYS JUDD This patient is seen with Fanny Chaparro, Nurse Practitioner. DATE OF SERVICE: 03/14/19 SUBJECTIVE: This 73 year old /WHITE M was hospitalized 03/05/19. The patient is sitting in bed resting comfortably. The area was debrided by Dr. Geller last night with slight irritation from debridement. The area is improving. No fever. New culture done by Dr. Geller positive for MRSA. REVIEW OF SYSTEMS: CONSTITUTIONAL: No night sweats. No fatigue, malaise, lethargy. No fever or chills. HEENT: Eyes: No visual changes. No eye pain. No eye discharge. ENT: No runny nose. No epistaxis. No sinus pain. No odynophagia. No congestion. RESPIRATORY: No cough, no congestion. No hemoptysis. No shortness of breath. CARDIOVASCULAR: No angina symptoms. No CHF symptoms. No atypical chest pain for CAD. No palpitations. No orthopnea.. GASTROINTESTINAL: No abdominal pain. No nausea or vomiting. No diarrhea or constipation. No hematemesis. No hematochezia. GENITOURINARY: No urgency. No frequency. No dysuria. No hematuria. No obstructive symptoms. No discharge. No pain. No significant abnormal bleeding. MUSCULOSKELETAL: No musculoskeletal pain; no joint swelling. NEUROLOGICAL: Awake, alert, oriented to time, place and person. No headache. No neck pain. No syncope. No seizures. No dizziness. PSYCHIATRIC: Not anxious. No depression. No suicidal thoughts. No homicidal thoughts. SKIN: Wound right lower extremity. No rash. No lesions. ENDOCRINE: No unexplained weight loss. No weight gain. HEMATOLOGIC/LYMPHATIC: No anemia. No purpura. No petechiae. No prolonged or excessive bleeding. No palpable lymph nodes. PHYSICAL EXAMINATION: GENERAL: The patient is awake, alert and oriented, sitting in chair in no distress. VITAL SIGNS: Temperature 97.8 F, Pulse 85, Respiratory Rate 18, BP 114/67, Pulse Ox 98% HEENT: Head normocephalic, atraumatic. Eyes: Extraocular muscles are intact. Pupils are equal, round and reactive to light and accommodation. Ears: No lesions. Nose appeared normal. Throat: No exudate or erythema. NECK: Supple. No JVD, no carotid bruit. No lymphadenopathy or thyromegaly. LUNGS: Diminished breath sounds. Clear to auscultation. Percussion note normal. Chest symmetrical. HEART: S1, S2, no S3. No murmurs. No cyanosis or clubbing. No ascites. Pulses: Dorsalis pedis and posterior tibial pulses +1 to +2 both sides. ABDOMEN: Soft. Non-tender. Bowel sounds active. No CVA tenderness. No mass felt. EXTREMITIES: Ulcer with surrounding redness and irrigation due to debridement. Infection improved. No edema. Full range of motion of all extremities, equal. NEUROLOGIC: No focal deficit. Cranial nerves II through XII are grossly intact. No headache, no double vision or headache. SKIN: Not dry. Intact. Turgor-normal. LYMPHATIC: No palpable lymph nodes/no lymphedema. MUSCULOSKELETAL: Normal joints with no swelling. Muscle tone is normal. LAB REVIEW: 03/14/19 04:56 03/14/19 04:56 03/14/19 04:56: PT 21.6 H, INR 2.31 03/14/19 04:56: Sodium 133.9 L, Potassium 4.31, Chloride 100.0, Carbon Dioxide 27.0, Anion Gap 11.21, BUN 40.2 H, Creatinine 1.14 H, Estimated GFR (MDRD) 63.00, BUN/Creatinine Ratio 35.26, Glucose 98.4, Calcium 9.62, Total Bilirubin 0.27, AST 69.2 H, ALT 61.5 H, Alkaline Phosphatase 147.3 H, Total Protein 7.61, Albumin 4.32, Globulin 3.29, Albumin/Globulin Ratio 1.31 03/14/19 04:56: WBC 9.06, RBC 3.38 L, Hgb 10.7 L, Hct 32.4 L, MCV 95.9 H, MCH 31.7 H, MCHC 33.0, RDW Coeff of Audrey 13.0, Plt Count 584 H, Immature Gran % (Auto) 0.8, Neut % (Auto) 70.5, Lymph % (Auto) 17.5, Kershaw % (Auto) 8.9, Eos % (Auto) 1.4, Baso % (Auto) 0.9, Immature Gran # (Auto) 0.1, Neut # (Auto) 6.4, Lymph # (Auto) 1.6, Kershaw # (Auto) 0.8, Eos # (Auto) 0.1, Baso # (Auto) 0.1 ASSESSMENT: Please see below. 1. Cellulitis, right foot. 2. Mild dehydration. PLAN: 1. Discharge home. 2. Clindamycin 300 mg t.i.d. for 7 days. 3. Bactroban twice a day. 4. Silvadene at bedtime. 5. Appointment with [facility] wound care on 03/18/19 at 11 a.m. 6. See in office on . 7. Schedule outpatient arterial studies. 8. The patient is very noncompliant and have instructed him on the importance of keeping appointment, taking medication, and keeping leg elevated. Prognosis is poor given compliance. Plan and coordination of the patient's care discussed in the presence of Regional Sales Trainer and nurse. CONDITION: Stable SCRIBED BY: JULIANNE PERSAUD Photographer Apprentice scribed while in presence of service performed by Dr. Judd/Fanny Chaparro APRN on 03/14/19 ([id number])
[2019-03-14] MEDS: FERROUS SULFATE PO SCH ×2 (09:44→12:45)
--- NOTE | 2019-03-14 12:09 | CM.DICTOOL ---
ADMISSION: 03/05/19 12:13 DISCHARGE: MARCH 14, 2019 DATE OF SERVICE: 03/14/19 FINAL DIAGNOSIS RIGHT FOOT ULCER WITH DEBRIDEMENT CELLULITIS RIGHT FOOT ANEMIA MILD DEHYDRATION HISTORY OF: CVA WITH RIGHT HEMIPARESIS HYPERTENSION COPD; MODERATE TO SEVERE GERD DEPRESSION DYSLIPIDEMIA DISPLACED FRACTURE RIGHT FEMORAL HEAD AND NECK WITH REPAIR (2018) COMPLETE OCCLUSION, LICA (2014) COMPRESSION FRACTURE, L4 (2019) COMPRESSION FRACTURE, L2 (2018) DIVERTICULOSIS ([address]) PELVIC FRACTURE (2018) HISTORY OF ALCOHOL USE CONTINUED SMOKING LAST VITALS Temp Pulse Resp BP Pulse Ox 97.8 F 85 18 114/67 98 03/14/19 05:12 03/14/19 05:12 03/14/19 05:12 03/14/19 05:12 03/14/19 05:12 TAKE THESE MEDICATIONS AT HOME Ezetimibe (Zetia) 10 mg PO QPM [facility] Last Admin: 03/13/19 17:57 Dose: 10 mg Documented by: Ferrous Sulfate (Ferrous Sulfate) 324 mg PO BID BREAKFAST&LUNCH [facility] Last Admin: 03/14/19 09:44 Dose: 324 mg Documented by: Mupirocin (Bactroban) 1 applic TP BID [facility] Stop: 03/17/19 08:59 Last Admin: 03/14/19 09:44 Dose: 1 applic Documented by: Pantoprazole Sodium (Protonix) 40 mg PO BIDAC [facility] Last Admin: 03/14/19 05:57 Dose: 40 mg Documented by: Phenytoin Sodium (Dilantin) 100 mg PO TID [facility] Last Admin: 03/14/19 08:29 Dose: 100 mg Documented by: Quinapril HCl (Accupril) 40 mg PO BID [facility] Last Admin: 03/14/19 08:29 Dose: 40 mg Documented by: Simvastatin (Zocor) 40 mg PO QPM [facility] Last Admin: 03/13/19 17:56 Dose: 40 mg Documented by: Sucralfate (Carafate) 1 gm PO ACHS [facility] Last Admin: 03/14/19 05:57 Dose: 1 gm Documented by: Tizanidine HCl (Zanaflex) 4 mg PO BID [facility] Last Admin: 03/14/19 08:29 Dose: 4 mg Documented by: Warfarin Sodium (Coumadin) 3 mg PO QPM [facility] Last Admin: 03/13/19 17:57 Dose: 3 mg Documented by: Triameterene-Hydrochlorothiazid (Dyazide) 1 capsule PO 1-2 times per Week Last Admin: 03/11/2019 ALLERGIES No Known Allergies Allergy (Verified 12/29/18 17:29) DISCONTINUED MEDICATIONS Dyazide Daily NEW PRESCRIPTIONS: BACTRIM DS BID FOR 7 DAYS BACTROBAN 2% APPLY BID TO RIGHT FOOT ULCER SMOKING: ADVISED TO STOP SMOKING DISEASE SPECIFIC EDUCATION: WOUND CARE TO RIGHT FOOT ELEVATING RIGHT LEG MUCH POSSIBLE AVOID DIRECT PRESSURE TO RIGHT LEG LAB REVIEW: 03/14/19 04:56 03/14/19 04:56 03/14/19 04:56: PT 21.6 H, INR 2.31 03/14/19 04:56: Sodium 133.9 L, Potassium 4.31, Chloride 100.0, Carbon Dioxide 27.0, Anion Gap 11.21, BUN 40.2 H, Creatinine 1.14 H, Estimated GFR (MDRD) 63.00, BUN/Creatinine Ratio 35.26, Glucose 98.4, Calcium 9.62, Total Bilirubin 0.27, AST 69.2 H, ALT 61.5 H, Alkaline Phosphatase 147.3 H, Total Protein 7.61, Albumin 4.32, Globulin 3.29, Albumin/Globulin Ratio 1.31 03/14/19 04:56: WBC 9.06, RBC 3.38 L, Hgb 10.7 L, Hct 32.4 L, MCV 95.9 H, MCH 31.7 H, MCHC 33.0, RDW Coeff of Audrey 13.0, Plt Count 584 H, Immature Gran % (Auto) 0.8, Neut % (Auto) 70.5, Lymph % (Auto) 17.5, Pierce % (Auto) 8.9, Eos % (Auto) 1.4, Baso % (Auto) 0.9, Immature Gran # (Auto) 0.1, Neut # (Auto) 6.4, Lymph # (Auto) 1.6, Pierce # (Auto) 0.8, Eos # (Auto) 0.1, Baso # (Auto) 0.1 PLAN: DISCHARGE HOME THE PATIENT REFUSES TO RETURN TO THE [facility] DAUGHTER TO TRANSPORT DIET: RESUME TOLERATED ACTIVITY: TOLERATED ELEVATE RIGHT LEG MUCH POSSIBLE WHEN SITTING OR WHEN IN BED AN APPOINTMENT IS SCHEDULED WITH [facility] ON February AT 11 AM AN APPOINTMENT IS SCHEDULED WITH DR. BRUNO/ELIJAH LEONARD APRN ON February AT 11 AM AN APPOINTMENT IS SCHEDULED AT [facility] IN [place], [place] ON February AT 12:30 PM FOR ARTERIAL STUDIES CODE STATUS: DNR MR. CORONADO IS ALERT AND ORIENTED X 4. HE IS COOPERATIVE AT TIMES WITH CARE, BUT IS ALSO IMPATIENT AND EASILY FRUSTRATED WITH NURSING CARE. HE IS ABLE TO FEED HIMSELF USING THE LEFT HAND, BUT REQUIRES ASSISTANCE WITH MEAL PREPARATION. HIS APPETITE IS GOOD AT 75-100%. MR. CORONADO EXHIBITS GARBLED SPEECH DUE TO EXPRESSIVE APHASIA FOLLOWING A CVA. THE RIGHT UPPER EXTREMITY IS RIGID AND HELD CLOSE TO THE TRUNK. THE RIGHT LOWER EXTREMITY HAS SEVERE WEAKNESS DUE TO A CVA. THE PATIENT IS ABLE TO PIVOT TRANSFER WITH MAX ASSIST OF 2 STAFF MEMBERS. MR. CORONADO IS CONTINENT/INCONTINENT OF BOWEL AND BLADDER. HE USES THE URINAL OR BEDSIDE COMMODE, BUT ALSO WEARS DEPENDS DUE TO DRIBBLING AND DIFFICULTY WITH TRANSFERS. MR. CORONADO HAS LIMITED ASSISTANCE AT HOME OF 4 HOURS PER DAY FOR 4 DAYS PER WEEK. FAMILY VISITS AND ASSISTS WHEN THE PATIENT WILL ALLOW. THE SKIN IS INTACT EXCEPT FOR OPEN WOUND TO RIGHT FOOT, LATERAL ASPECT. THE AREA HAS BEEN DEBRIDED SEVERAL TIMES DURING THE HOSPITAL STAY BY DR. BERRIOS. THE RIGHT FOOT IS SLIGHTLY SWOLLEN. THE WOUND IS CLEAN. THE SKIN SURROUNDING THE WOUND IS PINK IN COLOR. THE PATIENT WILL BE FOLLOWED BY [facility] AT [facility] WITH THE FIRST APPOINTMENT ON February. MD ELIJAH IVEY APRN
--- NOTE | 2019-03-17 10:29 | PN ---
DATE OF SERVICE: 03/14/19 SUBJECTIVE: The patient was seen and examined with the nurse practitioner. The patient's condition is stable. He is noncompliant, wants to smoke, wants to go home. The patient is going to be discharged home to be followed by Dr. Geller in the Wound Care. The patient has an appointment for arterial study. The patient has severe peripheral arterial disease. The patient was strongly advised to quit smoking because healing is based on not smoking and nutrition. Also compliance with followup is required. His prognosis for healing ulcer is very poor. The daughter understands that the patient is quite helpless as patient is quite abusive, noncompliant of all aspects of medical care. Overall prognosis is poor. TIME SPENT: More than 30 minutes. Plan and coordination of the patient's care discussed in the presence of nurse. JOSE E
--- NOTE | 2019-03-17 10:31 | PN ---
BILLIN03/05/19 ADMISSION DAY LEVEL 5 03/06/19 INTERMEDIATE 03/07/19 INTERMEDIATE 03/08/19 INTERMEDIATE 03/09/19 INTERMEDIATE 03/10/19 INTERMEDIATE 03/11/19 INTERMEDIATE 03/12/19 INTERMEDIATE 03/13/19 INTERMEDIATE 03/14/19 DISCHARGE MTDD
--- NOTE | 2019-03-17 11:06 | CONS ---
DATE OF SERVICE: 03/11/19 SUBJECTIVE: 73 year old male seen at the request of Dr. Judd. The patient does have an ulceration which is enlarging on the lateral surface of the right foot. The patient today is alert but has sudden burst of speech which is more or less residual of the cerebral vascular accident. VITAL SIGNS: Temperature 97.7 orally, pulse rate 67, blood pressure 131/68, respiratory rate 18, oxygen saturation 99% at room air. The patient was place on the left lateral decubitus position and the area was cleaned with hydrogen peroxide and debridement was carried out. The patient still has some sensitive spots so debridement could not be carried thoroughly. Debridement will be redone under local anesthetic. Foot still swollen and I'm afraid that this individual probably would end up with an amputation. The patient has appointment with Wound Care and will follow through with that. The ulceration is not improving. JOSE E
--- NOTE | 2019-03-17 13:00 | CONS ---
DATE OF SERVICE: 03/12/19 SUBJECTIVE: No debridement was done today. I again asked he nurses to get some sort of a contraption that would allow ulceration not to be under pressure. It could be a Styrofoam boot cut out the area that corresponds to the ulcer. General condition of the patient is about the same. VITAL SIGNS: Blood pressure 121/65, respiratory rate 18, oxygen saturation 99 at room air. pulse rate 74, temperature 98.0 orally. MTDD
--- NOTE | 2019-03-17 14:56 | CONS ---
DATE OF SERVICE: 03/13/19 SUBJECTIVE: The patient today is alert with no distress. VITAL SIGNS: Temperature 97.7 axillary, pulse 83, blood pressure 97/64, respiratory rate 16 and oxygen saturation 100 at room air. This patient was placed in a left lateral decubitus position for debridement. This time 1% Xylocaine will be utilized. The nurses told me that the contraption that needs to be applied to the foot to prevent pressure against the ulcer is not going to be provided by the hospital and that the family has to buy it. I told the nurse to make sure that this had been communicated to the family. The area was cleaned with Betadine and sterile tape was applied. 1% Xylocaine anesthesia was then injected to surrounding tissues and also in the ulcer. Sharp debridement was carried using scalpel #15. The necrotic tissue has intended into what appeared to be shiny and probably ligament or tendon. No significant bleeding was noted. Edges of the ulcers seemed to have no adequate circulation. This patient does not have any pedal pulses. Wound culture collected 03-11-19 at the time of debridement did show staph aureus. I had two separate specimens that day. One was positive and the staph aureus is Penicillin resistant. It is only sensitive to Gentamicin, Zyvox, Rifampin, Tetracycline, Bactrim and Vancomycin. I believe this was only reported today for the sensitivity. [facility]
--- NOTE | 2019-03-28 11:57 | DS ---
DATE OF SERVICE: 03/14/19 FINAL DIAGNOSIS: 1. RIGHT FOOT ULCER WITH DEBRIDEMENT 2. CELLULITIS RIGHT FOOT 3. ANEMIA 4. MILD DEHYDRATION 5. HISTORY OF CVA WITH RIGHT HEMIPARESIS 6. HYPERTENSION 7. COPD; MODERATE TO SEVERE 8. GERD 9. DEPRESSION 10.DYSLIPIDEMIA 11.DISPLACED FRACTURE RIGHT FEMORAL HEAD AND NECK WITH REPAIR (2018) 12.COMPLETE OCCLUSION, LICA (2014) 13.COMPRESSION FRACTURE, L4 (2018) 14.COMPRESSION FRACTURE, L2 (2017) 15.DIVERTICULOSIS ([address]) 16.PELVIC FRACTURE (2017) 17.HISTORY OF ALCOHOL USE 18.CONTINUED SMOKING LAST VITALS: Temp Pulse Resp BP Pulse Ox 97.8 F 85 18 114/67 98 03/14/19 05:12 03/14/19 05:12 03/14/19 05:12 03/14/19 05:12 03/14/19 05:12 TAKE THESE MEDICATIONS AT HOME: Ezetimibe (Zetia) 10 mg PO QPM [facility] Ferrous Sulfate (Ferrous Sulfate) 324 mg PO BID BREAKFAST&LUNCH [facility] Mupirocin (Bactroban) 1 applic TP BID [facility] Pantoprazole Sodium (Protonix) 40 mg PO BIDAC [facility] Phenytoin Sodium (Dilantin) 100 mg PO TID [facility] Quinapril HCl (Accupril) 40 mg PO BID [facility] Simvastatin (Zocor) 40 mg PO QPM [facility] Sucralfate (Carafate) 1 gm PO ACHS [facility] Tizanidine HCl (Zanaflex) 4 mg PO BID [facility] Warfarin Sodium (Coumadin) 3 mg PO QPM [facility] Triameterene-Hydrochlorothiazid (Dyazide) 1 capsule PO 1-2 times per Week ALLERGIES: No Known Allergies Allergy (Verified 12/29/18 17:29) DISCONTINUED MEDICATIONS: Dyazide Daily NEW PRESCRIPTIONS: BACTRIM DS BID FOR 7 DAYS BACTROBAN 2% APPLY BID TO RIGHT FOOT ULCER SMOKING: ADVISED TO STOP SMOKING DISEASE SPECIFIC EDUCATION: WOUND CARE TO RIGHT FOOT ELEVATING RIGHT LEG MUCH POSSIBLE AVOID DIRECT PRESSURE TO RIGHT LEG PLAN: DISCHARGE HOME. THE PATIENT REFUSES TO RETURN TO THE [facility] DAUGHTER TO TRANSPORT. AN APPOINTMENT IS SCHEDULED WITH [facility] ON February AT 11 AM. AN APPOINTMENT IS SCHEDULED WITH DR. BRUNO/ELIJAH LEONARD APRN ON February AT 11 AM. AN APPOINTMENT IS SCHEDULED AT [facility] IN [place], [place] ON February AT 12:30 PM FOR ARTERIAL STUDIES. CODE STATUS: DNR DIET: RESUME TOLERATED ACTIVITY: TOLERATED ELEVATE RIGHT LEG MUCH POSSIBLE WHEN SITTING OR WHEN IN BED HOSPITAL COURSE: This is a white male who was admitted from the office with ulcer on the right lower extremity. He has a long history of noncompliance. He has had multiple CVA's. He has hemiparesis and is in a wheelchair. He typically wears a brace on his right foot. It's unclear how long he has had the ulcer as he is very noncompliant with followup, medications and lifestyle. On admission he had redness of swelling of the entire foot. The ulcer is on the outer aspect of the right foot. Dr. Geller was consulted for surgical consult. The initial culture showed no growth. Dr. Geller did debrided, when he debrided he did a second culture which ended up being positive for MRSA. He has been on Rocephin and Azactam IV. Slowly the area has slightly improved. He does have decreased erythema and decreased edema however the size of the ulcer remains the same. He has required two debridements by Dr. Geller. Dr. Geller is going to continue to following him with [facility]. He has an appointment for 03/18/19. Again, he does have a long history of noncompliance. We have discussed with him in great detail the importance of him making his followup appointments. It is likely that this is also a combination of pressure from the brace and circulation. We have an appointment for outpatient arterial studies to be done on 03/24/19 at 12:30 at [facility]. Again I have discussed with him in great detail the importance of keeping this appointment. He has been advised to discontinue smoking as well discontinue alcohol use, he refuses help or treatment with either one of these. His prognosis is poor. We have discussed with him the likelihood he may eventually lose part of his left lower extremity due to this ulceration. He is to keep his leg elevated. We will put him on Bactrim DS BID for the next 7 days. He is apply Bactroban twice daily. Again instructed on the importance of keeping his appointment with Wound Care on Sunday. We will followup with him in the office next week as well. The patient demonstrated understanding the seriousness of his conditions but again I do feel that his prognosis is poor given his noncompliance and advanced nature of his medical conditions. TIME SPENT: More than 60 minutes. JOSE E
== END 2019-03-14 12:45 | disposition home or self-care (01) | DRG 603 ==
LOC: MEDSURG B 12:13
PROVIDERS: ADMIT Internal Medicine; ATTEND Internal Medicine

== ENCOUNTER 2020-08-11 08:35 | Inpatient (IN) ==
[2020-08-11] MEDS ORDERED: SODIUM CHLORIDE 1,000 ML IV STA ×2 (08:59→14:12)
[2020-08-11 09:41] LABS: ABG O2 HGB 93.4 % (95-100); ABG PH 7.49 (7.35-7.45); BEecf 0.3 (-2.0-3.0); COHb 4.2 (0.5-1.5); HCO3 23.6 (21-28); MetHb 1.2 (0-1.5); TCO2 24.6 (19-24); sO2 97.9 % (94-98); tHb 13.1 g/dl (11.7-17.4)
[2020-08-11 09:45] LABS: BASOPHILS # (AUTO) 0.1 K/uL (0-0.2); BASOPHILS % (AUTO) 0.6 % (0.0-3.0); EOSINOPHILS % (AUTO) 0.1 % (0.0-7.0); HEMATOCRIT 36.9 % (42.0-52.0); IMMATURE GRANULOCYTE % (AUTO) 0.4 % (0.0-5.0); LYMPHOCYTES # (AUTO) 1.3 K/uL (0.60-3.4); LYMPHOCYTES % (AUTO) 13.5 (10.0-50.0); MEAN CORPUSCULAR HEMOGLOBIN 31.9 pg (27.0-31.0); MEAN CORPUSCULAR HGB CONC 35.2 (31.8-35.4); MEAN CORPUSCULAR VOLUME 90.4 fl (80.0-94.0); MONOCYTES # (AUTO) 0.8 K/uL (0.4-2.0); MONOCYTES % (AUTO) 8.8 (0-10); NEUTROPHILS # (AUTO) 7.1 K/ul (2.0-6.9); NEUTROPHILS % (AUTO) 76.6 % (42.2-75.2); PLATELET COUNT 307 10^3/uL (140-440); RDW COEFFICIENT OF VARIATION 13.3 % (11.6-14.8); RED BLOOD COUNT 4.08 10^6/ul (4.70-6.10); WHITE BLOOD COUNT 9.25 K/ul (4.2-10.2)
[2020-08-11 09:47] LABS: BORDETELLA PARAPERTUSSIS (PCR) NOT DETECTED (NOT DETECT); BORDETELLA PERTUSSIS (PCR) NOT DETECTED (NOT DETECT); CHLAMYDIA PNEUMONIAE (PCR) NOT DETECTED (NOT DETECT); CORONAVIRUS 229E (PCR) NOT DETECTED (NOT DETECT); CORONAVIRUS HKU1 (PCR) NOT DETECTED (NOT DETECT); CORONAVIRUS NL63 (PCR) NOT DETECTED (NOT DETECT); CORONAVIRUS OC43 (PCR) NOT DETECTED (NOT DETECT); HUMAN METAPNEUMOVIRUS (PCR) NOT DETECTED (NOT DETECT); HUMAN RHINOVIRUS/ENTEROV (PCR) NOT DETECTED (NOT DETECT); INFLUENZA B (PCR) NOT DETECTED (NOT DETECT); MYCOPLASMA PNEUMONIAE (PCR) NOT DETECTED (NOT DETECT); PARAINFLUENZA VIRUS 1 (PCR) NOT DETECTED (NOT DETECT); PARAINFLUENZA VIRUS 2 (PCR) NOT DETECTED (NOT DETECT); PARAINFLUENZA VIRUS 3 (PCR) NOT DETECTED (NOT DETECT); PARAINFLUENZA VIRUS 4 (PCR) NOT DETECTED (NOT DETECT); RESPIRATORY SYNCYTIAL V (PCR) NOT DETECTED (NOT DETECT); SARS_COV_2 (PCR) NOT DETECTED (NOT DETECT)
[2020-08-11 09:57] LABS: ALANINE AMINOTRANSFERASE 15.8 U/L (0-50); ALBUMIN 4.34 g/dL (3.5-5.0); ALKALINE PHOSPHATASE 115.8 U/L (56-119); ASPARTATE AMINO TRANSFERASE 24.5 U/L (17-59); BILIRUBIN,TOTAL 0.46 mg/dL (0.2-1.3); BLOOD UREA NITROGEN 16.7 mg/dL (9-20); CALCIUM 9.32 mg/dL (8.4-10.2); CARBON DIOXIDE 22.3 mmol/L (22-30.0); CREATININE 0.78 mg/dL (0.60-1.10); POTASSIUM 3.77 mmol/L (3.5-5.1); SODIUM 128.6 mmol/L (134.5-145); TOTAL PROTEIN 7.05 g/dL (6.3-8.2)
--- NOTE | 2020-08-11 10:03 | DI ---
Exam: Single view of the chest. Comparison: 03/05/2019. Reason for exam: Weakness. FINDINGS: Tortuosity of the thoracic aorta without pneumothorax, pleural effusion, or focal consolid ation. Minimal ground-glass in both apices. Findings appear quite similar to previous study. Impression: Stable appearance of the chest.
[2020-08-11 10:08] LABS: TROPONIN I 0.012 ng/ml (0.0000-0.120)
--- NOTE | 2020-08-11 10:08 | CT ---
EXAM: CT head without contrast. HISTORY: Weakness. COMPARISON: 07/10/2020, 12/29/2018. TECHNIQUE: Multiple axial images of the brain were obtained from the skull base through the vertex w ithout intravenous contrast. Multiplanar reformats were provided. FINDINGS: There is no intracranial hemorrhage or extraaxial collection. The elizondo-white differentiat ion is maintained without evidence for acute large vascular territory infarction. Extensive left mid dle cerebral artery territory encephalomalacia again noted. There are areas of periventricular and s ubcortical white matter low attenuation. The cortical sulci and cerebral ventricles are symmetricall y enlarged. The basal cisterns are well visualized. There is no hydrocephalus, mass effect, or midl ine shift. The paranasal sinuses and mastoid air cells are clear. The calvarium is intact. Since t prior study, there has been no significant interval change. IMPRESSION: 1. No acute intracranial abnormality. 2. Stable chronic ischemic changes and atrophy. All CT scans are performed using dose optimization techniques as appropriate to the performed exam an d include at least one of the following: Automated exposure control, adjustment of the mA and/or kV according t o size, and the use of iterative reconstruction technique.
[2020-08-11] MEDS ORDERED: SODIUM CHLORIDE 500 ML IV STA (10:14)
[2020-08-11 10:36] LABS: ADENOVIRUS (PCR) NOT DETECTED (NOT DETECT)
--- NOTE | 2020-08-11 11:04 | ED.PDOC ---
General ED Provider: Dr. ROSSY JESSICA MD Chief Complaint: Weakness Stated Complaint: Increasing weakness x several days. Time Seen by Provider: 08/11/20 08:45 Mode of Arrival: Wheelchair Information Source: Patient and Family Exam Limitations: No limitations Primary Care Provider: GLADYS BRUNO Nursing and Triage Documentation Reviewed and Agree: Yes Does patient meet sepsis criteria?: No System Inflammatory Response Syndrome: Not Applicable Sepsis Protocol: For patient's 13 years and over: Temp is 96.8 and below OR 101 and greater Pulse >90 BPM Resp >20/minute Acutely Altered Mental Status Are patient's symptoms suggestive of a new infection, such as: -Pneumonia -Skin, Soft Tissue -Endocarditis -UTI -Bone, Joint Infection -Implantable Device -Acute Abdominal Infection -Wound Infection -Meningitis -Blood Stream Catheter Infection -Unknown Neurological Complaint Exam Weakness Complaint/Exam Last Known Well: 4 days ago Onset: Gradual Duration: 4 days. Symptoms Are: Still present Timing: Constant Episodes Lasting: Days Initial Severity: Mild Current Severity: Moderate Character: Reports Weak Aggravating: Reports None Alleviating: Reports None Associated Signs and Symptoms: Reports Loss of balance; Denies Nausea, Vomiting, Diaphoresis, Tinnitus, Chest pain, Short of air, Palpitations, Unsteady gait, GI blood loss, Visual changes, Decreased oral intake, Change in medication, Change in diet and OTC meds Cardiac Risk Factors: Reports Smoking CVA Risk Factors: Reports Smoking JVD Present: No Carotid Bruit Present: No Glascow Coma Scale (see protocol): 15 Nystagmus Present: No Gag Reflex Present: Yes Meningeal Signs Positive: No Focal Weakness: Present None Focal Sensory Loss: Present None Gait: Unable (Pt uses a wheel-chair at home----right-sided stroke and right AKA.) Review of Systems Review Of Systems Constitutional: Reports No symptoms Eyes: Reports No symptoms Ears, Nose, Mouth, Throat: Reports No symptoms Respiratory: Reports No symptoms Cardiac: Reports No symptoms GI: Reports No symptoms : Reports No symptoms Musculoskeletal: Reports No symptoms Skin: Reports No symptoms Neurological: Reports Weakness Endocrine: Reports No symptoms Hematologic/Lymphatic: Reports No symptoms All Other Systems: Reviewed and Negative [facility] Medical History Anemia COPD (chronic obstructive pulmonary disease) CVA (cerebral vascular accident) Hypertension Seizure Surgical History History of hip surgery Physical Exam Physical Exam Appearance: Reports Thin Ill-appearing: Mild Pain Distress: None Eyes: Reports BRANDON, EOMI and Conjunctiva clear ENT: Reports Ears normal, Nose normal and Oropharynx normal Neck: Supple Respiratory: Reports Airway patent, Breath sounds clear and Respirations nonlabored Cardiovascular: Reports RRR and Pulses normal GI/: Reports Soft Musculoskeletal: Reports Normal strength and Other (Right AKA.) Skin: Reports Warm, Dry and Normal color Neurological: Reports Sensation intact, Motor intact, Reflexes intact, Cranial nerves intact, Alert and Oriented Psychiatric: Reports Affect appropriate, Mood appropriate and Other (Pt was sleepy but easily aroused and seemed verbally unhappy about being hospitalized.) Interpretation Radiology Interpretation Radiology Interpretation By: Radiologist Exam Interpreted: Portable CXR and CT Scan Re-Evaluation Re-Evaluation Time of Re-Evaluation: 09:40 Status: Improved Vital Signs Stable: Yes Pain Level: 0 Lungs: Clear Skin: Warm and Dry Neuro: Alert and Oriented X3 CV: RRR Critical Care Note Critical Care Note Total Critical Care Time (mins): 0 Course Course Hematology/Chemistry: 08/11/20 09:35 08/11/20 09:35 Orders, Labs, Meds: Lab Review 08/11/20 08/11/20 08/11/20 09:14 09:30 09:35 WBC 9.25 RBC 4.08 L Hgb 13.0 L Hct 36.9 L MCV 90.4 MCH 31.9 H MCHC 35.2 RDW Coeff of Audrey 13.3 Plt Count 307 Immature Gran % (Auto) 0.4 Neut % (Auto) 76.6 H Lymph % (Auto) 13.5 [place] % (Auto) 8.8 Eos % (Auto) 0.1 Baso % (Auto) 0.6 Neut # (Auto) 7.1 H Lymph # (Auto) 1.3 [place] # (Auto) 0.8 Eos # (Auto) 0.0 Baso # (Auto) 0.1 Immature Gran # (Auto) 0.0 PT 53.0 H INR 4.92 H* Puncture Site Lr Base Excess 0.3 O2 Saturation 97.9 ABG pH 7.49 H ABG pCO2 31.0 L ABG pO2 94.0 ABG HCO3 23.6 ABG Total CO2 24.6 H Nico Test Y Hemoglobin 1.2 Oxyhemoglobin 93.4 L Carboxyhemoglobin 4.2 H Total Hemoglobin 13.1 FiO2 % 21.0 Sodium Potassium Chloride Carbon Dioxide Anion Gap BUN Creatinine Estimated GFR (MDRD) BUN/Creatinine Ratio Glucose Calcium Total Bilirubin AST ALT Alkaline Phosphatase Troponin I Total Protein Albumin Globulin Albumin/Globulin Ratio Adenovirus (PCR) B. pertussis DNA (PCR) B.parapertussis DNA PCR C. pneumoniae DNA (PCR) Coronavirus OC43 (PCR) Coronavirus HKU1 (PCR) Coronavirus 229E (PCR) Coronavirus NL63 (PCR) Human Metapneumovir PCR Influenza Type A (PCR) Influenza B (RT-PCR) M. pneumoniae (PCR) Parainfluenza 1 (PCR) Parainfluenza 2 (PCR) Parainfluenza 3 (PCR) Parainfluenza 4 (PCR) RSV (PCR) Entero/Rhino (PCR) SARS-CoV-2 (PCR) 08/11/20 08/11/20 09:35 09:35 WBC RBC Hgb Hct MCV MCH MCHC RDW Coeff of Audrey Plt Count Immature Gran % (Auto) Neut % (Auto) Lymph % (Auto) [place] % (Auto) Eos % (Auto) Baso % (Auto) Neut # (Auto) Lymph # (Auto) [place] # (Auto) Eos # (Auto) Baso # (Auto) Immature Gran # (Auto) PT INR Puncture Site Base Excess O2 Saturation ABG pH ABG pCO2 ABG pO2 ABG HCO3 ABG Total CO2 Nico Test Hemoglobin Oxyhemoglobin Carboxyhemoglobin Total Hemoglobin FiO2 % Sodium 128.6 L Potassium 3.77 Chloride 98.0 Carbon Dioxide 22.3 Anion Gap 12.07 BUN 16.7 Creatinine 0.78 Estimated GFR (MDRD) 97.00 BUN/Creatinine Ratio 21.41 Glucose 116.0 H Calcium 9.32 Total Bilirubin 0.46 AST 24.5 ALT 15.8 Alkaline Phosphatase 115.8 Troponin I 0.012 Total Protein 7.05 Albumin 4.34 Globulin 2.71 Albumin/Globulin Ratio 1.60 Adenovirus (PCR) Not detected B. pertussis DNA (PCR) Not detected B.parapertussis DNA PCR Not detected C. pneumoniae DNA (PCR) Not detected Coronavirus OC43 (PCR) Not detected Coronavirus HKU1 (PCR) Not detected Coronavirus 229E (PCR) Not detected Coronavirus NL63 (PCR) Not detected Human Metapneumovir PCR Not detected Influenza Type A (PCR) Not detected Influenza B (RT-PCR) Not detected M. pneumoniae (PCR) Not detected Parainfluenza 1 (PCR) Not detected Parainfluenza 2 (PCR) Not detected Parainfluenza 3 (PCR) Not detected Parainfluenza 4 (PCR) Not detected RSV (PCR) Not detected Entero/Rhino (PCR) Not detected SARS-CoV-2 (PCR) Not detected Orders Category Date Time Status ABG DRAW REQUEST Stat CARDIO 08/11/20 09:00 Completed EKG-(ED ONLY) Stat CARDIO 08/11/20 08:59 Completed ED IV/MEDIPORT/POWERPORT .ONCE EMERGENCY 08/11/20 08:59 Active ABG COOX Stat LAB 08/11/20 09:30 Completed CBC W/ AUTO DIFF Stat LAB 08/11/20 09:35 Completed COMPREHENSIVE METABOLIC PANEL Stat LAB 08/11/20 09:35 Completed PT WITH INR Stat LAB 08/11/20 09:14 Completed RESPIRATORY PANEL 2.1 (PCR) Stat LAB 08/11/20 09:35 Completed TROPONIN I Stat LAB 08/11/20 09:35 Completed URINALYSIS C & S IF INDICATED Stat LAB 08/11/20 08:59 Uncollected 0.9 % Sodium Chloride [Saline Flush] MEDS 08/11/20 08:59 Active 1 syr IVF PRN PRN Sodium Chloride 0.9% [Sodium Chloride] 1,000 ml MEDS 08/11/20 08:59 Active IV 125 mls/hr Sodium Chloride 0.9% [Sodium Chloride] 500 ml MEDS 08/11/20 10:14 Active IV BOLUS CHEST, 1V AP ONLY Stat RADS 08/11/20 08:[address] HEAD W/O CONTRAST Stat RADS 08/11/20 08:59 Completed Medications Generic Name Dose Route Start Last Admin Trade Name Freq PRN Reason Stop Dose Admin Sodium Chloride 1,000 mls @ 125 mls/hr 08/11/20 08:59 08/11/20 10:24 Sodium Chloride IV 08/11/20 16:58 500 mls/hr .Q8H STA Administration Sodium Chloride 500 mls @ 500 mls/hr 08/11/20 10:14 Sodium Chloride IV 08/11/20 11:13 BOLUS STA Sodium Chloride 1 syr 08/11/20 08:59 0.9% Sodium Chloride 10 Ml Disp.Syrin IVF PRN PRN To flush IV Vital Signs: Temp Pulse Resp BP Pulse Ox 08/11/20 08:42 97.2 F L 84 16 160/87 H 98 Discharge Plan Discharge Patient Disposition: PLACED OBSERVATION Discharge Problem: Hyponatremia, Generalized weakness ED Provider: ROSSY JESSICA Condition: Poor Physician Progress Note: []Pt was d/w Dr Bruno and admitted. See orders. Admission was d/w pt and family---they expressed understanding of what was said.
[2020-08-11] MEDS ORDERED: TYLENOL PO PRN (11:49)
[2020-08-11 12:24] VITALS: BMI 19.8
[2020-08-11] MEDS ORDERED: ATROPINE SULFATE PFS IVP PRN (14:13)
[2020-08-11] MEDS ORDERED: NITROSTAT SL PRN (14:13)
[2020-08-11] MEDS ORDERED: EZETIMIBE SIMVASTATIN PO SCH (14:15)
[2020-08-11] MEDS ORDERED: TIZANIDINE 4 MG PO SCH (14:15)
[2020-08-11] MEDS ORDERED: NON-FORMULARY MEDICATION (Ferrous Sulfate 325 MG tablet) PO SCH (14:15)
--- NOTE | 2020-08-11 14:42 | RS.SLPCNOT ---
Speech Case Note Date of Note: 08/11/20 Title: Swallow consult Note: RN called [employer]NA INSTALLER about swallow consult. Report via phone indicated choking with Heimlich maneuver. RN requested [employer] INSTALLER to address swallowing concerns for safety with PO intake. However, pt not alert when [employer]IO ANTENNA INSTALLER in the facility. RADIO ANTENNA INSTALLER to at tempt to see pt at later date to assess swallow function. Thanks for this consult.
[2020-08-11 14:49] LABS: CREATINE KINASE 274.6 U/L (55-170)
[2020-08-11 15:05] LABS: TROPONIN I < 0.012 ng/ml (0.0000-0.120)
[2020-08-11] MEDS: FERROUS SULFATE PO SCH (15:14)
[2020-08-11] MEDS: ACCUPRIL PO SCH ×2 (15:14→20:24)
[2020-08-11] MEDS: ZETIA PO SCH (15:14)
[2020-08-11] MEDS: NICODERM 21 MG TD SCH (15:14)
[2020-08-11] MEDS: DILANTIN PO SCH ×2 (15:15→20:24)
[2020-08-11] MEDS: ZANAFLEX PO SCH ×2 (15:15→20:24)
[2020-08-11] MEDS: CARAFATE PO SCH ×2 (16:46→20:24)
[2020-08-11] MEDS: PROTONIX PO SCH (16:46)
[2020-08-11] MEDS: ZOCOR PO SCH (16:46)
[2020-08-11 19:21] LABS: BILIRUBIN,URINE Negative (NEGATIVE); CLARITY,URINE Slightly (CLEAR); COLOR,URINE Yellow (YELLOW); GLUCOSE, URINE (UA) Negative (NEGATIVE); KETONES,URINE Negative (NEGATIVE); LEUKOCYTE ESTERASE ,URINE 1+ (NEGATIVE); NITRITE,URINE Negative (NEGATIVE); PROTEIN,URINE 1+ (NEGATIVE); URINE, BLOOD Trace-intact (NEGATIVE); UROBILINOGEN,URINE 0.2 (0.2)
[2020-08-11 19:29] LABS: AMORPHOUS SEDIMENT,UR 1+ (NOT PRESENT); URINE RBC, MICROSCOPIC 0-2 (0-2)
[2020-08-11 22:54] LABS: TROPONIN I < 0.012 ng/ml (0.0000-0.120)
[2020-08-12 05:25] LABS: BASOPHILS # (AUTO) 0.1 K/uL (0-0.2); BASOPHILS % (AUTO) 0.7 % (0.0-3.0); EOSINOPHILS # (AUTO) 0.1 K/ul (0.0-0.7); EOSINOPHILS % (AUTO) 1.1 % (0.0-7.0); HEMATOCRIT 31.7 % (42.0-52.0); HEMOGLOBIN 11.2 g/dl (14.0-18.0); IMMATURE GRANULOCYTE % (AUTO) 0.3 % (0.0-5.0); LYMPHOCYTES # (AUTO) 1.7 K/uL (0.60-3.4); LYMPHOCYTES % (AUTO) 23.2 (10.0-50.0); MEAN CORPUSCULAR HEMOGLOBIN 32.3 pg (27.0-31.0); MEAN CORPUSCULAR HGB CONC 35.3 (31.8-35.4); MEAN CORPUSCULAR VOLUME 91.4 fl (80.0-94.0); MONOCYTES # (AUTO) 0.6 K/uL (0.4-2.0); MONOCYTES % (AUTO) 7.8 (0-10); NEUTROPHILS # (AUTO) 4.8 K/ul (2.0-6.9); NEUTROPHILS % (AUTO) 66.9 % (42.2-75.2); PLATELET COUNT 276 10^3/uL (140-440); RDW COEFFICIENT OF VARIATION 13.4 % (11.6-14.8); RED BLOOD COUNT 3.47 10^6/ul (4.70-6.10); WHITE BLOOD COUNT 7.16 K/ul (4.2-10.2)
[2020-08-12 05:36] LABS: ALANINE AMINOTRANSFERASE 11.3 U/L (0-50); ALBUMIN 3.56 g/dL (3.5-5.0); ALKALINE PHOSPHATASE 113.8 U/L (56-119); BILIRUBIN,TOTAL 0.38 mg/dL (0.2-1.3); BLOOD UREA NITROGEN 23.2 mg/dL (9-20); CALCIUM 9.02 mg/dL (8.4-10.2); CARBON DIOXIDE 21.9 mmol/L (22-30.0); CHLORIDE 103.1 mmol/L (98-107); CREATININE 1.03 mg/dL (0.60-1.10); GLUCOSE 94.3 mg/dL (74-106); POTASSIUM 3.97 mmol/L (3.5-5.1); SODIUM 132.5 mmol/L (134.5-145); TOTAL PROTEIN 6.05 g/dL (6.3-8.2)
[2020-08-12 05:47] LABS: PROTHROMBIN TIME 46.9 SEC (9.3-11.0)
[2020-08-12] MEDS: CARAFATE PO SCH ×4 (05:58→20:31)
[2020-08-12] MEDS: PROTONIX PO SCH ×2 (05:58→17:12)
--- NOTE | 2020-08-12 08:50 | PCM.PROG ---
Attending Provider: ATTENDING PROVIDER: Dr. GLADYS BRUNO This patient is seen with Fanny Chaparro, Nurse Practitioner. DATE OF SERVICE: 08/12/20 SUBJECTIVE: This 74 year old /WHITE M was hospitalized 08/11/20. The patient is resting comfortably in bed. He is ready for breakfast this morning. CT scan showed no acute changes. The patient's sodium has improved slightly. REVIEW OF SYSTEMS: CONSTITUTIONAL: Weakness. No night sweats. No fatigue, malaise, lethargy. No fev er or chills. HEENT: Eyes: No visual changes. No eye pain. No eye discharge. ENT: No runny nose. No epistaxis. No sinus pain. No odynophagia. No congestion. RESPIRATORY: No cough, no congestion. No hemoptysis. No shortness of breath. CARDIOVASCULAR: No angina symptoms. No CHF symptoms. No atypical chest pain for CAD. No palpitations. No orthopnea.. GASTROINTESTINAL: No abdominal pain. No nausea or vomiting. No diarrhea or constipation. No hematemesis. No hematochezia. GENITOURINARY: No urgency. No frequency. No dysuria. No hematuria. No obstructive symptoms. No discharge. No pain. No significant abnormal bleeding. MUSCULOSKELETAL: Right-sided weakness. No musculoskeletal pain; no joint swel ling. NEUROLOGICAL: Awake, alert, oriented to time, place and person. No headache. No neck pain. No syncope. No seizures. No dizziness. PSYCHIATRIC: Not anxious. No depression. No suicidal thoughts. No homicidal thoughts. SKIN: No rash. No lesions. No wounds. ENDOCRINE: No unexplained weight loss. No weight gain. HEMATOLOGIC/LYMPHATIC: No anemia. No purpura. No petechiae. No prolonged or excessive bleeding. No palpable lymph nodes. PHYSICAL EXAMINATION: GENERAL: The patient is awake, alert and oriented, lying/sitting in bed in no distress. VITAL SIGNS: Temperature 98.4 F, Pulse 80, Respiratory Rate 16, BP 142/80, Pulse Ox 96% HEENT: Head normocephalic, atraumatic. Eyes: Extraocular muscles are intact. Pupils are equal, round and reactive to light and accommodation. Ears: No lesions. Nose appeared normal. Throat: No exudate or erythema. NECK: Supple. No JVD, no carotid bruit. No lymphadenopathy or thyromegaly. LUNGS: Diminished breath sounds. Clear to auscultation. Percussion note normal. Chest symmetrical. HEART: S1, S2, no S3. No murmurs. No cyanosis or clubbing. No ascites. Pulses: Dorsalis pedis and posterior tibial pulses +1 to +2 both sides. ABDOMEN: Soft. Non-tender. Bowel sounds active. No CVA tenderness. No mass felt. EXTREMITIES: No edema. Full range of motion of all extremities, equal. NEUROLOGIC: Right-sided weakness. No focal deficit. Cranial nerves II through XII are grossly intact. No headache. No double vision. SKIN: Not dry. Intact. Turgor-normal. LYMPHATIC: No palpable lymph nodes/no lymphedema. MUSCULOSKELETAL: Normal joints with no swelling. Muscle tone is normal. LAB REVIEW: 08/12/20 05:06 08/12/20 05:06 08/12/20 05:06: Sodium 132.5 L, Potassium 3.97, Chloride 103.1, Carbon Dioxide 21.9 L, Anion Gap 11.47, BUN 23.2 H, Creatinine 1.03, Estimated GFR (MDRD) 71.00, BUN/Creatinine Ratio 22.52, Glucose 94.3, Calcium 9.02, Total Bilirubin 0.38, AST 21.0, ALT 11.3, Alkaline Phosphatase 113.8, Total Protein 6.05 L, Albumin 3.56, Globulin 2.49, Albumin/Globulin Ratio 1.42 08/12/20 05:06: PT 46.9 H D, INR 4.35 H* 08/12/20 05:06: WBC 7.16, RBC 3.47 L, Hgb 11.2 L, Hct 31.7 L, MCV 91.4, MCH 32.3 H, MCHC 35.3, RDW Coeff of Audrey 13.4, Plt Count 276, Immature Gran % (Auto) 0.3, Neut % (Auto) 66.9, Lymph % (Auto) 23.2, [place] % (Auto) 7.8, Eos % (Auto) 1.1, Baso % (Auto) 0.7, Neut # (Auto) 4.8, Lymph # (Auto) 1.7, [place] # (Auto) 0.6, Eos # (Auto) 0.1, Baso # (Auto) 0.1, Immature Gran # (Auto) 0.0 08/11/20 22:18: Total Creatine Kinase 224.0 H, CK-MB (CK-2) 2.590 H, CK-MB (CK- 2) % 1.1500, Troponin I < 0.012 08/11/20 19:13: Urine Color Yellow, Urine Clarity Slightly, Urine pH 7.0, Ur Specific Colbert 1.020, Urine Protein 1+ H, Urine Glucose (UA) Negative, Urine Ketones Negative, Urine Blood Trace-intact H, Urine Nitrite Negative, Urine Bilirubin Negative, Urine Urobilinogen 0.2, Ur Leukocyte Esterase 1+ H, Urine Microscopic RBC 0-2, Urine Microscopic WBC 2-5, Ur Squamous Epith Cells 2-5, Amorphous Sediment 1+ 08/11/20 14:34: Total Creatine Kinase 274.6 H, CK-MB (CK-2) 4.190 H, CK-MB (CK- 2) % 1.5200, Troponin I < 0.012 08/11/20 12:18: Troponin I < 0.012 08/11/20 09:35: Adenovirus (PCR) Not detected, B. pertussis DNA (PCR) Not detected, B.parapertussis DNA PCR Not detected, C. pneumoniae DNA (PCR) Not detected, Coronavirus OC43 (PCR) Not detected, Coronavirus HKU1 (PCR) Not detected, Coronavirus 229E (PCR) Not detected, Coronavirus NL63 (PCR) Not detected, Human Metapneumovir PCR Not detected, Influenza Type A (PCR) Not detected, Influenza B (RT-PCR) Not detected, M. pneumoniae (PCR) Not detected, Parainfluenza 1 (PCR) Not detected, Parainfluenza 2 (PCR) Not detected, Parainfluenza 3 (PCR) Not detected, Parainfluenza 4 (PCR) Not detected, RSV (PCR) Not detected, Entero/Rhino (PCR) Not detected, SARS-CoV-2 (PCR) Not detected 08/11/20 09:35: Sodium 128.6 L, Potassium 3.77, Chloride 98.0, Carbon Dioxide 22.3, Anion Gap 12.07, BUN 16.7, Creatinine 0.78, Estimated GFR (MDRD) 97.00, BUN/Creatinine Ratio 21.41, Glucose 116.0 H, Calcium 9.32, Total Bilirubin 0.46, AST 24.5, ALT 15.8, Alkaline Phosphatase 115.8, Troponin I 0.012, Total Protein 7.05, Albumin 4.34, Globulin 2.71, Albumin/Globulin Ratio 1.60 08/11/20 09:35: WBC 9.25, RBC 4.08 L, Hgb 13.0 L, Hct 36.9 L, MCV 90.4, MCH 31.9 H, MCHC 35.2, RDW Coeff of Audrey 13.3, Plt Count 307, Immature Gran % (Auto) 0.4, Neut % (Auto) 76.6 H, Lymph % (Auto) 13.5, [place] % (Auto) 8.8, Eos % (Auto) 0.1, Baso % (Auto) 0.6, Neut # (Auto) 7.1 H, Lymph # (Auto) 1.3, [place] # (Auto) 0.8, Eos # (Auto) 0.0, Baso # (Auto) 0.1, Immature Gran # (Auto) 0.0 08/11/20 09:30: Puncture Site Lr, Base Excess 0.3, O2 Saturation 97.9, ABG pH 7.49 H, ABG pCO2 31.0 L, ABG pO2 94.0, ABG HCO3 23.6, ABG Total CO2 24.6 H, Nico Test Y, Hemoglobin 1.2, Oxyhemoglobin 93.4 L, Carboxyhemoglobin 4.2 H, Total Hemoglobin 13.1, FiO2 % 21.0 08/11/20 09:14: PT 53.0 H, INR 4.92 H* ASSESSMENT: Please see below. 1. Hyponatremia. 2. Generalized weakness. 3. History of CVA with right hemiparesis. 4. Hypercoagulation. PLAN: 1. Continue to hold Coumadin. 2. Fall precautions. 3. Dilantin level. Plan and coordination of the patient's care discussed in the presence of Flask Maker and nurse. CONDITION: Stable SCRIBED BY: JULIANNE PERSAUD Right Of Way Worker scribed while in presence of service performed by Dr. Bruno/Fanny Chaparro APRN on 08/12/20 ([id number])
[2020-08-12] MEDS: ZANAFLEX PO SCH ×2 (08:55→20:31)
[2020-08-12] MEDS: ACCUPRIL PO SCH ×2 (08:55→20:31)
[2020-08-12] MEDS: ZETIA PO SCH (08:56)
[2020-08-12] MEDS: NICODERM 21 MG TD SCH (08:56)
[2020-08-12] MEDS: FERROUS SULFATE PO SCH ×2 (08:56→11:06)
[2020-08-12] MEDS: DILANTIN PO SCH ×3 (08:56→20:32)
[2020-08-12] MEDS: ZOCOR PO SCH (17:12)
[2020-08-13 04:57] LABS: BASOPHILS # (AUTO) 0.1 K/uL (0-0.2); BASOPHILS % (AUTO) 0.7 % (0.0-3.0); EOSINOPHILS # (AUTO) 0.1 K/ul (0.0-0.7); EOSINOPHILS % (AUTO) 1.4 % (0.0-7.0); HEMATOCRIT 30.9 % (42.0-52.0); HEMOGLOBIN 10.7 g/dl (14.0-18.0); IMMATURE GRANULOCYTE % (AUTO) 0.3 % (0.0-5.0); LYMPHOCYTES # (AUTO) 1.5 K/uL (0.60-3.4); MEAN CORPUSCULAR HEMOGLOBIN 31.7 pg (27.0-31.0); MEAN CORPUSCULAR HGB CONC 34.6 (31.8-35.4); MEAN CORPUSCULAR VOLUME 91.4 fl (80.0-94.0); MONOCYTES # (AUTO) 0.6 K/uL (0.4-2.0); MONOCYTES % (AUTO) 8.3 (0-10); NEUTROPHILS % (AUTO) 69.3 % (42.2-75.2); PLATELET COUNT 261 10^3/uL (140-440); RDW COEFFICIENT OF VARIATION 13.5 % (11.6-14.8); RED BLOOD COUNT 3.38 10^6/ul (4.70-6.10); WHITE BLOOD COUNT 7.25 K/ul (4.2-10.2)
[2020-08-13 05:03] LABS: PROTHROMBIN TIME 28.6 SEC (9.3-11.0)
[2020-08-13 05:04] LABS: ALANINE AMINOTRANSFERASE 10.5 U/L (0-50); ALBUMIN 3.41 g/dL (3.5-5.0); BILIRUBIN,TOTAL 0.21 mg/dL (0.2-1.3); BLOOD UREA NITROGEN 22.1 mg/dL (9-20); CALCIUM 8.72 mg/dL (8.4-10.2); CARBON DIOXIDE 23.2 mmol/L (22-30.0); CHLORIDE 101.6 mmol/L (98-107); CREATININE 0.98 mg/dL (0.60-1.10); GLUCOSE 92.2 mg/dL (74-106); POTASSIUM 4.08 mmol/L (3.5-5.1); SODIUM 130.2 mmol/L (134.5-145); TOTAL PROTEIN 5.82 g/dL (6.3-8.2)
[2020-08-13] MEDS: PROTONIX PO SCH ×2 (05:42→17:33)
[2020-08-13] MEDS: CARAFATE PO SCH ×4 (05:42→20:50)
--- NOTE | 2020-08-13 08:41 | PN ---
DATE OF SERVICE: 08/11/2020 SUBJECTIVE: The patient was sent to the emergency room from the care home because of change in the mental status plus sleepiness according to the family. Seen and examined the patient in the emergency room. He was weak, some what subdued he is usually cursing and carrying on, a lot of unrelated things to his health. When I seen him this time he was drinking soup without any problem. He seems to be oriented to place and person. REVIEW OF SYSTEMS: CONSTITUTIONAL: No night sweats. No fatigue, malaise, lethargy. No fever or chills. HEENT: Eyes: No visual changes. No eye pain. No eye discharge. ENT: No runny nose. No epistaxis. No sinus pain. No sore throat. No odynophagia. No congestion. RESPIRATORY: No cough, no congestion. No hemoptysis. No shortness of breath. CARDIOVASCULAR: No angina symptoms. No CHF symptoms. No atypical chest pain for CAD. No palpitations. No PND. No orthopnea. GASTROINTESTINAL: No abdominal pain. No nausea or vomiting. No diarrhea or constipation. No hematemesis. No hematochezia. GENITOURINARY: No urgency. No frequency. No dysuria. No hematuria. No obstructive symptoms. No discharge. No pain. No significant abnormal bleeding. MUSCULOSKELETAL: No musculoskeletal pain; no joint swelling. NEUROLOGICAL: No headache. No neck pain. No syncope. No seizures. No dizziness. PSYCHIATRIC: Not anxious. No depression. No suicidal thoughts. No homicidal thoughts. SKIN: No rash. No lesions. No wounds. ENDOCRINE: No unexplained weight loss. No weight gain. HEMATOLOGIC/LYMPHATIC: No anemia. No purpura. No petechiae. No prolonged or excessive bleeding. No palpable lymph nodes. PHYSICAL EXAMINATION: HEENT: Head normocephalic, atraumatic. Eyes: Extraocular muscles are intact. Pupils are equal, round and reactive to light and accommodation. Ears: No lesions. Nose appeared normal. Throat: No exudate or erythema. NECK: Supple. No JVD, no carotid bruit. No lymphadenopathy or thyromegaly. LUNGS: Decreased breath sounds but clear to auscultation. Percussion note normal. Chest symmetrical. HEART: S1, S2, no S3. No murmurs. No cyanosis or clubbing. No ascites. Pulses: Dorsalis pedis and posterior tibial pulses +1 to +2 bilaterally. ABDOMEN: Soft. Nontender. Bowel sounds active. No CVA tenderness. No mass felt. EXTREMITIES: No edema. Paralyzed extremities noted on one side with no neurological deficit noted. NEUROLOGIC: No focal deficit. Cranial nerves II through XII are grossly intact. No headache. No double vision. SKIN: Not dry. Intact. Turgor - normal. LYMPHATIC: No palpable lymph nodes/no lymphedema. MUSCULOSKELETAL: Normal joints with no swelling. Muscle tone is normal. LABS: CT scan of the head was unremarkable. CT of the chest was also the same way. ASSESSMENT: 1. Hyponatremia, seems to be somewhat drowsy. PLAN: 1. Hospitalize 2. Routine telemetry orders to rule out any acute myocardial event. 3. U/A to make sure no urinary tract infection exists. 4. Normal saline with 75cc per minute. CONDITION: Stable. TIME SPENT: More than 30 minutes. Plan and coordination of the patient's care discussed in the presence of nurse. JOSE E
[2020-08-13] MEDS: FERROUS SULFATE PO SCH ×2 (08:49→11:53)
[2020-08-13] MEDS: ACCUPRIL PO SCH ×2 (08:49→20:50)
[2020-08-13] MEDS: NICODERM 21 MG TD SCH (08:49)
[2020-08-13] MEDS: ZETIA PO SCH (08:49)
[2020-08-13] MEDS: DILANTIN PO SCH ×3 (08:49→20:50)
[2020-08-13] MEDS: ZANAFLEX PO SCH ×2 (08:49→20:50)
--- NOTE | 2020-08-13 09:25 | HP ---
DATE OF SERVICE: 08/11/20 HISTORY OF PRESENT ILLNESS: This is a 74-year-old white male who has a history of CVA and [id number] amputation, is wheelchair bound, lives at home by himself. He is noncompliant with treatment, noncompliant with accepting any help. Family reported he had a change in mental status today, seemed more weak and more confused. PAST MEDICAL HISTORY: Right [id number] amputation Chronic anemia CVA with right hemiparesis on Coumadin Hypertension COPD moderate to severe Smoker GERD Depression Dyslipidemia Compression fractures L2, L4 History of pelvic fracture in 2018 He is a smoker Alcohol abuse Noncompliance with medications, lifestyle, followup Recurrent falls Recently had head laceration last month with sutures in the forehead PAST SURGICAL HISTORY: History of right femoral head and neck fracture with repair in 2019 REVIEW OF SYSTEMS: CONSTITUTIONAL: Weakness. No night sweats. No fatigue, malaise, lethargy. No fever or chills. HEENT: Eyes: No visual changes. No eye pain. No eye discharge. ENT: No runny nose. No epistaxis. No sinus pain. No sore throat. No odynophagia. No ear pain. No congestion. RESPIRATORY: No cough, no congestion. No hemoptysis. No shortness of breath. CARDIOVASCULAR: No angina symptoms. No CHF symptoms. No atypical chest pain for CAD. No palpitations. No PND. No orthopnea. GASTROINTESTINAL: No abdominal pain. No nausea or vomiting. No diarrhea or constipation. No hematemesis. No hematochezia. GENITOURINARY: No urgency. No frequency. No dysuria. No hematuria. No obstructive symptoms. No discharge. No pain. No significant abnormal bleeding. MUSCULOSKELETAL: No musculoskeletal pain. No joint swelling. No arthritis. NEUROLOGICAL: Increased confusion. No headache. No neck pain. No syncope. No seizures. No dizziness. PSYCHIATRIC: Not anxious. No depression. No suicidal thoughts. No homicidal thoughts. SKIN: No rash. No lesions. No wounds. ENDOCRINE: No unexplained weight loss. No weight gain. HEMATOLOGIC/LYMPHATIC: No anemia. No purpura. No petechiae. No prolonged or excessive bleeding. No palpable lymph nodes. PERSONAL/FAMILY/SOCIAL HISTORY: He is a heavy smoker. He admits to alcohol use, about 5 to 6 times per week. He is , lives at home by himself. He gets around in a motorized wheelchair. MEDICATIONS: Phenytoin 100 mg p.o. t.i.d. Coumadin 3 mg p.o. daily Quinapril 40 mg p.o. b.i.d. Sucralfate 1 gm p.o. q.i.d. Pantoprazole 40 mg p.o. b.i.d. Ferrous Sulfate 325 mg p.o. b.i.d. breakfast and lunch Ezetimibe-Simvastatin 10-40 mg one tab p.o. daily Tizanidine (Zanaflex) 4 mg p.o. b.i.d. ALLERGIES: NKDA PHYSICAL EXAMINATION: GENERAL: The patient is oriented to person and place, not time. VITAL SIGNS: Temperature 97.2, heart rate 84, respirations 16, BP 160/87, pulse ox 98%. HEENT: Head normocephalic, atraumatic. Eyes: Extraocular muscles are intact. Pupils are equal, round and reactive to light and accommodation. Ears: No lesions. Nose appeared normal. Throat: No exudate or erythema. NECK: Supple. No JVD, no carotid bruit. No lymphadenopathy or thyromegaly. LUNGS: Diminished breath sounds. Clear to auscultation. Percussion note normal. Chest symmetrical. HEART: S1, S2, no S3. No murmur. No cyanosis or clubbing. No ascites. Pulses: Dorsalis pedis and posterior tibial pulses +1 to +2 bilaterally. ABDOMEN: Soft. Nontender. Bowel sounds active. No CVA tenderness. No mass felt. EXTREMITIES: Right above knee amputation. No leg edema. Full range of motion of all extremities, equal. NEUROLOGIC: No focal deficit. Cranial nerves II through XII are grossly intact. No headache, no double vision or headache. SKIN: Not dry. Intact. Turgor - normal. LYMPHATIC: No palpable lymph nodes/no lymphedema. MUSCULOSKELETAL: Normal joints with no swelling. Muscle tone is normal. LABS: Hemoglobin 13, hematocrit 36.9, platelets 307, white count 9.2. Sodium 128, potassium 3.7, BUN 16, creatinine 0.78, glucose 116, INR 4.92. ABGs 02 sat 97.9, pH 7.49, pc02 31, p02 94, bicarb [address] of the brain shows no acute process. Respiratory panel is normal. Urine shows +1 protein, +1 leuks, trace blood. ASSESSMENT: 1. Hyponatremia. 2. Generalized weakness. 3. History of CVA with right hemiparesis. 4. Hypertension. PLAN: 1. We will admit. 2. Routine telemetry orders. 3. CBC, CMP daily. 4. IV fluids, NS at 75 cc/hr. 5. Continue home medications. 6. Hold Coumadin until INR less than 2. 7. Daily INRs. 8. Fall precaution. 9. Regular diet. 10. Will follow closely. TIME SPENT: More than 70 minutes. MTDD
--- NOTE | 2020-08-13 10:25 | RS.OTINEVL ---
Subjective - Patient information Date of Evaluation: 08/13/20 Date of Arrival on Unit: 08/11/20 Admitted From:: Home Diagnosis: Hyponatremia PRECAUTIONS: Risk for falls Usual Living Arrangement: Alone Living Arrangement Comments: Cleaning help/grocery help 4 hr/day (4 days per week) Home Environment: House Medical History: Hypertension, CVA/TIA, COPD, Arthritis Medical History Comments:: enlarged prostate, renal lesion, R upper lobe mass, CAD, depression, L2 comp fx, h/o pelvic fx LATEX ALLERGY?: No Surgical History Comments:: TURP Medications: see chart Subjective Information/ Patient Comments:: Pt reports he has a splint at home but does not wear it. - Level of function Abilities prior to this admission: Pt has a Wheelchair to get around in the house. Pt has caregivers to help him 4 hours a day. Current Level of Function: Partially Dependent Current Equipment Used at Home: Wheelchair Pain Assessment - Pain Pain Score: 0 Interventions - Objective Patient Orientation: Person Current Interventions: IV's, Oxygen Observation: Pt has contractures in the RUE. Increased tone is keeping his Right hand and wrist in flexion. Pt does not have AROM of the digits of the RUE hand. Pt has limited movement of the RUE wrist, elbow, and shoulder due to increased tone. Interventions - ROM Right Upper Extremity AROM: Marked limitation Left Upper Extremity AROM: WFL's - Strength Right Upper Extremity Strength: Spastic Left Upper Extremity Strength: Normal Balance - Sitting Balance Static Sitting Balance: Good Dynamic Sitting Balance: Good ADL Skills - Self Feeding Self Feeding: Independent - Grooming Grooming: Min Assist - Bathing Bathing UE: Mod Assist Bathing LE: Max Assist - Dressing Dressing UE: Mod Assist Dressing LE: Max Assist - Toilet Management Toileting Management: Min Assist Functional Mobility SHWETA INDEX SCORE: . Additional Treatment Performed - Time with patient Length of Evaluation: 18 Total treatment time: 18 Activities Do you enjoy playing games?: No Would you be interested in leaving your room for activities?: No Would you enjoy group activities?: No Do you have difficulty with your vision?: Yes Patient Education Patient Education: Education of Plan of Care Teaching Recipient: Patient Teaching Methods: Teach Back Method Used Assessment Problem List:: Decreased level of function, Decreased safety/Risk of falls, Pain limits previous level of function Rehab Potential: Good Further Therapy Indicated?: Yes Evaluation Complexity: HISTORY: Medium, EXAM OF BODY SYSTEMS: Medium, CLINICAL DECISION MAKING: Medium Patient's Goal(s): To reduce the tightness in the RUE and improve function. Short Term Goals - Goals GOAL 1: Pt to be able to get a washcloth in his hand I. Goal to be met by: 08/16/20 GOAL 2: Pt to tolerate stretches in shoulder to decrease tone. Goal to be met by: 08/16/20 GOAL 3: OT to decrease tone where hand opens intermittently. Goal to be met by: 08/16/20 Long-Term Goals GOAL 1: Pt to be able to stretch the RUE hand and UE. Goal to be met by: 08/17/20 GOAL 2: Pt to be (I) with weight bearing on RUE to decrease tone. Goal to be met by: 08/17/20 Goal to be met by: 08/17/20 Plan Plan of Care: Therapeutic EX, Self-Care/Home Management, Cognitive Training Modalities: Ultrasound, Electrical Stimulation Frequency of Treatment: 1-2 X day, as tolerated Duration of Treatment: 2-4 days Anticipated Discharge Destination: Long-Term Care Facility Treatment Diagnosis (ICD 10 Codes): M25.61 Stiffness of shoulder. M25.64 Stiffness of hand. Z74.1 Need for assistance with personal care. Has the Physician been added for Co-signature?: Yes
[2020-08-13] MEDS: ZOCOR PO SCH (17:33)
[2020-08-14 05:16] LABS: BASOPHILS % (AUTO) 0.5 % (0.0-3.0); EOSINOPHILS # (AUTO) 0.1 K/ul (0.0-0.7); EOSINOPHILS % (AUTO) 1.3 % (0.0-7.0); HEMATOCRIT 32.2 % (42.0-52.0); HEMOGLOBIN 11.2 g/dl (14.0-18.0); IMMATURE GRANULOCYTE % (AUTO) 0.4 % (0.0-5.0); LYMPHOCYTES # (AUTO) 1.3 K/uL (0.60-3.4); LYMPHOCYTES % (AUTO) 17.1 (10.0-50.0); MEAN CORPUSCULAR HEMOGLOBIN 31.6 pg (27.0-31.0); MEAN CORPUSCULAR HGB CONC 34.8 (31.8-35.4); MONOCYTES # (AUTO) 0.6 K/uL (0.4-2.0); MONOCYTES % (AUTO) 7.9 (0-10); NEUTROPHILS # (AUTO) 5.5 K/ul (2.0-6.9); NEUTROPHILS % (AUTO) 72.8 % (42.2-75.2); PLATELET COUNT 302 10^3/uL (140-440); RDW COEFFICIENT OF VARIATION 13.4 % (11.6-14.8); RED BLOOD COUNT 3.54 10^6/ul (4.70-6.10); WHITE BLOOD COUNT 7.55 K/ul (4.2-10.2)
[2020-08-14 05:28] LABS: ALBUMIN 3.85 g/dL (3.5-5.0); ALKALINE PHOSPHATASE 109.6 U/L (56-119); ASPARTATE AMINO TRANSFERASE 23.9 U/L (17-59); BILIRUBIN,TOTAL 0.31 mg/dL (0.2-1.3); BLOOD UREA NITROGEN 17.1 mg/dL (9-20); CALCIUM 9.35 mg/dL (8.4-10.2); CARBON DIOXIDE 26.4 mmol/L (22-30.0); CHLORIDE 98.7 mmol/L (98-107); CREATININE 0.98 mg/dL (0.60-1.10); GLUCOSE 100.5 mg/dL (74-106); POTASSIUM 4.17 mmol/L (3.5-5.1); SODIUM 130.7 mmol/L (134.5-145); TOTAL PROTEIN 6.52 g/dL (6.3-8.2)
[2020-08-14 05:38] LABS: PROTHROMBIN TIME 18.8 SEC (9.3-11.0)
[2020-08-14] MEDS: PROTONIX PO SCH ×2 (05:40→16:27)
[2020-08-14] MEDS: CARAFATE PO SCH ×4 (05:40→20:50)
[2020-08-14] MEDS: ZETIA PO SCH (08:23)
[2020-08-14] MEDS: ACCUPRIL PO SCH ×2 (08:23→20:50)
[2020-08-14] MEDS: FERROUS SULFATE PO SCH ×2 (08:24→11:41)
[2020-08-14] MEDS: ZANAFLEX PO SCH ×2 (08:24→20:50)
[2020-08-14] MEDS: DILANTIN PO SCH ×3 (08:24→20:50)
[2020-08-14] MEDS: NICODERM 21 MG TD SCH (10:54)
[2020-08-14] MEDS: COUMADIN PO SCH (16:27)
[2020-08-14] MEDS: ZOCOR PO SCH (16:27)
[2020-08-15 05:17] LABS: BASOPHILS # (AUTO) 0.1 K/uL (0-0.2); BASOPHILS % (AUTO) 0.7 % (0.0-3.0); EOSINOPHILS # (AUTO) 0.2 K/ul (0.0-0.7); EOSINOPHILS % (AUTO) 2.8 % (0.0-7.0); HEMATOCRIT 32.8 % (42.0-52.0); HEMOGLOBIN 11.5 g/dl (14.0-18.0); IMMATURE GRANULOCYTE % (AUTO) 0.4 % (0.0-5.0); LYMPHOCYTES # (AUTO) 1.6 K/uL (0.60-3.4); MEAN CORPUSCULAR HEMOGLOBIN 32.1 pg (27.0-31.0); MEAN CORPUSCULAR HGB CONC 35.1 (31.8-35.4); MEAN CORPUSCULAR VOLUME 91.6 fl (80.0-94.0); MONOCYTES # (AUTO) 0.6 K/uL (0.4-2.0); NEUTROPHILS # (AUTO) 4.4 K/ul (2.0-6.9); NEUTROPHILS % (AUTO) 64.1 % (42.2-75.2); PLATELET COUNT 311 10^3/uL (140-440); RDW COEFFICIENT OF VARIATION 13.5 % (11.6-14.8); RED BLOOD COUNT 3.58 10^6/ul (4.70-6.10); WHITE BLOOD COUNT 6.79 K/ul (4.2-10.2)
[2020-08-15 05:31] LABS: ALBUMIN 3.96 g/dL (3.5-5.0); ASPARTATE AMINO TRANSFERASE 33.9 U/L (17-59); BILIRUBIN,TOTAL 0.45 mg/dL (0.2-1.3); BLOOD UREA NITROGEN 20.3 mg/dL (9-20); CALCIUM 9.3 mg/dL (8.4-10.2); CARBON DIOXIDE 27.1 mmol/L (22-30.0); CHLORIDE 99.2 mmol/L (98-107); CREATININE 0.94 mg/dL (0.60-1.10); GLUCOSE 94.4 mg/dL (74-106); POTASSIUM 4.22 mmol/L (3.5-5.1); SODIUM 131.5 mmol/L (134.5-145); TOTAL PROTEIN 6.71 g/dL (6.3-8.2)
[2020-08-15 05:32] LABS: PROTHROMBIN TIME 16.9 SEC (9.3-11.0)
[2020-08-15] MEDS: CARAFATE PO SCH ×4 (05:43→20:31)
[2020-08-15] MEDS: PROTONIX PO SCH ×2 (05:43→17:12)
[2020-08-15] MEDS: DILANTIN PO SCH ×3 (08:06→20:31)
[2020-08-15] MEDS: ZANAFLEX PO SCH ×2 (08:06→20:30)
[2020-08-15] MEDS: ZETIA PO SCH (08:06)
[2020-08-15] MEDS: FERROUS SULFATE PO SCH ×2 (08:06→11:26)
[2020-08-15] MEDS: ACCUPRIL PO SCH ×2 (08:06→20:31)
[2020-08-15] MEDS: NICODERM 21 MG TD SCH (08:09)
[2020-08-15] MEDS ORDERED: NORVASC PO SCH (13:00)
[2020-08-15] MEDS: NORVASC PO SCH (13:11)
[2020-08-15] MEDS ORDERED: COUMADIN PO ONE ×2 (17:00)
[2020-08-15] MEDS: ZOCOR PO SCH (17:12)
[2020-08-15] MEDS: COUMADIN PO SCH (17:14)
[2020-08-16 04:28] LABS: BASOPHILS # (AUTO) 0.1 K/uL (0-0.2); BASOPHILS % (AUTO) 0.7 % (0.0-3.0); EOSINOPHILS # (AUTO) 0.1 K/ul (0.0-0.7); HEMOGLOBIN 11.3 g/dl (14.0-18.0); IMMATURE GRANULOCYTE % (AUTO) 0.6 % (0.0-5.0); LYMPHOCYTES # (AUTO) 1.8 K/uL (0.60-3.4); LYMPHOCYTES % (AUTO) 24.9 (10.0-50.0); MEAN CORPUSCULAR HEMOGLOBIN 32.3 pg (27.0-31.0); MEAN CORPUSCULAR HGB CONC 35.3 (31.8-35.4); MEAN CORPUSCULAR VOLUME 91.4 fl (80.0-94.0); MONOCYTES # (AUTO) 0.7 K/uL (0.4-2.0); MONOCYTES % (AUTO) 9.5 (0-10); NEUTROPHILS # (AUTO) 4.4 K/ul (2.0-6.9); NEUTROPHILS % (AUTO) 62.3 % (42.2-75.2); PLATELET COUNT 309 10^3/uL (140-440); RDW COEFFICIENT OF VARIATION 13.8 % (11.6-14.8); WHITE BLOOD COUNT 7.03 K/ul (4.2-10.2)
[2020-08-16 04:41] LABS: PROTHROMBIN TIME 20.3 SEC (9.3-11.0)
[2020-08-16 05:22] LABS: ALANINE AMINOTRANSFERASE 19.3 U/L (0-50); ALBUMIN 3.71 g/dL (3.5-5.0); ALKALINE PHOSPHATASE 111.5 U/L (56-119); ASPARTATE AMINO TRANSFERASE 26.2 U/L (17-59); BILIRUBIN,TOTAL 0.32 mg/dL (0.2-1.3); BLOOD UREA NITROGEN 22.2 mg/dL (9-20); CALCIUM 9.19 mg/dL (8.4-10.2); CARBON DIOXIDE 27.6 mmol/L (22-30.0); CHLORIDE 99.1 mmol/L (98-107); CREATININE 0.98 mg/dL (0.60-1.10); GLUCOSE 95.4 mg/dL (74-106); POTASSIUM 4.2 mmol/L (3.5-5.1); SODIUM 129.6 mmol/L (134.5-145); TOTAL PROTEIN 6.45 g/dL (6.3-8.2)
[2020-08-16] MEDS: PROTONIX PO SCH (05:43)
[2020-08-16] MEDS: CARAFATE PO SCH ×2 (05:43→11:25)
[2020-08-16] MEDS: ZETIA PO SCH (08:40)
[2020-08-16] MEDS: ACCUPRIL PO SCH (08:40)
[2020-08-16] MEDS: NORVASC PO SCH (08:40)
[2020-08-16] MEDS: FERROUS SULFATE PO SCH ×2 (08:40→11:25)
[2020-08-16] MEDS: ZANAFLEX PO SCH (08:40)
[2020-08-16] MEDS: NICODERM 21 MG TD SCH (08:41)
--- NOTE | 2020-08-16 08:54 | PCM.PROG ---
Attending Provider: ATTENDING PROVIDER: Dr. GLADYS BRUNO This patient is seen with Fanny Chaparro, Nurse Practitioner. DATE OF SERVICE: 08/16/20 SUBJECTIVE: This 74 year old /WHITE M was hospitalized 08/11/20. The patient is resting comfortably. The patient has been eating well. Sodium is stable. Blood pressure is stable. He has agreed to [facility] for PT/OT REVIEW OF SYSTEMS: CONSTITUTIONAL: No night sweats. No fatigue, malaise, lethargy. No fever or chills. Weakness HEENT: Eyes: No visual changes. No eye pain. No eye discharge. ENT: No runny nose. No epistaxis. No sinus pain. No odynophagia. No congestion. RESPIRATORY: No cough, no congestion. No hemoptysis. No shortness of breath. CARDIOVASCULAR: No angina symptoms. No CHF symptoms. No atypical chest pain for CAD. No palpitations. No orthopnea.. GASTROINTESTINAL: No abdominal pain. No nausea or vomiting. No diarrhea or constipation. No hematemesis. No hematochezia. GENITOURINARY: No urgency. No frequency. No dysuria. No hematuria. No obstructive symptoms. No discharge. No pain. No significant abnormal bleeding. MUSCULOSKELETAL: No musculoskeletal pain; no joint swelling. NEUROLOGICAL: Awake, alert, oriented to time, place and person. No headache. No neck pain. No syncope. No seizures. No dizziness. PSYCHIATRIC: Not anxious. No depression. No suicidal thoughts. No homicidal thoughts. SKIN: No rash. No lesions. No wounds. ENDOCRINE: No unexplained weight loss. No weight gain. HEMATOLOGIC/LYMPHATIC: No anemia. No purpura. No petechiae. No prolonged or excessive bleeding. No palpable lymph nodes. PHYSICAL EXAMINATION: GENERAL: The patient is awake, alert and oriented, lying in bed in no distress. VITAL SIGNS: Temperature 99.0 F, Pulse 83, Respiratory Rate 16, BP 153/89, Pulse Ox 95% HEENT: Head normocephalic, atraumatic. Eyes: Extraocular muscles are intact. Pupils are equal, round and reactive to light and accommodation. Ears: No lesions. Nose appeared normal. Throat: No exudate or erythema. NECK: Supple. No JVD, no carotid bruit. No lymphadenopathy or thyromegaly. LUNGS: Diminished breath sounds. Clear to auscultation. Percussion note normal. Chest symmetrical. HEART: S1, S2, no S3. No murmurs. No cyanosis or clubbing. No ascites. Pulses: Dorsalis pedis and posterior tibial pulses +1 to +2 both sides. ABDOMEN: Soft. Non-tender. Bowel sounds active. No CVA tenderness. No mass felt. EXTREMITIES: No edema. Full range of motion of all extremities, equal. NEUROLOGIC: No focal deficit. Cranial nerves II through XII are grossly intact. No headache. No double vision. SKIN: Not dry. Intact. Turgor-normal. LYMPHATIC: No palpable lymph nodes/no lymphedema. MUSCULOSKELETAL: Normal joints with no swelling. Muscle tone is normal. LAB REVIEW: 08/16/20 04:10 08/16/20 04:10 08/16/20 04:10: Sodium 129.6 L, Potassium 4.20, Chloride 99.1, Carbon Dioxide 27.6, Anion Gap 7.10, BUN 22.2 H, Creatinine 0.98, Estimated GFR (MDRD) 75.00, BUN/Creatinine Ratio 22.65, Glucose 95.4, Calcium 9.19, Total Bilirubin 0.32, AST 26.2, ALT 19.3, Alkaline Phosphatase 111.5, Total Protein 6.45, Albumin 3.71, Globulin 2.74, Albumin/Globulin Ratio 1.35 08/16/20 04:10: Phenytoin 19.66 08/16/20 04:10: PT 20.3 H, INR 1.91 08/16/20 04:10: WBC 7.03, RBC 3.50 L, Hgb 11.3 L, Hct 32.0 L, MCV 91.4, MCH 32.3 H, MCHC 35.3, RDW Coeff of Audrey 13.8, Plt Count 309, Immature Gran % (Auto) 0.6, Neut % (Auto) 62.3, Lymph % (Auto) 24.9, [place] % (Auto) 9.5, Eos % (Auto) 2.0, Baso % (Auto) 0.7, Neut # (Auto) 4.4, Lymph # (Auto) 1.8, [place] # (Auto) 0.7, Eos # (Auto) 0.1, Baso # (Auto) 0.1, Immature Gran # (Auto) 0.0 ASSESSMENT: Please see below. 1. Right above knee amputation 2. Chronic hyponatremia PLAN: 1. Discharge to [facility] 2. CBC and CMP on Sunday 3. Hold Dilantin today 4. Resume 3mg of Coumadin Plan and coordination of the patient's care discussed in the presence of Signal Tester and nurse. SCRIBED BY: Ezekiel OSPINA scribed while in presence of service performed by Dr. Bruno/Fanny Chaparro APRN on 08/16/20 ([id number])
--- NOTE | 2020-08-16 10:57 | CM.DICTOOL ---
ADMISSION: 08/11/20 10:56 DISCHARGE: AUGUST 16, 2020 DATE OF SERVICE: 08/16/20 FINAL DIAGNOSIS HYPONATREMIA GENERALIZED WEAKNESS HISTORY OF CVA WITH RIGHT HEMIPARESIS HYPERTENSION HYPERCOAGULATION HX: RT ABOVE THE KNEE AMPUTATION CHRONIC ANEMIA CVA WITH RIGHT HEMIPARESIS ON COUMADIN HYPERTENSION COPD; MODERATE TO SEVERE SMOKER GERD DEPRESSION DYSLIPIDEMIA COMPRESSION FRACTURE L2, L4 PELVIC FRACTURE IN 2018 ALCOHOL ABUSE NON-COMPLIANCE WITH MEDS, LIFESTYLE AND FOLLOW-UP AND RECOMMENDATIONS RECURRENT FALLS HEAD LACERATION LAST MONTH WITH SUTURES IN THE FOREHEAD SURGICAL HISTORY: RT ABOVE THE KNEE AMPUTATION - 02/2019 NECK SURGERY TURP CODE STATUS: DO NOT RESUSCITATE LAST VITALS Temp Pulse Resp BP Pulse Ox 99.0 F 83 16 153/89 H 95 08/16/20 05:37 08/16/20 05:37 08/16/20 05:37 08/16/20 05:37 08/16/20 09:10 TAKE THESE MEDICATIONS AT HOME Amlodipine Besylate (Amlodipine Besylate 5 Mg Tablet) 5 mg PO DAILY [facility] -- ( NEW) Last Admin: 08/16/20 08:40 Dose: 5 mg Documented by: Ezetimibe (Ezetimibe 10 Mg Tablet) 10 mg PO DAILY [facility] Last Admin: 08/16/20 08:40 Dose: 10 mg Ferrous Sulfate (Ferrous Sulfate 324 Mg Tablet.) 324 mg PO BID BREAKFAST&LUNCH [facility] Last Admin: 08/16/20 08:40 Dose: 324 mg Pantoprazole Sodium (Pantoprazole Sodium 40 Mg Tablet.) 40 mg PO BIDAC [facility] Last Admin: 08/16/20 05:43 Dose: 40 mg Phenytoin Sodium (Phenytoin Cap 100 Mg Capsule) 100 mg PO TID [facility] -- HOLD 08/16/2020 AND RESUME 08/17/2020 Last Admin: 08/15/20 20:31 Dose: 100 mg Quinapril HCl (Quinapril Hcl 40 Mg Tablet) 40 mg PO BID [facility] Last Admin: 08/16/20 08:40 Dose: 40 mg Simvastatin (Simvastatin 40 Mg Tablet) 40 mg PO QPM [facility] Last Admin: 08/15/20 17:12 Dose: 40 mg Sucralfate (Sucralfate 1 Gm Tablet) 1 gm PO ACHS [facility] Last Admin: 08/16/20 05:43 Dose: 1 gm Tizanidine HCl (Tizanidine Hcl 4 Mg Tablet) 4 mg PO BID [facility] Last Admin: 08/16/20 08:40 Dose: 4 mg Warfarin Sodium (Warfarin Sodium 3 Mg Tablet) 3 mg PO QPM [facility] Last Admin: 08/15/20 17:14 Dose: 3 mg ALLERGIES No Known Allergies Allergy (Verified 03/18/19 11:19) DISCONTINUED MEDICATIONS NONE NEW PRESCRIPTIONS: NORVASC 5 MG PO DAILY SMOKING: SMOKING CESSATION DISEASE SPECIFIC EDUCATION: COAGULATION HYPERTENSION SEIZURES COVID 19 HYPONATREMIA LAB REVIEW: 08/16/20 04:10 08/16/20 04:10 08/16/20 04:10: Sodium 129.6 L, Potassium 4.20, Chloride 99.1, Carbon Dioxide 27.6, Anion Gap 7.10, BUN 22.2 H, Creatinine 0.98, Estimated GFR (MDRD) 75.00, BUN/Creatinine Ratio 22.65, Glucose 95.4, Calcium 9.19, Total Bilirubin 0.32, AST 26.2, ALT 19.3, Alkaline Phosphatase 111.5, Total Protein 6.45, Albumin 3.71, Globulin 2.74, Albumin/Globulin Ratio 1.35 08/16/20 04:10: Phenytoin 19.66 08/16/20 04:10: PT 20.3 H, INR 1.91 08/16/20 04:10: WBC 7.03, RBC 3.50 L, Hgb 11.3 L, Hct 32.0 L, MCV 91.4, MCH 32.3 H, MCHC 35.3, RDW Coeff of Audrey 13.8, Plt Count 309, Immature Gran % (Auto) 0.6, Neut % (Auto) 62.3, Lymph % (Auto) 24.9, [place] % (Auto) 9.5, Eos % (Auto) 2.0, Baso % (Auto) 0.7, Neut # (Auto) 4.4, Lymph # (Auto) 1.8, [place] # (Auto) 0.7, Eos # (Auto) 0.1, Baso # (Auto) 0.1, Immature Gran # (Auto) 0.0 PLAN: DISCHARGE TODAY: AUGUST 16, 2020 TO [facility] ACTIVITY: UP IN BEDSIDE CHAIR FOR MEALS AND PRN. ENCOURAGE TO BE UP IN THE CHAIR USES ELECTRIC SCOOTER TO TRAVEL FALL PRECAUTIONS ( S/P RT AKA AND CVC ) BLEEDING PRECAUTIONS ( COUMADIN TREATMENT) PT, OT AND JOSS HOUSE KEEPER EVAL AND TREAT DIET: HEART HEALTHY, MAY HAVE ADDITIONAL FOODS AT TIMES CONSISTENT GREEN LEAFY VEGETABLES FOLLOW UP: DR. BRUNO/ ELIJAH LEONARD APRN/ CASEY CARRILLO APRN WILL SEE ON RO UNDS IN THE FACILITY CODE STATUS: DO NOT RESUSCITATE LABS: CBC, CMP AND PT/INR ON SUNDAY PT/INRs EVERY 2 WEEKS AFTER INITIAL AND REPORT RESULTS TO MD OFFICE BEFORE 4 PM CBC AND CMP EVERY 3 MONTHS, LIPIDS, TSH, FREE T4 AND A1C EVERY 6 MONTHS NO DILATIN LEVEL AT THIS TIME, WILL BE ORDERED NEEDED MEDICATIONS: HOLD DILANTIN DOSAGES FOR TODAY AND RESUME 08/17/2020 FOLLOW FACILITY PROTOCOL FOR WEIGHTS AND V/S FOR NEW ADMITS MR. CORONADO HAS REMAINED ALERT AND ORIENTED X 4. HE DOES HAVE A CHRONIC GARBLED AND EXPRESSIVE DYSHASIA SPEECH. RT AKA 02/2019. HE HAS RT UPPER EXTREMITY CONTRACTURE. HE DOES TRANSFER WITH ASSIST OF ONE TO THE CHAIRS AND TO HIS SCOOTER. HE HAS HAD NO BREATHING PROBLEMS. SKIN IS WARM AND DRY AND INTACT. HE DOES HAVE A SMALL CRUSTED AREA TO RT ANTERIOR DISTAL AKA STUMP. NO REDNESS OR DRAINAGE. CHRONIC ECCHYMOSIS TO ARMS. CONTINENT OF BOWEL AND BLADDER. USES URINAL AND LAST BM 08/14. HE FEEDS SELF AND HAS A GOOD NUTRITIONAL AND FLUID INTAKE. HAS BEEN LIVING AT HOME BY SELF PER OWN CHOICE. HAS HAD SEVERAL FALLS. USES AN ELECTRIC SCOOTER. FAMILY, DTR AND POA [place] AND MR. CORONADO HAS AGREED TO STAY AT [facility] FOR A WHILE AND GET THERAPY. THEY CHOSE [facility]. MD ELIJAH IVEY APRN ALYCE HANNAN, APRN
--- NOTE | 2020-08-16 13:06 | PN ---
DATE OF SERVICE: 08/13/20 SUBJECTIVE: 74-year-old white male hospitalized with change in mental status, generalized weakness and had hyponatremia. The patient is being given NS 75 cc. Overall mental status is improved. There are no new neurological deficits. The patient's appetite is practically normal. Blood pressure systolic fluctuates still within acceptable range. PHYSICAL EXAMINATION: VITAL SIGNS: Temperature 97.7, pulse 70, respiratory rate 18, blood pressure 140/80, pulse ox 95%. HEENT: Head normocephalic, atraumatic. Eyes: Extraocular muscles are intact. Pupils are equal, round and reactive to light and accommodation. Ears: No lesions. Nose appeared normal. Throat: No exudate or erythema. NECK: Supple. No JVD, no carotid bruit. No lymphadenopathy or thyromegaly. LUNGS: Decreased breath sounds but clear to auscultation. Percussion note normal. Chest symmetrical. HEART: S1, S2, no S3. No murmurs. No cyanosis or clubbing. No ascites. Pulses: Dorsalis pedis and posterior tibial pulses +1 to +2 bilaterally. ABDOMEN: Soft. Nontender. Bowel sounds active. No CVA tenderness. No mass felt. EXTREMITIES: Left hemiparesis noted. No edema. Full range of motion of all extremities, equal. NEUROLOGIC: No focal deficit. Cranial nerves II through XII are grossly intact. No headache. No double vision. SKIN: Not dry. Intact. Turgor - normal. LYMPHATIC: No palpable lymph nodes/no lymphedema. MUSCULOSKELETAL: Normal joints with no swelling. Muscle tone is normal. LABS: Hemoglobin 10.7, hematocrit 30, WBC 7.25, normal differential. Creatinine 0.9, BUN 22, potassium 4. CT scan of the head negative. ASSESSMENT: 1. Hyponatremia seems to be resolving. 2. Mental status seems to have improved. Mentally more alert. No new neurological deficit. TIME SPENT: More than 30 minutes. CONDITION: Stable. INR was elevated on admission which was more than 4 now is 2.67. Will continue to hold until INR goes down below 2. Plan and coordination of the patient's care discussed in the presence of nurse. JOSE E
--- NOTE | 2020-08-16 13:18 | ECHO2D ---
Date of Exam: 08/14/2020 Ordering Physician: DR. GLADYS BRUNO Room #:102 Reason for Echo: SOB, HYPONATREMIA, WEAKNESS, COPD M-Mode Normal Adult Results LV Dimensions Normal Adult Results AoV Opening excursions >1.6 >1.8 LVEDD-base- 3.5-5.8 3.6 Ao root dimensions 2.0-3.7 3.6 LVESD-base- 3.1-4.6 L. Atrium dimensions 1.9-3.8 4.3 Post. Wall thickness 0.8-1.1 1.1 IV septum (thickness) 0.7-1.2 1.2 Post. Wall excursion 0.72-1.3 NORMAL Septal motion NORMAL Systolic motion R. Ventricular cavity 1.5-2.0 NORMAL LVEF 60% >60% Paradoxical septal wall motion NORMAL 2-D : 2-D M Mode Echocardiogram was performed using apical four chamber and left parasternal long and short axis views. Mitral, tricuspid and aortic valves appear to be normal. Contractility of the left ventricle seems to be normal, so is the cavity size. ENLARGED LEFT ATRIAL CAVITY SIZE. Aortic root appears to be normal. There is no pericardial effusion. There is no thrombus noted in the left ventricle or left atrial cavity. M-MODE: MV: NORMAL AV: NORMAL TV: NORMAL PV: CHAMBER SIZE: ENLARGED LEFT ATRIAL CAVITY WALL MOTION: NORMAL PERICARDIUM: NORMAL INTERPRETATION: 1. DIFFICULT ECHO TECHNICALLY-PIGEON SHAPED CHEST / COPD 2. BORDERLINE LEFT VENTRICLE HYPERTROPHY WITH ENLARGED LEFT ATRIAL CAVITY 3. NORMAL LEFT VENTRICLE CAVITY/ NORMAL LEFT VENTRICLE CONTRACTILITY 4. NORMAL VALVES MTDD
--- NOTE | 2020-08-16 13:20 | PN ---
DATE OF SERVICE: 08/14/20 SUBJECTIVE: 74-year-old white male hospitalized from the shelter with change in mental status and possibility of having new stroke. The patient's CT scan of the head was negative. The patient on overall examination and labs that were done in the assessment was made that the patient's weakness could be from dehydration. Also some borderline hyponatremia. The patient's condition has improved. He is alert. As usual he is talkative, cursing. His appetite seems to be better. REVIEW OF SYSTEMS: CONSTITUTIONAL: No night sweats. No fatigue, malaise, lethargy. No fever or chills. HEENT: Eyes: No visual changes. No eye pain. No eye discharge. ENT: No runny nose. No epistaxis. No sinus pain. No sore throat. No odynophagia. No congestion. RESPIRATORY: No cough, no congestion. No hemoptysis. No shortness of breath. CARDIOVASCULAR: No angina symptoms. No CHF symptoms. No atypical chest pain for CAD. No palpitations. No PND. No orthopnea. GASTROINTESTINAL: No abdominal pain. No nausea or vomiting. No diarrhea or constipation. No hematemesis. No hematochezia. GENITOURINARY: No urgency. No frequency. No dysuria. No hematuria. No obstructive symptoms. No discharge. No pain. No significant abnormal bleeding. MUSCULOSKELETAL: No musculoskeletal pain; no joint swelling. NEUROLOGICAL: No headache. No neck pain. No syncope. No seizures. No dizziness. PSYCHIATRIC: Not anxious. No depression. No suicidal thoughts. No homicidal thoughts. SKIN: No rash. No lesions. No wounds. ENDOCRINE: No unexplained weight loss. No weight gain. HEMATOLOGIC/LYMPHATIC: No anemia. No purpura. No petechiae. No prolonged or excessive bleeding. No palpable lymph nodes. PHYSICAL EXAMINATION: VITAL SIGNS: Temperature 96.4, pulse 74, respiratory rate 20, blood pressure 150/90, pulse ox 99%. HEENT: Head normocephalic, atraumatic. Eyes: Extraocular muscles are intact. Pupils are equal, round and reactive to light and accommodation. Ears: No lesions. Nose appeared normal. Throat: No exudate or erythema. NECK: Supple. No JVD, no carotid bruit. No lymphadenopathy or thyromegaly. LUNGS: Decreased breath sounds but clear to auscultation. Percussion note normal. Chest symmetrical. HEART: S1, S2, no S3. No murmurs. No cyanosis or clubbing. No ascites. Pulses: Dorsalis pedis and posterior tibial pulses +1 to +2 bilaterally. ABDOMEN: Soft. Nontender. Bowel sounds active. No CVA tenderness. No mass felt. EXTREMITIES: The patient has left hemiparesis. No edema. Full range of motion of all extremities, equal. NEUROLOGIC: No focal deficit. Cranial nerves II through XII are grossly intact. No headache. No double vision. SKIN: Not dry. Intact. Turgor - normal. LYMPHATIC: No palpable lymph nodes/no lymphedema. MUSCULOSKELETAL: Normal joints with no swelling. Muscle tone is normal. LABS: Hemoglobin 11.2, hematocrit 32, WBC 7,500, normal differential. Creatinine 0.9, BUN 17, potassium 4.1. ASSESSMENT: 1. Weakness, dehydration, hyponatremia seems to be resolving. PLAN: 1. INR is 1.76 today so will resume the Coumadin. 2. The patient had a CT scan of the head done on admission which was practically unchanged with no acute findings. 3. The patient had an echocardiogram done which was difficult because of his pigeon shaped chest. LV contractility was normal. Mitral valve, aortic valve and tricuspid valves were practically normal. No effusion, no thrombus noted. Enlargement of the left atrial cavity noted. CONDITION: Stable. TIME SPENT: More than 30 minutes. Plan and coordination of the patient's care discussed in the presence of nurse. JOSE E
[2020-08-16 13:51] VITALS: BP 100/54; TEMP 97.7
--- NOTE | 2020-08-16 14:30 | PN ---
DATE OF SERVICE: 08/15/20 SUBJECTIVE: 74-year-old white male hospitalized with weakness, hyponatremia and possiblity of stroke. The patient's neurological status is unchanged. CT scan was negative for any acute event. This morning the patient was feeling a lot better, wants to go back to the [facility]. As usual he is sweating, continuously. PHYSICAL EXAMINATION: VITAL SIGNS: Temperature 98.2, pulse 79, respiratory rate 18, BP 179/84, pulse ox 96%. HEENT: Head normocephalic, atraumatic. Eyes: Extraocular muscles are intact. Pupils are equal, round and reactive to light and accommodation. Ears: No lesions. Nose appeared normal. Throat: No exudate or erythema. NECK: Supple. No JVD, no carotid bruit. No lymphadenopathy or thyromegaly. LUNGS: Decreased breath sounds but clear to auscultation. Percussion note normal. Chest symmetrical. HEART: S1, S2, no S3. No murmurs. No cyanosis or clubbing. No ascites. Pulses: Dorsalis pedis and posterior tibial pulses +1 to +2 bilaterally. ABDOMEN: Soft. Nontender. Bowel sounds active. No CVA tenderness. No mass felt. EXTREMITIES: No edema. Full range of motion of all extremities, equal. NEUROLOGIC: Deficit of the left side unchanged. Cranial nerves II through XII are grossly intact. No headache. No double vision. SKIN: Not dry. Intact. Turgor - normal. LYMPHATIC: No palpable lymph nodes/no lymphedema. MUSCULOSKELETAL: Normal joints with no swelling. Muscle tone is normal. LABS: Hemoglobin 11.5, hematocrit 32, WBC 6,700, normal differential. Creatinine 0.9, BUN 20, potassium 4.2. INR 1.58. ASSESSMENT: 1. Hyponatremia seems to be improving. 2. Generalized weakness seems to have improved. 3. Appetite seems to have improved. 4. Mental status unchanged. PLAN: 1. Give extra dose of Coumadin today for the INR more than 2. 2. The patient's blood pressure high systolic seems to be fluctuating at a higher rate. 3. Will start the patient on Amlodipine 5 mg p.o. q.a.m. 4. Will continue on Quinapril. TIME SPENT: More than 30 minutes. Plan and coordination of the patient's care discussed in the presence of nurse. JOSE E
--- NOTE | 2020-08-17 09:57 | DS ---
DATE OF SERVICE: 08/16/20 FINAL DIAGNOSIS: 1. HYPONATREMIA 2. GENERALIZED WEAKNESS 3. HISTORY OF CVA WITH RIGHT HEMIPARESIS 4. HYPERTENSION 5. HYPERCOAGULATION HX: 6. RT ABOVE THE KNEE AMPUTATION 7. CHRONIC ANEMIA 8. CVA WITH RIGHT HEMIPARESIS ON COUMADIN 9. HYPERTENSION 10. COPD, MODERATE TO SEVERE 11. SMOKER 12. GERD 13. DEPRESSION 14. DYSLIPIDEMIA 15. COMPRESSION FRACTURE L2, L4 16. PELVIC FRACTURE IN 2018 17. ALCOHOL ABUSE 18. NON-COMPLIANCE WITH MEDS, LIFESTYLE AND FOLLOW-UP AND RECOMMENDATIONS 19. RECURRENT FALLS 20. HEAD LACERATION LAST MONTH WITH SUTURES IN THE FOREHEAD SURGICAL HISTORY: 21. RT ABOVE THE KNEE AMPUTATION - 02/2019 22. NECK SURGERY 23. TURP LAST VITALS Temp Pulse Resp BP Pulse Ox 99.0 F 83 16 153/89 H 95 08/16/20 05:37 08/16/20 05:37 08/16/20 05:37 08/16/20 05:37 08/16/20 09:10 DISCHARGE INSTRUCTIONS: 1. DISCHARGE TODAY: AUGUST 16, 2020 TO [facility]. 2. MD FOLLOW UP: DR. BRUNO/ELIJAH LEONARD APRN/ CASEY CARRILLO APRN WILL SEE ON ROUNDS IN THE FACILITY. 3. LABS: CBC, CMP AND PT/INR ON SUNDAY, PT/INRs EVERY 2 WEEKS AFTER INITIAL AND REPORT RESULTS TO MD OFFICE BEFORE 4 PM. 4. CBC AND CMP EVERY 3 MONTHS, LIPIDS, TSH, FREE T4 AND A1C EVERY 6 MONTHS 5. NO DILANTIN LEVEL AT THIS TIME, WILL BE ORDERED NEEDED 6. MEDICATIONS: HOLD DILANTIN DOSAGES FOR TODAY AND RESUME 08/17/2020. 7. FOLLOW FACILITY PROTOCOL FOR WEIGHTS AND V/S FOR NEW ADMITS. MEDICATIONS AT DISCHARGE: Amlodipine Besylate (Amlodipine Besylate 5 Mg Tablet) 5 mg PO DAILY REPLACED BY [facility] -- (NEW) Last Admin: 08/16/20 08:40 Dose: 5 mg Documented by: Ezetimibe (Ezetimibe 10 Mg Tablet) 10 mg PO DAILY REPLACED BY [facility] Last Admin: 08/16/20 08:40 Dose: 10 mg Ferrous Sulfate (Ferrous Sulfate 324 Mg Tablet.) 324 mg PO BID BREAKFAST&LUNCH REPLACED BY [facility] Last Admin: 08/16/20 08:40 Dose: 324 mg Pantoprazole Sodium (Pantoprazole Sodium 40 Mg Tablet.) 40 mg PO BIDAC REPLACED BY [facility] Last Admin: 08/16/20 05:43 Dose: 40 mg Phenytoin Sodium (Phenytoin Cap 100 Mg Capsule) 100 mg PO TID REPLACED BY [facility] -- HOLD 08/16/2020 AND RESUME 08/17/2020 Last Admin: 08/15/20 20:31 Dose: 100 mg Quinapril HCl (Quinapril Hcl 40 Mg Tablet) 40 mg PO BID REPLACED BY [facility] Last Admin: 08/16/20 08:40 Dose: 40 mg Simvastatin (Simvastatin 40 Mg Tablet) 40 mg PO QPM REPLACED BY [facility] Last Admin: 08/15/20 17:12 Dose: 40 mg Sucralfate (Sucralfate 1 Gm Tablet) 1 gm PO ACHS REPLACED BY [facility] Last Admin: 08/16/20 05:43 Dose: 1 gm Tizanidine HCl (Tizanidine Hcl 4 Mg Tablet) 4 mg PO BID REPLACED BY [facility] Last Admin: 08/16/20 08:40 Dose: 4 mg Warfarin Sodium (Warfarin Sodium 3 Mg Tablet) 3 mg PO QPM REPLACED BY [facility] Last Admin: 08/15/20 17:14 Dose: 3 mg NEW PRESCRIPTIONS: NORVASC 5 MG PO DAILY DISCONTINUED MEDICATIONS: NONE DIET INSTRUCTIONS: HEART HEALTHY, MAY HAVE ADDITIONAL FOODS AT TIMES CONSISTENT GREEN LEAFY VEGETABLES ACTIVITY: UP IN BEDSIDE CHAIR FOR MEALS AND PRN. ENCOURAGE TO BE UP IN THE CHAIR USES ELECTRIC SCOOTER TO TRAVEL FALL PRECAUTIONS (S/P RT AKA AND CVC) BLEEDING PRECAUTIONS (COUMADIN TREATMENT) PT, OT AND LABORER SHELLFISH PROCESSING EVAL AND TREAT SMOKING: SMOKING CESSATION DISEASE SPECIFIC EDUCATION: COAGULATION HYPERTENSION SEIZURES COVID 19 HYPONATREMIA HOSPITAL COURSE: This is a 74-year-old white male who was brought to the emergency room with increased confusion and increased weakness. He has a history of CVA with right hemiparesis, is wheelchair bound. Also has a right above-knee amputation with severe PAD. He suffers from chronic alcohol abuse, is found to be hyponatremic on admission with sodium of 127, again this is chronic. He was given IV fluids Normal Saline. Sodium came up to 133. CT of the brain showed no new CVA. Blood pressure was elevated along with INR which was 4.9 on admission. Coumadin was held. It is now down to 1.9 today. He has agreed to go to [facility] for some physical therapy. It would likely be best if he would stay there detention however he is rather noncompliant. I do not imagine that he will stay for long. He will resume his 3 mg of Coumadin daily. Dilantin level was done and was elevated at 20.3. Will hold his Dilantin for today then resume tomorrow. We did add Norvasc 5 mg p.o. daily for his blood pressure. He does have fall precautions. We will discharge him to [facility] with CBC, CMP and INR to be done on Sunday. We will follow with him there. TIME SPENT: More than 60 minutes. JOSE E
--- NOTE | 2020-08-17 11:58 | PN ---
DATE OF SERVICE: 08/12/20 SUBJECTIVE: The patient is seen and examined with the nurse practitioner. The patient's condition has improved. No new neurological deficit noted. He has right hemiparesis. Appetite is fair. Sodium has improved. Cardiovascular status stable. PLAN: Will do echocardiogram to evaluate LV function. CONDITION: Stable. The patient is DNR. TIME SPENT: More than 30 minutes. Plan and coordination of the patient's care discussed in the presence of nurse. JOSE E
--- NOTE | 2020-08-17 13:48 | PN ---
DATE OF SERVICE: 08/16/20 SUBJECTIVE: The patient was seen and examined with the nurse practitioner. The patient's condition is stable. His mental status has improved. No neurological deficit noted. The patient has right hemiparesis with stroke. The patient's blood pressure seems to be well-controlled. Yesterday echocardiogram showed normal LV contractility. The patient's condition is stable. Prognosis is guarded. Counseling for smoking done. TIME SPENT: More than 30 minutes. Plan and coordination of the patient's care discussed in the presence of nurse. JOSE E
--- NOTE | 2020-08-17 13:50 | PN ---
BILLING 08/11/20 ADMISSION DAY LEVEL 5 08/12/20 INTERMEDIATE 08/13/20 INTERMEDIATE 08/14/20 INTERMEDIATE 08/15/20 INTERMEDIATE FINAL DAY - D IN DISCHARGE MTDD
--- NOTE | 2020-08-25 08:37 | OTDC ---
Date of Evaluation:08/11/20 Diagnosis:[Hyponatremia, Weakness] Number of visits:[] Last Date of Service:[08/16/20] Reason For Discharge:[Pt discharged from the facility] Discharge Summary:[Pt discharged to home with home health.] JOSE E
== END 2020-08-16 15:11 | DRG 641 ==
LOC: ED 08:35 → MEDSURG A 10:56
PROVIDERS: ADMIT Internal Medicine; ATTEND Internal Medicine
DX: I69.351 Hemiplegia and hemiparesis following cerebral infarction affecting right dominant side; I10 Essential (primary) hypertension; Z89.611 Acquired absence of right leg above knee; Z20.822 Contact with and (suspected) exposure to COVID-19; E86.0 Dehydration; D68.9 Coagulation defect, unspecified; D64.9 Anemia, unspecified; E87.1 Hypo-osmolality and hyponatremia; R53.1 Weakness

== ENCOUNTER 2020-10-14 10:47 | Inpatient (IN) ==
[2020-10-14] MEDS ORDERED: SODIUM CHLORIDE 1,000 ML IV STA (10:57)
--- NOTE | 2020-10-14 11:05 | ED.PDOC ---
General ED Provider: Dr. NATALIE GOFF MD Chief Complaint: Syncope Stated Complaint: syncope Time Seen by Provider: 10/14/20 10:56 Primary Care Provider: GLADYS JUDD Nursing and Triage Documentation Reviewed and Agree: Yes Does patient meet sepsis criteria?: No System Inflammatory Response Syndrome: Not Applicable Sepsis Protocol: For patient's 13 years and over: Temp is 96.8 and below OR 101 and greater Pulse >90 BPM Resp >20/minute Acutely Altered Mental Status Are patient's symptoms suggestive of a new infection, such as: -Pneumonia -Skin, Soft Tissue -Endocarditis -UTI -Bone, Joint Infection -Implantable Device -Acute Abdominal Infection -Wound Infection -Meningitis -Blood Stream Catheter Infection -Unknown Neurological Complaint Exam Syncope/Near Syncope Complaint/Exam Onset/Duration: 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, no injury Symptoms Are: Resolved Episodes Lasting: Seconds Number of Episodes: SP 75 at ER Episodes Witnessed: Yes Loss of Consciousness: Yes Review of Systems Review Of Systems Constitutional: Denies Fever Eyes: Denies Vision change Ears, Nose, Mouth, Throat: Denies Throat pain Respiratory: Denies Cough, Short of air, Stridor and Wheezing Cardiac: Reports Syncope; Denies Chest pain GI: Denies Abdominal pain and Vomiting Musculoskeletal: Denies Back pain and Neck pain Skin: Denies Cyanosis Neurological: Denies Headache All Other Systems: Other PFSH Medical History Alcohol abuse Anemia COPD (chronic obstructive pulmonary disease) CVA (cerebral vascular accident) Depression Diverticulosis Dyslipidemia GERD (gastroesophageal reflux disease) Hemiparesis, right History of compression fracture of spine History of femur fracture History of pelvic fracture History of right above knee amputation Hypertension Noncompliance with treatment plan Recurrent falls Seizure Smoker Family History Mother Heart attack FATHER Lung cancer Social History Alcohol intake: current Alcohol intake frequency: 0-2 drinks per day Surgical History History of hip surgery Physical Exam Physical Exam Appearance: Reports No pain distress Ill-appearing: Mild Pain Distress: Not Applicable Eyes: Reports BRANDON, EOMI and Conjunctiva clear ENT: Reports Nose normal and Oropharynx normal Neck: Supple Respiratory: Reports Airway patent and Breath sounds clear Cardiovascular: Reports RRR GI/: Reports Soft and Nontender Musculoskeletal: Reports Other (hx right aka) Skin: Reports Warm Neurological: Reports Alert and Oriented Psychiatric: Reports Affect appropriate Interpretation Radiology Interpretation Radiology Interpretation By: Radiologist Radiology Results: No acute changes Exam Interpreted: CXR Radiology Interpretation By: Radiologist Radiology Results: No acute changes Exam Interpreted: CT Scan EKG Interpretation Time of EKG #1: 11:56 Rate: Hardik Rhythm: Sinus Interpretation: rbbb, no stemi Re-Evaluation Re-Evaluation Time of Re-Evaluation: 11:56 Status: Improved Vital Signs Stable: Yes Skin: Warm and Dry Neuro: Alert and Oriented X3 Critical Care Note Critical Care Note Total Critical Care Time (mins): 0 Course Course Hematology/Chemistry: 10/14/20 11:12 10/14/20 11:12 Orders, Labs, Meds: Lab Review 10/14/20 10/14/20 10/14/20 11:12 11:12 11:12 WBC 6.18 RBC 2.92 L Hgb 9.4 L Hct 28.0 L MCV 95.9 H MCH 32.2 H MCHC 33.6 RDW Coeff of Audrey 14.9 H Plt Count 331 Immature Gran % (Auto) 0.3 Neut % (Auto) 63.0 Lymph % (Auto) 26.4 Gooding % (Auto) 8.9 Eos % (Auto) 0.8 Baso % (Auto) 0.6 Neut # (Auto) 3.9 Lymph # (Auto) 1.6 Gooding # (Auto) 0.6 Eos # (Auto) 0.1 Baso # (Auto) 0.0 Immature Gran # (Auto) 0.0 PT 10.6 INR 1.00 Sodium 134.1 L Potassium 3.33 L Chloride 103.7 Carbon Dioxide 25.1 Anion Gap 8.63 BUN 12.9 Creatinine 1.03 Estimated GFR (MDRD) 70.00 BUN/Creatinine Ratio 12.52 Glucose 129.5 H Lactic Acid Calcium 8.66 Total Bilirubin 0.27 AST 16.7 L ALT 10.1 Alkaline Phosphatase 131.8 H Troponin I < 0.012 Total Protein 5.98 L Albumin 3.73 Globulin 2.25 Albumin/Globulin Ratio 1.65 10/14/20 11:12 WBC RBC Hgb Hct MCV MCH MCHC RDW Coeff of Audrey Plt Count Immature Gran % (Auto) Neut % (Auto) Lymph % (Auto) Gooding % (Auto) Eos % (Auto) Baso % (Auto) Neut # (Auto) Lymph # (Auto) Gooding # (Auto) Eos # (Auto) Baso # (Auto) Immature Gran # (Auto) PT INR Sodium Potassium Chloride Carbon Dioxide Anion Gap BUN Creatinine Estimated GFR (MDRD) BUN/Creatinine Ratio Glucose Lactic Acid 2.03 Calcium Total Bilirubin AST ALT Alkaline Phosphatase Troponin I Total Protein Albumin Globulin Albumin/Globulin Ratio Orders Category Date Time Status EKG-(ED ONLY) Stat CARDIO 10/14/20 10:57 Completed CBC W/ AUTO DIFF Stat LAB 10/14/20 11:12 Completed COMPREHENSIVE METABOLIC PANEL Stat LAB 10/14/20 11:12 Completed LACTIC ACID Stat LAB 10/14/20 11:12 Completed PT WITH INR Stat LAB 10/14/20 11:12 Completed RESPIRATORY PANEL 2.1 (PCR) Stat LAB 10/14/20 Ordered TROPONIN I Stat LAB 10/14/20 11:12 Completed URINALYSIS C & S IF INDICATED Stat LAB 10/14/20 10:57 Uncollected Sodium Chloride 0.9% [Sodium Chloride] 1,000 ml MEDS 10/14/20 10:57 Active IV BOLUS CHEST, 1V AP ONLY Stat RADS 10/14/20 10:[address] HEAD W/O CONTRAST Stat RADS 10/14/20 10:57 Completed Medications Generic Name Dose Route Start Last Admin Trade Name Freq PRN Reason Stop Dose Admin Sodium Chloride 1,000 mls @ 1,000 mls/hr 10/14/20 10:57 10/14/20 11:09 Sodium Chloride IV 10/14/20 11:56 1,000 mls/hr BOLUS STA Administration Vital Signs: Temp Pulse Resp BP Pulse Ox 10/14/20 10:50 96.4 F L 65 16 73/48 L 94 L Discharge Plan Discharge Patient Disposition: ADMITTED INPATIENT Discharge Problem: Syncope, Acute hypotension Prescriptions: No Action phenytoin sodium extended 100 MG capsule 100 mg PO TID RF: 0 quinapril 40 MG tablet 40 mg PO BID RF: 0 warfarin [Coumadin] 3 MG tablet 3 mg PO DAILY RF: 0 sucralfate 1 GM tablet 1 g PO QID RF: 0 pantoprazole 40 MG tablet,delayed release (DR/EC) 40 mg PO BID RF: 0 ferrous sulfate 325 MG tablet 325 mg PO BID BREAKFAST&LUNCH RF: 0 ezetimibe-simvastatin 1 EACH tablet 1 tab PO DAILY RF: 0 tizanidine [Zanaflex] 4 MG capsule 4 mg PO BID RF: 0 amlodipine [Norvasc] 5 mg Tablet 5 mg PO DAILY Qty: 30 RF: 0 clonidine HCl 0.1 mg tablet 0.1 mg PO BID Qty: 14 RF: 0 ED Provider: NATALIE GOFF Condition: Stable Physician Progress Note: []full admit to tele d/w Dr Judd, dx hypotension and syncope
[2020-10-14 11:18] LABS: BASOPHILS % (AUTO) 0.6 % (0.0-3.0); EOSINOPHILS # (AUTO) 0.1 K/ul (0.0-0.7); EOSINOPHILS % (AUTO) 0.8 % (0.0-7.0); HEMOGLOBIN 9.4 g/dl (14.0-18.0); IMMATURE GRANULOCYTE % (AUTO) 0.3 % (0.0-5.0); LYMPHOCYTES # (AUTO) 1.6 K/uL (0.60-3.4); LYMPHOCYTES % (AUTO) 26.4 (10.0-50.0); MEAN CORPUSCULAR HEMOGLOBIN 32.2 pg (27.0-31.0); MEAN CORPUSCULAR HGB CONC 33.6 (31.8-35.4); MEAN CORPUSCULAR VOLUME 95.9 fl (80.0-94.0); MONOCYTES # (AUTO) 0.6 K/uL (0.4-2.0); MONOCYTES % (AUTO) 8.9 (0-10); NEUTROPHILS # (AUTO) 3.9 K/ul (2.0-6.9); PLATELET COUNT 331 10^3/uL (140-440); RDW COEFFICIENT OF VARIATION 14.9 % (11.6-14.8); RED BLOOD COUNT 2.92 10^6/ul (4.70-6.10); WHITE BLOOD COUNT 6.18 K/ul (4.2-10.2)
[2020-10-14 11:28] LABS: PROTHROMBIN TIME 10.6 SEC (9.3-11.0)
[2020-10-14 11:29] LABS: ALANINE AMINOTRANSFERASE 10.1 U/L (0-50); ALBUMIN 3.73 g/dL (3.5-5.0); ALKALINE PHOSPHATASE 131.8 U/L (56-119); ASPARTATE AMINO TRANSFERASE 16.7 U/L (17-59); BILIRUBIN,TOTAL 0.27 mg/dL (0.2-1.3); BLOOD UREA NITROGEN 12.9 mg/dL (9-20); CALCIUM 8.66 mg/dL (8.4-10.2); CARBON DIOXIDE 25.1 mmol/L (22-30.0); CHLORIDE 103.7 mmol/L (98-107); CREATININE 1.03 mg/dL (0.60-1.10); GLUCOSE 129.5 mg/dL (74-106); POTASSIUM 3.33 mmol/L (3.5-5.1); SODIUM 134.1 mmol/L (134.5-145); TOTAL PROTEIN 5.98 g/dL (6.3-8.2)
--- NOTE | 2020-10-14 11:31 | DI ---
EXAM: CHEST FRONTAL VIEW HISTORY: Syncope COMPARISON: 08/11/2020 FINDINGS: Prominent heart size and atherosclerotic disease are again noted and stable. There are sc attered calcifications suggesting old granulomatous disease. No acute infiltrates are seen. No vasc ular congestion. There is no consolidation, visible pleural fluid or pneumothorax. Bones reveal no acute fracture. IMPRESSION: No acute cardiopulmonary process.
[2020-10-14 11:43] LABS: TROPONIN I < 0.012 ng/ml (0.0000-0.120)
--- NOTE | 2020-10-14 11:46 | CT ---
EXAM: CT head without contrast TECHNIQUE: Noncontrast CT of the head with multiple reformats. HISTORY: Syncope. COMPARISON: CT head 10/01/2020. FINDINGS: No acute hemorrhage. No evidence of acute infarction. No brain herniation. Patent basilar cisterns. No hydrocephalus. Unchanged appearance of large area of encephalomalacia and gliosis in the left middle cerebral artery territory. Moderate diffuse brain volume loss. Moderate additional white matter hypodensities like ly reflecting chronic microvascular ischemic changes. Calcific atherosclerosis of the carotid siphons. IMPRESSION: 1. No acute intracranial abnormality. 2. Chronic changes as described, including prior left MCA territory infarction. All CT scans are performed using dose optimization techniques as appropriate to the performed exam an d include at least one of the following: Automated exposure control, adjustment of the mA and/or kV according t o size, and the use of iterative reconstruction technique.
[2020-10-14] MEDS ORDERED: SODIUM CHLORIDE 1,000 ML IV SCH (12:00)
[2020-10-14 12:07] LABS: BORDETELLA PARAPERTUSSIS (PCR) NOT DETECTED (NOT DETECT); BORDETELLA PERTUSSIS (PCR) NOT DETECTED (NOT DETECT); CHLAMYDIA PNEUMONIAE (PCR) NOT DETECTED (NOT DETECT); CORONAVIRUS 229E (PCR) NOT DETECTED (NOT DETECT); CORONAVIRUS HKU1 (PCR) NOT DETECTED (NOT DETECT); CORONAVIRUS NL63 (PCR) NOT DETECTED (NOT DETECT); CORONAVIRUS OC43 (PCR) NOT DETECTED (NOT DETECT); HUMAN METAPNEUMOVIRUS (PCR) NOT DETECTED (NOT DETECT); HUMAN RHINOVIRUS/ENTEROV (PCR) NOT DETECTED (NOT DETECT); INFLUENZA B (PCR) NOT DETECTED (NOT DETECT); MYCOPLASMA PNEUMONIAE (PCR) NOT DETECTED (NOT DETECT); PARAINFLUENZA VIRUS 1 (PCR) NOT DETECTED (NOT DETECT); PARAINFLUENZA VIRUS 2 (PCR) NOT DETECTED (NOT DETECT); PARAINFLUENZA VIRUS 3 (PCR) NOT DETECTED (NOT DETECT); PARAINFLUENZA VIRUS 4 (PCR) NOT DETECTED (NOT DETECT); RESPIRATORY SYNCYTIAL V (PCR) NOT DETECTED (NOT DETECT); SARS_COV_2 (PCR) NOT DETECTED (NOT DETECT)
[2020-10-14 12:56] LABS: ADENOVIRUS (PCR) NOT DETECTED (NOT DETECT)
[2020-10-14 14:08] VITALS: BMI 19.1
[2020-10-14 15:48] LABS: BILIRUBIN,URINE Negative (NEGATIVE); CLARITY,URINE Slightly (CLEAR); COLOR,URINE Yellow (YELLOW); GLUCOSE, URINE (UA) Negative (NEGATIVE); KETONES,URINE Negative (NEGATIVE); LEUKOCYTE ESTERASE ,URINE Negative (NEGATIVE); NITRITE,URINE Negative (NEGATIVE); PROTEIN,URINE Negative (NEGATIVE); URINE, BLOOD Trace-intact (NEGATIVE); UROBILINOGEN,URINE 0.2 (0.2)
[2020-10-14 15:54] LABS: BACTERIA,URINE 3+ (NOT PRESENT)
[2020-10-14] MEDS: DILANTIN PO SCH ×2 (15:58→20:52)
[2020-10-14] MEDS ORDERED: CATAPRES PO PRN (16:20)
[2020-10-14] MEDS ORDERED: COUMADIN PO SCH (17:00)
[2020-10-14] MEDS ORDERED: ATIVAN PO PRN (17:28)
[2020-10-14] MEDS: PROTONIX PO SCH (17:35)
[2020-10-14] MEDS: K-DUR PO SCH (17:35)
[2020-10-14] MEDS: CARAFATE PO SCH ×2 (17:35→20:52)
[2020-10-14] MEDS: ACCUPRIL PO SCH (20:52)
[2020-10-14] MEDS: ZANAFLEX PO SCH (20:52)
[2020-10-14] MEDS: NICODERM 21 MG TD SCH (20:54)
[2020-10-14] MEDS ORDERED: TIZANIDINE 4 MG PO SCH (21:00)
[2020-10-14] MEDS ORDERED: ROCEPHIN 1 GM/50 ML D5W 1 GM/50 ML BAG IV SCH (21:00)
[2020-10-14] MEDS ORDERED: CATAPRES PO SCH (21:00)
[2020-10-15 05:25] LABS: BASOPHILS % (AUTO) 0.3 % (0.0-3.0); EOSINOPHILS # (AUTO) 0.1 K/ul (0.0-0.7); HEMATOCRIT 26.3 % (42.0-52.0); HEMOGLOBIN 8.9 g/dl (14.0-18.0); IMMATURE GRANULOCYTE % (AUTO) 0.3 % (0.0-5.0); LYMPHOCYTES # (AUTO) 1.1 K/uL (0.60-3.4); LYMPHOCYTES % (AUTO) 18.9 (10.0-50.0); MEAN CORPUSCULAR HEMOGLOBIN 32.5 pg (27.0-31.0); MEAN CORPUSCULAR HGB CONC 33.8 (31.8-35.4); MONOCYTES # (AUTO) 0.5 K/uL (0.4-2.0); MONOCYTES % (AUTO) 8.4 (0-10); NEUTROPHILS # (AUTO) 4.3 K/ul (2.0-6.9); NEUTROPHILS % (AUTO) 71.1 % (42.2-75.2); PLATELET COUNT 309 10^3/uL (140-440); RDW COEFFICIENT OF VARIATION 14.8 % (11.6-14.8); RED BLOOD COUNT 2.74 10^6/ul (4.70-6.10); WHITE BLOOD COUNT 5.98 K/ul (4.2-10.2)
[2020-10-15] MEDS: CARAFATE PO SCH ×4 (05:49→21:13)
[2020-10-15] MEDS: PROTONIX PO SCH ×2 (05:50→16:57)
[2020-10-15 06:22] LABS: PROTHROMBIN TIME 10.7 SEC (9.3-11.0)
[2020-10-15 07:00] LABS: ALANINE AMINOTRANSFERASE 7.3 U/L (0-50); ALBUMIN 3.05 g/dL (3.5-5.0); ASPARTATE AMINO TRANSFERASE 15.6 U/L (17-59); BILIRUBIN,TOTAL 0.17 mg/dL (0.2-1.3); BLOOD UREA NITROGEN 11.6 mg/dL (9-20); CALCIUM 8.46 mg/dL (8.4-10.2); CARBON DIOXIDE 23.9 mmol/L (22-30.0); CHLORIDE 106.1 mmol/L (98-107); GLUCOSE 97.8 mg/dL (74-106); POTASSIUM 3.92 mmol/L (3.5-5.1); SODIUM 134.5 mmol/L (134.5-145); TOTAL PROTEIN 5.35 g/dL (6.3-8.2)
--- NOTE | 2020-10-15 08:13 | HP ---
DATE OF SERVICE: 10/14/20 HISTORY OF PRESENT ILLNESS: 75-year-old white male who was seen in our office for suture removal on the left forehead. While in our office he had a syncopal episode, required sternal rub, was incontinent, stopped breathing. He stated he hadn't been feeling well. He woke up, did regain consciousness while in the office, episode lasted about 30 seconds. With stimulation he regained coconsciousness. We have taken him to the emergency room for further evaluation. PAST MEDICAL HISTORY: Severe peripheral arterial disease History of L2 compression fracture for current falls History of pelvic fracture Right upper lobe nodule GERD Hypertension BPH Anemia Dyslipidemia History of CVA with right hemiparesis Depression History of pancreatitis related to alcoholism History of alcohol abuse COPD Heavy smoker Left ICA stenosis Laceration left forehead with three sutures intact PAST SURGICAL HISTORY: Right [id number] amputation due to severe PAD History of prostate surgery REVIEW OF SYSTEMS: CONSTITUTIONAL: Positive for fatigue, weakness, pallor. No night sweats. No malaise, lethargy. No fever or chills. HEENT: Eyes: No visual changes. No eye pain. No eye discharge. ENT: No runny nose. No epistaxis. No sinus pain. No sore throat. No odynophagia. No ear pain. No congestion. RESPIRATORY: No cough, no congestion. No hemoptysis. No shortness of breath. CARDIOVASCULAR: No angina symptoms. No CHF symptoms. No atypical chest pain for CAD. No palpitations. No PND. No orthopnea. GASTROINTESTINAL: No abdominal pain. No nausea or vomiting. No diarrhea or constipation. No hematemesis. No hematochezia. GENITOURINARY: No urgency. No frequency. No dysuria. No hematuria. No obstructive symptoms. No discharge. No pain. No significant abnormal bleeding. MUSCULOSKELETAL: No musculoskeletal pain. No joint swelling. No arthritis. NEUROLOGICAL: Syncope. No headache. No neck pain. No seizures. No dizziness. PSYCHIATRIC: Not anxious. No depression. No suicidal thoughts. No homicidal thoughts. SKIN: No rash. No lesions. No wounds. ENDOCRINE: No unexplained weight loss. No weight gain. HEMATOLOGIC/LYMPHATIC: No anemia. No purpura. No petechiae. No prolonged or excessive bleeding. No palpable lymph nodes. PERSONAL/FAMILY/SOCIAL HISTORY: Currently he lives by himself. He does not drive. He uses a motorized wheelchair. Denies any drug use. He is a heavy drinker and a heavy smoker. He has had several falls in the past few months in which someone has found him and he has hit his head and had significant bleeding. He has a history of noncompliance with his medications, lifestyle, diet, followup. MEDICATIONS: Phenytoin sodium 100 mg p.o. t.i.d. Warfarin 3 mg p.o. daily Quinapril 40 mg p.o. b.i.d. Sucralfate 1 gm p.o. q.i.d. Pantoprazole 40 mg p.o. b.i.d. Ferrous Sulfate 325 mg p.o. b.i.d. breakfast and lunch Ezetimibe-Simvastatin 10-40 mg one tab p.o. daily Tizanidine (Zanaflex) 4 mg p.o. b.i.d. Amlodipine (Norvasc) 5 mg p.o. daily Clonidine 0.1 mg p.o. b.i.d. ALLERGIES: NKDA PHYSICAL EXAMINATION: VITAL SIGNS: Heart rate 88, respirations 12, blood pressure 100/58, temperature 97.3, 02 sat 96%. GENERAL: Pallor positive, clammy. HEENT: Head normocephalic, atraumatic. Eyes: Extraocular muscles are intact. Pupils are equal, round and reactive to light and accommodation. Ears: No lesions. Nose appeared normal. Throat: No exudate or erythema. NECK: Supple. No JVD, no carotid bruit. No lymphadenopathy or thyromegaly. LUNGS: Severely diminished breath sounds. Clear to auscultation. Percussion note normal. Chest symmetrical. HEART: Regular heart rate. S1, S2, no S3. No murmur. No cyanosis or clubbing. No ascites. Pulses: Dorsalis pedis and posterior tibial pulses +1 to +2 bilaterally. ABDOMEN: Soft. Nontender. Bowel sounds active. No CVA tenderness. No mass felt. EXTREMITIES: No edema. Full range of motion of all extremities, equal. NEUROLOGIC: No focal deficit. Cranial nerves II through XII are grossly intact. No headache, no double vision or headache. SKIN: Not dry. Intact. Turgor - normal. LYMPHATIC: No palpable lymph nodes/no lymphedema. MUSCULOSKELETAL: Normal joints with no swelling. Muscle tone is normal. INR 1.0, white count 6.18, hemoglobin 9.4, hematocrit 28, platelets 331. Chest x-ray shows no acute process. CT of the brain shows no acute abnormality. Previous left MCA infarction. Sodium 134, potassium 3.3, BUN 12, creatinine 1.03. AST 16, ALT 10, total troponin 5.9, alk phosphatase 131, lactic acid 2.03. ASSESSMENT: 1. SYNCOPAL EPISODE 2. GENERALIZED WEAKNESS 3. HISTORY OF CVA 4. ANEMIA PLAN: 1. We will admit. 2. Routine telemetry orders. 3. CBC, CMP, INR daily. 4. 6 mg of Coumadin today as he does normally take 3 mg. It is to be noted that he has sutures intact on his left forehead from a previous fall with laceration. His INR had been elevated at 4.2 on 10/07. He was instructed to hold his Coumadin until this past Sunday which would have been 10/10 and restart on 10/10. He did not do that apparently and so today his INR is 1.0. So today we will give 6 mg of Coumadin and repeat INR in the morning. 5. Normal Saline IV at 75 cc/hr. 6. Start potassium mEq 20 b.i.d. p.o. 7. 1 cc Decadron IM. 8. Continue other home medications. 9. Protonix 40 mg b.i.d. 10. Hold blood pressures as systolic less than 110. 11. Fall precautions. 12. Regular diet. 13. Oxygen at 1 to 2L via nasal cannula. 14. Follow closely. TIME SPENT: More than [address] [facility]
[2020-10-15] MEDS ORDERED: NON-FORMULARY MEDICATION (Ferrous Sulfate 325 MG tablet) PO SCH ×2 (08:30)
[2020-10-15] MEDS ORDERED: EZETIMIBE SIMVASTATIN PO SCH (09:00)
[2020-10-15] MEDS ORDERED: COUMADIN PO ONE ×5 (10:00→17:00)
[2020-10-15] MEDS: CATAPRES PO SCH ×2 (11:02→21:13)
[2020-10-15] MEDS: DILANTIN PO SCH ×3 (11:02→21:13)
[2020-10-15] MEDS: K-DUR PO SCH ×2 (11:02→16:56)
[2020-10-15] MEDS: ZANAFLEX PO SCH ×2 (11:03→21:13)
[2020-10-15] MEDS: ACCUPRIL PO SCH ×2 (11:03→21:12)
[2020-10-15] MEDS: ZOCOR PO SCH (11:03)
[2020-10-15] MEDS: NORVASC PO SCH (11:03)
[2020-10-15] MEDS: ZETIA PO SCH (11:03)
[2020-10-15] MEDS: FERROUS SULFATE PO SCH ×2 (11:27→13:30)
--- NOTE | 2020-10-15 11:49 | PCM.PROG ---
Attending Provider: ATTENDING PROVIDER: Dr. GLADYS BRUNO DATE OF SERVICE: 10/15/20 SUBJECTIVE: This 75 year old /WHITE M was hospitalized 10/14/20 with hypotension and syncopal episode. The patient was at the office at this time being examined. He was sent to the emergency room. Entire cardiac workup was negative for any acute event. The patient is alert and seem to be oriented to place. Oral intact is normal, 100% yesterday. REVIEW OF SYSTEMS: CONSTITUTIONAL: No night sweats. No fatigue, malaise, lethargy. No fever or chills. HEENT: Eyes: No visual changes. No eye pain. No eye discharge. ENT: No runny nose. No epistaxis. No sinus pain. No odynophagia. No congestion. RESPIRATORY: No cough, no congestion. No hemoptysis. No shortness of breath. CARDIOVASCULAR: No angina symptoms. No CHF symptoms. No atypical chest pain for CAD. No palpitations. No orthopnea.. GASTROINTESTINAL: No abdominal pain. No nausea or vomiting. No diarrhea or constipation. No hematemesis. No hematochezia. GENITOURINARY: No urgency. No frequency. No dysuria. No hematuria. No obstruc tive symptoms. No discharge. No pain. No significant abnormal bleeding. MUSCULOSKELETAL: No musculoskeletal pain; no joint swelling. NEUROLOGICAL: Awake, alert, oriented to time, place and person. No headache. No neck pain. No syncope. No seizures. No dizziness. PSYCHIATRIC: Not anxious. No depression. No suicidal thoughts. No homicidal thoughts. SKIN: No rash. No lesions. No wounds. ENDOCRINE: No unexplained weight loss. No weight gain. HEMATOLOGIC/LYMPHATIC: No anemia. No purpura. No petechiae. No prolonged or excessive bleeding. No palpable lymph nodes. PHYSICAL EXAMINATION: GENERAL: The patient is awake, alert and oriented, lying in bed in no distress. VITAL SIGNS: Temperature 97.4 F, Pulse 63, Respiratory Rate 18, BP 162/80, Pulse Ox 97% HEENT: Head normocephalic, atraumatic. Eyes: Extraocular muscles are intact. Pupils are equal, round and reactive to light and accommodation. Ears: No lesions. Nose appeared normal. Throat: No exudate or erythema. NECK: Supple. No JVD, no carotid bruit. No lymphadenopathy or thyromegaly. LUNGS: Clear to auscultation. Percussion note normal. Chest symmetrical. HEART: S1, S2, no S3. Grade II/ systolic murmurs. No cyanosis or clubbing. No ascites. Pulses: Dorsalis pedis and posterior tibial pulses +1 to +2 both sides. ABDOMEN: Soft. Non-tender. Bowel sounds active. No CVA tenderness. No mass felt. EXTREMITIES: No edema. Full range of motion of all extremities, equal. Contracture of left upper extremity. NEUROLOGIC: No focal deficit. Cranial nerves II through XII are grossly intact. No headache, no double vision or headache. SKIN: Warm and dry. Intact. Turgor-normal. LYMPHATIC: No palpable lymph nodes/no lymphedema. MUSCULOSKELETAL: Normal joints with no swelling. Muscle tone is normal. LAB REVIEW: 10/15/20 02:06 10/15/20 02:06 10/15/20 02:06: PT 10.7, INR 1.01 10/15/20 02:06: Sodium 134.5, Potassium 3.92, Chloride 106.1, Carbon Dioxide 23.9, Anion Gap 8.42, BUN 11.6, Creatinine 1.00, Estimated GFR (MDRD) 73.00, BUN/Creatinine Ratio 11.60, Glucose 97.8, Calcium 8.46, Total Bilirubin 0.17 L, AST 15.6 L, ALT 7.3, Alkaline Phosphatase 114.0, Total Protein 5.35 L, Albumin 3.05 L, Globulin 2.30, Albumin/Globulin Ratio 1.32 10/15/20 02:06: WBC 5.98, RBC 2.74 L, Hgb 8.9 L, Hct 26.3 L, MCV 96.0 H, MCH 32.5 H, MCHC 33.8, RDW Coeff of Audrey 14.8, Plt Count 309, Immature Gran % (Auto) 0.3, Neut % (Auto) 71.1, Lymph % (Auto) 18.9, [place] % (Auto) 8.4, Eos % (Auto) 1.0, Baso % (Auto) 0.3, Neut # (Auto) 4.3, Lymph # (Auto) 1.1, [place] # (Auto) 0.5, Eos # (Auto) 0.1, Baso # (Auto) 0.0, Immature Gran # (Auto) 0.0 07/23/21 02:06: Troponin I < 0.012 10/14/20 18:18: Troponin I < 0.012 10/14/20 15:38: Urine Color Yellow, Urine Clarity Slightly, Urine pH 7.0, Ur Specific [place] 1.020, Urine Protein Negative, Urine Glucose (UA) Negative, Urine Ketones Negative, Urine Blood Trace-intact H, Urine Nitrite Negative, Urine Bilirubin Negative, Urine Urobilinogen 0.2, Ur Leukocyte Esterase Negativ e, Urine Microscopic RBC 10-20, Urine Microscopic WBC 2-5, Ur Squamous Epith Cells 2-5, Urine Bacteria 3+ 10/14/20 11:55: Adenovirus (PCR) Not detected, B. pertussis DNA (PCR) Not detected, B.parapertussis DNA PCR Not detected, C. pneumoniae DNA (PCR) Not detected, Coronavirus OC43 (PCR) Not detected, Coronavirus HKU1 (PCR) Not detected, Coronavirus 229E (PCR) Not detected, Coronavirus NL63 (PCR) Not detected, Human Metapneumovir PCR Not detected, Influenza Type A (PCR) Not detected, Influenza B (RT-PCR) Not detected, M. pneumoniae (PCR) Not detected, Parainfluenza 1 (PCR) Not detected, Parainfluenza 2 (PCR) Not detected, Parainfluenza 3 (PCR) Not detected, Parainfluenza 4 (PCR) Not detected, RSV (PCR) Not detected, Entero/Rhino (PCR) Not detected, SARS-CoV-2 (PCR) Not detected 10/14/20 11:12: Lactic Acid 2.03 10/14/20 11:12: Sodium 134.1 L, Potassium 3.33 L, Chloride 103.7, Carbon Dioxide 25.1, Anion Gap 8.63, BUN 12.9, Creatinine 1.03, Estimated GFR (MDRD) 70.00, BUN/Creatinine Ratio 12.52, Glucose 129.5 H, Calcium 8.66, Total Bilirubin 0.27, AST 16.7 L, ALT 10.1, Alkaline Phosphatase 131.8 H, Troponin I < 0.012, Total Protein 5.98 L, Albumin 3.73, Globulin 2.25, Albumin/Globulin Ratio 1.65 10/14/20 11:12: PT 10.6, INR 1.00 10/14/20 11:12: WBC 6.18, RBC 2.92 L, Hgb 9.4 L, Hct 28.0 L, MCV 95.9 H, MCH 32.2 H, MCHC 33.6, RDW Coeff of Audrey 14.9 H, Plt Count 331, Immature Gran % (A uto) 0.3, Neut % (Auto) 63.0, Lymph % (Auto) 26.4, [place] % (Auto) 8.9, Eos % (Auto) 0.8, Baso % (Auto) 0.6, Neut # (Auto) 3.9, Lymph # (Auto) 1.6, [place] # (Auto) 0.6, Eos # (Auto) 0.1, Baso # (Auto) 0.0, Immature Gran # (Auto) 0.0 ASSESSMENT: Please see below. 1. Hypotension, etiology unknown could be related to medication effects 2. Hydration status improved. 3. No new neurological deficit. All scans were negative. PLAN: 1. Restart all medications 2. Monitor telemetry but he does not want telemetry 3. The patient is uncooperative 4. Restart all medication 5. Remove sutures 6. 10mg Coumadin today Plan and coordination of the patient's care discussed in the presence of Lead Cytogenetic Technologist and nurse. CONDITION: Stable. SCRIBED BY: Ezekiel OSPINA scribed while in presence of service performed by Dr. GLADYS BRUNO on 10/15/20 ([id number])
[2020-10-15] MEDS ORDERED: CATAPRES PO SCH (21:00)
[2020-10-15] MEDS ORDERED: ROCEPHIN 1 GM/50 ML D5W 1 GM/50 ML BAG IV SCH (21:00)
[2020-10-15] MEDS: NICODERM 21 MG TD SCH (21:13)
[2020-10-16 05:27] LABS: BASOPHILS % (AUTO) 0.3 % (0.0-3.0); EOSINOPHILS # (AUTO) 0.1 K/ul (0.0-0.7); EOSINOPHILS % (AUTO) 1.1 % (0.0-7.0); HEMATOCRIT 29.3 % (42.0-52.0); HEMOGLOBIN 10.1 g/dl (14.0-18.0); IMMATURE GRANULOCYTE % (AUTO) 0.6 % (0.0-5.0); LYMPHOCYTES # (AUTO) 1.5 K/uL (0.60-3.4); LYMPHOCYTES % (AUTO) 20.7 (10.0-50.0); MEAN CORPUSCULAR HGB CONC 34.5 (31.8-35.4); MEAN CORPUSCULAR VOLUME 95.8 fl (80.0-94.0); MONOCYTES # (AUTO) 0.6 K/uL (0.4-2.0); MONOCYTES % (AUTO) 8.6 (0-10); NEUTROPHILS # (AUTO) 4.9 K/ul (2.0-6.9); NEUTROPHILS % (AUTO) 68.7 % (42.2-75.2); PLATELET COUNT 293 10^3/uL (140-440); RED BLOOD COUNT 3.06 10^6/ul (4.70-6.10); WHITE BLOOD COUNT 7.06 K/ul (4.2-10.2)
[2020-10-16 05:36] LABS: PROTHROMBIN TIME 15.5 SEC (9.3-11.0)
[2020-10-16 05:46] LABS: ALANINE AMINOTRANSFERASE 8.1 U/L (0-50); ALBUMIN 3.65 g/dL (3.5-5.0); ALKALINE PHOSPHATASE 125.2 U/L (56-119); ASPARTATE AMINO TRANSFERASE 18.9 U/L (17-59); BILIRUBIN,TOTAL 0.22 mg/dL (0.2-1.3); BLOOD UREA NITROGEN 14.2 mg/dL (9-20); CALCIUM 9.02 mg/dL (8.4-10.2); CARBON DIOXIDE 25.4 mmol/L (22-30.0); CHLORIDE 102.1 mmol/L (98-107); CREATININE 0.94 mg/dL (0.60-1.10); GLUCOSE 90.9 mg/dL (74-106); POTASSIUM 4.97 mmol/L (3.5-5.1); SODIUM 132.1 mmol/L (134.5-145); TOTAL PROTEIN 6.01 g/dL (6.3-8.2)
[2020-10-16] MEDS: PROTONIX PO SCH (05:58)
[2020-10-16] MEDS: CARAFATE PO SCH ×2 (05:58→12:19)
[2020-10-16] MEDS: CATAPRES PO SCH (09:19)
[2020-10-16] MEDS: NORVASC PO SCH (09:19)
[2020-10-16] MEDS: K-DUR PO SCH (09:19)
[2020-10-16] MEDS: ACCUPRIL PO SCH (09:19)
[2020-10-16] MEDS: ZETIA PO SCH (09:19)
[2020-10-16] MEDS: ZANAFLEX PO SCH (09:19)
[2020-10-16] MEDS: ZOCOR PO SCH (09:19)
[2020-10-16] MEDS: FERROUS SULFATE PO SCH ×2 (09:20→12:19)
[2020-10-16] MEDS: DILANTIN PO SCH ×2 (09:20→14:08)
[2020-10-16 10:25] VITALS: BP 105/64; TEMP 97.2
[2020-10-16] MEDS ORDERED: COUMADIN PO ONE ×2 (13:26→17:00)
--- NOTE | 2020-10-19 10:43 | PN ---
DATE OF SERVICE: 10/16/2020 SUBJECTIVE: 75 year old white male hospitalized with syncopal episode. The patient had hypotension with syncopal episode. The patient in the emergency room was worked up and was noted to be dehydrated. He is also on multiple medication for hypertension that could have altered this hydration status with hypotension. The patient's initial workup for acute myocardial event was negative. REVIEW OF SYSTEMS: CONSTITUTIONAL: No night sweats. No fatigue, malaise, lethargy. No fever or chills. The patient wants to go home. Feeling better. HEENT: Eyes: No visual changes. No eye pain. No eye discharge. ENT: No runny nose. No epistaxis. No sinus pain. No sore throat. No odynophagia. No congestion. RESPIRATORY: No cough, no congestion. No hemoptysis. No shortness of breath. CARDIOVASCULAR: No angina symptoms. No CHF symptoms. No atypical chest pain for CAD. No palpitations. No PND. No orthopnea. GASTROINTESTINAL: No abdominal pain. No nausea or vomiting. No diarrhea or constipation. No hematemesis. No hematochezia. GENITOURINARY: No urgency. No frequency. No dysuria. No hematuria. No obstructive symptoms. No discharge. No pain. No significant abnormal bleeding. MUSCULOSKELETAL: No musculoskeletal pain; no joint swelling. NEUROLOGICAL: No headache. No neck pain. No syncope. No seizures. No dizziness. PSYCHIATRIC: Not anxious. No depression. No suicidal thoughts. No homicidal thoughts. SKIN: No rash. No lesions. No wounds. ENDOCRINE: No unexplained weight loss. No weight gain. HEMATOLOGIC/LYMPHATIC: No anemia. No purpura. No petechiae. No prolonged or excessive bleeding. No palpable lymph nodes. PHYSICAL EXAMINATION: VITAL SIGNS: Temperature 97.8, pulse 60, respiratory rate 18, blood pressure 150/76 and pulse ox 98% on room air. HEENT: Head normocephalic, atraumatic. Eyes: Extraocular muscles are intact. Pupils are equal, round and reactive to light and accommodation. Ears: No lesions. Nose appeared normal. Throat: No exudate or erythema. NECK: Supple. No JVD, no carotid bruit. No lymphadenopathy or thyromegaly. LUNGS: Decreased breath sounds but clear to auscultation. Percussion note normal. Chest symmetrical. HEART: S1, S2, no S3. No murmurs. No cyanosis or clubbing. No ascites. Pulses: Dorsalis pedis and posterior tibial pulses +1 to +2 bilaterally. ABDOMEN: Soft. Nontender. Bowel sounds active. No CVA tenderness. No mass felt. EXTREMITIES: No edema. Full range of motion of all extremities, equal. NEUROLOGIC: No focal deficit. Cranial nerves II through XII are grossly intact. No headache. No double vision. SKIN: Not dry. Intact. Turgor - normal. LYMPHATIC: No palpable lymph nodes/no lymphedema. MUSCULOSKELETAL: Normal joints with no swelling. Muscle tone is normal. LABS: Hgb 10.1, hct 29, WBC 7,000 normal differential, creatinine 0.9, BUN 14, potassium 4.9 ASSESSMENT: 1. Syncopal episode with no evidence of cardiac arrhythmia or stroke. 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 No seizure activity noted. Rhythm is the same as before. No arrhythmia on telemetry noted. PLAN: 1. The patient is going be discharged home. 2. The patient is going to be given Coumadin 6mg extra dose and after discharge he is supposed to take 3mg daily. The patient's INR dropped because it was elevated with his head injury and chronic oozing of blood so he was taken off Coumadin. The patient's condition is stable. Neurological status is stable. The patient is DNR. TIME SPENT: More than 30 minutes. Plan and coordination of the patient's care discussed in the presence of nurse. JOSE E
--- NOTE | 2020-10-20 09:58 | DS ---
DATE OF SERVICE: 10/16/20 FINAL DIAGNOSIS: 1. SYNCOPE 2. HYPOTENSION 3. LIKELY DEHYDRATION WITH MEDICATION EFFECT 4. GENERALIZED WEAKNESS 5. HISTORY OF CVA 6. ANEMIA DISCHARGE INSTRUCTIONS: 1, Followup appointment as an outpatient in 5 to 7 days. 2, Resume all home medications as taken prior to admission. 3. Do not take your Coumadin today 10/16/20. MEDICATIONS AT DISCHARGE: The patient is advised to continue the same medications as before: Dilantin 100 mg t.i.d. Quinapril 40 mg b.i.d. Coumadin 3 mg daily Ezetimibe-Simvastatin combination one a day Iron pill Pantoprazole Carafate Zanaflex Amlodipine Clonidine DIET INSTRUCTIONS: Heart Healthy ACTIVITY: As patient tolerates SMOKING: Smoker - counseling for smoking done. DISEASE SPECIFIC EDUCATION: Smoking cessation Syncope in older adults Followup Medications HOSPITAL COURSE: 75-year-old white male was being seen in the office for removal of sutures for the laceration in the left temporal area. The patient during that time had hypotension with syncopal episode. He was unresponsive for a few minutes then rushed to the emergency room where his cardiac status was found to be stable with no evidence of acute myocardial event. The patient's neurological status was stable. CT scan didn't show any acute findings. Telemetry did not show any arrhythmias. During the stay in the hospital neurological status remained unchanged. He was given IV fluids. He was taken off antihypertensive medications. Slowly his blood pressure started coming up. He was restarted on all his medications. At time of discharge, the patient was feeling fine. His VP RESEARCH status was unchanged. His appetite had improved. Blood pressure systolic has been found to be between 130 to 160. No bradyarrhythmias of any significance or tachy arrhythmias of any significance were noted. At time of discharge, stable. He is to be followed as an outpatient in 5 to 7 days. Labs on discharge, hemoglobin 10.1, hematocrit 29, WBC 7,000, normal differential. Creatinine 0.9, BUN 14, potassium 4.9. Covid negative. Troponin negative. GFR 78 cc/min. INR 1.45 on discharge. He was given 6 mg extra Coumadin before discharge. He is advised to continue 3 mg daily. TIME SPENT: More than 60 minutes. [facility]
--- NOTE | 2020-10-20 10:26 | PN ---
BILLING 10/14/20 ADMISSION DAY LEVEL 5 10/15/20 INTERMEDIATE 10/16/20 FINAL DAY - DISCHARGE JOSE E
== END 2020-10-16 14:17 | disposition home or self-care (01) | DRG 312 ==
LOC: ED 10:47 → MEDSURG A 13:31
PROVIDERS: ADMIT Internal Medicine; ATTEND Internal Medicine
DX: I95.9 Hypotension, unspecified; Z79.01 Long term (current) use of anticoagulants; R55 Syncope and collapse; Z20.822 Contact with and (suspected) exposure to COVID-19; D64.9 Anemia, unspecified; Z86.73 Personal history of transient ischemic attack (TIA), and cerebral infarction without residual deficits; R53.1 Weakness; E86.0 Dehydration

== ENCOUNTER 2021-02-19 21:22 | Inpatient (IN) ==
--- NOTE | 2021-02-19 22:01 | DI ---
Exam: Single view chest x-ray. Date: 02/19/2021. Comparison: 10/14/2020. HISTORY: Change in mental status. FINDINGS: The patient is rotated to the right. There is a lesser inspiration with elevation of the right hemidiaphragm. The lungs are clear with calcified granulomas. Cardiac silhouette and pulmonar y vasculature are normal. Vascular calcifications present. Impression: No acute intrathoracic findings. Vascular and granulomatous calcifications.
--- NOTE | 2021-02-19 22:04 | DI ---
Exam: Two-view right femur. Date: 02/19/2021. Comparison: Two-view right hip performed 06/24/2018. HISTORY: Trauma. FINDINGS: An [id number] amputation is present. Vascular calcifications are noted. There has be en interval placement of a right hip arthroplasty in satisfactory position. No abnormal lucencies ar e seen at the prosthetic bone interfaces. There are old healed fractures of the right pubic rami. Impression: No acute findings. Satisfactory appearance of a right hip arthroplasty. Above the right knee amputation. ASVD.
--- NOTE | 2021-02-19 22:05 | CT ---
EXAM: CT of the head without contrast. HISTORY: Change in mental status. COMPARISON: 10/14/2020. TECHNIQUE: Noncontrast CT of the head. FINDINGS: No intracranial hemorrhage or mass effect is identified. A large area of encephalomalacia is again s een involving the left MCA territory. Moderate sulcal and ventricular prominence is again seen. Add itional periventricular white matter hypodensities are present. No elizondo-white matter differentiation loss is seen. Intracranial calcified atherosclerotic plaque is noted. The calvarium is intact. The visualized paranasal sinuses are unopacified. IMPRESSION: No evidence of an acute intracranial process. Remote left MCA territory infarct. Atrophy and chronic small vessel ischemic changes. All CT scans are performed using dose optimization techniques as appropriate to the performed exam an d include at least one of the following: Automated exposure control, adjustment of the mA and/or kV according t o size, and the use of iterative reconstruction technique.
[2021-02-19 22:48] LABS: BASOPHILS % (AUTO) 0.3 % (0.0-3.0); EOSINOPHILS % (AUTO) 0.2 % (0.0-7.0); HEMATOCRIT 37.6 % (42.0-52.0); HEMOGLOBIN 12.6 g/dl (14.0-18.0); IMMATURE GRANULOCYTE # (AUTO) 0.1 (0.0-1.0); IMMATURE GRANULOCYTE % (AUTO) 0.5 % (0.0-5.0); LYMPHOCYTES % (AUTO) 15.1 (10.0-50.0); MEAN CORPUSCULAR HEMOGLOBIN 31.6 pg (27.0-31.0); MEAN CORPUSCULAR HGB CONC 33.5 (31.8-35.4); MEAN CORPUSCULAR VOLUME 94.2 fl (80.0-94.0); MONOCYTES # (AUTO) 1.4 K/uL (0.4-2.0); MONOCYTES % (AUTO) 10.4 (0-10); NEUTROPHILS # (AUTO) 9.7 K/ul (2.0-6.9); NEUTROPHILS % (AUTO) 73.5 % (42.2-75.2); PLATELET COUNT 302 10^3/uL (140-440); RDW COEFFICIENT OF VARIATION 13.3 % (11.6-14.8); RED BLOOD COUNT 3.99 10^6/ul (4.70-6.10); WHITE BLOOD COUNT 13.14 K/ul (4.2-10.2)
[2021-02-19 22:57] LABS: ALANINE AMINOTRANSFERASE 19.8 U/L (0-50); ALBUMIN 4.43 g/dL (3.5-5.0); ALKALINE PHOSPHATASE 136.8 U/L (56-119); ASPARTATE AMINO TRANSFERASE 43.4 U/L (17-59); BILIRUBIN,TOTAL 0.37 mg/dL (0.2-1.3); BLOOD UREA NITROGEN 26.2 mg/dL (9-20); CALCIUM 9.65 mg/dL (8.4-10.2); CARBON DIOXIDE 23.6 mmol/L (22-30.0); CHLORIDE 102.2 mmol/L (98-107); CREATININE 1.07 mg/dL (0.60-1.10); GLUCOSE 91.8 mg/dL (74-106); SODIUM 135.6 mmol/L (134.5-145); TOTAL PROTEIN 7.33 g/dL (6.3-8.2)
[2021-02-19 23:05] LABS: BILIRUBIN,URINE Negative (NEGATIVE); CLARITY,URINE Clear (CLEAR); COLOR,URINE Yellow (YELLOW); GLUCOSE, URINE (UA) Negative (NEGATIVE); KETONES,URINE Negative (NEGATIVE); LEUKOCYTE ESTERASE ,URINE Negative (NEGATIVE); NITRITE,URINE Negative (NEGATIVE); PH,URINE 6.5 (5-9); PROTEIN,URINE Negative (NEGATIVE); URINE, BLOOD Trace-intact (NEGATIVE); UROBILINOGEN,URINE 0.2 (0.2)
[2021-02-19 23:09] LABS: TROPONIN I 0.058 ng/ml (0.0000-0.120)
[2021-02-19 23:15] LABS: CREATINE KINASE 2124.6 U/L (55-170)
[2021-02-19 23:28] LABS: SQUAMOUS EPITHELIAL CELL,UR NOT PRESENT (0-5)
[2021-02-19 23:40] LABS: PROTHROMBIN TIME 20.1 SEC (9.3-11.0)
[2021-02-19] MEDS ORDERED: SODIUM CHLORIDE 1,000 ML IV STA (23:42)
--- NOTE | 2021-02-19 23:42 | ED.PDOC ---
General ED Provider: Dr. STEPHANIE MCCLOUD Chief Complaint: Altered Mental Status Stated Complaint: found by family with stump trapped between toilet and wall Time Seen by Provider: 02/19/21 21:26 Mode of Arrival: Ambulance Information Source: Patient Exam Limitations: Physical impairment Primary Care Provider: GLADYS BRUNO Nursing and Triage Documentation Reviewed and Agree: Yes Does patient meet sepsis criteria?: No System Inflammatory Response Syndrome: Not Applicable Sepsis Protocol: For patient's 13 years and over: Temp is 96.8 and below OR 101 and greater Pulse >90 BPM Resp >20/minute Acutely Altered Mental Status Are patient's symptoms suggestive of a new infection, such as: -Pneumonia -Skin, Soft Tissue -Endocarditis -UTI -Bone, Joint Infection -Implantable Device -Acute Abdominal Infection -Wound Infection -Meningitis -Blood Stream Catheter Infection -Unknown Musculoskeletal Complaint Exam Lower Extremity Complaint/Exam Location of Pain: Reports Right and Leg Mechanism of Injury: Reports Trauma Onset/Duration: unknown Symptoms Are: Still present Onset of Pain: Reports Immediate Initial Severity: Mild Current Severity: Mild Location: Reports Discrete Character: Reports Dull Alleviating: Reports None Able to Bear Weight: No Associated Signs and Symptoms: Reports Redness and Bruising Lower Extremity Findings: Present Swelling, Tenderness and Limited range of motion NV Bundle Intact Distal to Injury: Yes Compartment Syndrome Risk Factors: Present Pain Differential Diagnoses: Contusion and Other Review of Systems Review Of Systems Constitutional: Reports No symptoms Eyes: Reports No symptoms Ears, Nose, Mouth, Throat: Reports No symptoms Respiratory: Reports No symptoms Cardiac: Reports No symptoms GI: Reports No symptoms : Reports No symptoms Musculoskeletal: Reports No symptoms Skin: Reports No symptoms Neurological: Reports No symptoms Endocrine: Reports No symptoms Hematologic/Lymphatic: Reports No symptoms All Other Systems: Reviewed and Negative [facility] Medical History Alcohol abuse Anemia COPD (chronic obstructive pulmonary disease) CVA (cerebral vascular accident) Depression Diverticulosis Dyslipidemia GERD (gastroesophageal reflux disease) Hemiparesis, right History of compression fracture of spine History of femur fracture History of pelvic fracture History of right above knee amputation Hypertension Noncompliance with treatment plan Recurrent falls Seizure Smoker Family History Mother Heart attack FATHER Lung cancer Social History Alcohol intake: current Alcohol intake frequency: 0-2 drinks per day Surgical History History of hip surgery Physical Exam Physical Exam Appearance: Reports Well-appearing Ill-appearing: Not Applicable Pain Distress: Mild Eyes: Reports BRANDON, EOMI and Conjunctiva clear ENT: Reports Ears normal, Nose normal and Oropharynx normal Neck: Supple Respiratory: Reports Airway patent, Breath sounds clear and Breath sounds equal Cardiovascular: Reports RRR, Pulses normal, No rub and No murmur GI/: Reports Soft, Nontender, No masses and Bowel sounds normal Musculoskeletal: Reports Normal strength and Limited ROM Skin: Reports Warm and Dry Neurological: Reports Sensation intact and Alert Psychiatric: Reports Affect appropriate Interpretation Radiology Interpretation Radiology Interpretation By: Radiologist Radiology Results: Negative Exam Interpreted: CT Scan EKG Interpretation Time of EKG #1: 23:41 Rate: Normal Rhythm: Sinus Ectopy: None [place]: NL ST Segment: Normal Interpretation: nsr Critical Care Note Critical Care Note Total Critical Care Time (mins): 30 Course Course Hematology/Chemistry: 02/19/21 22:15 02/19/21 22:15 Orders, Labs, Meds: Lab Review 02/19/21 02/19/21 02/19/21 22:00 22:15 22:15 WBC 13.14 H RBC 3.99 L Hgb 12.6 L Hct 37.6 L MCV 94.2 H MCH 31.6 H MCHC 33.5 RDW Coeff of Audrey 13.3 Plt Count 302 Immature Gran % (Auto) 0.5 Neut % (Auto) 73.5 Lymph % (Auto) 15.1 [place] % (Auto) 10.4 H Eos % (Auto) 0.2 Baso % (Auto) 0.3 Neut # (Auto) 9.7 H Lymph # (Auto) 2.0 [place] # (Auto) 1.4 Eos # (Auto) 0.0 Baso # (Auto) 0.0 Immature Gran # (Auto) 0.1 ESR 11 PT 20.1 H INR 1.99 Sodium Potassium Chloride Carbon Dioxide Anion Gap BUN Creatinine Estimated GFR (MDRD) BUN/Creatinine Ratio Glucose Calcium Total Bilirubin AST ALT Alkaline Phosphatase Total Creatine Kinase CK-MB (CK-2) CK-MB (CK-2) % Troponin I Total Protein Albumin Globulin Albumin/Globulin Ratio Urine Color Yellow Urine Clarity Clear Urine pH 6.5 Ur Specific [place] 1.025 Urine Protein Negative Urine Glucose (UA) Negative Urine Ketones Negative Urine Blood Trace-intact H Urine Nitrite Negative Urine Bilirubin Negative Urine Urobilinogen 0.2 Ur Leukocyte Esterase Negative Urine Microscopic RBC 2-5 Ur Squamous Epith Cells Not present 02/19/21 22:15 WBC RBC Hgb Hct MCV MCH MCHC RDW Coeff of Audrey Plt Count Immature Gran % (Auto) Neut % (Auto) Lymph % (Auto) [place] % (Auto) Eos % (Auto) Baso % (Auto) Neut # (Auto) Lymph # (Auto) [place] # (Auto) Eos # (Auto) Baso # (Auto) Immature Gran # (Auto) ESR PT INR Sodium 135.6 Potassium 4.00 Chloride 102.2 Carbon Dioxide 23.6 Anion Gap 13.80 BUN 26.2 H Creatinine 1.07 Estimated GFR (MDRD) 67.00 BUN/Creatinine Ratio 24.48 Glucose 91.8 Calcium 9.65 Total Bilirubin 0.37 AST 43.4 ALT 19.8 Alkaline Phosphatase 136.8 H Total Creatine Kinase 2124.6 H CK-MB (CK-2) Pending CK-MB (CK-2) % Pending Troponin I 0.058 Total Protein 7.33 Albumin 4.43 Globulin 2.90 Albumin/Globulin Ratio 1.52 Urine Color Urine Clarity Urine pH Ur Specific [place] Urine Protein Urine Glucose (UA) Urine Ketones Urine Blood Urine Nitrite Urine Bilirubin Urine Urobilinogen Ur Leukocyte Esterase Urine Microscopic RBC Ur Squamous Epith Cells Orders Category Date Time Status EKG-(ED ONLY) Stat CARDIO 02/19/21 21:27 Completed ED SHELL TRIM TOOL SETTER APPLIED .ONCE EMERGENCY 02/19/21 21:27 Active ED IV/MEDIPORT/POWERPORT .ONCE EMERGENCY 02/19/21 23:42 Active BLOOD CULTURE (ED ONLY) Stat LAB 02/19/21 23:20 Received CBC W/ AUTO DIFF Stat LAB 02/19/21 22:15 Completed COMPREHENSIVE METABOLIC PANEL Stat LAB 02/19/21 22:15 Results CREATINE KINASE Stat LAB 02/19/21 22:15 Results ESR Stat LAB 02/19/21 22:15 Completed ETOH LEVEL [BLOOD ALCOHOL] Stat LAB 02/19/21 23:36 Ordered LACTIC ACID Stat LAB 02/19/21 23:20 Received PROCALCITONIN Stat LAB 02/19/21 22:15 Received PT WITH INR Stat LAB 02/19/21 22:15 Completed SARS COV-2 RNA RAPID SHAYY Stat LAB 02/19/21 Ordered TROPONIN I Stat LAB 02/19/21 22:15 Results URINALYSIS C & S IF INDICATED Stat LAB 02/19/21 22:00 Completed URINE DRUG SCREEN (RAPID FOR ED) [DRUG SCREEN, URINE, LAB 02/19/21 23:44 Uncollected RAPID] Stat 0.9 % Sodium Chloride [Saline Flush] MEDS 02/19/21 23:42 Active 1 syr IVF PRN PRN Sodium Chloride 0.9% [Sodium Chloride] 1,000 ml MEDS 02/19/21 23:42 Active IV 100 mls/hr CT HEAD W/O CONTRAST Stat RADS 02/19/21 21:26 Completed CXR [CHEST, 1V AP ONLY] Stat RADS 02/19/21 21:26 Completed FEMUR, RIGHT 2 VIEWS Stat RADS 02/19/21 21:29 Completed Medications Generic Name Dose Route Start Last Admin Trade Name Freq PRN Reason Stop Dose Admin Sodium Chloride 1,000 mls @ 100 mls/hr 02/19/21 23:42 Sodium Chloride IV 02/20/21 09:41 .Q10H STA Sodium Chloride 1 syr 02/19/21 23:42 0.9% Sodium Chloride 10 Ml Disp.Syrin IVF PRN PRN To flush IV Vital Signs: Temp Pulse Resp BP Pulse Ox 02/19/21 22:23 88 20 132/86 97 02/19/21 21:24 98.8 F 88 18 157/117 H 99 Discharge Plan Discharge Patient Disposition: ADMITTED INPATIENT Discharge Problem: Altered mental status, Rhabdomyolysis Prescriptions: No Action phenytoin sodium extended 100 MG capsule 100 mg PO TID 0RF quinapril 40 MG tablet 40 mg PO BID 0RF sucralfate 1 GM tablet 1 g PO QID 0RF pantoprazole 40 MG tablet,delayed release (DR/EC) 40 mg PO BID 0RF ferrous sulfate 325 MG tablet 325 mg PO BID BREAKFAST&LUNCH 0RF tizanidine [Zanaflex] 4 MG capsule 4 mg PO BID 0RF amlodipine [Norvasc] 5 mg Tablet 5 mg PO DAILY Qty: 30 0RF Rx Instructions: START TOMORROW warfarin 2 mg tablet 2 mg PO DAILY 0RF ezetimibe-simvastatin 10-40 mg tablet 1 tab PO DAILY 0RF ED Provider: STEPHANIE AKERS Condition: Stable Physician Progress Note: []
[2021-02-19 23:49] LABS: ERYTHROCYTE SEDIMENTATION RATE 11 mm/hr (0-15)
[2021-02-20 00:16] LABS: AMPHETAMINE SCREEN,URINE NEGATIVE (NEGATIVE); BARBITURATE SCREEN,URINE POSITIVE (NEGATIVE); BENZODIAZEPINES SCREEN,URINE NEGATIVE (NEGATIVE); CANNABINOID SCREEN,URINE NEGATIVE (NEGATIVE); COCAIN SCREEN,URINE NEGATIVE (NEGATIVE); METHADONE URINE SCREEN NEGATIVE (NEGATIVE); METHAMPHETAMINES SCREEN,URINE NEGATIVE (NEGATIVE); OPIATE SCREEN,URINE NEGATIVE (NEGATIVE); OXYCODONE URINE SCREEN NEGATIVE (NEGATIVE); PHENCYCLIDINE SCREEN,URINE NEGATIVE (NEGATIVE); PROPOXYPHENE URINE SCREEN NEGATIVE (NEGATIVE); TRICYCLIC ANTIDEPRESSANTS URIN NEGATIVE (NEGATIVE)
[2021-02-20 00:45] LABS: CREATINE KINASE MB 11.6 ng/ml (0.0-2.38)
[2021-02-20 02:01] VITALS: BMI 21.2
[2021-02-20 05:30] LABS: BASOPHILS % (AUTO) 0.4 % (0.0-3.0); EOSINOPHILS % (AUTO) 0.4 % (0.0-7.0); HEMATOCRIT 34.8 % (42.0-52.0); HEMOGLOBIN 11.7 g/dl (14.0-18.0); IMMATURE GRANULOCYTE % (AUTO) 0.3 % (0.0-5.0); LYMPHOCYTES # (AUTO) 1.4 K/uL (0.60-3.4); MEAN CORPUSCULAR HEMOGLOBIN 31.8 pg (27.0-31.0); MEAN CORPUSCULAR HGB CONC 33.6 (31.8-35.4); MEAN CORPUSCULAR VOLUME 94.6 fl (80.0-94.0); MONOCYTES # (AUTO) 0.9 K/uL (0.4-2.0); MONOCYTES % (AUTO) 10.4 (0-10); NEUTROPHILS # (AUTO) 6.4 K/ul (2.0-6.9); NEUTROPHILS % (AUTO) 72.5 % (42.2-75.2); PLATELET COUNT 266 10^3/uL (140-440); RDW COEFFICIENT OF VARIATION 13.2 % (11.6-14.8); RED BLOOD COUNT 3.68 10^6/ul (4.70-6.10); WHITE BLOOD COUNT 8.91 K/ul (4.2-10.2)
[2021-02-20 05:49] LABS: ALANINE AMINOTRANSFERASE 21.5 U/L (0-50); ALBUMIN 3.89 g/dL (3.5-5.0); ALKALINE PHOSPHATASE 122.6 U/L (56-119); ASPARTATE AMINO TRANSFERASE 55.5 U/L (17-59); BILIRUBIN,TOTAL 0.44 mg/dL (0.2-1.3); BLOOD UREA NITROGEN 25.3 mg/dL (9-20); CALCIUM 9.03 mg/dL (8.4-10.2); CARBON DIOXIDE 23.2 mmol/L (22-30.0); CHLORIDE 105.1 mmol/L (98-107); CREATINE KINASE 1467.6 U/L (55-170); CREATININE 1.02 mg/dL (0.60-1.10); GLUCOSE 94.1 mg/dL (74-106); POTASSIUM 3.84 mmol/L (3.5-5.1); SODIUM 134.7 mmol/L (134.5-145); TOTAL PROTEIN 6.64 g/dL (6.3-8.2)
[2021-02-20 05:53] LABS: PROTHROMBIN TIME 20.6 SEC (9.3-11.0)
[2021-02-20 06:20] LABS: CREATINE KINASE MB 8.2 ng/ml (0.0-2.38)
[2021-02-20] MEDS: DILANTIN PO SCH ×3 (08:43→21:57)
[2021-02-20] MEDS: CARAFATE PO SCH ×4 (08:43→21:59)
[2021-02-20] MEDS: ACCUPRIL PO SCH ×2 (08:43→21:56)
[2021-02-20] MEDS: ZANAFLEX PO SCH ×2 (08:43→21:57)
[2021-02-20] MEDS: FERROUS SULFATE PO SCH ×2 (08:43→11:09)
[2021-02-20] MEDS: PROTONIX PO SCH ×2 (08:44→16:32)
[2021-02-20] MEDS: NORVASC PO SCH (08:44)
[2021-02-20] MEDS ORDERED: ZANAFLEX PO SCH (09:00)
[2021-02-20] MEDS: ATIVAN PO PRN ×2 (11:58→22:00)
[2021-02-20] MEDS: THIAMINE IM SCH (12:03)
[2021-02-20] MEDS: NICODERM 21 MG TD SCH ×2 (12:04→13:10)
[2021-02-20] MEDS: SODIUM CHLORIDE 1,000 ML IV SCH (14:33)
[2021-02-20] MEDS ORDERED: ZETIA PO SCH (17:00)
[2021-02-20] MEDS ORDERED: COUMADIN PO SCH (17:00)
[2021-02-20] MEDS ORDERED: ZOCOR PO SCH (17:00)
[2021-02-21] MEDS: SODIUM CHLORIDE 1,000 ML IV SCH (02:05)
[2021-02-21 05:02] LABS: BASOPHILS # (AUTO) 0.1 K/uL (0-0.2); BASOPHILS % (AUTO) 0.7 % (0.0-3.0); EOSINOPHILS # (AUTO) 0.1 K/ul (0.0-0.7); EOSINOPHILS % (AUTO) 1.2 % (0.0-7.0); HEMATOCRIT 28.8 % (42.0-52.0); HEMOGLOBIN 9.7 g/dl (14.0-18.0); IMMATURE GRANULOCYTE % (AUTO) 0.4 % (0.0-5.0); LYMPHOCYTES # (AUTO) 1.7 K/uL (0.60-3.4); LYMPHOCYTES % (AUTO) 22.2 (10.0-50.0); MEAN CORPUSCULAR HEMOGLOBIN 31.9 pg (27.0-31.0); MEAN CORPUSCULAR HGB CONC 33.7 (31.8-35.4); MEAN CORPUSCULAR VOLUME 94.7 fl (80.0-94.0); MONOCYTES # (AUTO) 0.7 K/uL (0.4-2.0); MONOCYTES % (AUTO) 9.4 (0-10); NEUTROPHILS % (AUTO) 66.1 % (42.2-75.2); PLATELET COUNT 234 10^3/uL (140-440); RDW COEFFICIENT OF VARIATION 13.2 % (11.6-14.8); RED BLOOD COUNT 3.04 10^6/ul (4.70-6.10); WHITE BLOOD COUNT 7.56 K/ul (4.2-10.2)
[2021-02-21 05:14] LABS: ALANINE AMINOTRANSFERASE 16.4 U/L (0-50); ALKALINE PHOSPHATASE 101.5 U/L (56-119); ASPARTATE AMINO TRANSFERASE 32.8 U/L (17-59); BILIRUBIN,TOTAL 0.24 mg/dL (0.2-1.3); BLOOD UREA NITROGEN 21.9 mg/dL (9-20); CALCIUM 8.35 mg/dL (8.4-10.2); CARBON DIOXIDE 21.8 mmol/L (22-30.0); CHLORIDE 107.2 mmol/L (98-107); CREATININE 0.97 mg/dL (0.60-1.10); GLUCOSE 94.1 mg/dL (74-106); POTASSIUM 3.79 mmol/L (3.5-5.1); SODIUM 132.9 mmol/L (134.5-145); TOTAL PROTEIN 5.48 g/dL (6.3-8.2)
[2021-02-21 05:22] LABS: PROTHROMBIN TIME 20.1 SEC (9.3-11.0)
[2021-02-21 06:01] VITALS: BP 122/73; TEMP 98.4
[2021-02-21] MEDS: CARAFATE PO SCH ×2 (06:14→12:30)
[2021-02-21] MEDS: PROTONIX PO SCH (06:14)
[2021-02-21 07:16] LABS: CREATINE KINASE MB 4.69 ng/ml (0.0-2.38)
--- NOTE | 2021-02-21 08:51 | PCM.PROG ---
Attending Provider: ATTENDING PROVIDER: Dr. STEPHANIE MCCLOUD This patient is seen with Fanny Chaparro, Nurse Practitioner. DATE OF SERVICE: 02/21/21 SUBJECTIVE: This 75 year old /WHITE M was hospitalized 02/20/21. CK Level improved today. Renal function is normal. He denies any pain or weakness. Liver function is fine. REVIEW OF SYSTEMS: CONSTITUTIONAL: No night sweats. No fatigue, malaise, lethargy. No fever or chills. Generalized weakness. HEENT: Eyes: No visual changes. No eye pain. No eye discharge. ENT: No runny nose. No epistaxis. No sinus pain. No odynophagia. No congestion. RESPIRATORY: No cough, no congestion. No hemoptysis. No shortness of breath. CARDIOVASCULAR: No angina symptoms. No CHF symptoms. No atypical chest pain for CAD. No palpitations. No orthopnea.. GASTROINTESTINAL: No abdominal pain. No nausea or vomiting. No diarrhea or constipation. No hematemesis. No hematochezia. GENITOURINARY: No urgency. No frequency. No dysuria. No hematuria. No obstructive symptoms. No discharge. No pain. No significant abnormal bleeding. MUSCULOSKELETAL: No musculoskeletal pain; no joint swelling. NEUROLOGICAL: Awake, alert, oriented to time, place and person. No headache. No neck pain. No syncope. No seizures. No dizziness. PSYCHIATRIC: Not anxious. No depression. No suicidal thoughts. No homicidal thoughts. SKIN: No rash. No lesions. No wounds. ENDOCRINE: No unexplained weight loss. No weight gain. HEMATOLOGIC/LYMPHATIC: No anemia. No purpura. No petechiae. No prolonged or excessive bleeding. No palpable lymph nodes. PHYSICAL EXAMINATION: GENERAL: The patient is awake, alert and oriented, sitting in bed in no d istress. VITAL SIGNS: Temperature 98.4 F, Pulse 82, Respiratory Rate 18, BP 122/73, Pulse Ox 98% HEENT: Head normocephalic, atraumatic. Eyes: Extraocular muscles are intact. Pupils are equal, round and reactive to light and accommodation. Ears: No lesions. Nose appeared normal. Throat: No exudate or erythema. NECK: Supple. No JVD, no carotid bruit. No lymphadenopathy or thyromegaly. LUNGS: Diminished breath sounds. Clear to auscultation. Percussion note normal. Chest symmetrical. HEART: S1, S2, no S3. No murmurs. No cyanosis or clubbing. No ascites. Pulses: Dorsalis pedis and posterior tibial pulses +1 to +2 both sides. ABDOMEN: Soft. Non-tender. Bowel sounds active. No CVA tenderness. No mass felt. EXTREMITIES: No edema. Full range of motion of all extremities, equal. Superficial abrasion to right stump. NEUROLOGIC: No focal deficit. Cranial nerves II through XII are grossly intact. No headache. No double vision. SKIN: Not dry. Intact. Turgor-normal. LYMPHATIC: No palpable lymph nodes/no lymphedema. MUSCULOSKELETAL: Normal joints with no swelling. Muscle tone is normal. LAB REVIEW: 02/21/21 04:50 02/21/21 04:50 02/21/21 04:50: Total Creatine Kinase 881.0 H, CK-MB (CK-2) 4.690 H, CK-MB (CK- 2) % 0.5300 02/21/21 04:50: PT 20.1 H, INR 1.99 02/21/21 04:50: Sodium 132.9 L, Potassium 3.79, Chloride 107.2 H, Carbon Dioxide 21.8 L, Anion Gap 7.69, BUN 21.9 H, Creatinine 0.97, Estimated GFR (MDRD) 75.00, BUN/Creatinine Ratio 22.57, Glucose 94.1, Calcium 8.35 L, Total Bilirubin 0.24, AST 32.8, ALT 16.4, Alkaline Phosphatase 101.5, Total Protein 5.48 L, Albumin 3.00 L, Globulin 2.48, Albumin/Globulin Ratio 1.20 02/21/21 04:50: WBC 7.56, RBC 3.04 L, Hgb 9.7 L, Hct 28.8 L D, MCV 94.7 H, MCH 31.9 H, MCHC 33.7, RDW Coeff of Audrey 13.2, Plt Count 234, Immature Gran % (Auto) 0.4, Neut % (Auto) 66.1, Lymph % (Auto) 22.2, [place] % (Auto) 9.4, Eos % (Auto) 1.2, Baso % (Auto) 0.7, Neut # (Auto) 5.0, Lymph # (Auto) 1.7, [place] # (Auto) 0.7, Eos # (Auto) 0.1, Baso # (Auto) 0.1, Immature Gran # (Auto) 0.0 02/20/21 11:35: Phenytoin 17.08 ASSESSMENT: Please see below. 1. Rhabdomyolysis, resolving 2. Severe PAD 3. History of CVA with hemiparesis 4. Chronic anemia 5. Alcohol abuse 6. Noncompliance with medications, lifestyle and followup PLAN: 1. Discharge 2. The patient is to hold Zetia and Simvastatin for month 3. Repeat labs in the office 4. The patient is very high fall risk 5. Will discuss the patient's condition and prognosis with family. Plan and coordination of the patient's care discussed in the presence of Ornamental [employer]worker and nurse. SCRIBED BY: Ezekiel OSPINA scribed while in presence of service performed by Dr. Judd/Fanny Chaparro APRN on 02/21/21 ([id number])
--- NOTE | 2021-02-21 08:58 | PN ---
DATE OF SERVICE: 02/20/2021 SUBJECTIVE: The patient was admitted under Dr. Hackett Hospitalist for Rhabdomyolysis. CK level already improved with IV fluids. Renal function is normal. Apparently right above knee amputation was caught at home between wall and commode. The patient had sat there for some time. CT of femur was normal. Again renal and liver function is normal. Denies any pain. REVIEW OF SYSTEMS: CONSTITUTIONAL: No night sweats. No fatigue, malaise, lethargy. No fever or chills. Weakness from CVA. HEENT: Eyes: No visual changes. No eye pain. No eye discharge. ENT: No runny nose. No epistaxis. No sinus pain. No sore throat. No odynophagia. No congestion. RESPIRATORY: No cough, no congestion. No hemoptysis. No shortness of breath. CARDIOVASCULAR: No angina symptoms. No CHF symptoms. No atypical chest pain for CAD. No palpitations. No PND. No orthopnea. GASTROINTESTINAL: No abdominal pain. No nausea or vomiting. No diarrhea or constipation. No hematemesis. No hematochezia. GENITOURINARY: No urgency. No frequency. No dysuria. No hematuria. No obstructive symptoms. No discharge. No pain. No significant abnormal bleeding. MUSCULOSKELETAL: No musculoskeletal pain; no joint swelling. NEUROLOGICAL: No headache. No neck pain. No syncope. No seizures. No dizziness. PSYCHIATRIC: Not anxious. No depression. No suicidal thoughts. No homicidal thoughts. SKIN: No rash. No lesions. No wounds. ENDOCRINE: No unexplained weight loss. No weight gain. HEMATOLOGIC/LYMPHATIC: No anemia. No purpura. No petechiae. No prolonged or excessive bleeding. No palpable lymph nodes. PHYSICAL EXAMINATION: HEENT: Head normocephalic, atraumatic. Eyes: Extraocular muscles are intact. Pupils are equal, round and reactive to light and accommodation. Ears: No lesions. Nose appeared normal. Throat: No exudate or erythema. NECK: Supple. No JVD, no carotid bruit. No lymphadenopathy or thyromegaly. LUNGS: Diminished breath sounds. Clear to auscultation. Percussion note normal. Chest symmetrical. HEART: S1, S2, no S3. No murmurs. No cyanosis or clubbing. No ascites. Pulses: Dorsalis pedis and posterior tibial pulses +1 to +2 bilaterally. ABDOMEN: Soft. Nontender. Bowel sounds active. No CVA tenderness. No mass felt. EXTREMITIES: No edema. Full range of motion of all extremities, equal. Mild bruising with superficial abrasion to right stump. NEUROLOGIC: No focal deficit. Cranial nerves II through XII are grossly intact. No headache. No double vision. SKIN: Not dry. Intact. Turgor - normal. LYMPHATIC: No palpable lymph nodes/no lymphedema. MUSCULOSKELETAL: Normal joints with no swelling. Muscle tone is normal. ASSESSMENT: 1. Rhabdomyolysis 2. Abrasion to right stump 3. CVA with hemiparesis 4. PAD 5. Noncompliance 6. Alcohol abuse 7. Anxiety PLAN: 1. Hold Zetia and Simvastatin 2. Continue Coumadin 3. Continue IV fluids 100cc an hour 4. Repeat CT level tomorrow 5. Dilantin level TIME SPENT: More than 30 minutes. Plan and coordination of the patient's care discussed in the presence of nurse. JOSE E
[2021-02-21] MEDS: NICODERM 21 MG TD SCH (09:12)
[2021-02-21] MEDS: NORVASC PO SCH (09:13)
[2021-02-21] MEDS: ZANAFLEX PO SCH (09:13)
[2021-02-21] MEDS: ATIVAN PO PRN (09:13)
[2021-02-21] MEDS: ACCUPRIL PO SCH (09:13)
[2021-02-21] MEDS: THIAMINE IM SCH (09:14)
--- NOTE | 2021-02-21 11:26 | CM.DICTOOL ---
ADMISSION: 02/20/21 00:29 DISCHARGE: FEBRUARY 21, 2021 DATE OF SERVICE: 02/21/21 FINAL DIAGNOSIS RHABDOMYOLYSIS, RESOLVING HYPERTENSION HYPERCOAGULATION CHRONIC ANEMIA CVA WITH RIGHT HEMIPARESIS ON COUMADIN COPD; MODERATE TO SEVERE SMOKER SEVERE PAD GERD DEPRESSION DYSLIPIDEMIA COMPRESSION FRACTURE L2, L4 PELVIC FRACTURE IN 2018 ALCOHOL ABUSE NON-COMPLIANCE WITH MEDS, LIFESTYLE AND FOLLOW-UP AND RECOMMENDATIONS RECURRENT FALLS HEAD LACERATION REQUIRING SUTURES IN THE FOREHEAD RT ABOVE THE KNEE AMPUTATION - 02/2019 NECK SURGERY TURP LAST VITALS Temp Pulse Resp BP Pulse Ox 98.4 F 82 18 122/73 98 02/21/21 05:59 02/21/21 05:59 02/21/21 05:59 02/21/21 05:59 02/21/21 05:59 TAKE THESE MEDICATIONS AT HOME Amlodipine Besylate (Amlodipine Besylate 5 Mg Tablet) 5 mg PO DAILY [facility] Last Admin: 02/21/21 09:13 Dose: 5 mg Ferrous Sulfate (Ferrous Sulfate 324 Mg Tablet.) 324 mg PO BID BREAKFAST&LUNCH [facility] Last Admin: 02/20/21 11:09 Dose: 324 mg Pantoprazole Sodium (Pantoprazole Sodium 40 Mg Tablet.) 40 mg PO BIDAC [facility] Last Admin: 02/21/21 06:14 Dose: 40 mg Phenytoin Sodium (Phenytoin Cap 100 Mg Capsule) 100 mg PO TID [facility] Last Admin: 02/20/21 21:57 Dose: 100 mg Quinapril HCl (Quinapril Hcl 40 Mg Tablet) 40 mg PO BID [facility] Last Admin: 02/21/21 09:13 Dose: 40 mg Sucralfate (Sucralfate 1 Gm Tablet) 1 gm PO ACHS [facility] Last Admin: 02/21/21 06:14 Dose: 1 gm Tizanidine HCl (Tizanidine Hcl 4 Mg Tablet) 2 mg PO BID [facility] -- ( CHANGED ) Last Admin: 02/21/21 09:13 Dose: 2 mg Warfarin Sodium (Warfarin Sodium 2 Mg Tablet) 2 mg PO DAILY@1700 [facility] Last Admin: 02/20/21 16:32 Dose: 2 mg ALLERGIES No Known Allergies Allergy (Verified 02/19/21 22:22) DISCONTINUED MEDICATIONS 1). Tizanidine HCl 4 mg PO BID [facility] ( CHANGED DOSAGE ) 2). EZETIMIBE-SIMVASTATIN - HOLD UNTIL ORDERED TO RESUME NEW PRESCRIPTIONS: ZANAFLEX 2 MG PO BID SMOKING: SMOKING CESSATION DISEASE SPECIFIC EDUCATION: FALL PRECAUTIONS BLEEDING PRECAUTIONS SKIN CARE PRESSURE ULCER COVID SMOKING LAB REVIEW: 02/21/21 04:50 02/21/21 04:50 02/21/21 04:50: Total Creatine Kinase 881.0 H, CK-MB (CK-2) 4.690 H, CK-MB (CK- 2) % 0.5300 02/21/21 04:50: PT 20.1 H, INR 1.99 02/21/21 04:50: Sodium 132.9 L, Potassium 3.79, Chloride 107.2 H, Carbon Dioxide 21.8 L, Anion Gap 7.69, BUN 21.9 H, Creatinine 0.97, Estimated GFR (MDRD) 75.00, BUN/Creatinine Ratio 22.57, Glucose 94.1, Calcium 8.35 L, Total Bilirubin 0.24, AST 32.8, ALT 16.4, Alkaline Phosphatase 101.5, Total Protein 5.48 L, Albumin 3.00 L, Globulin 2.48, Albumin/Globulin Ratio 1.20 02/21/21 04:50: WBC 7.56, RBC 3.04 L, Hgb 9.7 L, Hct 28.8 L D, MCV 94.7 H, MCH 31.9 H, MCHC 33.7, RDW Coeff of Audrey 13.2, Plt Count 234, Immature Gran % (Auto) 0.4, Neut % (Auto) 66.1, Lymph % (Auto) 22.2, [place] % (Auto) 9.4, Eos % (Auto) 1.2, Baso % (Auto) 0.7, Neut # (Auto) 5.0, Lymph # (Auto) 1.7, [place] # (Auto) 0.7, Eos # (Auto) 0.1, Baso # (Auto) 0.1, Immature Gran # (Auto) 0.0 02/20/21 11:35: Phenytoin 17.08 PLAN: DISCHARGE: HOME TODAY, LIVES ALONE AND AWARE OF THE RISK HAS AGENC[employer] HOME [employer]KERS ACTIVITY: TRANSFER WITH CAUTION OFF LOAD BUTTOCKS FALL PRECAUTIONS BLEEDING PRECAUTIONS PANDEMIC PRECAUTIONS DIET: SOFT LOW FIBER WITH BOOST SUPPLEMENT ONE TO TWO DAILY MD FOLLOW UP: SEE DR. BRUNO/ ELIJAH LEONARD APRN/ CASEY CARRILLO APRN IN THE OFFICE ON FEBRUARY 28, 2021 @ 2:15 PM CODE STATUS: DO NOT RESUSCITATE MR. CORONADO IS ALERT AND ORIENTED X 4. HE IS FORGETFUL AND CONFUSED AT TIMES. 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 SKIN IS DARK AND SCATTERED LIGHT ECCHYMOSIS TO ARMS AND LEGS. HAS SLIGHT BRUISED AREA TO ANTERIOR DISTAL STUMP. HAS A SMALL CRUSTED AREA TO HIS RT ISCHIAL AT 1X2 CM , RESIDENTIAL. HE HAS FLUID BUILDUP TO HIS LT ELBOW REGION, NO REDNESS AND NO WARMTH, AND DENIES ANY DISCOMFORT TO AREA, FROM INFILTRATED IV. AREA WAS VERY EDEMATOUS INITIALLY, HOWEVER NOW AREA IS RESOLVING WITH MINIMAL EDEMA. HE HAS GOOD FLUID AND NUTRITIONAL INTAKE. HE REPORTED THAT HE TRANSFERS SELF AT HOME FROM BED TO CHAIR TO BSC AND BACK. HE CAN SIT UP ON HIS OWN. HE USES AN ELECTRIC SCOOTER. NO UNUSUAL BRUISING OR BLEEDING NOTED OR REPORTED WHILE ON COUMADIN. HE IS DETERMINED TO RETURN TO HIS HOME, THOUGH RISKY LIVING ALONE WITH HIS PHYSICAL AND MENTAL LIMITATIONS. DTR, IS WORKING ON [employer]. MD ELIJAH IVEY APRN ALYCE HANNAN, APRN
[2021-02-21] MEDS: FERROUS SULFATE PO SCH (12:30)
--- NOTE | 2021-03-29 13:14 | DS ---
DATE OF SERVICE: 02/21/2021 FINAL DIAGNOSIS: EARLY ONSET RHABDOMYOLYSIS HYPERTENSION HYPERCOAGULATION CHRONIC ANEMIA CVA WITH RIGHT HEMIPARESIS ON COUMADIN COPD; MODERATE TO SEVERE SMOKER SEVERE PAD GERD DEPRESSION DYSLIPIDEMIA COMPRESSION FRACTURE L2, L4 PELVIC FRACTURE IN 2018 ALCOHOL ABUSE NON-COMPLIANCE WITH MEDS, LIFESTYLE AND FOLLOW-UP AND RECOMMENDATIONS RECURRENT FALLS HEAD LACERATION REQUIRING SUTURES IN THE FOREHEAD RT ABOVE THE KNEE AMPUTATION - 02/2019 NECK SURGERY TURP LAST VITALS Temp Pulse Resp BP Pulse Ox 98.4 F 82 18 122/73 98 02/21/21 05:59 02/21/21 05:59 02/21/21 05:59 02/21/21 05:59 02/21/21 05:59 DISCHARGE INSTRUCTIONS: DISCHARGE: HOME TODAY, LIVES ALONE AND AWARE OF THE RISK, HAS [employer]. MD FOLLOW UP: SEE DR. BRUNO/ ELIJAH LEONARD APRN/ CASEY CARRILLO APRN IN THE OFFICE ON FEBRUARY 28, 2021 @ 2:15 PM. CODE STATUS: DO NOT RESUSCITATE. TAKE THESE MEDICATIONS AT HOME: Amlodipine Besylate (Amlodipine Besylate 5 Mg Tablet) 5 mg PO DAILY [facility] Last Admin: 02/21/21 09:13 Dose: 5 mg Ferrous Sulfate (Ferrous Sulfate 324 Mg Tablet.) 324 mg PO BID BREAKFAST&LUNCH [facility] Last Admin: 02/20/21 11:09 Dose: 324 mg Pantoprazole Sodium (Pantoprazole Sodium 40 Mg Tablet.) 40 mg PO BIDAC [facility] Last Admin: 02/21/21 06:14 Dose: 40 mg Phenytoin Sodium (Phenytoin Cap 100 Mg Capsule) 100 mg PO TID [facility] Last Admin: 02/20/21 21:57 Dose: 100 mg Quinapril HCl (Quinapril Hcl 40 Mg Tablet) 40 mg PO BID [facility] Last Admin: 02/21/21 09:13 Dose: 40 mg Sucralfate (Sucralfate 1 Gm Tablet) 1 gm PO ACHS [facility] Last Admin: 02/21/21 06:14 Dose: 1 gm Tizanidine HCl (Tizanidine Hcl 4 Mg Tablet) 2 mg PO BID [facility] -- ( CHANGED ) Last Admin: 02/21/21 09:13 Dose: 2 mg Warfarin Sodium (Warfarin Sodium 2 Mg Tablet) 2 mg PO DAILY@1700 [facility] Last Admin: 02/20/21 16:32 Dose: 2 mg ALLERGIES: No Known Allergies Allergy (Verified 02/19/21 22:22) DISCONTINUED MEDICATIONS: 1). Tizanidine HCl 4 mg PO BID MELINDA ( CHANGED DOSAGE ) 2). EZETIMIBE-SIMVASTATIN - HOLD UNTIL ORDERED TO RESUME NEW PRESCRIPTIONS: ZANAFLEX 2 MG PO BID SMOKING: SMOKING CESSATION DISEASE SPECIFIC EDUCATION: FALL PRECAUTIONS BLEEDING PRECAUTIONS SKIN CARE PRESSURE ULCER COVID SMOKING LAB REVIEW: 02/21/21 04:50 02/21/21 04:50 02/21/21 04:50: Total Creatine Kinase 881.0 H, CK-MB (CK-2) 4.690 H, CK-MB (CK- 2) % 0.5300 02/21/21 04:50: PT 20.1 H, INR 1.99 02/21/21 04:50: Sodium 132.9 L, Potassium 3.79, Chloride 107.2 H, Carbon Dioxide 21.8 L, Anion Gap 7.69, BUN 21.9 H, Creatinine 0.97, Estimated GFR (MDRD) 75.00, BUN/Creatinine Ratio 22.57, Glucose 94.1, Calcium 8.35 L, Total Bilirubin 0.24, AST 32.8, ALT 16.4, Alkaline Phosphatase 101.5, Total Protein 5.48 L, Albumin 3.00 L, Globulin 2.48, Albumin/Globulin Ratio 1.20 02/21/21 04:50: WBC 7.56, RBC 3.04 L, Hgb 9.7 L, Hct 28.8 L D, MCV 94.7 H, MCH 31.9 H, MCHC 33.7, RDW Coeff of Audrey 13.2, Plt Count 234, Immature Gran % (Auto) 0.4, Neut % (Auto) 66.1, Lymph % (Auto) 22.2, [place] % (Auto) 9.4, Eos % (Auto) 1.2, Baso % (Auto) 0.7, Neut # (Auto) 5.0, Lymph # (Auto) 1.7, [place] # (Auto) 0.7, Eos # (Auto) 0.1, Baso # (Auto) 0.1, Immature Gran # (Auto) 0.0 02/20/21 11:35: Phenytoin 17.08 ACTIVITY: TRANSFER WITH CAUTION OFF LOAD BUTTOCKS FALL PRECAUTIONS BLEEDING PRECAUTIONS PANDEMIC PRECAUTIONS DIET: SOFT LOW FIBER WITH BOOST SUPPLEMENT ONE TO TWO DAILY HOSPITAL COURSE: This is a 75 year old white male with a history of CVA and right above the knee amputation. He was admitted through the ER by Dr. Hackett with possible Rhabdomyolysis. His CK levels were elevated on admission. He has apparently fallen at home and the family had brought him here. Renal function was normal on admission. He was not experiencing any renal failure. Blood pressure was elevated. He was admitted. His BUN was 26 and creatinine was 1.07. Today on day of discharge he is very adamant about going home. His renal function is totally normal. He has received IV fluids and tolerated them well. When he was found he was caught in the bathroom. His stump from amputation was trapped between the toilet seat and the toilet. He does have some superficial abrasion to the stump but there is minimal bruising, no swelling. Initially creatinine kinase was 2,124 and blood pressure was 157/117 in the ER. Today on day of discharge total CK is 881 so it is less than half. He is alert and oriented and again very adamant about going home and has been eating well. INR is therapeutic at 2.2. We will send him home with some Bactroban to apply to the abrasions on his stump. Liver enzymes are normal. His labs are stable. He will discharged home in stable condition. I tried to talk with him about going to the half-way and he absolutely refuses as I do feel that he is somewhat danger to himself. I have discussed this with the family and they are aware. They try to help however the patient refuses. TIME SPENT: More than 60 minutes. JOSE E
== END 2021-02-21 12:50 | disposition home or self-care (01) | DRG 558 ==
LOC: ED 21:22 → MEDSURG A 02-20 00:29
PROVIDERS: ADMIT Family Medicine; ATTEND Family Medicine Addiction Medicine
DX: R41.82 Altered mental status, unspecified; S80.911A Unspecified superficial injury of right knee, initial encounter; M62.82 Rhabdomyolysis; I10 Essential (primary) hypertension; Z89.611 Acquired absence of right leg above knee; D68.59 Other primary thrombophilia; I73.9 Peripheral vascular disease, unspecified; F41.9 Anxiety disorder, unspecified; J44.9 Chronic obstructive pulmonary disease, unspecified; Z91.81 History of falling; Z86.73 Personal history of transient ischemic attack (TIA), and cerebral infarction without residual deficits; Z72.0 Tobacco use

== ENCOUNTER 2021-02-22 13:06 | Inpatient (IN) ==
--- NOTE | 2021-02-22 14:55 | ED.PDOC ---
General ED Provider: Dr. STEPHANIE GREEN Chief Complaint: Weakness Stated Complaint: Pain in low back, pelvis and difficulty voiding due to disability. Referred to ER for "work up" for symptoms. Family would like for patient to go to ECF for placement/rehab etc. Referred by Fanny MCCLELLAND for Dr Judd for evaluation Time Seen by Provider: 02/22/21 13:30 Mode of Arrival: Ambulance Information Source: Patient and EMT Exam Limitations: Clinical condition and Dementia Primary Care Provider: GLADYS JUDD Referred to ED by: PCP Seen Within Last 72 Hours for Same Complaint By: Clinic and In-Patient Facility Nursing and Triage Documentation Reviewed and Agree: No Does patient meet sepsis criteria?: No If yes, has appropriate treatment been initiated?: No System Inflammatory Response Syndrome: Not Applicable Sepsis Protocol: For patient's 13 years and over: Temp is 96.8 and below OR 101 and greater Pulse >90 BPM Resp >20/minute Acutely Altered Mental Status Are patient's symptoms suggestive of a new infection, such as: -Pneumonia -Skin, Soft Tissue -Endocarditis -UTI -Bone, Joint Infection -Implantable Device -Acute Abdominal Infection -Wound Infection -Meningitis -Blood Stream Catheter Infection -Unknown Musculoskeletal Complaint Exam Hip/Pelvis Complaint/Exam Location of Pain: Reports Pelvis Mechanism of Injury: Reports No known trauma Onset/Duration: several days Symptoms Are: Still present Initial Severity: Moderate Current Severity: Moderate Location: Reports Diffuse Character: Reports Sharp and Aching Aggravating: Reports Movement Alleviating: Reports Rest Associated Signs and Symptoms: Reports Weakness Related History: Denies Similar episode or Occupational injury Able to Bear Weight: No (RT AKA) Septic Arthritis Risk Factors: Reports None Related Surgical History: Reports Fusion (R AKA) Pelvis Palpation: Stable Tenderness: Present Right and Greater Trochanter NV Bundle Intact Distal to Injury: Yes Differential Diagnoses: Arthritis Review of Systems Review Of Systems Constitutional: Reports Malaise and Weakness Eyes: Reports No symptoms Ears, Nose, Mouth, Throat: Reports No symptoms Respiratory: Reports No symptoms Cardiac: Reports No symptoms GI: Reports No symptoms : Reports No symptoms Musculoskeletal: Reports No symptoms and Joint pain Skin: Reports No symptoms Neurological: Reports Anxiety, Emotional problems and Cognitive dysfunction Endocrine: Reports No symptoms Hematologic/Lymphatic: Reports No symptoms All Other Systems: Reviewed and Negative PFSH Medical History Alcohol abuse Anemia COPD (chronic obstructive pulmonary disease) CVA (cerebral vascular accident) Depression Diverticulosis Dyslipidemia GERD (gastroesophageal reflux disease) Hemiparesis, right History of compression fracture of spine History of femur fracture History of pelvic fracture History of right above knee amputation Hypertension Noncompliance with treatment plan Recurrent falls Seizure Smoker Family History Mother Heart attack FATHER Lung cancer Social History (Updated 02/22/21 @ 18:01 by STEVE HERNANDEZ, RN) Smoking and tobacco status: Current every day smoker Alcohol intake: current Alcohol intake frequency: 0-2 drinks per day Surgical History History of hip surgery Physical Exam Physical Exam Appearance: Reports Ill-appearing Ill-appearing: Mild Pain Distress: Mild Eyes: Reports BRANDON, EOMI and Conjunctiva clear ENT: Reports Ears normal, Nose normal and Oropharynx normal Neck: Supple Respiratory: Reports Airway patent, Breath sounds clear and Breath sounds equal Cardiovascular: Reports RRR, Pulses normal, No rub and No murmur GI/: Reports Soft, Nontender, No masses, Bowel sounds normal and No Org anomegaly Musculoskeletal: Reports ROM intact and Limited strength Skin: Reports Warm and Dry Neurological: Reports Sensation intact, Motor intact, Cranial nerves intact, Alert and Disoriented Psychiatric: Reports Anxious and Other (angry, inappropriate language towards staff, refused to allow lab ) Physician Notification Case Discussed Physician Notified: Fanny - will admit under Dr Geller /will write orders Time of Notification: 16:00 Critical Care Note Critical Care Note Total Critical Care Time (mins): 0 Course Course Hematology/Chemistry: 02/23/21 05:20 02/23/21 05:20 Orders, Labs, Meds: Lab Review 02/22/21 13:35 SARS CoV-2 RNA Rapid SHAYY Negative Orders Category Date Time Status ADMIT PATIENT INPATIENT .TO MEDSURG (MONITORED BED) ADMISSION 02/22/21 16:04 Active EKG-(ED ONLY) Stat CARDIO 02/22/21 14:56 Completed TELEMETRY MONITORING TELE CARE 02/22/21 16:04 Completed COVID [SARS COV-2 RNA RAPID SHAYY] Stat LAB 02/22/21 13:35 Completed Haloperidol Lactate [Haldol] MEDS 02/22/21 16:07 Discontinued 1 mg IM ONCE ONE CHEST, 1V AP ONLY Stat RADS 02/22/21 14:57 Completed Medications Generic Name Dose Route Start Last Admin Trade Name Nayeli PRN Reason Stop Dose Admin Acetaminophen 650 mg 02/22/21 17:22 Acetaminophen 325 Mg Tablet PO Q4H PRN Headache Amlodipine Besylate 5 mg 02/23/21 09:00 Amlodipine Besylate 5 Mg Tablet PO DAILY MELINDA Atropine Sulfate 0.5 mg 02/22/21 17:22 Atropine Sulfate Inj 1 Mg/10 Ml Disp.Syrin IVP ONCE PRN Symptomatic Bradycardia Ezetimibe 10 mg 02/23/21 09:00 Ezetimibe 10 Mg Tablet PO DAILY MELINDA Ferrous Sulfate 324 mg 02/23/21 08:30 Ferrous Sulfate 324 Mg Tablet.Dr PO BID BREAKFAST&LUNCH MELINDA Haloperidol Lactate 1 mg 02/22/21 17:27 Haloperidol Lactate 5 Mg/Ml Vial IM Q8H PRN Agitation Sodium Chloride 1,000 mls @ 75 mls/hr 02/22/21 17:30 02/23/21 07:53 Sodium Chloride IV 75 mls/hr .[id number] MELINDA Administration Lorazepam 0.5 mg 02/22/21 19:00 02/23/21 09:16 Lorazepam Inj 2 Mg/Ml Vial IVP 0.5 mg BID MELINDA Administration Nitroglycerin 0.4 mg 02/22/21 17:22 Nitroglycerin 0.4 Mg Tab.Subl SL Q5MIN X 3 DOSES PRN Chest Pain Pantoprazole Sodium 40 mg 02/23/21 07:30 02/23/21 07:52 Pantoprazole Sodium 40 Mg Tablet.Dr PO 40 mg BIDAC MELINDA Administration Phenytoin Sodium 100 mg 02/22/21 21:00 02/22/21 20:24 Phenytoin Cap 100 Mg Capsule PO 100 mg TID MELINDA Administration Quinapril HCl 40 mg 02/22/21 21:00 02/22/21 20:22 Quinapril Hcl 40 Mg Tablet PO 40 mg BID MELINDA Administration Simvastatin 40 mg 02/23/21 09:00 Simvastatin 40 Mg Tablet PO DAILY EMLINDA Sodium Chloride 1 syr 02/22/21 21:00 02/23/21 05:40 0.9% Sodium Chloride 10 Ml Disp.Syrin IVF 1 syr Q8HR MELINDA Administration Sucralfate 1 gm 02/23/21 07:30 02/23/21 07:52 Sucralfate 1 Gm Tablet PO 1 gm ACHS MELINDA Administration Thiamine HCl 100 mg 02/23/21 09:00 Vitamin B-1 100 Mg Tablet PO DAILY MELINDA Tizanidine HCl 2 mg 02/22/21 21:00 02/22/21 20:23 Tizanidine Hcl 4 Mg Tablet PO 2 mg BID MELINDA Administration Warfarin Sodium 2 mg 02/22/21 22:00 02/22/21 21:52 Warfarin Sodium 2 Mg Tablet PO 2 mg 1700 MELINDA Administration Discontinued Medications Generic Name Dose Route Start Last Admin Trade Name Nayeli PRN Reason Stop Dose Admin Haloperidol Lactate 1 mg 02/22/21 16:07 02/22/21 16:28 Haloperidol Lactate 5 Mg/Ml Vial IM 02/22/21 16:08 Not Given ONCE ONE Pantoprazole Sodium 40 mg 02/22/21 21:00 02/22/21 20:24 Pantoprazole Sodium 40 Mg Tablet.Dr PO 40 mg BID MELINDA Administration Sucralfate 1 gm 02/22/21 21:00 02/22/21 20:23 Sucralfate 1 Gm Tablet PO 1 gm QID MELINDA Administration Vital Signs: Temp Pulse Resp BP Pulse Ox 02/22/21 13:09 97.6 F 75 15 155/88 H 100 Discharge Plan Discharge Patient Disposition: ADMITTED INPATIENT Discharge Problem: Pneumonia, Generalized weakness, Muscle weakness ED Provider: STEPHANIE GREEN Condition: Stable Physician Progress Note: []
--- NOTE | 2021-02-22 15:48 | DI ---
EXAM: One-view chest. HISTORY: Cough. COMPARISON: 02/19/2021 chest x-ray. FINDINGS: There are increased patchy opacities present within the right mid lung compared to the jaleesa or study. The remaining lungs are clear. The cardiac silhouette is upper limits normal. There is no pulmonary edema identified. No acute abn ormality involving the osseous structures. IMPRESSION: Nonspecific density in the right mid lung which could represent atelectasis and/or pneum onia. There is no pleural effusion.
[2021-02-22] MEDS ORDERED: HALDOL IM ONE (16:07)
[2021-02-22] MEDS ORDERED: TYLENOL PO PRN (17:22)
[2021-02-22] MEDS ORDERED: NITROSTAT SL PRN (17:22)
[2021-02-22] MEDS ORDERED: ATROPINE SULFATE PFS IVP PRN (17:22)
[2021-02-22] MEDS ORDERED: HALDOL IM PRN (17:27)
[2021-02-22 17:44] LABS: BASOPHILS % (AUTO) 0.5 % (0.0-3.0); EOSINOPHILS # (AUTO) 0.1 K/ul (0.0-0.7); EOSINOPHILS % (AUTO) 1.3 % (0.0-7.0); HEMATOCRIT 31.6 % (42.0-52.0); HEMOGLOBIN 11.2 g/dl (14.0-18.0); IMMATURE GRANULOCYTE % (AUTO) 0.5 % (0.0-5.0); LYMPHOCYTES # (AUTO) 1.6 K/uL (0.60-3.4); LYMPHOCYTES % (AUTO) 20.4 (10.0-50.0); MEAN CORPUSCULAR HEMOGLOBIN 32.2 pg (27.0-31.0); MEAN CORPUSCULAR HGB CONC 35.4 (31.8-35.4); MEAN CORPUSCULAR VOLUME 90.8 fl (80.0-94.0); MONOCYTES # (AUTO) 0.6 K/uL (0.4-2.0); MONOCYTES % (AUTO) 8.2 (0-10); NEUTROPHILS # (AUTO) 5.3 K/ul (2.0-6.9); NEUTROPHILS % (AUTO) 69.1 % (42.2-75.2); PLATELET COUNT 271 10^3/uL (140-440); RDW COEFFICIENT OF VARIATION 13.2 % (11.6-14.8); RED BLOOD COUNT 3.48 10^6/ul (4.70-6.10)
[2021-02-22 17:56] VITALS: BMI 19.9
[2021-02-22 17:57] LABS: ALANINE AMINOTRANSFERASE 25.4 U/L (0-50); ALBUMIN 3.81 g/dL (3.5-5.0); ALKALINE PHOSPHATASE 120.8 U/L (56-119); ASPARTATE AMINO TRANSFERASE 54.5 U/L (17-59); BILIRUBIN,TOTAL 0.21 mg/dL (0.2-1.3); CALCIUM 8.64 mg/dL (8.4-10.2); CARBON DIOXIDE 24.5 mmol/L (22-30.0); CHLORIDE 102.6 mmol/L (98-107); CREATININE 0.98 mg/dL (0.60-1.10); POTASSIUM 3.43 mmol/L (3.5-5.1); SODIUM 135.2 mmol/L (134.5-145); TOTAL PROTEIN 6.65 g/dL (6.3-8.2)
[2021-02-22 18:24] LABS: PROTHROMBIN TIME 18.8 SEC (9.3-11.0)
--- NOTE | 2021-02-22 18:44 | CT ---
EXAM: CT of the head with and without contrast History: Head trauma. Comparison: Head CT 02/19/2021 Technique: Multiplanar CT images through the head were obtained with and without the administration of IV contrast Findings: The visualized paranasal sinuses and mastoid air cells are clear in general. No acute mavis varial abnormalities. Intracranially there is stable atrophy. No midline shift and no hydrocephalus. No acute intracrania l hemorrhage or abnormal extraaxial fluid collections. Stable old left MCA territory infarction with encephalomalacia. No abnormal contrast enhancement and no contrast enhancing brain lesions. Impression: 1. No acute intracranial process. 2. Stable old left MCA territory infarction. 3. No abnormal contrast enhancement All CT scans are performed using dose optimization techniques as appropriate to the performed exam an d include at least one of the following: Automated exposure control, adjustment of the mA and/or kV according t o size, and the use of iterative reconstruction technique.
[2021-02-22] MEDS: ACCUPRIL PO SCH (20:22)
[2021-02-22] MEDS: ATIVAN IVP SCH ×2 (20:22→22:00)
[2021-02-22] MEDS: ZANAFLEX PO SCH (20:23)
[2021-02-22] MEDS: DILANTIN PO SCH (20:24)
[2021-02-22] MEDS: SODIUM CHLORIDE 1,000 ML IV SCH (20:29)
[2021-02-22] MEDS ORDERED: CARAFATE PO SCH (21:00)
[2021-02-22] MEDS ORDERED: PROTONIX PO SCH (21:00)
[2021-02-22] MEDS: COUMADIN PO SCH (21:52)
[2021-02-23 05:30] LABS: BASOPHILS % (AUTO) 0.7 % (0.0-3.0); EOSINOPHILS # (AUTO) 0.1 K/ul (0.0-0.7); EOSINOPHILS % (AUTO) 1.3 % (0.0-7.0); HEMATOCRIT 29.9 % (42.0-52.0); HEMOGLOBIN 10.3 g/dl (14.0-18.0); IMMATURE GRANULOCYTE % (AUTO) 0.3 % (0.0-5.0); LYMPHOCYTES # (AUTO) 1.4 K/uL (0.60-3.4); LYMPHOCYTES % (AUTO) 23.4 (10.0-50.0); MEAN CORPUSCULAR HEMOGLOBIN 31.9 pg (27.0-31.0); MEAN CORPUSCULAR HGB CONC 34.4 (31.8-35.4); MEAN CORPUSCULAR VOLUME 92.6 fl (80.0-94.0); MONOCYTES # (AUTO) 0.6 K/uL (0.4-2.0); MONOCYTES % (AUTO) 9.5 (0-10); NEUTROPHILS # (AUTO) 3.9 K/ul (2.0-6.9); NEUTROPHILS % (AUTO) 64.8 % (42.2-75.2); PLATELET COUNT 269 10^3/uL (140-440); RDW COEFFICIENT OF VARIATION 13.2 % (11.6-14.8); RED BLOOD COUNT 3.23 10^6/ul (4.70-6.10); WHITE BLOOD COUNT 5.98 K/ul (4.2-10.2)
[2021-02-23 05:45] LABS: ALANINE AMINOTRANSFERASE 23.4 U/L (0-50); ALBUMIN 3.51 g/dL (3.5-5.0); ALKALINE PHOSPHATASE 113.3 U/L (56-119); BILIRUBIN,TOTAL 0.31 mg/dL (0.2-1.3); BLOOD UREA NITROGEN 15.6 mg/dL (9-20); CALCIUM 8.79 mg/dL (8.4-10.2); CARBON DIOXIDE 25.4 mmol/L (22-30.0); CHLORIDE 103.6 mmol/L (98-107); CREATININE 0.97 mg/dL (0.60-1.10); GLUCOSE 96.9 mg/dL (74-106); POTASSIUM 3.66 mmol/L (3.5-5.1); TOTAL PROTEIN 6.05 g/dL (6.3-8.2)
[2021-02-23 05:51] LABS: PROTHROMBIN TIME 18.6 SEC (9.3-11.0)
[2021-02-23] MEDS: CARAFATE PO SCH ×5 (07:52→20:44)
[2021-02-23] MEDS: PROTONIX PO SCH ×2 (07:52→16:37)
[2021-02-23] MEDS: SODIUM CHLORIDE 1,000 ML IV SCH ×2 (07:53→21:17)
[2021-02-23] MEDS ORDERED: ZETIA PO SCH (09:00)
[2021-02-23] MEDS ORDERED: ZOCOR PO SCH (09:00)
[2021-02-23] MEDS: ATIVAN IVP SCH ×2 (09:16→21:43)
[2021-02-23] MEDS: ACCUPRIL PO SCH ×2 (09:31→20:43)
[2021-02-23] MEDS: NORVASC PO SCH (09:31)
[2021-02-23] MEDS: ZANAFLEX PO SCH ×2 (09:32→20:43)
[2021-02-23] MEDS: DILANTIN PO SCH ×3 (09:32→20:44)
[2021-02-23] MEDS: FERROUS SULFATE PO SCH ×2 (09:40→12:17)
[2021-02-23] MEDS: THIAMINE PO SCH (09:41)
[2021-02-23] MEDS ORDERED: DECADRON IM ONE (10:06)
[2021-02-23 10:14] LABS: BILIRUBIN,URINE Negative (NEGATIVE); CLARITY,URINE Clear (CLEAR); COLOR,URINE Yellow (YELLOW); GLUCOSE, URINE (UA) Negative (NEGATIVE); KETONES,URINE Negative (NEGATIVE); LEUKOCYTE ESTERASE ,URINE Negative (NEGATIVE); NITRITE,URINE Negative (NEGATIVE); PROTEIN,URINE Negative (NEGATIVE); URINE, BLOOD Negative (NEGATIVE); UROBILINOGEN,URINE 0.2 (0.2)
[2021-02-23] MEDS: NICODERM 21 MG TD SCH (10:35)
[2021-02-23] MEDS: ROCEPHIN 1 GM/50 ML D5W 1 GM/50 ML BAG IV SCH (10:36)
--- NOTE | 2021-02-23 11:09 | PCM.PROG ---
Attending Provider: ATTENDING PROVIDER: Dr. STEPHANIE GREEN This patient is seen with Fanny Chaparro, Nurse Practitioner. DATE OF SERVICE: 02/23/21 SUBJECTIVE: This 75 year old /WHITE M was hospitalized 02/22/21. Pleasant today. Allowed labs and CT of the brain. He has left IV in place. More alert and oriented today. REVIEW OF SYSTEMS: CONSTITUTIONAL: No night sweats. No fatigue, malaise, lethargy. No fever or chills. Generalized weakness. HEENT: Eyes: No visual changes. No eye pain. No eye discharge. ENT: No runny nose. No epistaxis. No sinus pain. No odynophagia. No congestion. RESPIRATORY: Cough, no congestion. No hemoptysis. No shortness of breath. CARDIOVASCULAR: No angina symptoms. No CHF symptoms. No atypical chest pain for CAD. No palpitations. No orthopnea.. GASTROINTESTINAL: No abdominal pain. No nausea or vomiting. No diarrhea or constipation. No hematemesis. No hematochezia. GENITOURINARY: No urgency. No frequency. No dysuria. No hematuria. No obstructive symptoms. No discharge. No pain. No significant abnormal bleeding. MUSCULOSKELETAL: No musculoskeletal pain; no joint swelling. NEUROLOGICAL: Awake, alert, oriented to time, place and person. No headache. No neck pain. No syncope. No seizures. No dizziness. PSYCHIATRIC: Not anxious. No depression. No suicidal thoughts. No homicidal thoughts. SKIN: No rash. No lesions. No wounds. ENDOCRINE: No unexplained weight loss. No weight gain. HEMATOLOGIC/LYMPHATIC: No anemia. No purpura. No petechiae. No prolonged or excessive bleeding. No palpable lymph nodes. PHYSICAL EXAMINATION: GENERAL: The patient is awake, alert and oriented, sitting in bed in no distr ess. VITAL SIGNS: Temperature 98.3 F, Pulse 74, Respiratory Rate 20, BP 150/79, Pulse Ox 98% HEENT: Head normocephalic, atraumatic. Eyes: Extraocular muscles are intact. Pupils are equal, round and reactive to light and accommodation. Ears: No lesions. Nose appeared normal. Throat: No exudate or erythema. NECK: Supple. No JVD, no carotid bruit. No lymphadenopathy or thyromegaly. LUNGS: Diminished breath sounds. Rhonchi on right. Clear to auscultation. Percussion note normal. Chest symmetrical. HEART: S1, S2, no S3. No murmurs. No cyanosis or clubbing. No ascites. Pulses: Dorsalis pedis and posterior tibial pulses +1 to +2 both sides. ABDOMEN: Soft. Non-tender. Bowel sounds active. No CVA tenderness. No mass felt. EXTREMITIES: No edema. Full range of motion of all extremities, equal. 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 NEUROLOGIC: No focal deficit. Cranial nerves II through XII are grossly intact. No headache. No double vision. SKIN: Not dry. Intact. Turgor-normal. LYMPHATIC: No palpable lymph nodes/no lymphedema. MUSCULOSKELETAL: Normal joints with no swelling. Muscle tone is normal. LAB REVIEW: 02/23/21 05:20 02/23/21 05:20 02/23/21 05:20: Sodium 133.0 L, Potassium 3.66, Chloride 103.6, Carbon Dioxide 25.4, Anion Gap 7.66, BUN 15.6, Creatinine 0.97, Estimated GFR (MDRD) 75.00, BUN/Creatinine Ratio 16.08, Glucose 96.9, Calcium 8.79, Total Bilirubin 0.31, AST 46.0, ALT 23.4, Alkaline Phosphatase 113.3, Total Protein 6.05 L, Albumin 3.51, Globulin 2.54, Albumin/Globulin Ratio 1.38 02/23/21 05:20: PT 18.6 H, INR 1.84 02/23/21 05:20: WBC 5.98, RBC 3.23 L, Hgb 10.3 L, Hct 29.9 L, MCV 92.6, MCH 31.9 H, MCHC 34.4, RDW Coeff of Audrey 13.2, Plt Count 269, Immature Gran % (Auto) 0.3, Neut % (Auto) 64.8, Lymph % (Auto) 23.4, [place] % (Auto) 9.5, Eos % (Auto) 1.3, Baso % (Auto) 0.7, Neut # (Auto) 3.9, Lymph # (Auto) 1.4, [place] # (Auto) 0.6, Eos # (Auto) 0.1, Baso # (Auto) 0.0, Immature Gran # (Auto) 0.0 02/22/21 17:37: PT 18.8 H, INR 1.86 02/22/21 17:37: Sodium 135.2, Potassium 3.43 L, Chloride 102.6, Carbon Dioxide 24.5, Anion Gap 11.53, BUN 16.0, Creatinine 0.98, Estimated GFR (MDRD) 75.00, BUN/Creatinine Ratio 16.32, Glucose 146.0 H, Calcium 8.64, Total Bilirubin 0.21, AST 54.5, ALT 25.4, Alkaline Phosphatase 120.8 H, Total Protein 6.65, Albumin 3.81, Globulin 2.84, Albumin/Globulin Ratio 1.34 02/22/21 17:37: WBC 7.70, RBC 3.48 L, Hgb 11.2 L, Hct 31.6 L, MCV 90.8, MCH 32.2 H, MCHC 35.4, RDW Coeff of Audrey 13.2, Plt Count 271, Immature Gran % (Auto) 0.5, Neut % (Auto) 69.1, Lymph % (Auto) 20.4, [place] % (Auto) 8.2, Eos % (Auto) 1.3, Baso % (Auto) 0.5, Neut # (Auto) 5.3, Lymph # (Auto) 1.6, [place] # (Auto) 0.6, Eos # (Auto) 0.1, Baso # (Auto) 0.0, Immature Gran # (Auto) 0.0 02/22/21 13:35: SARS CoV-2 RNA Rapid SHAYY Negative ASSESSMENT: Please see below. 1. Right lobar pneumonia 2. Generalized weakness 3. Anxiety PLAN: 1. Start Rocephin 1 gram IV 2. 4mg Decadron today 3. Continue IV fluids 4. Continue Coumadin Plan and coordination of the patient's care discussed in the presence of Machine Chain Maker and nurse. SCRIBED BY: ESTELLA TODD Grain Elevator Man scribed while in presence of service performed by Dr. Judd/Fanny Chaparro APRN on 02/23/21 ([id number])
--- NOTE | 2021-02-23 14:17 | RS.OTINEVL ---
Subjective - Patient information Date of Evaluation: 02/23/21 Date of Arrival on Unit: 02/22/21 Admitted From:: Home Diagnosis: Pneumonia PRECAUTIONS: Risk for falls Usual Living Arrangement: Alone Living Arrangement Comments: Cleaning help/grocery help 4 hr/day (4 days per week) Home Environment: House Medical History: Hypertension, CVA/TIA, COPD, Arthritis Medical History Comments:: enlarged prostate, renal lesion, R upper lobe mass, CAD, depression, L2 comp fx, h/o pelvic fx LATEX ALLERGY?: No Surgical History Comments:: TURP, R AKA Medications: see chart - Level of function Prior to this admission, the patient could do the following:: Partially Dependent Ambulation Abilities prior to this admission: Pt was able to transfer from chair to power chair independently. Pt was living at home alone and completing his ADLS himself. Current Level of Function: Partially Dependent Current Equipment Used at Home: wheelchair Pain Assessment - Pain Pain Alleviating Factors: Medication Interventions - Objective Patient Orientation: Person Current Interventions: IV's, Oxygen, Telemetry Observation: Pt did not know where he was. Pt has Right Upper extremity flaccid. Pt is weak and requiring more assistance for self care. Interventions - ROM Right Upper Extremity AROM: WFL's Left Upper Extremity AROM: WFL's - Strength Right Upper Extremity Strength: Spastic Left Upper Extremity Strength: Mild Weakness - Sensation Right Upper Extremity Sensation: Intact/Normal Left Upper Extremity Sensation: Intact/Normal Balance - Sitting Balance Static Sitting Balance: Poor Dynamic Sitting Balance: Poor - Standing Balance Static Standing Balance: Poor Dynamic Standing Balance: Poor (Pt requires 2 people max assist to stand and transfer to chair.) ADL Skills - Self Feeding Self Feeding: Set Up Only - Grooming Grooming: Min Assist Grooming Set-up: Sitting - Bathing Bathing UE: Min Assist Bathing LE: Min Assist Bathing Set-up: Sitting - Dressing Dressing UE: Min Assist Dressing LE: Max Assist - Toilet Management Toilet Hygiene: Max Assist Toilet Clothing Management: Max Assist Functional Mobility - Bed Mobility Supine to Sit: Max Assist Sit to Supine: Max Assist - Transfers Sit to Stand: Max Assist, 2 person assist Stand to Sit: Max Assist, 2 person assist Stand Pivot Transfers: Max Assist, 2 person assist - Ambulation Weight Bearing Status: FWB Assistance needed with Ambulation: Max Assist, 2 person assist - Safety Awareness Safety Awareness: Poor SHWETA INDEX SCORE: . Additional Treatment Performed - Time with patient Length of Evaluation: 19 Total treatment time: 19 Activities Do you enjoy playing games?: No Would you be interested in leaving your room for activities?: Yes Would you enjoy group activities?: Yes Do you have difficulty with your vision?: No Patient Interests:: Watching Television, Visiting/Socializing Patient Education Patient Education: Education of diagnosis, Activity Modification Teaching Recipient: Patient Teaching Methods: Discussion, Demonstration Assessment Problem List:: Decreased level of function (Pt is weak and is requiring more assistance with ADLS. ), Requires training/education, Decreased safety/Risk of falls, Weakness, Cognitive status limits abilities Rehab Potential: Good Further Therapy Indicated?: Yes Evaluation Complexity: HISTORY: Medium, EXAM OF BODY SYSTEMS: Medium, CLINICAL DECISION MAKING: Medium Patient's Goal(s): To be able to go home. Short Term Goals - Goals GOAL 1: Pt to be able to get a washcloth in his hand I to wash face. Goal to be met by: 03/05/21 GOAL 2: Pt to tolerate sitting in chair for meals. Goal to be met by: 03/05/21 GOAL 3: Pt to increase activity tolerance to 10 minutes to complete ADLS. Goal to be met by: 03/05/21 GOAL 4: Pt to increase LUE strength to 4+/5 to improve ADLS. Goal to be met by: 03/05/21 Shelter Goals GOAL 1: Pt to increase [place] of self care to Min A. Goal to be met by: 03/09/21 GOAL 2: Pt to increase LUE strength to 5/5. Goal to be met by: 03/09/21 GOAL 3: Pt to increase activity tolerance to 15 minutes to increase I of self cares Goal to be met by: 03/09/21 Plan Plan of Care: Therapeutic EX, Neuromuscular Re-Educ, Therapeutic Activity, Self-Care/Home Management Frequency of Treatment: 1-2 X day, as tolerated Duration of Treatment: 2 Weeks Anticipated Discharge Destination: Shelter Care Facility Treatment Diagnosis (ICD 10 Codes): R53.1 Weakness Has the Physician been added for Co-signature?: Yes
--- NOTE | 2021-02-23 15:45 | RS.PTINEVL ---
Subjective - Patient information Date of Evaluation: 02/23/21 Date of Arrival on Unit: 02/22/21 Admitted From:: Home Diagnosis: pneumonia, falls Usual Living Arrangement: Alone Home Environment: House, Ramp Medical History: Hypertension, CVA/TIA, COPD, Arthritis Medical History Comments:: depression, diverticulosis, GERD, compression fx of spine, femur fx, pelvic fx, seizure, alcohol abuse, anemia Surgical History Comments:: hip sx, R AKA Medications: see chart Subjective Information/ Patient Comments:: pt with expressive aphasia. Daughter states that his "good leg" is weak and he has been unable to put weight on it to transfer. - Level of function Abilities prior to this admission: prior to this illness pt was transferring independently, had help at home but was independent with some ADL's. Current Level of Function: Dependent Current Equipment Used at Home: wheelchair, scooter Interventions - Objective Patient Orientation: Person Current Interventions: IV's, Telemetry Observation: pt with wound covered with dressing to buttock, small blistered a susanna on distal residual limb. Range of Motion - ROM Right Upper Extremity AROM: Marked limitation (pt RUE in flex contracture) Left Upper Extremity AROM: WFL's Right Lower Extremity AROM: Moderate limitation (decreased hip extension) Left Lower Extremity AROM: Slight limitation (slight decreased hip extension) Muscle Strength - Muscle Strength Right Upper Extremity Strength: Severe Weakness (no active movement noted) Left Upper Extremity Strength: Mild Weakness (grossly 4-/5) Right Lower Extremity Strength: Severe Weakness (hip flex 2/5) Left Lower Extremity Strength: Mild Weakness (hip flex 3/5, knee flex/ext 3/5) Sensation - Sensation Right Upper Extremity Sensation: Impaired Right Lower Extremity Sensation: Impaired (difficult to fully assess due to cognitive deficits.) Palpation Palpation Findings: None/Normal Balance - Sitting Balance and Reactions Static Sitting Balance: Poor Dynamic Sitting Balance: Poor Sitting Equilibrium Reactions: Absent Left, Absent Right Sitting Protective Reactions: Absent Left, Absent Right - Standing Balance and Reactions Static Standing Balance: Zero Dynamic Standing Balance: Zero Standing Equilibrium Reactions: Absent Left, Absent Right Standing Protective Reactions: Absent Left, Absent Right - Comments Balance Assessment Comments: pt able to maintain static sitting balance as side of bed approx 20 secs without challenges pt leans/pushes to R Functional Mobility - Bed Mobility Rolling R/L: Mod Assist, 1 person assist Scooting: Max Assist, 2 person assist Supine to Sit: Mod Assist, 2 person assist - Transfers Sit to Stand: Max Assist, 2 person assist Stand to Sit: Max Assist, 2 person assist Stand Pivot Transfers: Max Assist, 2 person assist - Safety Awareness Safety Awareness: Poor SHWETA INDEX SCORE: n/a Treatment time - Time with patient Length of Evaluation: 21 Total treatment time: 26 Patient Education - Education Patient Education: Activity Modification, Education of Plan of Care Teaching Recipient: Patient, Family Teaching Methods: Discussion Comments: pt does not follow commands and is easily agitated. pt with expressive aphasia and difficult to understand at times. Assessment - Assessment Problem List:: Decreased level of function, Requires training/education, Decreased safety/Risk of falls, Weakness, Cognitive status limits abilities Rehab Potential: Fair Further Therapy Indicated?: Yes Candidate for Swing Bed for Therapy Services?: Feel pt would not be appropriate for swing bed for PT due to cognitive and behavioral deficits Evaluation Complexity: HISTORY: Medium, EXAM OF BODY SYSTEMS: Medium, CLINICAL PRESENTATION: Medium, CLINICAL DECISION MAKING: Medium Patient's Goal(s): pt unable to express goal. Short Term Goals GOAL #1: pt demonstrate rolling and bridging in bed with min x1 Goal to be met by: 02/25/21 GOAL #2: Transfer sup to/from sit mod x 1 Goal to be met by: 02/25/21 GOAL #3: Transfer sit to/from stand mod x 1 Goal to be met by: 02/25/21 GOAL #4: Stand pivot bed to/from chair with mod x 1 Goal to be met by: 02/25/21 GOAL #5: pt able to sit side of bed x 1 min without LOB Goal to be met by: 02/25/21 [facility] Goals GOAL #1: Scooting in bed min x 1 Goal to be met by: 02/27/21 GOAL #2: Transfer sup to/from sit min x 1, sit to/from stand min x 1 Goal to be met by: 02/27/21 GOAL #3: pt stand pivot bed to/from chair with min x 1 Goal to be met by: 02/27/21 Plan Plan of Care: Therapeutic EX, Neuromuscular Re-Educ, Therapeutic Activity Other:: transfer training Frequency of Treatment: 1-2 X day, as tolerated Duration of Treatment: 5 days Anticipated Discharge Destination: undetermined home vs. LTC Treatment Diagnosis (ICD 10 Codes): pneumonia. weakness M62.81. balance impaired R 26.81. falls R 29.6. late effect CVA Has the Physician been added for Co-signature?: Yes
[2021-02-23] MEDS: COUMADIN PO SCH (17:11)
[2021-02-24 05:24] LABS: BASOPHILS % (AUTO) 0.6 % (0.0-3.0); EOSINOPHILS # (AUTO) 0.1 K/ul (0.0-0.7); EOSINOPHILS % (AUTO) 1.7 % (0.0-7.0); HEMOGLOBIN 10.3 g/dl (14.0-18.0); IMMATURE GRANULOCYTE % (AUTO) 0.3 % (0.0-5.0); LYMPHOCYTES # (AUTO) 1.8 K/uL (0.60-3.4); LYMPHOCYTES % (AUTO) 27.3 (10.0-50.0); MEAN CORPUSCULAR HEMOGLOBIN 31.9 pg (27.0-31.0); MEAN CORPUSCULAR HGB CONC 34.3 (31.8-35.4); MEAN CORPUSCULAR VOLUME 92.9 fl (80.0-94.0); MONOCYTES # (AUTO) 0.7 K/uL (0.4-2.0); MONOCYTES % (AUTO) 11.1 (0-10); NEUTROPHILS # (AUTO) 3.9 K/ul (2.0-6.9); PLATELET COUNT 281 10^3/uL (140-440); RDW COEFFICIENT OF VARIATION 13.2 % (11.6-14.8); RED BLOOD COUNT 3.23 10^6/ul (4.70-6.10)
[2021-02-24 05:39] LABS: ALANINE AMINOTRANSFERASE 22.1 U/L (0-50); ALBUMIN 3.33 g/dL (3.5-5.0); ALKALINE PHOSPHATASE 106.9 U/L (56-119); ASPARTATE AMINO TRANSFERASE 51.7 U/L (17-59); BILIRUBIN,TOTAL 0.17 mg/dL (0.2-1.3); BLOOD UREA NITROGEN 14.1 mg/dL (9-20); CALCIUM 8.6 mg/dL (8.4-10.2); CARBON DIOXIDE 24.1 mmol/L (22-30.0); CHLORIDE 103.4 mmol/L (98-107); CREATININE 0.78 mg/dL (0.60-1.10); GLUCOSE 96.4 mg/dL (74-106); POTASSIUM 3.8 mmol/L (3.5-5.1); SODIUM 132.1 mmol/L (134.5-145); TOTAL PROTEIN 5.88 g/dL (6.3-8.2)
[2021-02-24 05:48] LABS: PROTHROMBIN TIME 19.5 SEC (9.3-11.0)
[2021-02-24] MEDS: PROTONIX PO SCH ×2 (05:54→16:28)
[2021-02-24] MEDS: CARAFATE PO SCH ×4 (05:54→20:09)
--- NOTE | 2021-02-24 08:28 | PCM.PROG ---
Attending Provider: ATTENDING PROVIDER: Dr. STEPHANIE GREEN This patient is seen with Fanny Chaparro, Nurse Practitioner. DATE OF SERVICE: 02/24/21 SUBJECTIVE: This 75 year old /WHITE M was hospitalized 02/22/21. Cough is more lose. Vital signs are stable. Blood pressure elevate in the morning. Eating well. REVIEW OF SYSTEMS: CONSTITUTIONAL: No night sweats. No fatigue, malaise, lethargy. No fever or chills. Weakness. HEENT: Eyes: No visual changes. No eye pain. No eye discharge. ENT: No runny nose. No epistaxis. No sinus pain. No odynophagia. No congestion. RESPIRATORY: Cough, no congestion. No hemoptysis. No shortness of breath. CARDIOVASCULAR: No angina symptoms. No CHF symptoms. No atypical chest pain for CAD. No palpitations. No orthopnea.. GASTROINTESTINAL: No abdominal pain. No nausea or vomiting. No diarrhea or constipation. No hematemesis. No hematochezia. GENITOURINARY: No urgency. No frequency. No dysuria. No hematuria. No obstructive symptoms. No discharge. No pain. No significant abnormal bleeding. MUSCULOSKELETAL: No musculoskeletal pain; no joint swelling. NEUROLOGICAL: Awake, alert, oriented to time, place and person. No headache. No neck pain. No syncope. No seizures. No dizziness. PSYCHIATRIC: Not anxious. No depression. No suicidal thoughts. No homicidal thoughts. SKIN: No rash. No lesions. No wounds. ENDOCRINE: No unexplained weight loss. No weight gain. HEMATOLOGIC/LYMPHATIC: No anemia. No purpura. No petechiae. No prolonged or excessive bleeding. No palpable lymph nodes. PHYSICAL EXAMINATION: GENERAL: The patient is awake, alert and oriented, sitting in bed in no distress. VITAL SIGNS: Temperature 98.3 F, Pulse 77, Respiratory Rate 16, BP 150/84, Pulse Ox 95% HEENT: Head normocephalic, atraumatic. Eyes: Extraocular muscles are intact. Pupils are equal, round and reactive to light and accommodation. Ears: No lesions. Nose appeared normal. Throat: No exudate or erythema. NECK: Supple. No JVD, no carotid bruit. No lymphadenopathy or thyromegaly. LUNGS: Diminished breath sounds. Rhonchi on right. Clear to auscultation. Percussion note normal. Chest symmetrical. HEART: S1, S2, no S3. No murmurs. No cyanosis or clubbing. No ascites. Pulses: Dorsalis pedis and posterior tibial pulses +1 to +2 both sides. ABDOMEN: Soft. Non-tender. Bowel sounds active. No CVA tenderness. No mass felt. EXTREMITIES: No edema. Full range of motion of all extremities, equal. NEUROLOGIC: No focal deficit. Cranial nerves II through XII are grossly intact. No headache. No double vision. SKIN: Not dry. Intact. Turgor-normal. LYMPHATIC: No palpable lymph nodes/no lymphedema. MUSCULOSKELETAL: Normal joints with no swelling. Muscle tone is normal. LAB REVIEW: 02/24/21 05:00 02/24/21 05:00 02/24/21 05:00: Sodium 132.1 L, Potassium 3.80, Chloride 103.4, Carbon Dioxide 24.1, Anion Gap 8.40, BUN 14.1, Creatinine 0.78, Estimated GFR (MDRD) 97.00, BUN/Creatinine Ratio 18.07, Glucose 96.4, Calcium 8.60, Total Bilirubin 0.17 L, AST 51.7, ALT 22.1, Alkaline Phosphatase 106.9, Total Protein 5.88 L, Albumin 3.33 L, Globulin 2.55, Albumin/Globulin Ratio 1.30 02/24/21 05:00: PT 19.5 H, INR 1.94 02/24/21 05:00: WBC 6.60, RBC 3.23 L, Hgb 10.3 L, Hct 30.0 L, MCV 92.9, MCH 31.9 H, MCHC 34.3, RDW Coeff of Audrey 13.2, Plt Count 281, Immature Gran % (Auto) 0.3, Neut % (Auto) 59.0, Lymph % (Auto) 27.3, [place] % (Auto) 11.1 H, Eos % (Auto) 1.7, Baso % (Auto) 0.6, Neut # (Auto) 3.9, Lymph # (Auto) 1.8, Andrew # (Auto) 0.7, Eos # (Auto) 0.1, Baso # (Auto) 0.0, Immature Gran # (Auto) 0.0 02/23/21 09:30: Urine Color Yellow, Urine Clarity Clear, Urine pH 7.0, Ur Specific [place] 1.020, Urine Protein Negative, Urine Glucose (UA) Negative, Urine Ketones Negative, Urine Blood Negative, Urine Nitrite Negative, Urine Bilirubin Negative, Urine Urobilinogen 0.2, Ur Leukocyte Esterase Negative 02/23/21 05:20: Phenytoin 10.82 ASSESSMENT: Please see below. 1. Right lober pneumonia 2. Generalized weakness 3. Hypertension PLAN: 1. Discontinue Quinapril 2. Losartan 100mg 3. Discontinue IV fluids. Plan and coordination of the patient's care discussed in the presence of Sugar Refinery Supervisor and nurse. SCRIBED BY: Ezekiel OSPINA scribed while in presence of service performed by Dr. Judd/Fanny Chaparro APRN on 02/24/21 ([id number])
[2021-02-24] MEDS: THIAMINE PO SCH (09:17)
[2021-02-24] MEDS: ZITHROMAX PO SCH (09:17)
[2021-02-24] MEDS: ZANAFLEX PO SCH ×2 (09:18→20:09)
[2021-02-24] MEDS: NORVASC PO SCH (09:18)
[2021-02-24] MEDS: COZAAR PO SCH (09:18)
[2021-02-24] MEDS: ATIVAN IVP SCH ×2 (09:19→21:45)
[2021-02-24] MEDS: DILANTIN PO SCH ×3 (09:19→20:09)
[2021-02-24] MEDS: FERROUS SULFATE PO SCH ×2 (09:23→12:15)
[2021-02-24] MEDS: NICODERM 21 MG TD SCH (09:29)
[2021-02-24] MEDS: ROCEPHIN 1 GM/50 ML D5W 1 GM/50 ML BAG IV SCH (09:29)
[2021-02-24] MEDS: COUMADIN PO SCH (16:29)
[2021-02-25 04:26] LABS: BASOPHILS % (AUTO) 0.6 % (0.0-3.0); EOSINOPHILS # (AUTO) 0.1 K/ul (0.0-0.7); EOSINOPHILS % (AUTO) 1.9 % (0.0-7.0); HEMATOCRIT 31.5 % (42.0-52.0); HEMOGLOBIN 10.9 g/dl (14.0-18.0); IMMATURE GRANULOCYTE # (AUTO) 0.1 (0.0-1.0); IMMATURE GRANULOCYTE % (AUTO) 0.7 % (0.0-5.0); LYMPHOCYTES # (AUTO) 1.6 K/uL (0.60-3.4); LYMPHOCYTES % (AUTO) 24.4 (10.0-50.0); MEAN CORPUSCULAR HEMOGLOBIN 32.4 pg (27.0-31.0); MEAN CORPUSCULAR HGB CONC 34.6 (31.8-35.4); MEAN CORPUSCULAR VOLUME 93.8 fl (80.0-94.0); MONOCYTES # (AUTO) 0.7 K/uL (0.4-2.0); NEUTROPHILS # (AUTO) 4.2 K/ul (2.0-6.9); NEUTROPHILS % (AUTO) 62.4 % (42.2-75.2); PLATELET COUNT 304 10^3/uL (140-440); RDW COEFFICIENT OF VARIATION 13.2 % (11.6-14.8); RED BLOOD COUNT 3.36 10^6/ul (4.70-6.10); WHITE BLOOD COUNT 6.69 K/ul (4.2-10.2)
[2021-02-25 04:42] LABS: ALANINE AMINOTRANSFERASE 23.7 U/L (0-50); ALBUMIN 3.61 g/dL (3.5-5.0); ALKALINE PHOSPHATASE 112.8 U/L (56-119); ASPARTATE AMINO TRANSFERASE 41.1 U/L (17-59); BILIRUBIN,TOTAL 0.25 mg/dL (0.2-1.3); BLOOD UREA NITROGEN 14.5 mg/dL (9-20); CARBON DIOXIDE 25.2 mmol/L (22-30.0); CHLORIDE 102.1 mmol/L (98-107); CREATININE 0.96 mg/dL (0.60-1.10); GLUCOSE 91.9 mg/dL (74-106); POTASSIUM 4.2 mmol/L (3.5-5.1); SODIUM 131.8 mmol/L (134.5-145); TOTAL PROTEIN 6.24 g/dL (6.3-8.2)
[2021-02-25] MEDS: CARAFATE PO SCH ×4 (05:47→20:51)
[2021-02-25] MEDS: PROTONIX PO SCH ×2 (05:47→17:31)
[2021-02-25 07:03] LABS: PROTHROMBIN TIME 16.8 SEC (9.3-11.0)
[2021-02-25] MEDS: ROCEPHIN 1 GM/50 ML D5W 1 GM/50 ML BAG IV SCH (08:38)
[2021-02-25] MEDS: NICODERM 21 MG TD SCH (08:39)
[2021-02-25] MEDS: DILANTIN PO SCH ×3 (08:39→20:51)
[2021-02-25] MEDS: ZITHROMAX PO SCH (08:39)
[2021-02-25] MEDS: ATIVAN IVP SCH ×2 (08:39→21:09)
[2021-02-25] MEDS: FERROUS SULFATE PO SCH ×2 (08:40→12:13)
[2021-02-25] MEDS: COZAAR PO SCH (08:40)
[2021-02-25] MEDS: ZANAFLEX PO SCH ×2 (08:40→20:51)
[2021-02-25] MEDS: THIAMINE PO SCH (08:40)
[2021-02-25] MEDS: NORVASC PO SCH (08:40)
--- NOTE | 2021-02-25 09:45 | PCM.PROG ---
Attending Provider: ATTENDING PROVIDER: Dr. STEPHANIE GREEN This patient is seen with Fanny Chaparro, Nurse Practitioner. DATE OF SERVICE: 02/25/21 SUBJECTIVE: This 75 year old /WHITE M was hospitalized 02/22/21. The patient has been eating well. Hypertension has improved. Still mildly elevated in day time. Cough improving. REVIEW OF SYSTEMS: CONSTITUTIONAL: No night sweats. No fatigue, malaise, lethargy. No fever or chills. Weakness. HEENT: Eyes: No visual changes. No eye pain. No eye discharge. ENT: No runny nose. No epistaxis. No sinus pain. No odynophagia. No congestion. RESPIRATORY: Cough, no congestion. No hemoptysis. No shortness of breath. CARDIOVASCULAR: No angina symptoms. No CHF symptoms. No atypical chest pain for CAD. No palpitations. No orthopnea.. GASTROINTESTINAL: No abdominal pain. No nausea or vomiting. No diarrhea or constipation. No hematemesis. No hematochezia. GENITOURINARY: No urgency. No frequency. No dysuria. No hematuria. No obst ructive symptoms. No discharge. No pain. No significant abnormal bleeding. MUSCULOSKELETAL: No musculoskeletal pain; no joint swelling. NEUROLOGICAL: Awake, alert, oriented to time, place and person. No headache. No neck pain. No syncope. No seizures. No dizziness. PSYCHIATRIC: Not anxious. No depression. No suicidal thoughts. No homicidal thoughts. SKIN: No rash. No lesions. No wounds. ENDOCRINE: No unexplained weight loss. No weight gain. HEMATOLOGIC/LYMPHATIC: No anemia. No purpura. No petechiae. No prolonged or excessive bleeding. No palpable lymph nodes. PHYSICAL EXAMINATION: GENERAL: The patient is awake, alert and oriented, sitting in bed in no distress. VITAL SIGNS: Temperature 98.3 F, Pulse 76, Respiratory Rate 18, BP 155/90, Pulse Ox 98% HEENT: Head normocephalic, atraumatic. Eyes: Extraocular muscles are intact. Pupils are equal, round and reactive to light and accommodation. Ears: No lesions. Nose appeared normal. Throat: No exudate or erythema. NECK: Supple. No JVD, no carotid bruit. No lymphadenopathy or thyromegaly. LUNGS: Diminished breath sounds. Clear to auscultation. Percussion note normal. Chest symmetrical. HEART: S1, S2, no S3. No murmurs. No cyanosis or clubbing. No ascites. Pulses: Dorsalis pedis and posterior tibial pulses +1 to +2 both sides. ABDOMEN: Soft. Non-tender. Bowel sounds active. No CVA tenderness. No mass felt. EXTREMITIES: No edema. Full range of motion of all extremities, equal. NEUROLOGIC: No focal deficit. Cranial nerves II through XII are grossly intact. No headache. No double vision. SKIN: Not dry. Intact. Turgor-normal. LYMPHATIC: No palpable lymph nodes/no lymphedema. MUSCULOSKELETAL: Normal joints with no swelling. Muscle tone is normal. LAB REVIEW: 02/25/21 04:05 02/25/21 04:05 02/25/21 04:05: PT 16.8 H, INR 1.66 02/25/21 04:05: Sodium 131.8 L, Potassium 4.20, Chloride 102.1, Carbon Dioxide 25.2, Anion Gap 8.70, BUN 14.5, Creatinine 0.96, Estimated GFR (MDRD) 76.00, BUN/Creatinine Ratio 15.10, Glucose 91.9, Calcium 9.00, Total Bilirubin 0.25, AST 41.1, ALT 23.7, Alkaline Phosphatase 112.8, Total Protein 6.24 L, Albumin 3.61, Globulin 2.63, Albumin/Globulin Ratio 1.37 02/25/21 04:05: WBC 6.69, RBC 3.36 L, Hgb 10.9 L, Hct 31.5 L, MCV 93.8, MCH 32.4 H, MCHC 34.6, RDW Coeff of Audrey 13.2, Plt Count 304, Immature Gran % (Auto) 0.7, Neut % (Auto) 62.4, Lymph % (Auto) 24.4, [place] % (Auto) 10.0, Eos % (Auto) 1.9, Baso % (Auto) 0.6, Neut # (Auto) 4.2, Lymph # (Auto) 1.6, [place] # (Auto) 0.7, Eos # (Auto) 0.1, Baso # (Auto) 0.0, Immature Gran # (Auto) 0.1 ASSESSMENT: Please see below. 1. Right lobar pneumonia 2. Generalized weakness 3. Hypertension 4. History of CVA with left hemiparesis PLAN: 1. Increase Norvasc 10mg in the morning 2. Possible discharge to [facility] today 3. Will have therapy further evaluate. Need to speak with family. Plan and coordination of the patient's care discussed in the presence of Insurance Case Manager and nurse. SCRIBED BY: Ezekiel OSPINA scribed while in presence of service performed by Dr. Judd/Fanny Chaparro APRN on 02/25/21 ([id number])
[2021-02-25] MEDS: COUMADIN PO SCH (17:31)
[2021-02-26 05:02] LABS: BASOPHILS % (AUTO) 0.5 % (0.0-3.0); EOSINOPHILS # (AUTO) 0.2 K/ul (0.0-0.7); EOSINOPHILS % (AUTO) 2.5 % (0.0-7.0); HEMATOCRIT 33.7 % (42.0-52.0); HEMOGLOBIN 11.3 g/dl (14.0-18.0); IMMATURE GRANULOCYTE # (AUTO) 0.1 (0.0-1.0); IMMATURE GRANULOCYTE % (AUTO) 0.7 % (0.0-5.0); LYMPHOCYTES # (AUTO) 2.3 K/uL (0.60-3.4); LYMPHOCYTES % (AUTO) 29.8 (10.0-50.0); MEAN CORPUSCULAR HEMOGLOBIN 31.7 pg (27.0-31.0); MEAN CORPUSCULAR HGB CONC 33.5 (31.8-35.4); MEAN CORPUSCULAR VOLUME 94.4 fl (80.0-94.0); MONOCYTES # (AUTO) 0.7 K/uL (0.4-2.0); MONOCYTES % (AUTO) 9.5 (0-10); NEUTROPHILS # (AUTO) 4.4 K/ul (2.0-6.9); PLATELET COUNT 363 10^3/uL (140-440); RDW COEFFICIENT OF VARIATION 13.3 % (11.6-14.8); RED BLOOD COUNT 3.57 10^6/ul (4.70-6.10); WHITE BLOOD COUNT 7.66 K/ul (4.2-10.2)
[2021-02-26 05:16] LABS: ALANINE AMINOTRANSFERASE 28.9 U/L (0-50); ALBUMIN 3.96 g/dL (3.5-5.0); ALKALINE PHOSPHATASE 131.3 U/L (56-119); ASPARTATE AMINO TRANSFERASE 38.2 U/L (17-59); BILIRUBIN,TOTAL 0.24 mg/dL (0.2-1.3); BLOOD UREA NITROGEN 19.7 mg/dL (9-20); CALCIUM 9.19 mg/dL (8.4-10.2); CARBON DIOXIDE 27.1 mmol/L (22-30.0); CHLORIDE 100.1 mmol/L (98-107); CREATININE 0.95 mg/dL (0.60-1.10); GLUCOSE 95.4 mg/dL (74-106); POTASSIUM 4.28 mmol/L (3.5-5.1); SODIUM 133.6 mmol/L (134.5-145); TOTAL PROTEIN 6.86 g/dL (6.3-8.2)
[2021-02-26] MEDS: PROTONIX PO SCH ×2 (05:31→16:00)
[2021-02-26] MEDS: CARAFATE PO SCH ×4 (05:31→20:34)
[2021-02-26] MEDS: NICODERM 21 MG TD SCH (09:05)
[2021-02-26] MEDS: ROCEPHIN 1 GM/50 ML D5W 1 GM/50 ML BAG IV SCH (09:05)
[2021-02-26] MEDS: DILANTIN PO SCH ×3 (09:07→20:34)
[2021-02-26] MEDS: THIAMINE PO SCH (09:07)
[2021-02-26] MEDS: ZANAFLEX PO SCH ×2 (09:08→20:33)
[2021-02-26] MEDS: COZAAR PO SCH (09:08)
[2021-02-26] MEDS: NORVASC PO SCH (09:08)
[2021-02-26] MEDS: ATIVAN IVP SCH (09:08)
[2021-02-26] MEDS: FERROUS SULFATE PO SCH ×2 (09:24→11:39)
[2021-02-26] MEDS: ZITHROMAX PO SCH (09:26)
[2021-02-26] MEDS: COUMADIN PO SCH (16:00)
[2021-02-26] MEDS ORDERED: COUMADIN PO SCH (17:00)
[2021-02-26] MEDS: ATIVAN PO SCH (20:33)
[2021-02-27 05:27] LABS: BASOPHILS # (AUTO) 0.1 K/uL (0-0.2); BASOPHILS % (AUTO) 0.6 % (0.0-3.0); EOSINOPHILS # (AUTO) 0.1 K/ul (0.0-0.7); EOSINOPHILS % (AUTO) 1.8 % (0.0-7.0); HEMATOCRIT 32.5 % (42.0-52.0); HEMOGLOBIN 10.9 g/dl (14.0-18.0); IMMATURE GRANULOCYTE # (AUTO) 0.1 (0.0-1.0); LYMPHOCYTES # (AUTO) 1.9 K/uL (0.60-3.4); LYMPHOCYTES % (AUTO) 24.3 (10.0-50.0); MEAN CORPUSCULAR HEMOGLOBIN 31.5 pg (27.0-31.0); MEAN CORPUSCULAR HGB CONC 33.5 (31.8-35.4); MEAN CORPUSCULAR VOLUME 93.9 fl (80.0-94.0); MONOCYTES # (AUTO) 0.7 K/uL (0.4-2.0); MONOCYTES % (AUTO) 9.6 (0-10); NEUTROPHILS # (AUTO) 4.9 K/ul (2.0-6.9); NEUTROPHILS % (AUTO) 62.7 % (42.2-75.2); PLATELET COUNT 352 10^3/uL (140-440); RDW COEFFICIENT OF VARIATION 13.4 % (11.6-14.8); RED BLOOD COUNT 3.46 10^6/ul (4.70-6.10); WHITE BLOOD COUNT 7.74 K/ul (4.2-10.2)
[2021-02-27 05:38] LABS: ALANINE AMINOTRANSFERASE 32.6 U/L (0-50); ALBUMIN 3.75 g/dL (3.5-5.0); ALKALINE PHOSPHATASE 114.7 U/L (56-119); ASPARTATE AMINO TRANSFERASE 37.4 U/L (17-59); BILIRUBIN,TOTAL 0.21 mg/dL (0.2-1.3); BLOOD UREA NITROGEN 21.5 mg/dL (9-20); CALCIUM 9.05 mg/dL (8.4-10.2); CARBON DIOXIDE 25.7 mmol/L (22-30.0); CHLORIDE 101.4 mmol/L (98-107); CREATININE 0.93 mg/dL (0.60-1.10); GLUCOSE 95.3 mg/dL (74-106); POTASSIUM 4.12 mmol/L (3.5-5.1); SODIUM 133.5 mmol/L (134.5-145); TOTAL PROTEIN 6.5 g/dL (6.3-8.2)
[2021-02-27 05:43] LABS: PROTHROMBIN TIME 17.4 SEC (9.3-11.0)
[2021-02-27] MEDS: CARAFATE PO SCH ×4 (06:18→20:38)
[2021-02-27] MEDS: PROTONIX PO SCH ×2 (06:18→17:13)
[2021-02-27] MEDS: NICODERM 21 MG TD SCH (09:12)
[2021-02-27] MEDS: ROCEPHIN 1 GM/50 ML D5W 1 GM/50 ML BAG IV SCH (09:12)
[2021-02-27] MEDS: ZANAFLEX PO SCH ×2 (09:13→20:38)
[2021-02-27] MEDS: FERROUS SULFATE PO SCH ×2 (09:16→11:30)
[2021-02-27] MEDS: THIAMINE PO SCH (09:18)
[2021-02-27] MEDS: ATIVAN PO SCH ×2 (09:18→20:38)
[2021-02-27] MEDS: NORVASC PO SCH (09:19)
[2021-02-27] MEDS: COZAAR PO SCH (09:19)
[2021-02-27] MEDS: DILANTIN PO SCH ×3 (09:21→20:38)
[2021-02-27] MEDS: COUMADIN PO SCH (17:13)
[2021-02-28 05:00] LABS: BASOPHILS # (AUTO) 0.1 K/uL (0-0.2); BASOPHILS % (AUTO) 0.8 % (0.0-3.0); EOSINOPHILS # (AUTO) 0.1 K/ul (0.0-0.7); EOSINOPHILS % (AUTO) 1.6 % (0.0-7.0); HEMATOCRIT 31.2 % (42.0-52.0); HEMOGLOBIN 10.7 g/dl (14.0-18.0); IMMATURE GRANULOCYTE # (AUTO) 0.1 (0.0-1.0); IMMATURE GRANULOCYTE % (AUTO) 1.6 % (0.0-5.0); LYMPHOCYTES # (AUTO) 1.7 K/uL (0.60-3.4); LYMPHOCYTES % (AUTO) 22.4 (10.0-50.0); MEAN CORPUSCULAR HEMOGLOBIN 32.2 pg (27.0-31.0); MEAN CORPUSCULAR HGB CONC 34.3 (31.8-35.4); MONOCYTES # (AUTO) 0.8 K/uL (0.4-2.0); MONOCYTES % (AUTO) 10.2 (0-10); NEUTROPHILS # (AUTO) 4.8 K/ul (2.0-6.9); NEUTROPHILS % (AUTO) 63.4 % (42.2-75.2); PLATELET COUNT 340 10^3/uL (140-440); RDW COEFFICIENT OF VARIATION 13.7 % (11.6-14.8); RED BLOOD COUNT 3.32 10^6/ul (4.70-6.10); WHITE BLOOD COUNT 7.55 K/ul (4.2-10.2)
[2021-02-28 05:11] LABS: ALANINE AMINOTRANSFERASE 34.8 U/L (0-50); ALBUMIN 3.71 g/dL (3.5-5.0); ALKALINE PHOSPHATASE 116.8 U/L (56-119); ASPARTATE AMINO TRANSFERASE 36.7 U/L (17-59); BILIRUBIN,TOTAL 0.12 mg/dL (0.2-1.3); BLOOD UREA NITROGEN 23.4 mg/dL (9-20); CALCIUM 8.99 mg/dL (8.4-10.2); CARBON DIOXIDE 25.8 mmol/L (22-30.0); CHLORIDE 101.9 mmol/L (98-107); CREATININE 1.06 mg/dL (0.60-1.10); GLUCOSE 90.8 mg/dL (74-106); POTASSIUM 4.66 mmol/L (3.5-5.1); SODIUM 132.4 mmol/L (134.5-145); TOTAL PROTEIN 6.4 g/dL (6.3-8.2)
[2021-02-28 05:17] VITALS: BP 131/82; TEMP 98.3
[2021-02-28 05:26] LABS: PROTHROMBIN TIME 21.7 SEC (9.3-11.0)
[2021-02-28] MEDS: CARAFATE PO SCH ×2 (06:04→11:41)
[2021-02-28] MEDS: PROTONIX PO SCH (06:05)
--- NOTE | 2021-02-28 08:53 | PCM.PROG ---
Attending Provider: ATTENDING PROVIDER: Dr. STEPHANIE GREEN This patient is seen with Fanny Chaparro, Nurse Practitioner. DATE OF SERVICE: 02/28/21 SUBJECTIVE: This 75 year old /WHITE M was hospitalized 02/22/21. The patient is doing well. Cough has improved. No fever. Ready for possible discharge home. Family trying to get him to go to skilled nursing. Possible discharge today. REVIEW OF SYSTEMS: CONSTITUTIONAL: No night sweats. No fatigue, malaise, lethargy. No fever or chills. Weakness. HEENT: Eyes: No visual changes. No eye pain. No eye discharge. ENT: No runny nose. No epistaxis. No sinus pain. No odynophagia. No congestion. RESPIRATORY: Cough, no congestion. No hemoptysis. No shortness of breath. CARDIOVASCULAR: No angina symptoms. No CHF symptoms. No atypical chest pain for CAD. No palpitations. No orthopnea.. GASTROINTESTINAL: No abdominal pain. No nausea or vomiting. No diarrhea or constipation. No hematemesis. No hematochezia. GENITOURINARY: No urgency. No frequency. No dysuria. No hematuria. No obstructive symptoms. No discharge. No pain. No significant abnormal bleeding. MUSCULOSKELETAL: No musculoskeletal pain; no joint swelling. NEUROLOGICAL: Awake, alert, oriented to time, place and person. No headache. No neck pain. No syncope. No seizures. No dizziness. PSYCHIATRIC: Not anxious. No depression. No suicidal thoughts. No homicidal tho ughts. SKIN: No rash. No lesions. No wounds. ENDOCRINE: No unexplained weight loss. No weight gain. HEMATOLOGIC/LYMPHATIC: No anemia. No purpura. No petechiae. No prolonged or excessive bleeding. No palpable lymph nodes. PHYSICAL EXAMINATION: GENERAL: The patient is awake, alert and oriented, sitting in bed in no distress. VITAL SIGNS: Temperature 98.3 F, Pulse 72, Respiratory Rate 18, BP 131/82, Pulse Ox 98% HEENT: Head normocephalic, atraumatic. Eyes: Extraocular muscles are intact. Pupils are equal, round and reactive to light and accommodation. Ears: No lesions. Nose appeared normal. Throat: No exudate or erythema. NECK: Supple. No JVD, no carotid bruit. No lymphadenopathy or thyromegaly. LUNGS: Diminished breath sounds. Clear to auscultation. Percussion note normal. Chest symmetrical. HEART: S1, S2, no S3. No murmurs. No cyanosis or clubbing. No ascites. Pulses: Dorsalis pedis and posterior tibial pulses +1 to +2 both sides. ABDOMEN: Soft. Non-tender. Bowel sounds active. No CVA tenderness. No mass felt. EXTREMITIES: No edema. Full range of motion of all extremities, equal. NEUROLOGIC: No focal deficit. Cranial nerves II through XII are grossly intact. No headache. No double vision. SKIN: Not dry. Intact. Turgor-normal. LYMPHATIC: No palpable lymph nodes/no lymphedema. MUSCULOSKELETAL: Normal joints with no swelling. Muscle tone is normal. LAB REVIEW: 02/28/21 04:50 02/28/21 04:50 02/28/21 04:50: Sodium 132.4 L, Potassium 4.66, Chloride 101.9, Carbon Dioxide 25.8, Anion Gap 9.36, BUN 23.4 H, Creatinine 1.06, Estimated GFR (MDRD) 68.00, BUN/Creatinine Ratio 22.07, Glucose 90.8, Calcium 8.99, Total Bilirubin 0.12 L, AST 36.7, ALT 34.8, Alkaline Phosphatase 116.8, Total Protein 6.40, Albumin 3.71, Globulin 2.69, Albumin/Globulin Ratio 1.37 02/28/21 04:50: WBC 7.55, RBC 3.32 L, Hgb 10.7 L, Hct 31.2 L, MCV 94.0, MCH 32.2 H, MCHC 34.3, RDW Coeff of Audrey 13.7, Plt Count 340, Immature Gran % (Auto) 1.6, Neut % (Auto) 63.4, Lymph % (Auto) 22.4, [place] % (Auto) 10.2 H, Eos % (Auto) 1.6, Baso % (Auto) 0.8, Neut # (Auto) 4.8, Lymph # (Auto) 1.7, [place] # (Auto) 0.8, Eos # (Auto) 0.1, Baso # (Auto) 0.1, Immature Gran # (Auto) 0.1 02/28/21 04:50: PT 21.7 H, INR 2.17 ASSESSMENT: Please see below. 1. Right lobar pneumonia 2. Generalized weakness 3. Hypotension PLAN: 1. Will possibly discharge to [facility] 2. Omnicef 300mg BID for 5 days 3. Continue other medications. Plan and coordination of the patient's care discussed in the presence of Cannery Tender Engineer and nurse. SCRIBED BY: Ezekiel OSPINA scribed while in presence of service performed by Dr. Judd/Fanny Chaparro APRN on 02/28/21 ([id number])
[2021-02-28] MEDS: ROCEPHIN 1 GM/50 ML D5W 1 GM/50 ML BAG IV SCH (09:10)
[2021-02-28] MEDS: NORVASC PO SCH (09:11)
[2021-02-28] MEDS: COZAAR PO SCH (09:11)
[2021-02-28] MEDS: ZANAFLEX PO SCH (09:11)
[2021-02-28] MEDS: ATIVAN PO SCH (09:11)
[2021-02-28] MEDS: FERROUS SULFATE PO SCH ×2 (09:11→11:41)
[2021-02-28] MEDS: THIAMINE PO SCH (09:11)
[2021-02-28] MEDS: DILANTIN PO SCH (09:11)
[2021-02-28] MEDS: NICODERM 21 MG TD SCH (09:12)
--- NOTE | 2021-02-28 12:42 | CM.DICTOOL ---
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/2019 NECK SURGERY TURP LAST VITALS Temp Pulse Resp BP Pulse Ox 98.3 F 72 18 131/82 98 02/28/21 05:16 02/28/21 05:16 02/28/21 05:16 02/28/21 05:16 02/28/21 05:16 TAKE THESE MEDICATIONS AT HOME Amlodipine Besylate (Amlodipine Besylate 5 Mg Tablet) 10 mg PO DAILY MELINDA -- ( CHANGED) Last Admin: 02/28/21 09:11 Dose: 5 mg Ezetimibe (Ezetimibe 10 Mg Tablet) 10 mg PO DAILY MELINDA HOLD AND RESUME IN ONE MONTH Ferrous Sulfate (Ferrous Sulfate 324 Mg Tablet.) 324 mg PO BID BREAKFAST&LUNCH MELINDA Last Admin: 02/28/21 09:11 Dose: 324 mg Lorazepam (Lorazepam 0.5 Mg Tablet) 0.5 mg PO BID MELINDA -- ( NEW) Last Admin: 02/28/21 09:11 Dose: 0.5 mg Losartan Potassium (Losartan Potassium 100 Mg Tablet) 100 mg PO DAILY MELINDA -- (NEW) Last Admin: 02/28/21 09:11 Dose: 100 mg Nicotine (Nicotine 21 Mg Patch.Td24) 1 patch TD DAILY MELINDA PRN IF NOT SMOKING -- ( NEW) Last Admin: 02/28/21 09:12 Dose: 1 patch Pantoprazole Sodium (Pantoprazole Sodium 40 Mg Tablet.) 40 mg PO BIDAC MELINDA Last Admin: 02/28/21 06:05 Dose: 40 mg Phenytoin Sodium (Phenytoin Cap 100 Mg Capsule) 100 mg PO TID MELINDA Last Admin: 02/28/21 09:11 Dose: 100 mg Simvastatin (Simvastatin 40 Mg Tablet) 40 mg PO DAILY MELINDA, HOLD AND RESUME IN ONE MONTH Sucralfate (Sucralfate 1 Gm Tablet) 1 gm PO ACHS MELINDA Last Admin: 02/28/21 06:04 Dose: 1 gm Tizanidine HCl (Tizanidine Hcl 4 Mg Tablet) 2 mg PO BID [facility] Last Admin: 02/28/21 09:11 Dose: 2 mg Warfarin Sodium (Warfarin Sodium 2 Mg Tablet) 2 mg PO 1700 [facility] Last Admin: 02/27/21 17:13 Dose: 2 mg OMNICEF 300 MG PO BID X 5 DAYS, START 03/01/2021 -- (NEW) ALLERGIES No Known Allergies Allergy (Verified 02/22/21 13:22) DISCONTINUED MEDICATIONS NORVASC 5 MG PO DAILY QUINAPRIL 40MG PO DAILY NEW PRESCRIPTIONS: 1).Amlodipine Besylate (Amlodipine Besylate 5 Mg Tablet) 10 mg PO DAILY [facility] -- ( CHANGED) 2).Ezetimibe (Ezetimibe 10 Mg Tablet) 10 mg PO DAILY [facility] HOLD AND RESUME IN ONE MONTH 3).Lorazepam (Lorazepam 0.5 Mg Tablet) 0.5 mg PO BID [facility] -- ( NEW) 4).Losartan Potassium (Losartan Potassium 100 Mg Tablet) 100 mg PO DAILY [facility] -- (NEW) 5).Nicotine (Nicotine 21 Mg Patch.Td24) 1 patch TD DAILY [facility] PRN IF NOT SMOKING -- ( NEW) 6).Simvastatin (Simvastatin 40 Mg Tablet) 40 mg PO DAILY [facility], HOLD AND RESUME IN ONE MONTH 7).OMNICEF 300 MG PO BID X 5 DAYS, START 03/01/2021 -- (NEW) SMOKING: SMOKING CESSATION DISEASE SPECIFIC EDUCATION: PNEUMONIA SMOKING FALLS BLEEDING PRECAUTIONS COVID LAB REVIEW: 02/28/21 04:50 02/28/21 04:50 02/28/21 04:50: Sodium 132.4 L, Potassium 4.66, Chloride 101.9, Carbon Dioxide 25.8, Anion Gap 9.36, BUN 23.4 H, Creatinine 1.06, Estimated GFR (MDRD) 68.00, BUN/Creatinine Ratio 22.07, Glucose 90.8, Calcium 8.99, Total Bilirubin 0.12 L, AST 36.7, ALT 34.8, Alkaline Phosphatase 116.8, Total Protein 6.40, Albumin 3.71, Globulin 2.69, Albumin/Globulin Ratio 1.37 02/28/21 04:50: WBC 7.55, RBC 3.32 L, Hgb 10.7 L, Hct 31.2 L, MCV 94.0, MCH 32.2 H, MCHC 34.3, RDW Coeff of Audrey 13.7, Plt Count 340, Immature Gran % (Auto) 1.6, Neut % (Auto) 63.4, Lymph % (Auto) 22.4, [place] % (Auto) 10.2 H, Eos % (Auto) 1.6, Baso % (Auto) 0.8, Neut # (Auto) 4.8, Lymph # (Auto) 1.7, [place] # (Auto) 0.8, Eos # (Auto) 0.1, Baso # (Auto) 0.1, Immature Gran # (Auto) 0.1 02/28/21 04:50: PT 21.7 H, INR 2.17 PLAN: DISCHARGE: [facility] TODAY ACTIVITY: NON-AMBULATORY, USE ELECTRIC W/C OR SCOOTER IF DETERMINED SAFE BY FACILITY ASSIST TO TRANSFER. PT AND OT TO EVAL AND TREAT FALL PRECAUTIONS BLEEDING PRECAUTIONS COVID PRECAUTIONS DIET: REGULAR AND ASSURE HE HAS AT LEAST 64 OUNCES OF FLUIDS A DAY LABS: CBC AND CMP IN A WEEK AND EVERY 3 MONTHS LIPIDS, A1C, TSH AND FREE T4 EVERY 6 MONTHS PT/INR IN 2 WEEKS AND EVERY 2 WEEKS DILANTIN LEVEL EVERY THREE MONTHS ( LAST FEBRUARY 23, 2021 : LEVEL 10.82 ) LT BUTTOCKS SKIN CARE, SHEARING/STAGE 2 AREA: SOAP AND WATER, PAT DRY, APPLY PROTECTIVE CREAM, 2 X DAILY AND PRN. OFF LOAD WITH ROHO CUSHION. VITALS: RECENT B/P MED CHANGES. B/P EVERY SHIFT FOR TWO WEEKS, THEN FOLLOW FACILITY PROTOCOLS MD FOLLOW UP: DR. BRUNO/ ELIJAH LEONARD APRN/ CASEY CARRILLO APRN WILL SEE ON ROUNDS CODE STATUS: DO NOT RESUSCITATE MR. CORONADO IS ALERT AND ORIENTED TO PERSON AND PLACE WITH CONFUSION TO DETAILS AT TIMES. 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 NO FURTHER WHEEZES TO LUNGS, NO SOA. NO COUGH. HE HAS TO HAVE ASSIST OF TWO FOR TRANSFERS. RT AKA STUMP HAS SCATTERED THIN CRUST WITH NO REDNESS. LT BUTTOCK WITH A SHEARING/STAGE 2 AREA, SUPERFICIAL. APPLYING PROTECTIVE CREAM AND OFF LOADING. EATING AND DRINKING GOOD NOW THOUGH HE HAD NOT AT HOME WHILE ILL. ORDERED TO ASSURE FLUID INTAKE AT [facility]. CONTINENT OF BOWEL AND BLADDER AND USES URINAL, HOWEVER AT TIMES HE IS INCONTINENT. HAD BEEN LIVING AT HOME ALONE WITH HOMEMAKER SERVICES AND FAMILY MAKING INTERMITTENT VISITS. HE WAS NOT ABLE TO TRANSFER SELF AND HAD BEEN IN A CHAIR FOR AN EXTENDED TIME. FAMILY DEEMED IT UNSAFE FOR HIM TO LIVE ALONE AT THIS TIME. EVERYONE INVOLVED HAS AGREED FOR [facility] PLACEMENT. MD ELIJAH IVEY APRN ALYCE HANNAN, APRN
--- NOTE | 2021-03-01 14:37 | PN ---
DATE OF SERVICE: 02/27/2021 SUBJECTIVE: The patient has been doing well. He has eaten all of his breakfast this morning. He has been sitting up. Cough has improving. Shortness of breath has improved. He is in a pleasant mood. REVIEW OF SYSTEMS: CONSTITUTIONAL: No night sweats. No fatigue, malaise, lethargy. No fever or chills. Weakness. HEENT: Eyes: No visual changes. No eye pain. No eye discharge. ENT: No runny nose. No epistaxis. No sinus pain. No sore throat. No odynophagia. No congestion. RESPIRATORY: Cough, no congestion. No hemoptysis. No shortness of breath. CARDIOVASCULAR: No angina symptoms. No CHF symptoms. No atypical chest pain for CAD. No palpitations. No PND. No orthopnea. GASTROINTESTINAL: No abdominal pain. No nausea or vomiting. No diarrhea or constipation. No hematemesis. No hematochezia. GENITOURINARY: No urgency. No frequency. No dysuria. No hematuria. No obstructive symptoms. No discharge. No pain. No significant abnormal bleeding. MUSCULOSKELETAL: No musculoskeletal pain; no joint swelling. NEUROLOGICAL: No headache. No neck pain. No syncope. No seizures. No dizziness. PSYCHIATRIC: Not anxious. No depression. No suicidal thoughts. No homicidal thoughts. SKIN: No rash. No lesions. No wounds. ENDOCRINE: No unexplained weight loss. No weight gain. HEMATOLOGIC/LYMPHATIC: No anemia. No purpura. No petechiae. No prolonged or excessive bleeding. No palpable lymph nodes. PHYSICAL EXAMINATION: HEENT: Head normocephalic, atraumatic. Eyes: Extraocular muscles are intact. Pupils are equal, round and reactive to light and accommodation. Ears: No lesions. Nose appeared normal. Throat: No exudate or erythema. NECK: Supple. No JVD, no carotid bruit. No lymphadenopathy or thyromegaly. LUNGS:Diminished breath sounds. Clear to auscultation. Percussion note normal. Chest symmetrical. HEART: S1, S2, no S3. No murmurs. No cyanosis or clubbing. No ascites. Pulses: Dorsalis pedis and posterior tibial pulses +1 to +2 bilaterally. ABDOMEN: Soft. Nontender. Bowel sounds active. No CVA tenderness. No mass felt. EXTREMITIES: No edema. Full range of motion of all extremities, equal. NEUROLOGIC: No focal deficit. Cranial nerves II through XII are grossly intact. No headache. No double vision. SKIN: Not dry. Intact. Turgor - normal. LYMPHATIC: No palpable lymph nodes/no lymphedema. MUSCULOSKELETAL: Normal joints with no swelling. Muscle tone is normal. ASSESSMENT: 1. Right lobar pneumonia 2. Generalized weakness 3. Anxiety PLAN: 1. We will continue with IV antibiotics 2. Plan on possible discharge to [facility] tomorrow TIME SPENT: More than 30 minutes. Plan and coordination of the patient's care discussed in the presence of nurse. JOSE E
--- NOTE | 2021-03-01 14:39 | PN ---
DATE OF SERVICE: 02/26/2021 SUBJECTIVE: The patient seems to be doing fine. He has been more pleasant than usual. Eating well. Blood pressure has improved since increasing Norvasc. Labs are stable. REVIEW OF SYSTEMS: CONSTITUTIONAL: No night sweats. No fatigue, malaise, lethargy. No fever or chills. Weakness. HEENT: Eyes: No visual changes. No eye pain. No eye discharge. ENT: No runny nose. No epistaxis. No sinus pain. No sore throat. No odynophagia. No congestion. RESPIRATORY: Cough, no congestion. No hemoptysis. No shortness of breath. CARDIOVASCULAR: No angina symptoms. No CHF symptoms. No atypical chest pain for CAD. No palpitations. No PND. No orthopnea. GASTROINTESTINAL: No abdominal pain. No nausea or vomiting. No diarrhea or constipation. No hematemesis. No hematochezia. GENITOURINARY: No urgency. No frequency. No dysuria. No hematuria. No obstructive symptoms. No discharge. No pain. No significant abnormal bleeding. MUSCULOSKELETAL: No musculoskeletal pain; no joint swelling. NEUROLOGICAL: No headache. No neck pain. No syncope. No seizures. No dizziness. PSYCHIATRIC: Not anxious. No depression. No suicidal thoughts. No homicidal thoughts. SKIN: No rash. No lesions. No wounds. ENDOCRINE: No unexplained weight loss. No weight gain. HEMATOLOGIC/LYMPHATIC: No anemia. No purpura. No petechiae. No prolonged or excessive bleeding. No palpable lymph nodes. PHYSICAL EXAMINATION: HEENT: Head normocephalic, atraumatic. Eyes: Extraocular muscles are intact. Pupils are equal, round and reactive to light and accommodation. Ears: No lesions. Nose appeared normal. Throat: No exudate or erythema. NECK: Supple. No JVD, no carotid bruit. No lymphadenopathy or thyromegaly. LUNGS: Diminished breath sounds. Clear to auscultation. Percussion note normal. Chest symmetrical. HEART: S1, S2, no S3. No murmurs. No cyanosis or clubbing. No ascites. Pulses: Dorsalis pedis and posterior tibial pulses +1 to +2 bilaterally. ABDOMEN: Soft. Nontender. Bowel sounds active. No CVA tenderness. No mass felt. EXTREMITIES: No edema. Full range of motion of all extremities, equal. NEUROLOGIC: No focal deficit. Cranial nerves II through XII are grossly intact. No headache. No double vision. SKIN: Not dry. Intact. Turgor - normal. LYMPHATIC: No palpable lymph nodes/no lymphedema. MUSCULOSKELETAL: Normal joints with no swelling. Muscle tone is normal. ASSESSMENT: 1. Right lobar pneumonia 2. Generalized weakness 3. Hypertension PLAN: 1. Continue IV antibiotics TIME SPENT: More than 30 minutes. Plan and coordination of the patient's care discussed in the presence of nurse. JOSE E
--- NOTE | 2021-03-02 10:31 | DS ---
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 DILANTIN LEVEL EVERY THREE MONTHS ( LAST FEBRUARY 23, 2021 : LEVEL 10.82 ). LT BUTTOCKS SKIN CARE, SHEARING/STAGE 2 AREA: SOAP AND WATER, PAT DRY, APPLY PROTECTIVE CREAM, 2 X DAILY AND PRN. OFF LOAD WITH ROHO CUSHION. VITALS: RECENT B/P MED CHANGES. B/P EVERY SHIFT FOR TWO WEEKS, THEN FOLLOW FACILITY PROTOCOLS. MD FOLLOW UP: DR. BRUNO/ ELIJAH LEONARD APRN/ CASEY CARRILLO APRN WILL SEE ON ROUNDS. CODE STATUS: DO NOT RESUSCITATE. LABS: CBC AND CMP IN A WEEK AND EVERY 3 MONTHS, LIPIDS, A1C, TSH AND FREE T4 EVERY 6 MONTHS, PT/INR IN 2 WEEKS AND EVERY 2 WEEKS. TAKE THESE MEDICATIONS AT HOME: Amlodipine Besylate (Amlodipine Besylate 5 Mg Tablet) 10 mg PO DAILY [facility] -- ( CHANGED) Last Admin: 02/28/21 09:11 Dose: 5 mg Ezetimibe (Ezetimibe 10 Mg Tablet) 10 mg PO DAILY [facility] HOLD AND RESUME IN ONE MONTH Ferrous Sulfate (Ferrous Sulfate 324 Mg Tablet.) 324 mg PO BID BREAKFAST&LUNCH [facility] Last Admin: 02/28/21 09:11 Dose: 324 mg Lorazepam (Lorazepam 0.5 Mg Tablet) 0.5 mg PO BID MELINDA -- ( NEW) Last Admin: 02/28/21 09:11 Dose: 0.5 mg Losartan Potassium (Losartan Potassium 100 Mg Tablet) 100 mg PO DAILY MELINDA -- (NEW) Last Admin: 02/28/21 09:11 Dose: 100 mg Nicotine (Nicotine 21 Mg Patch.Td24) 1 patch TD DAILY [facility] PRN IF NOT SMOKING -- ( NEW) Last Admin: 02/28/21 09:12 Dose: 1 patch Pantoprazole Sodium (Pantoprazole Sodium 40 Mg Tablet.Dr) 40 mg PO BIDAC [facility] Last Admin: 02/28/21 06:05 Dose: 40 mg Phenytoin Sodium (Phenytoin Cap 100 Mg Capsule) 100 mg PO TID [facility] Last Admin: 02/28/21 09:11 Dose: 100 mg Simvastatin (Simvastatin 40 Mg Tablet) 40 mg PO DAILY [facility], HOLD AND RESUME IN ONE MONTH Sucralfate (Sucralfate 1 Gm Tablet) 1 gm PO ACHS [facility] Last Admin: 02/28/21 06:04 Dose: 1 gm Tizanidine HCl (Tizanidine Hcl 4 Mg Tablet) 2 mg PO BID [facility] Last Admin: 02/28/21 09:11 Dose: 2 mg Warfarin Sodium (Warfarin Sodium 2 Mg Tablet) 2 mg PO 1700 [facility] Last Admin: 02/27/21 17:13 Dose: 2 mg OMNICEF 300 MG PO BID X 5 DAYS, START 03/01/2021 -- (NEW) ALLERGIES: No Known Allergies Allergy (Verified 02/22/21 13:22) DISCONTINUED MEDICATIONS: NORVASC 5 MG PO DAILY QUINAPRIL 40MG PO DAILY NEW PRESCRIPTIONS: 1).Amlodipine Besylate (Amlodipine Besylate 5 Mg Tablet) 10 mg PO DAILY [facility] -- ( CHANGED) 2).Ezetimibe (Ezetimibe 10 Mg Tablet) 10 mg PO DAILY [facility] HOLD AND RESUME IN ONE MONTH 3).Lorazepam (Lorazepam 0.5 Mg Tablet) 0.5 mg PO BID [facility] -- ( NEW) 4).Losartan Potassium (Losartan Potassium 100 Mg Tablet) 100 mg PO DAILY [facility] -- (NEW) 5).Nicotine (Nicotine 21 Mg Patch.Td24) 1 patch TD DAILY [facility] PRN IF NOT SMOKING -- ( NEW) 6).Simvastatin (Simvastatin 40 Mg Tablet) 40 mg PO DAILY [facility], HOLD AND RESUME IN ONE MONTH 7).OMNICEF 300 MG PO BID X 5 DAYS, START 03/01/2021 -- (NEW) SMOKING: SMOKING CESSATION DISEASE SPECIFIC EDUCATION: PNEUMONIA SMOKING FALLS BLEEDING PRECAUTIONS COVID LAB REVIEW: 02/28/21 04:50 02/28/21 04:50 02/28/21 04:50: Sodium 132.4 L, Potassium 4.66, Chloride 101.9, Carbon Dioxide 25.8, Anion Gap 9.36, BUN 23.4 H, Creatinine 1.06, Estimated GFR (MDRD) 68.00, BUN/Creatinine Ratio 22.07, Glucose 90.8, Calcium 8.99, Total Bilirubin 0.12 L, AST 36.7, ALT 34.8, Alkaline Phosphatase 116.8, Total Protein 6.40, Albumin 3.71, Globulin 2.69, Albumin/Globulin Ratio 1.37 02/28/21 04:50: WBC 7.55, RBC 3.32 L, Hgb 10.7 L, Hct 31.2 L, MCV 94.0, MCH 32.2 H, MCHC 34.3, RDW Coeff of Audrey 13.7, Plt Count 340, Immature Gran % (Auto) 1.6, Neut % (Auto) 63.4, Lymph % (Auto) 22.4, [place] % (Auto) 10.2 H, Eos % (Auto) 1.6, Baso % (Auto) 0.8, Neut # (Auto) 4.8, Lymph # (Auto) 1.7, [place] # (Auto) 0.8, Eos # (Auto) 0.1, Baso # (Auto) 0.1, Immature Gran # (Auto) 0.1 02/28/21 04:50: PT 21.7 H, INR 2.17 ACTIVITY: NON-AMBULATORY, USE ELECTRIC W/C OR SCOOTER IF DETERMINED SAFE BY FACILITY ASSIST TO TRANSFER. PT AND OT TO EVAL AND TREAT FALL PRECAUTIONS BLEEDING PRECAUTIONS COVID PRECAUTIONS DIET: REGULAR AND ASSURE HE HAS AT LEAST 64 OUNCES OF FLUIDS A DAY HOSPITAL COURSE: This is a white male admitted with generalized weakness, right lobar pneumonia. He had gone home the day before. He had been fine then his family had found him very weak on the day of admission. He was unable to transfer himself and confuse. Attempting to light a cigarette with his remote control. He was brought to the ER and found to have pneumonia. We admitted him and placed him on Rocephin 1 gram IV daily along with Zithromax 500mg PO daily for 3 days. Gave him 1 cc of Decadron IM and started him on IV fluids normal saline 75cc and gave him two liters. He did experience some hypertension and I increased his Norvasc to 10mg daily. He had recently been hospitalized for early rhabdomyolysis. Renal function was normal on admission, liver enzymes were normal. INR remained therapeutic while he was here. I think in the ER he initially had some agitation and some combativeness. He has been fine during his hospitalization. He has known alcohol abuse. He started him on Ativan 0.5mg IV BID then switched this to PO. We will send him to the intermediate with Ativan 0.5mg PO BID. Over the course of the past several day he steadily improved each day. Renal function is stable. Hgb has been stable. After increasing the Norvasc blood pressure has been stable. He is agreeable to discharge to [facility] for some physical therapy in hopes to get stronger. I do not know that this is the case. I do feel that he has had a generalized decline in mental status over the past several months. At this time he does not have a POA or a legal guardian which I do believe maybe necessary in the near future and I have discussed this with the family. At this time we will discharge him to [place] with INR every two weeks. CBC and CMP in one week. I will follow with him out there. Fall precautions and we will follow him closely. TIME SPENT: More than 60 minutes. JOSE E
== END 2021-02-28 13:15 | DRG 555 ==
LOC: ED 13:06 → MEDSURG A 16:34
PROVIDERS: ADMIT General Practice; ATTEND Emergency Medicine
DX: J44.9 Chronic obstructive pulmonary disease, unspecified; I10 Essential (primary) hypertension; J18.9 Pneumonia, unspecified organism; D68.69 Other thrombophilia; F32.A Depression, unspecified; K21.9 Gastro-esophageal reflux disease without esophagitis; Z79.899 Other long term (current) drug therapy; I95.89 Other hypotension; M62.81 Muscle weakness (generalized); Z51.81 Encounter for therapeutic drug level monitoring; F41.1 Generalized anxiety disorder; M62.82 Rhabdomyolysis

== ENCOUNTER 2022-06-06 12:45 | Inpatient (IN) ==
[2022-06-06] MEDS ORDERED: VITAMIN K SUBCUT ONE (13:00)
[2022-06-06] MEDS ORDERED: MEPHYTON PO ONE (13:17)
--- NOTE | 2022-06-06 13:31 | ED.PDOC ---
General ED Provider: Dr. LAKEISHA ROA Chief Complaint: Abnormal Labs Stated Complaint: Was called by the clinic to let him know he had elevated INR. Denies any bleeding. Time Seen by Provider: 06/06/22 12:48 Mode of Arrival: Walk-In Information Source: Patient Primary Care Provider: GLADYS BRUNO MD Nursing and Triage Documentation Reviewed and Agree: Yes Does patient meet sepsis criteria?: No System Inflammatory Response Syndrome: Not Applicable Sepsis Protocol: For patient's 13 years and over: Temp is 96.8 and below OR 101 and greater Pulse >90 BPM Resp >20/minute Acutely Altered Mental Status Are patient's symptoms suggestive of a new infection, such as: -Pneumonia -Skin, Soft Tissue -Endocarditis -UTI -Bone, Joint Infection -Implantable Device -Acute Abdominal Infection -Wound Infection -Meningitis -Blood Stream Catheter Infection -Unknown Review of Systems Review Of Systems Constitutional: Reports No symptoms Eyes: Reports No symptoms Ears, Nose, Mouth, Throat: Reports No symptoms Respiratory: Reports No symptoms Cardiac: Reports No symptoms GI: Reports No symptoms : Reports No symptoms Musculoskeletal: Reports Other (right AKA ) Skin: Denies Bruising All Other Systems: Reviewed and Negative [facility] Medical History Alcohol abuse Anemia COPD (chronic obstructive pulmonary disease) CVA (cerebral vascular accident) Depression Diverticulosis Dyslipidemia GERD (gastroesophageal reflux disease) Hemiparesis, right History of compression fracture of spine History of femur fracture History of pelvic fracture History of right above knee amputation Hypertension Noncompliance with treatment plan Recurrent falls Seizure Smoker Family History Mother Heart attack FATHER Lung cancer Social History (Updated 06/06/22 @ 17:29 by INGRID POST RN) Smoking and tobacco status: Current every day smoker Tobacco type: cigarettes Smoking packs per day: 3 Smoking cigarettes per day: 60.0 Years smoked: 60 S moking pack-years: 180.00 Alcohol intake: current Alcohol intake frequency: former alcohol drinker Alcohol type: beer Surgical History History of hip surgery Physical Exam Physical Exam Appearance: Reports Well-appearing Ill-appearing: None Pain Distress: None Eyes: Reports Conjunctiva clear ENT: Reports Nose normal Neck: Not Examined Respiratory: Reports Airway patent and Breath sounds clear Cardiovascular: Reports RRR and Pulses normal GI/: Reports Soft, Nontender and No masses Musculoskeletal: Reports Normal strength, ROM intact and Other (right AKA) Skin: Reports Warm and Dry Neurological: Reports Motor intact Psychiatric: Reports Anxious Critical Care Note Critical Care Note Total Critical Care Time (mins): 0 Course Course Hematology/Chemistry: 06/06/22 13:33 06/06/22 13:33 Orders, Labs, Meds: Lab Review 06/06/22 06/06/22 06/06/22 13:33 13:33 13:33 WBC 11.74 H RBC 3.75 L Hgb 11.8 L Hct 35.1 L MCV 93.6 MCH 31.5 H MCHC 33.6 RDW Coeff of Audrey 12.6 Plt Count 391 Immature Gran % (Auto) 0.9 Neut % (Auto) 80.2 H Lymph % (Auto) 9.4 L [place] % (Auto) 8.9 Eos % (Auto) 0.3 Baso % (Auto) 0.3 Neut # (Auto) 9.4 H Lymph # (Auto) 1.1 [place] # (Auto) 1.0 Eos # (Auto) 0.0 Baso # (Auto) 0.0 Immature Gran # (Auto) 0.1 PT > 150.0 H* D INR Sodium 139.9 Potassium 4.15 Chloride 105.9 Carbon Dioxide 27.4 Anion Gap 10.75 BUN 23.5 H Creatinine 1.01 Estimated GFR (MDRD) 72.00 BUN/Creatinine Ratio 23.26 Glucose 125.2 H Calcium 8.96 Total Bilirubin 0.38 AST 80.3 H ALT 85.3 H Alkaline Phosphatase 130.1 H Total Protein 7.82 Albumin 4.27 Globulin 3.55 Albumin/Globulin Ratio 1.20 Urine Color Urine Clarity Urine pH Ur Specific [place] Urine Protein Urine Glucose (UA) Urine Ketones Urine Blood Urine Nitrite Urine Bilirubin Urine Urobilinogen Ur Leukocyte Esterase Urine Microscopic RBC Urine Microscopic WBC Ur Squamous Epith Cells SARS CoV-2 RNA Rapid SHAYY 06/06/22 06/06/22 14:03 14:30 WBC RBC Hgb Hct MCV MCH MCHC RDW Coeff of Audrey Plt Count Immature Gran % (Auto) Neut % (Auto) Lymph % (Auto) [place] % (Auto) Eos % (Auto) Baso % (Auto) Neut # (Auto) Lymph # (Auto) [place] # (Auto) Eos # (Auto) Baso # (Auto) Immature Gran # (Auto) PT INR Sodium Potassium Chloride Carbon Dioxide Anion Gap BUN Creatinine Estimated GFR (MDRD) BUN/Creatinine Ratio Glucose Calcium Total Bilirubin AST ALT Alkaline Phosphatase Total Protein Albumin Globulin Albumin/Globulin Ratio Urine Color Yellow Urine Clarity Clear Urine pH 6.0 Ur Specific [place] 1.015 Urine Protein 1+ H Urine Glucose (UA) Negative Urine Ketones Negative Urine Blood Trace-intact H Urine Nitrite Negative Urine Bilirubin Negative Urine Urobilinogen 0.2 Ur Leukocyte Esterase Negative Urine Microscopic RBC 5-10 Urine Microscopic WBC 0-2 Ur Squamous Epith Cells 0-2 SARS CoV-2 RNA Rapid SHAYY Negative Orders Category Date Time Status ABG COOX Stat LAB 06/06/22 13:14 Stop Req CBC W/ AUTO DIFF Stat LAB 06/06/22 13:33 Completed CMP [COMPREHENSIVE METABOLIC PANEL] Stat LAB 06/06/22 13:33 Completed COVID [SARS COV-2 RNA RAPID SHAYY] Stat LAB 06/06/22 14:30 Completed PT WITH INR Stat LAB 06/06/22 13:33 Completed URINALYSIS C & S IF INDICATED Stat LAB 06/06/22 14:03 Completed Phytonadione [Mephyton] MEDS 06/06/22 13:17 Discontinued 10 mg PO ONCE ONE CT HEAD W/O CONTRAST Stat RADS 06/06/22 13:01 Completed Medications Generic Name Dose Route Start Last Admin Trade Name Freq PRN Reason Stop Dose Admin Acetaminophen 650 mg 06/06/22 16:35 Acetaminophen 325 Mg Tablet PO Q4H PRN Fever and Mild Pain Amlodipine Besylate 10 mg 06/07/22 09:00 Amlodipine Besylate 5 Mg Tablet PO DAILY MELINDA Atropine Sulfate 0.5 mg 06/06/22 17:36 Atropine Sulfate Inj 1 Mg/10 Ml Disp.Syrin IVP ONCE PRN Symptomatic Bradycardia Azithromycin 250 mg 06/07/22 09:00 Azithromycin 250 Mg Tablet PO 06/10/22 08:59 DAILY MELINDA Bisacodyl 10 mg 06/06/22 17:52 Bisacodyl 10 Mg Supp.Rect RC DAILY PRN Constipation Clonidine 0.1 mg 06/06/22 17:20 Clonidine Hcl 0.1 Mg Tablet PO Q6H PRN SYSTOLIC BP>150 Ezetimibe 10 mg 06/06/22 21:00 06/06/22 20:22 Ezetimibe 10 Mg Tablet PO 10 mg BEDTIME MELINDA Administration Ferrous Sulfate 324 mg 06/07/22 08:30 Ferrous Sulfate 324 Mg Tablet. PO BID BREAKFAST&LUNCH MELINDA Lorazepam 0.5 mg 06/06/22 21:00 06/06/22 20:23 Lorazepam 0.5 Mg Tablet PO 0.5 mg BID MELINDA Administration Losartan Potassium 100 mg 06/07/22 09:00 Losartan Potassium 100 Mg Tablet PO DAILY MELINDA Magnesium Hydroxide 30 ml 06/06/22 17:52 Magnesium Hydroxide 30 Ml Cup PO DAILY PRN Constipation Nitroglycerin 0.4 mg 06/06/22 17:36 Nitroglycerin 0.4 Mg Tab.Subl SL Q5MIN X 3 DOSES PRN Chest Pain Pantoprazole Sodium 40 mg 06/06/22 21:00 06/06/22 20:23 Pantoprazole Sodium 40 Mg Tablet. PO 40 mg BID MELINDA Administration Phenytoin Sodium 100 mg 06/06/22 21:00 06/06/22 20:22 Phenytoin Cap 100 Mg Capsule PO 100 mg TID MELINDA Administration Prednisone 10 mg 06/06/22 21:00 06/06/22 20:23 Prednisone 10 Mg Tablet PO 06/09/22 21:00 10 mg BID MELINDA Administration Simvastatin 40 mg 06/06/22 21:00 06/06/22 20:23 Simvastatin 40 Mg Tablet PO 40 mg BEDTIME MELINDA Administration Tizanidine HCl 2 mg 06/06/22 21:00 06/06/22 20:23 Tizanidine Hcl 4 Mg Tablet PO 2 mg BID MELINDA Administration Trolamine Salicylate 1 applic 06/06/22 17:50 Trolamine Salicylate 85 Gm Cream TP TID PRN right arm pain Discontinued Medications Generic Name Dose Route Start Last Admin Trade Name Freq PRN Reason Stop Dose Admin Phytonadione 10 mg 06/06/22 13:17 06/06/22 13:37 Phytonadione 5 Mg Tablet PO 06/06/22 13:18 10 mg ONCE ONE Administration Vital Signs: Temp Pulse Resp BP Pulse Ox 06/06/22 12:46 98.4 F 86 20 139/86 94 L Discharge Plan Discharge Patient Disposition: ADMITTED INPATIENT Discharge Problem: Elevated INR Did you review [place] [employer] for ALL controlled substances?: Not Applicable ED Provider: LAKEISHA ROA Condition: Fair Physician Progress Note: []
[2022-06-06 13:37] LABS: BASOPHILS % (AUTO) 0.3 % (0.0-3.0); EOSINOPHILS % (AUTO) 0.3 % (0.0-7.0); HEMATOCRIT 35.1 % (42.0-52.0); HEMOGLOBIN 11.8 g/dl (14.0-18.0); IMMATURE GRANULOCYTE # (AUTO) 0.1 (0.0-1.0); IMMATURE GRANULOCYTE % (AUTO) 0.9 % (0.0-5.0); LYMPHOCYTES # (AUTO) 1.1 K/uL (0.60-3.4); LYMPHOCYTES % (AUTO) 9.4 (10.0-50.0); MEAN CORPUSCULAR HEMOGLOBIN 31.5 pg (27.0-31.0); MEAN CORPUSCULAR HGB CONC 33.6 (31.8-35.4); MEAN CORPUSCULAR VOLUME 93.6 fl (80.0-94.0); MONOCYTES % (AUTO) 8.9 (0-10); NEUTROPHILS # (AUTO) 9.4 K/ul (2.0-6.9); NEUTROPHILS % (AUTO) 80.2 % (42.2-75.2); PLATELET COUNT 391 10^3/uL (140-440); RDW COEFFICIENT OF VARIATION 12.6 % (11.6-14.8); RED BLOOD COUNT 3.75 10^6/ul (4.70-6.10); WHITE BLOOD COUNT 11.74 K/ul (4.2-10.2)
--- NOTE | 2022-06-06 13:47 | CT ---
EXAM: CT HEAD WITHOUT CONTRAST TECHNIQUE: Noncontrast CT of the head with multiple reformats. HISTORY: Confusion. COMPARISON: CT head 04/07/2021. FINDINGS: No evidence of acute infarction, hemorrhage, or mass. Unchanged large area of encephalomalacia in the left cerebral hemisphere consistent with previous inf arction. Moderate to severe diffuse brain volume loss. Moderate chronic small vessel changes in the white matter. Heavy atherosclerotic calcifications of the carotid siphons. No brain herniation. Patent basilar cisterns. Ventricles are ex vacuo enlarged proportional to brain volume loss. No acute osseous abnormality. Orbits are unremarkable. Secretions in the ethmoid air cells, left maxillary sinus, and left sphenoid sinus, could represent s inusitis. IMPRESSION: No acute intracranial abnormality. Chronic and sinus findings as described above. All CT scans are performed using dose optimization techniques as appropriate to the performed exam an d include at least one of the following: Automated exposure control, adjustment of the mA and/or kV according t o size, and the use of iterative reconstruction technique.
[2022-06-06 13:48] LABS: ALANINE AMINOTRANSFERASE 85.3 U/L (0-50); ALBUMIN 4.27 g/dL (3.5-5.0); ALKALINE PHOSPHATASE 130.1 U/L (56-119); ASPARTATE AMINO TRANSFERASE 80.3 U/L (17-59); BILIRUBIN,TOTAL 0.38 mg/dL (0.2-1.3); BLOOD UREA NITROGEN 23.5 mg/dL (9-20); CALCIUM 8.96 mg/dL (8.4-10.2); CARBON DIOXIDE 27.4 mmol/L (22-30.0); CHLORIDE 105.9 mmol/L (98-107); CREATININE 1.01 mg/dL (0.60-1.10); GLUCOSE 125.2 mg/dL (74-106); POTASSIUM 4.15 mmol/L (3.5-5.1); SODIUM 139.9 mmol/L (134.5-145); TOTAL PROTEIN 7.82 g/dL (6.3-8.2)
[2022-06-06 14:26] LABS: PROTHROMBIN TIME > 150.0 SEC (9.3-11.0)
[2022-06-06 14:30] LABS: BILIRUBIN,URINE Negative (NEGATIVE); CLARITY,URINE Clear (CLEAR); COLOR,URINE Yellow (YELLOW); GLUCOSE, URINE (UA) Negative (NEGATIVE); KETONES,URINE Negative (NEGATIVE); LEUKOCYTE ESTERASE ,URINE Negative (NEGATIVE); NITRITE,URINE Negative (NEGATIVE); PROTEIN,URINE 1+ (NEGATIVE); URINE, BLOOD Trace-intact (NEGATIVE); UROBILINOGEN,URINE 0.2 (0.2)
[2022-06-06 14:45] LABS: SQUAMOUS EPITHELIAL CELL,UR 0-2 (0-5); URINE WBC, MICROSCOPIC 0-2 (0-2)
[2022-06-06 15:13] LABS: SARS COV-2 RNA RAPID NAAT NEGATIVE (NEGATIVE)
[2022-06-06] MEDS ORDERED: TYLENOL PO PRN (16:35)
[2022-06-06] MEDS ORDERED: CATAPRES PO PRN (17:20)
[2022-06-06] MEDS ORDERED: NITROSTAT SL PRN (17:36)
[2022-06-06] MEDS ORDERED: ATROPINE SULFATE PFS IVP PRN (17:36)
[2022-06-06] MEDS ORDERED: MYOFLEX TP PRN (17:50)
[2022-06-06] MEDS ORDERED: DULCOLAX RC PRN (17:52)
[2022-06-06] MEDS ORDERED: MILK OF MAGNESIA PO PRN (17:52)
[2022-06-06 18:12] VITALS: BMI 16.8
[2022-06-06] MEDS: ZETIA PO SCH (20:22)
[2022-06-06] MEDS: DILANTIN PO SCH (20:22)
[2022-06-06] MEDS: ATIVAN PO SCH (20:23)
[2022-06-06] MEDS: ZANAFLEX PO SCH (20:23)
[2022-06-06] MEDS: PROTONIX PO SCH (20:23)
[2022-06-06] MEDS: ZOCOR PO SCH (20:23)
[2022-06-06 20:56] LABS: PROTHROMBIN TIME 105.7 SEC (9.3-11.0)
[2022-06-06] MEDS ORDERED: PREDNISONE PO SCH (21:00)
[2022-06-07 05:17] LABS: BASOPHILS # (AUTO) 0.1 K/uL (0-0.2); BASOPHILS % (AUTO) 0.5 % (0.0-3.0); EOSINOPHILS # (AUTO) 0.1 K/ul (0.0-0.7); EOSINOPHILS % (AUTO) 0.7 % (0.0-7.0); HEMATOCRIT 37.7 % (42.0-52.0); HEMOGLOBIN 12.5 g/dl (14.0-18.0); IMMATURE GRANULOCYTE # (AUTO) 0.2 (0.0-1.0); IMMATURE GRANULOCYTE % (AUTO) 1.5 % (0.0-5.0); LYMPHOCYTES # (AUTO) 1.5 K/uL (0.60-3.4); LYMPHOCYTES % (AUTO) 14.3 (10.0-50.0); MEAN CORPUSCULAR HEMOGLOBIN 31.1 pg (27.0-31.0); MEAN CORPUSCULAR HGB CONC 33.2 (31.8-35.4); MEAN CORPUSCULAR VOLUME 93.8 fl (80.0-94.0); MONOCYTES % (AUTO) 9.4 (0-10); NEUTROPHILS # (AUTO) 7.7 K/ul (2.0-6.9); NEUTROPHILS % (AUTO) 73.6 % (42.2-75.2); PLATELET COUNT 443 10^3/uL (140-440); RDW COEFFICIENT OF VARIATION 12.5 % (11.6-14.8); RED BLOOD COUNT 4.02 10^6/ul (4.70-6.10); WHITE BLOOD COUNT 10.44 K/ul (4.2-10.2)
[2022-06-07 05:29] LABS: ALBUMIN 4.24 g/dL (3.5-5.0); ALKALINE PHOSPHATASE 123.5 U/L (56-119); ASPARTATE AMINO TRANSFERASE 79.7 U/L (17-59); BILIRUBIN,TOTAL 0.51 mg/dL (0.2-1.3); BLOOD UREA NITROGEN 24.2 mg/dL (9-20); CALCIUM 9.53 mg/dL (8.4-10.2); CARBON DIOXIDE 28.3 mmol/L (22-30.0); CHLORIDE 106.7 mmol/L (98-107); CREATININE 0.96 mg/dL (0.60-1.10); GLUCOSE 104.2 mg/dL (74-106); POTASSIUM 4.22 mmol/L (3.5-5.1); SODIUM 141.2 mmol/L (134.5-145); TOTAL PROTEIN 7.77 g/dL (6.3-8.2)
[2022-06-07 05:37] LABS: PROTHROMBIN TIME 40.9 SEC (9.3-11.0)
--- NOTE | 2022-06-07 05:58 | DI ---
EXAM: CHEST RADIOGRAPH TECHNIQUE: Single frontal chest radiograph. HISTORY: Shortness of breath. COMPARISON: 02/22/2021 FINDINGS: The heart size is normal. Mediastinal contours and pulmonary vasculature are within normal limits. Old granulomas disease. The lungs are clear. There is no pleural effusion. There is no p neumothorax. IMPRESSION: 1. No acute findings.
[2022-06-07] MEDS: ATIVAN PO SCH ×2 (09:54→20:07)
[2022-06-07] MEDS: NORVASC PO SCH (09:54)
[2022-06-07] MEDS: PREDNISONE PO SCH ×2 (09:54→17:11)
[2022-06-07] MEDS: ZITHROMAX PO SCH (09:54)
[2022-06-07] MEDS: COZAAR PO SCH (09:54)
[2022-06-07] MEDS: ZANAFLEX PO SCH ×2 (09:54→20:06)
[2022-06-07] MEDS: DILANTIN PO SCH ×3 (09:55→20:07)
[2022-06-07] MEDS: PROTONIX PO SCH ×2 (09:55→20:07)
[2022-06-07] MEDS: FERROUS SULFATE PO SCH ×2 (11:47→13:25)
[2022-06-07] MEDS: ZETIA PO SCH (20:06)
[2022-06-07] MEDS: ZOCOR PO SCH (20:07)
[2022-06-08 04:58] LABS: BASOPHILS # (AUTO) 0.1 K/uL (0-0.2); BASOPHILS % (AUTO) 0.4 % (0.0-3.0); EOSINOPHILS # (AUTO) 0.1 K/ul (0.0-0.7); EOSINOPHILS % (AUTO) 0.5 % (0.0-7.0); HEMATOCRIT 36.1 % (42.0-52.0); HEMOGLOBIN 12.3 g/dl (14.0-18.0); IMMATURE GRANULOCYTE # (AUTO) 0.3 (0.0-1.0); IMMATURE GRANULOCYTE % (AUTO) 2.2 % (0.0-5.0); LYMPHOCYTES # (AUTO) 1.7 K/uL (0.60-3.4); MEAN CORPUSCULAR HEMOGLOBIN 31.1 pg (27.0-31.0); MEAN CORPUSCULAR HGB CONC 34.1 (31.8-35.4); MEAN CORPUSCULAR VOLUME 91.2 fl (80.0-94.0); MONOCYTES # (AUTO) 1.3 K/uL (0.4-2.0); MONOCYTES % (AUTO) 10.3 (0-10); NEUTROPHILS # (AUTO) 8.9 K/ul (2.0-6.9); NEUTROPHILS % (AUTO) 72.6 % (42.2-75.2); PLATELET COUNT 420 10^3/uL (140-440); RDW COEFFICIENT OF VARIATION 12.4 % (11.6-14.8); RED BLOOD COUNT 3.96 10^6/ul (4.70-6.10); WHITE BLOOD COUNT 12.28 K/ul (4.2-10.2)
[2022-06-08 05:11] LABS: ALANINE AMINOTRANSFERASE 107.2 U/L (0-50); ALBUMIN 3.94 g/dL (3.5-5.0); ALKALINE PHOSPHATASE 131.7 U/L (56-119); ASPARTATE AMINO TRANSFERASE 80.6 U/L (17-59); BILIRUBIN,TOTAL 0.48 mg/dL (0.2-1.3); BLOOD UREA NITROGEN 27.3 mg/dL (9-20); CALCIUM 9.2 mg/dL (8.4-10.2); CARBON DIOXIDE 24.7 mmol/L (22-30.0); CREATININE 0.95 mg/dL (0.60-1.10); GLUCOSE 106.9 mg/dL (74-106); POTASSIUM 3.8 mmol/L (3.5-5.1); PROTHROMBIN TIME 22.8 SEC (9.3-11.0); SODIUM 137.3 mmol/L (134.5-145); TOTAL PROTEIN 7.38 g/dL (6.3-8.2)
[2022-06-08] MEDS ORDERED: VENTOLIN HFA (PER PUFF-WITH SPACER) IH SCH (08:05)
[2022-06-08] MEDS: ATIVAN PO SCH (08:32)
[2022-06-08] MEDS: DILANTIN PO SCH (08:33)
[2022-06-08] MEDS: PREDNISONE PO SCH (08:33)
[2022-06-08] MEDS: NORVASC PO SCH (08:33)
[2022-06-08] MEDS: PROTONIX PO SCH (08:33)
[2022-06-08] MEDS: ZITHROMAX PO SCH (08:34)
[2022-06-08] MEDS: COZAAR PO SCH (08:56)
[2022-06-08] MEDS: FERROUS SULFATE PO SCH (09:00)
[2022-06-08] MEDS ORDERED: SYMBICORT 160-4.5 MCG INHALER IH SCH (09:00)
[2022-06-08] MEDS: ZANAFLEX PO SCH (09:00)
--- NOTE | 2022-06-08 09:26 | PCM.PROG ---
Attending Provider: ATTENDING PROVIDER: Dr. GLADYS BRUNO MD This patient is seen with Fanny Chaparro, Nurse Practitioner. DATE OF SERVICE: 06/08/22 SUBJECTIVE: This 76 year old /WHITE M was hospitalized 06/06/22. The patient is resting comfortably. INR down to 2.2 today. He has had no signs of bleeding. Cough is improving. Will start on inhalers today and schedule those at [facility]. He is ready to be discharge. Chest x-ray is normal. Labs are stable. REVIEW OF SYSTEMS: CONSTITUTIONAL: Weakness. No night sweats. No fatigue, malaise, lethargy. No fever or chills. HEENT: Eyes: No visual changes. No eye pain. No eye discharge. ENT: No runny nose. No epistaxis. No sinus pain. No odynophagia. No congestion. RESPIRATORY: Cough. No hemoptysis. No shortness of breath. CARDIOVASCULAR: No angina symptoms. No CHF symptoms. No atypical chest pain for CAD. No palpitations. No orthopnea.. GASTROINTESTINAL: No abdominal pain. No nausea or vomiting. No diarrhea or constipation. No hematemesis. No hematochezia. GENITOURINARY: No urgency. No frequency. No dysuria. No hematuria. No obstructive symptoms. No discharge. No pain. No significant abnormal bleeding. MUSCULOSKELETAL: No musculoskeletal pain; no joint swelling. NEUROLOGICAL: Awake, alert, oriented to time, place and person. No headache. No neck pain. No syncope. No seizures. No dizziness. PSYCHIATRIC: Not anxious. No depression. No suicidal thoughts. No homicidal thoughts. SKIN: No rash. No lesions. No wounds. ENDOCRINE: No unexplained weight loss. No weight gain. HEMATOLOGIC/LYMPHATIC: No anemia. No purpura. No petechiae. No prolonged or excessive bleeding. No palpable lymph nodes. PHYSICAL EXAMINATION: GENERAL: The patient is awake, alert and oriented, lying/sitting in bed in no distress. VITAL SIGNS: Temperature 98.3 F, Pulse 85, Respiratory Rate 20, BP 137/72, Pulse Ox 94% HEENT: Head normocephalic, atraumatic. Eyes: Extraocular muscles are intact. Pupils are equal, round and reactive to light and accommodation. Ears: No lesions. Nose appeared normal. Throat: No exudate or erythema. NECK: Supple. No JVD, no carotid bruit. No lymphadenopathy or thyromegaly. LUNGS: Diminished breath sounds with bilateral wheeze. Clear to auscultation. Percussion note normal. Chest symmetrical. HEART: S1, S2, no S3. No murmurs. No cyanosis or clubbing. No ascites. Pulses: Dorsalis pedis and posterior tibial pulses +1 to +2 both sides. ABDOMEN: Soft. Non-tender. Bowel sounds active. No CVA tenderness. No mass felt. EXTREMITIES: No edema. Full range of motion of all extremities, equal. NEUROLOGIC: No focal deficit. Cranial nerves II through XII are grossly intact. No headache. No double vision. SKIN: Not dry. Intact. Turgor-normal. LYMPHATIC: No palpable lymph nodes/no lymphedema. MUSCULOSKELETAL: Normal joints with no swelling. Muscle tone is normal. LAB REVIEW: 06/08/22 04:52 06/08/22 04:52 06/08/22 04:52: Sodium 137.3, Potassium 3.80, Chloride 106.0, Carbon Dioxide 24.7, Anion Gap 10.40, BUN 27.3 H, Creatinine 0.95, Estimated GFR (MDRD) 77.00, BUN/Creatinine Ratio 28.73, Glucose 106.9 H, Calcium 9.20, Total Bilirubin 0.48, AST 80.6 H, ALT 107.2 H, Alkaline Phosphatase 131.7 H, Total Protein 7.38, Albumin 3.94, Globulin 3.44, Albumin/Globulin Ratio 1.14 06/08/22 04:52: WBC 12.28 H, RBC 3.96 L, Hgb 12.3 L, Hct 36.1 L, MCV 91.2, MCH 31.1 H, MCHC 34.1, RDW Coeff of Audrey 12.4, Plt Count 420, Immature Gran % (Auto) 2.2, Neut % (Auto) 72.6, Lymph % (Auto) 14.0, [place] % (Auto) 10.3 H, Eos % (Auto) 0.5, Baso % (Auto) 0.4, Neut # (Auto) 8.9 H, Lymph # (Auto) 1.7, [place] # (Auto) 1.3, Eos # (Auto) 0.1, Baso # (Auto) 0.1, Immature Gran # (Auto) 0.3 06/08/22 04:52: PT 22.8 H D, INR 2.28 ASSESSMENT: Please see below. 1. Hypercoagulation 2. Severe PAD 3. Recurrent CVA 4. Acute COPD exacerbation 5. Heavy smoker PLAN: 1. Discharge today to [facility]. 2. Symbicort inhaler 160 two puffs b.i.d. with spacer indefinitely and continue at [facility]. Start this here. 3. Albuterol inhaler two puffs t.i.d. MELINDA with a spacer times 2 weeks. Start this here. 4. Ativan p.r.n. 5. Dilantin level. 6. 1 mg Coumadin daily, can resume today. 7. INR on Sunday and then weekly. 8. Prednisone 10 mg b.i.d. times 5 more days. 9. Zithromax one dose left. 10. Resume home medications. Plan and coordination of the patient's care discussed in the presence of Dispatch Machine Runner and nurse. CONDITION: Stable TIME SPENT: 35 MINUTES SCRIBED BY: Ezekiel RHOADES scribed while in presence of service performed by Fanny Chaparro APRN on 06/08/22 (0801)
--- NOTE | 2022-06-08 10:03 | DS ---
DATE OF SERVICE: 06/08/22 FINAL DIAGNOSIS: 1. Hypercoagulation 2. Severe PAD 3. Recurrent CVA 4. Acute COPD exacerbation 5. Heavy smoker DISCHARGE INSTRUCTIONS: Discharge today back to [facility] per Dr. Judd/Fanny Chaparro NP. Continue Dr. Judd routine group home orders. Dr. Judd/Fanny Chaparro NP/Baljit Barragan NP to round at group home. Oxygen: As previously prescribed. MEDICATIONS AT DISCHARGE: Resume all other medications as prior admission. Acetaminophen 650 mg p.o. q.4h p.r.n. Norvasc 10 mg p.o. daily Azithromycin 250 mg p.o. daily Bisacodyl 10 mg VT daily p.r.n. Ezetimibe 10 mg p.o. bedtime Ferrous Sulfate 325 mg p.o. b.i.d. breakfast and lunch Losartan (Cozaar) 100 mg p.o. daily Magnesium Hydroxide (MOM) 30 mL p.o. daily p.r.n. Pantoprazole 40 mg p.o. b.i.d. Phenytoin sodium 100 mg p.o. t.i.d. Prednisone 10 mg p.o. b.i.d. Simvastatin 40 mg p.o. bedtime Tizanidine 2 mg p.o. b.i.d. Trolamine Salicylate (Aspercreme) one application topical t.i.d. p.r.n. CHANGED: Lorazepam 0.5 mg p.o. b.i.d. p.r.n. NEW PRESCRIPTIONS: 1. Start Symbicort 160-4.5 inhaler with spacer, two puffs b.i.d. 2. Resume Coumadin 1 mg on 06/08/22. 3. PT/INR on June 12 then continue checking PT/INR every week thereafter. 4. Albuterol inhaler with spacer, two puffs t.i.d. MELINDA. Use for two weeks then stop on 06/23/22. 5. Prednisone 10 mg take twice daily for 5 more days. 6. Ativan is p.r.n. 7. Last dose of Zithromax 250 mg is on 06/09/22. DISCONTINUED MEDICATIONS: Warfarin 2 mg p.o. daily DIET INSTRUCTIONS: As tolerated with Boost supplement. ACTIVITY: Fall precautions. May resume activities as prior. SMOKING: Smoking cessation advised. DISEASE SPECIFIC EDUCATION: Medications Followup Diet Activity HOSPITAL COURSE: This 76-year-old /White male was admitted from the Emergency Department with INR of 15. He has been on Coumadin half-way for recurrent CVA and severe PAD. It is unclear as to the cause of elevated INR. Coumadin held, was given 10mg Vitamin K. INR down to 42 yesterday and now will resume Coumadin 1 mg daily this evening. Blood pressure has been controlled. He was being treated for acute bronchitis at group home. He has had persistent cough. Chest x-ray normal. He does have bilateral wheezing. He is a heavy smoker. He will complete a course of Zithromax tomorrow. Will send him back on 5 more days of Prednisone and start Symbicort and Albuterol inhalers. He will be discharged in stable condition. Smoking cessation advised. will follow in group home. He is to have repeat INR on Sunday and then weekly thereafter. TIME SPENT: 70 minutes MTDD
[2022-06-08 10:04] VITALS: BP 105/62; TEMP 97.6
[2022-06-08] MEDS ORDERED: COUMADIN PO SCH (17:00)
--- NOTE | 2022-06-11 13:49 | PN ---
DATE OF SERVICE: 06/07/22 SUBJECTIVE: 76 year old white male hospitalized with abnormal coagulopathy with increased INR of more than 15. The patient was given 10 mg of Vitamin K. In the evening yesterday was 11 and is now down to 4.21 this morning. Patient has no evidence of GI bleed. REVIEW OF SYSTEMS: CONSTITUTIONAL: No night sweats. No fatigue, malaise, lethargy. No fever or chills. HEENT: Eyes: No visual changes. No eye pain. No eye discharge. ENT: No runny nose. No epistaxis. No sinus pain. No sore throat. No odynophagia. No congestion. RESPIRATORY: No cough, no congestion. No hemoptysis. No shortness of breath. CARDIOVASCULAR: No angina symptoms. No CHF symptoms. No atypical chest pain for CAD. No palpitations. No PND. No orthopnea. GASTROINTESTINAL: No abdominal pain. No nausea or vomiting. No diarrhea or constipation. No hematemesis. No hematochezia. GENITOURINARY: No urgency. No frequency. No dysuria. No hematuria. No obstructive symptoms. No discharge. No pain. No significant abnormal bleeding. MUSCULOSKELETAL: No musculoskeletal pain; no joint swelling. NEUROLOGICAL: No headache. No neck pain. No syncope. No seizures. No dizziness. PSYCHIATRIC: Not anxious. No depression. No suicidal thoughts. No homicidal thoughts. SKIN: No rash. No lesions. No wounds. ENDOCRINE: No unexplained weight loss. No weight gain. HEMATOLOGIC/LYMPHATIC: No anemia. No purpura. No petechiae. No prolonged or excessive bleeding. No palpable lymph nodes. PHYSICAL EXAMINATION: GENERAL: The patient is in no distress. VITAL SIGNS: Temperature 98, pulse 74, respiratory rate 16, blood pressure 137/82, pulse ox 98% on room air. HEENT: Head normocephalic, atraumatic. Eyes: Extraocular muscles are intact. Pupils are equal, round and reactive to light and accommodation. Ears: No lesions. Nose appeared normal. Throat: No exudate or erythema. NECK: Supple. No JVD, no carotid bruit. No lymphadenopathy or thyromegaly. LUNGS: Decreased breath sounds. HEART: S1, S2, no S3. ABDOMEN: Soft. EXTREMITIES: No edema. Full range of motion of all extremities, equal. NEUROLOGIC: No focal deficit. Cranial nerves II through XII are grossly intact. No headache. No double vision. SKIN: Not dry. Intact. Turgor - normal. LYMPHATIC: No palpable lymph nodes/no lymphedema. MUSCULOSKELETAL: Normal joints with no swelling. Muscle tone is normal. LABS: Hemoglobin 12.5, hematocrit 37, WBC 10,000, normal differential, creatinine 0.9, BUN 24, potassium 4.2 ASSESSMENT: Abnormal coagulopathy with increased INR, seems to be resolving PLAN: 1. Continue the rest of the medication as before. 2. No evidence of active GI bleed. His hemoglobin and hematocrit are stable. TIME SPENT: More than 35 minutes. Plan and coordination of the patient's care discussed in the presence of nurse. JOSE E
--- NOTE | 2022-06-11 14:02 | PN ---
DATE OF SERVICE: 06/08/22 SUBJECTIVE: Patient was seen and examined with the nurse practitioner. His INR is much better . No active GI bleed. I don't know exactly what happened with the INR going over 15. In any case, we will closely monitor the patient's INR. Patient's cardiovascular and neurological status is stable and unchanged. REVIEW OF SYSTEMS: CONSTITUTIONAL: No night sweats. No fatigue, malaise, lethargy. No fever or chills. HEENT: Eyes: No visual changes. No eye pain. No eye discharge. ENT: No runny nose. No epistaxis. No sinus pain. No sore throat. No odynophagia. No congestion. RESPIRATORY: No cough, no congestion. No hemoptysis. No shortness of breath. CARDIOVASCULAR: No angina symptoms. No CHF symptoms. No atypical chest pain for CAD. No palpitations. No PND. No orthopnea. GASTROINTESTINAL: No abdominal pain. No nausea or vomiting. No diarrhea or constipation. No hematemesis. No hematochezia. GENITOURINARY: No urgency. No frequency. No dysuria. No hematuria. No obstructive symptoms. No discharge. No pain. No significant abnormal bleeding. MUSCULOSKELETAL: No musculoskeletal pain; no joint swelling. NEUROLOGICAL: No headache. No neck pain. No syncope. No seizures. No dizziness. PSYCHIATRIC: Not anxious. No depression. No suicidal thoughts. No homicidal thoughts. SKIN: No rash. No lesions. No wounds. ENDOCRINE: No unexplained weight loss. No weight gain. HEMATOLOGIC/LYMPHATIC: No anemia. No purpura. No petechiae. No prolonged or excessive bleeding. No palpable lymph nodes. PHYSICAL EXAMINATION: GENERAL: The patient is in no distress. HEENT: Head normocephalic, atraumatic. Eyes: Extraocular muscles are intact. Pupils are equal, round and reactive to light and accommodation. Ears: No lesions. Nose appeared normal. Throat: No exudate or erythema. NECK: Supple. No JVD, no carotid bruit. No lymphadenopathy or thyromegaly. LUNGS: Clear to auscultation. Percussion note normal. Chest symmetrical. HEART: S1, S2, no S3. No murmurs. No cyanosis or clubbing. No ascites. Pulses: Dorsalis pedis and posterior tibial pulses +1 to +2 bilaterally. ABDOMEN: Soft. Nontender. Bowel sounds active. No CVA tenderness. No mass felt. EXTREMITIES: No edema. Full range of motion of all extremities, equal. NEUROLOGIC: No focal deficit. Cranial nerves II through XII are grossly intact. No headache. No double vision. SKIN: Not dry. Intact. Turgor - normal. LYMPHATIC: No palpable lymph nodes/no lymphedema. MUSCULOSKELETAL: Normal joints with no swelling. Muscle tone is normal. TIME SPENT: More than 35 minutes. Plan and coordination of the patient's care discussed in the presence of nurse. JOSE E
--- NOTE | 2022-06-11 14:03 | PN ---
06/06/22 Level 5 06/07/22 Intermediate 06/08/22 Discharge MTDD
== END 2022-06-08 10:38 | DRG 948 ==
LOC: ED 12:45 → MEDSURG A 15:50
PROVIDERS: ADMIT Internal Medicine; ATTEND Internal Medicine

== ENCOUNTER 2025-02-02 16:18 | Inpatient (IN) ==
[2025-02-02 17:15] LABS: IMMATURE GRANULOCYTE # (AUTO) 0.1 (0.0-1.0); IMMATURE GRANULOCYTE % (AUTO) 0.7 % (0.0-5.0); RDW COEFFICIENT OF VARIATION 14.6 % (11.6-14.8)
[2025-02-02 17:18] LABS: CREATININE 1.03 mg/dL (0.60-1.10)
--- NOTE | 2025-02-02 17:29 | ED.PDOC ---
General HPI ED Provider: Dr. PRASHANT LIVINGSTON DO Chief Complaint: Abnormal Labs Stated Complaint: 79-year-old male presents to the ER from local custodial. History obtained from his daughters and nursing staff. Presents with altered mental status. The patient is mostly nonverbal with limited words that he does speak so unreliable historian in that regard as well as altered mental status. They state that he is usually alert and oriented to person place and time. He has been more confused today. No reported cough, abdominal pain, diarrhea, constipation. He has a history of recurrent UTIs. He apparently had a fever a couple days ago. No confirmed sick contact or source. He had labs drawn at the custodial earlier today which demonstrated a significant anemia with a hemoglobin of 7 and an INR of 8. Patient is on daily iron supplements. No reported obvious GI bleed. Time Seen by Provider: 02/02/25 16:19 Information Source: Patient, [facility] and EMT Primary Care Provider: CASEY CARRILLO APRN Nursing and Triage Documentation Reviewed and Agree: Yes Opioid Naive vs. Tolerant What is Opioid Naive?: *Opioid Naive implies the patient is not already taking opioids or not chronically receiving opioids on a daily basis. *PRN dosing is not "usually" associated with tolerance. *Patients are at higher risk of over-sedation and aspiration. What is Opioid Tolerant?: *Opioid Tolerance implies less than the expected response to an opioid. *Acquired tolerance is defined by the patient taking 60mg of oral morphine daily (or equianalgesic dose of another opioid) for 1 week or more. *Often associated with chronic pain. *May take more than usual dose to achieve desired pain control. Review of Systems Review Of Systems Constitutional: Reports No symptoms All Other Systems: Reviewed and Negative [facility] [place] Medical History (Updated 02/02/25 @ 19:57 by PRASHANT LIVINGSTON DO) Generalized weakness R53.1 - Weakness (ICD-10) Repeated falls R29.6 - Repeated falls (ICD-10) Other hyperlipidemia E78.49 - Other hyperlipidemia (ICD-10) Muscle weakness (generalized) M62.81 - Muscle weakness (generalized) (ICD-10) Hemiplegia and hemiparesis following cerebral infarction affecting right dominant side I69.351 - Hemiplegia and hemiparesis following cerebral infarction affecting right dominant side (ICD-10) Gastro-esophageal reflux disease without esophagitis K21.9 - Gastro-esophageal reflux disease without esophagitis (ICD-10) Contracture, right hand M24.541 - Contracture, right hand (ICD-10) Alcohol abuse, uncomplicated F10.10 - Alcohol abuse, uncomplicated (ICD-10) Unspecified convulsions R56.9 - Unspecified convulsions (ICD-10) Peripheral vascular disease, unspecified I73.9 - Peripheral vascular disease, unspecified (ICD-10) Nicotine dependence, unspecified, uncomplicated F17.200 - Nicotine dependence, unspecified, uncomplicated (ICD-10) skilled nursing (current) use of anticoagulants Z79.01 - 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 (ICD-10) Generalized anxiety disorder F41.1 - Generalized anxiety disorder (ICD-10) Essential (primary) hypertension I10 - Essential (primary) hypertension (ICD-10) Contracture, right shoulder M24.511 - Contracture, right shoulder (ICD-10) Contracture, right elbow M24.521 - Contracture, right elbow (ICD-10) Cerebral infarction, unspecified I63.9 - Cerebral infarction, unspecified (ICD-10) 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.611 - Acquired absence of right leg above knee (ICD-10) Diverticulosis K57.90 - Diverticulosis of intestine, part unspecified, without perforation or abscess without bleeding (ICD-10) Alcohol abuse F10.10 - Alcohol abuse, uncomplicated (ICD-10) History of compression fracture of spine L2 (2018), L4 (2019) Z87.81 - Personal history of (healed) traumatic fracture (ICD-10) History of pelvic fracture 2017 Z87.81 - Personal history of (healed) traumatic fracture (ICD-10) Dyslipidemia E78.5 - Hyperlipidemia, unspecified (ICD-10) Depression F32.9 - Major depressive disorder, single episode, unspecified (ICD-10) GERD (gastroesophageal reflux disease) K21.9 - Gastro-esophageal reflux disease without esophagitis (ICD-10) History of femur fracture Right Femoral Head and Neck fracture with repair - 2018 Z87.81 - Personal history of (healed) traumatic fracture (ICD-10) Hemiparesis, right G81.91 - Hemiplegia, unspecified affecting right dominant side (ICD-10) Anemia D64.9 - Anemia, unspecified (ICD-10) Hypertension I10 - Essential (primary) hypertension (ICD-10) Seizure R56.9 - Unspecified convulsions (ICD-10) COPD (chronic obstructive pulmonary disease) J44.9 - Chronic obstructive pulmonary disease, unspecified (ICD-10) CVA (cerebral vascular accident) I63.9 - Cerebral infarction, unspecified (ICD-10) Family History Mother Heart attack FATHER Lung cancer Social History Smoking and tobacco status: Current every day smoker Tobacco type: cigarettes Smoking packs per day: 3 Smoking cigarettes per day: 60.0 Years smoked: 60 Smoking pack-years: 180.00 Alcohol intake: current Alcohol intake frequency: former alcohol drinker Alcohol type: beer Surgical History History of right above knee amputation Z89.611 - Acquired absence of right leg above knee (ICD-10) History of hip surgery Z98.890 - Other specified postprocedural states (ICD-10) Physical Exam Physical Exam Appearance: Reports Well-appearing, No pain distress, Well-nourished and Other (Significant kyphotic posture) Eyes: Reports BRANDON and EOMI ENT: Reports Oropharynx normal Neck: Supple Respiratory: Reports Airway patent, Breath sounds clear, Breath sounds diminished (Chronic right hemidiaphragm, diminished throughout the right side. No obvious crackles rales or rhonchi) and Respirations nonlabored Cardiovascular: Reports RRR and Pulses normal GI/: Reports Soft and Nontender Musculoskeletal: Reports Normal strength and ROM intact Skin: Reports Warm, Dry and Normal color Neurological: Reports Sensation intact, Motor intact, Alert and Oriented Psychiatric: Reports Affect appropriate and Mood appropriate Paris Coma Scale Paris Coma Scale Response Scores: Best Response = 15 Comatose Client = 8 or Less Totally Unresponsive = 3 Interpretation EKG Interpretation EKG Interpretation By: ED Physician Time of EKG #1: 17:28 Rate: Normal (94) Re-Evaluation Re-Evaluation Additional Comments: 79-year-old male presents with altered mental status from local custodial. He had significant laboratory derangements there. He arrives afebrile but he is hypoxic. Difficult to get a good pleth with his O2 sensor. He is not usually oxygen dependent. Concern for pneumonia. Sepsis workup immediately initiated omitting the fluid bolus due to concern for fluid overload. Hemoccult would be inaccurate due to his iron supplementation. Nonfocal neuroexam. Will repeat his labs and compare in the case of any lab error. Will consider head CT in addition to laboratory workup given his altered mental status and if he has a significantly elevated INR. He apparently has a history of fluctuating INR 1700: Patient has significant differences between the labs drawn at the custodial and ones that we have drawn. INR still pending. White count remains elevated but much lower than this morning. Hemoglobin hematocrit consistent with prior labs. Doubt GI bleed at this time. white count over 14 and a lactic acidosis in addition to requiring supplemental oxygen at this time would suggest sepsis which sepsis workup was initiated upon his arrival. 30 cc/kg bolus not administered due to the patient's posterior and risk of fluid overload potentially. Will screen BNP and renal function. Chronic right hemidiaphragm may also be contributing factor to it. Will begin antibiotics nonetheless given the other triggers for sepsis 1810: INR of 11. I have ordered vitamin K given the significant elevation of the INR. I also ordered a head CT. We have also been able to get a good pleth with his pulse oximetry that now shows a consistent 96% on room air. Physician Progress Note Physician Progress Note: All EKGs and plain film imaging independently reviewed and interpreted by me unless stated otherwise. CTs interpreted by radiology unless otherwise stated. All pediatric patients are accompanied by parent or legal guardian as primary historian and/or validate patient report unless otherwise stated. Course Course 02/02/25 17:04 02/02/25 16:58 Orders, Labs, Meds: Lab Review 02/02/25 02/02/25 02/02/25 16:58 17:04 17:10 WBC 14.85 H RBC 3.51 L Hgb 10.4 L D Hct 34.4 L D MCV 98.0 H MCH 29.6 MCHC 30.2 L RDW Coeff of Audrey 14.6 Plt Count 559 H Immature Gran % (Auto) 0.7 Neut % (Auto) 80.1 H Lymph % (Auto) 12.2 [place] % (Auto) 6.4 Eos % (Auto) 0.3 Baso % (Auto) 0.3 Neut # (Auto) 11.9 H Lymph # (Auto) 1.8 [place] # (Auto) 1.0 Eos # (Auto) 0.1 Baso # (Auto) 0.1 Immature Gran # (Auto) 0.1 PT 102.5 H INR 11.31 H* APTT 78.0 H Sodium 141.4 Potassium 3.86 Chloride 112.0 H Carbon Dioxide 22.6 Anion Gap 10.66 BUN 41.7 H Creatinine 1.03 Estimated GFR (MDRD) 70.00 BUN/Creatinine Ratio 40.48 Glucose 111.0 H Lactic Acid 2.51 H Calcium 9.33 Total Bilirubin 0.59 AST 35.4 ALT 39.0 Alkaline Phosphatase 166.2 H Troponin I 0.012 NT-Pro-B Natriuret Pep 1070 H Total Protein 7.05 Albumin 3.60 Globulin 3.45 Albumin/Globulin Ratio 1.04 Urine Color Urine Clarity Urine pH Ur Specific Equality Urine Protein Urine Glucose (UA) Urine Ketones Urine Blood Urine Nitrite Urine Bilirubin Urine Urobilinogen Ur Leukocyte Esterase Urine Microscopic WBC Ur Squamous Epith Cells Urine Opiates Screen Ur Oxycodone Screen Urine Methadone Screen Ur Barbiturates Screen U Tricyclic Antidepress Ur Phencyclidine Scrn Ur Amphetamine Screen U Methamphetamines Scrn U Benzodiazepines Scrn Urine Cocaine Screen U Cannabinoids Screen Influ A Molecular Assay Influ B Molecular Assay RSV Antigen SARS CoV-2 RNA Rapid SHAYY 02/02/25 02/02/25 17:20 17:35 WBC RBC Hgb Hct MCV MCH MCHC RDW Coeff of Audrey Plt Count Immature Gran % (Auto) Neut % (Auto) Lymph % (Auto) [place] % (Auto) Eos % (Auto) Baso % (Auto) Neut # (Auto) Lymph # (Auto) [place] # (Auto) Eos # (Auto) Baso # (Auto) Immature Gran # (Auto) PT INR APTT Sodium Potassium Chloride Carbon Dioxide Anion Gap BUN Creatinine Estimated GFR (MDRD) BUN/Creatinine Ratio Glucose Lactic Acid Calcium Total Bilirubin AST ALT Alkaline Phosphatase Troponin I NT-Pro-B Natriuret Pep Total Protein Albumin Globulin Albumin/Globulin Ratio Urine Color Dark Urine Clarity Cloudy Urine pH 7.0 Ur Specific Equality 1.020 Urine Protein 2+ H Urine Glucose (UA) Negative Urine Ketones Trace H Urine Blood Trace-intact H Urine Nitrite Negative Urine Bilirubin 1+ H Urine Urobilinogen 1.0 H Ur Leukocyte Esterase 3+ H Urine Microscopic WBC Tntc Ur Squamous Epith Cells Not present Urine Opiates Screen Negative Ur Oxycodone Screen Negative Urine Methadone Screen Negative Ur Barbiturates Screen Positive H U Tricyclic Antidepress Negative Ur Phencyclidine Scrn Negative Ur Amphetamine Screen Negative U Methamphetamines Scrn Negative U Benzodiazepines Scrn Negative Urine Cocaine Screen Negative U Cannabinoids Screen Negative Influ A Molecular Assay Negative by naat Influ B Molecular Assay Negative by naat RSV Antigen Negative by naat SARS CoV-2 RNA Rapid SHAYY Negative Orders Category Date Time Status ADMIT PATIENT INPATIENT .TO MEDSURG (MONITORED BED) ADMISSION 02/02/25 19:16 Active EKG-(ED & IP/OBS ONLY) Stat CARDIO 02/02/25 16:39 Completed NEBULIZER TREATMENT Stat CARDIO 02/02/25 17:31 Completed TELEMETRY MONITORING TELE CARE 02/02/25 19:16 Active IV [ED IV/MEDIPORT/POWERPORT] .ONCE EMERGENCY 02/02/25 16:39 Active BLOOD CULTURE (ED ONLY) Stat LAB 02/02/25 17:04 Received BNP [NT-PROBNP] Stat LAB 02/02/25 17:10 Completed CBC W/ AUTO DIFF Stat LAB 02/02/25 17:04 Completed CMP [COMPREHENSIVE METABOLIC PANEL] Stat LAB 02/02/25 16:58 Completed COVID [SARS COV-2 RNA RAPID SHAYY] Stat LAB 02/02/25 17:20 Completed DRUG SCREEN (RAPID FOR ED) [DRUG SCREEN, URINE, RAPID] LAB 02/02/25 17:35 Completed Stat FLU A & B MOLECULAR [FLU A/B MOLECULAR] Stat LAB 02/02/25 17:20 Completed LACTIC ACID Stat LAB 02/02/25 17:04 Completed PT WITH INR Stat LAB 02/02/25 17:04 Completed PTT [PARTIAL THROMBOPLASTIN TIME] Stat LAB 02/02/25 17:04 Completed RSV Stat LAB 02/02/25 17:20 Completed TROPONIN I Stat LAB 02/02/25 16:58 Completed URINALYSIS C & S IF INDICATED Stat LAB 02/02/25 17:35 Completed URINE CULTURE Stat LAB 02/02/25 17:42 Received 0.9 % Sodium Chloride [Saline Flush] Meds 02/02/25 16:38 Active 1 syr IVF PRN PRN Ipratropium/Albuterol Neb [Duoneb] Meds 02/02/25 17:31 Discontinued 3 ml NEB ONCE STA Nicotine 14 mg [Nicoderm 14 mg] Meds 02/02/25 18:10 Discontinued 1 patch TD ONCE STA Phytonadione Inj [Vitamin K] Meds 02/02/25 18:14 Discontinued 10 mg .ROUTE .STK-MED ONE Phytonadione Inj [Vitamin K] 10 mg Meds 02/02/25 18:08 Discontinued 0.9 % Sodium Chloride [Sodium Chloride] 50 ml IV ONCE Piperacillin Sodium/Tazobactam [Zosyn 4.5 gm] 4.5 gm Meds 02/02/25 17:29 Discontinued 0.9 % Sodium Chloride [Sodium Chloride 100Ml] 100 ml IV ONCE CHEST, 1V AP ONLY Stat RADS 02/02/25 16:[address] HEAD W/O CONTRAST Stat RADS 02/02/25 18:08 Completed Medications Generic Name Dose Route Start Last Admin Trade Name Freq PRN Reason Stop Dose Admin Acetaminophen 650 mg 02/02/25 19:34 Acetaminophen 325 Mg Tablet PO Q4H PRN Mild Pain Doxycycline Hyclate 100 mg 02/02/25 21:00 Doxycycline Hyclate 100 Mg Capsule PO 02/07/25 09:01 Q12HR MELINDA CEFTRIAXONE/D5W 1 GM PREMIX 1 gm in 50 mls @ 100 mls/hr 02/02/25 21:00 Rocephin 1 Gm/50 Ml D5w IV 02/05/25 20:59 BEDTIME MELINDA Ondansetron HCl 4 mg 02/02/25 19:34 Ondansetron Hcl/Pf 4 Mg/2 Ml Sdv IVP Q6H PRN Nausea / Vomiting Sodium Chloride 1 syr 02/02/25 16:38 0.9% Sodium Chloride 10 Ml Disp.Syrin IVF PRN PRN To flush IV Discontinued Medications Generic Name Dose Route Start Last Admin Trade Name Freq PRN Reason Stop Dose Admin Albuterol/Ipratropium 3 ml 02/02/25 17:31 02/02/25 17:36 Ipratropium/Albuterol Vial.Neb NEB 02/02/25 17:32 3 ml ONCE STA Administration Piperacillin Sod/Tazobactam 100 mls @ 200 mls/hr 02/02/25 17:29 02/02/25 17:52 Sod 4.5 gm/ Sodium Chloride IV 02/02/25 17:58 200 mls/hr ONCE ONE Administration Phytonadione 10 mg/ Sodium 51 mls @ 150 mls/hr 02/02/25 18:08 02/02/25 18:39 Chloride IV 02/02/25 18:28 150 mls/hr ONCE STA Administration Nicotine 1 patch 02/02/25 18:10 02/02/25 18:40 Nicotine 14 Mg Patch.Td24 TD 02/02/25 18:11 1 patch ONCE STA Administration Vital Signs: Temp Pulse Resp BP Pulse Ox 02/02/25 16:23 97.6 F 96 24 H 127/80 86 L Discharge Plan Discharge Patient Disposition: ADMITTED INPATIENT Discharge Problem: Sepsis, UTI (urinary tract infection), AMS (altered mental status), Supratherapeutic INR Did you 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
[2025-02-02] MEDS: DUONEB NEB STA (17:36)
[2025-02-02 17:43] LABS: GLUCOSE, URINE (UA) Negative (NEGATIVE); LEUKOCYTE ESTERASE ,URINE 3+ (NEGATIVE); URINE, BLOOD Trace-intact (NEGATIVE)
[2025-02-02 17:47] LABS: SQUAMOUS EPITHELIAL CELL,UR NOT PRESENT (0-5)
[2025-02-02 17:48] LABS: MOLECULAR FLU A NEGATIVE BY NAAT (NEGATIVE); MOLECULAR FLU B NEGATIVE BY NAAT (NEGATIVE); RSV MOLECULAR NEGATIVE BY NAAT (NEGATIVE); SARS COV-2 RNA RAPID NAAT NEGATIVE (NEGATIVE)
[2025-02-02 17:48] LABS: URINE WBC, MICROSCOPIC TNTC (0-2)
[2025-02-02] MEDS: ZOSYN 4.5 GM 4.5 GM in SODIUM CHLORIDE 100ML 100 ML IV ONE (17:52)
[2025-02-02 17:56] LABS: AMPHETAMINE SCREEN,URINE NEGATIVE (NEGATIVE); CANNABINOID SCREEN,URINE NEGATIVE (NEGATIVE); COCAIN SCREEN,URINE NEGATIVE (NEGATIVE); METHADONE URINE SCREEN NEGATIVE (NEGATIVE); METHAMPHETAMINES SCREEN,URINE NEGATIVE (NEGATIVE); OXYCODONE URINE SCREEN NEGATIVE (NEGATIVE); TRICYCLIC ANTIDEPRESSANTS URIN NEGATIVE (NEGATIVE)
[2025-02-02 18:08] LABS: INR 11.31 SI (0.0-3.9)
[2025-02-02] MEDS: SODIUM CHLORIDE IV STA (18:39)
[2025-02-02] MEDS: VITAMIN K IV STA (18:39)
[2025-02-02] MEDS: NICODERM 14 MG TD STA (18:40)
--- NOTE | 2025-02-02 18:40 | DI ---
EXAM: CHEST ONE-VIEW HISTORY: Chest pain and shortness of breath COMPARISON: AP chest from 08/08/2023 FINDINGS: The right is chronically elevated with subjacent atelectasis. There is suggestion of increased opacity in the right upper lobe. There are decreased bronchovascular markings in the lungs. The cardiomediastinal silhouette is normal. The pulmonary vasculature is normal. Old healed right rib fractures are noted. No pneumothoraces or pleural effusions. IMPRESSION: 1. Atelectasis and/or infiltrate suggested in the right upper lobe. 2. Chronic elevation of the right hemidiaphragm with subjacent atelectasis. 3. Suggestion of emphysema. .
--- NOTE | 2025-02-02 18:46 | CT ---
EXAM: CT HEAD WITHOUT CONTRAST. HISTORY: Altered mental status COMPARISON: 06/06/2022 CT head. TECHNIQUE: Axial CT imaging of the brain was performed without contrast. Sagittal and coronal re-formations were obtained. FINDINGS: No acute large vessel distribution infarction, intracranial bleed or focal mass. Unchanged left MCA distribution encephalomalacia. Scattered periventricular and subcortical hypodensities are seen. The cerebral sulci are enlarged. The ventricles are enlarged and midline in position. There is no midline shift or mass effect. The basilar cisterns are patent. No displaced skull fracture. No air-fluid levels are seen in the paranasal sinuses. The mastoid air cells are well aerated. IMPRESSION: No acute intracranial process. Stable chronic findings. All CT scans are performed using dose optimization techniques as appropriate to the performed exam and include at least one of the following: Automated exposure control, adjustment of the mA and/or kV according to size, and the use of iterative reconstruction technique.
[2025-02-02] MEDS: VITAMIN K ONE (18:57)
[2025-02-02] MEDS ORDERED: TYLENOL PO PRN (19:34)
[2025-02-02] MEDS ORDERED: ZOFRAN SDV IVP PRN (19:34)
[2025-02-02] MEDS: DOXYCYCLINE PO SCH (20:56)
[2025-02-02] MEDS: DILANTIN PO SCH (20:56)
[2025-02-02] MEDS: ZOCOR PO SCH (20:56)
[2025-02-02] MEDS: LOPRESSOR PO SCH (20:56)
[2025-02-02] MEDS: PROTONIX PO SCH (20:56)
[2025-02-02] MEDS: ROCEPHIN 1 GM/50 ML D5W 1 GM/50 ML BAG IV SCH (20:57)
[2025-02-02] MEDS: REMERON PO SCH (20:57)
[2025-02-02] MEDS: SYMBICORT 160-4.5 MCG INHALER IH SCH (20:57)
[2025-02-02] MEDS: BUSPAR PO SCH (20:57)
[2025-02-02] MEDS ORDERED: ZETIA PO SCH (21:00)
[2025-02-02] MEDS ORDERED: BUSPAR PO SCH (21:00)
[2025-02-02 21:28] VITALS: BMI 18.6
[2025-02-03 05:31] LABS: IMMATURE GRANULOCYTE # (AUTO) 0.1 (0.0-1.0); IMMATURE GRANULOCYTE % (AUTO) 0.7 % (0.0-5.0); RDW COEFFICIENT OF VARIATION 14.4 % (11.6-14.8)
[2025-02-03 05:42] LABS: CREATININE 0.99 mg/dL (0.60-1.10); INR 1.4 SI (0.0-3.9)
[2025-02-03] MEDS ORDERED: FERROUS SULFATE PO SCH (07:30)
[2025-02-03] MEDS: PROTONIX PO SCH (08:13)
[2025-02-03] MEDS: COZAAR PO SCH (08:13)
[2025-02-03] MEDS: ZETIA PO SCH (08:14)
[2025-02-03] MEDS: FERROUS SULFATE PO SCH (08:14)
[2025-02-03] MEDS: LOVENOX SUBCUT SCH (09:50)
--- NOTE | 2025-02-03 11:44 | PCM ---
Date of Service Date Seen by Provider: 02/03/25 Time Seen by Provider: 09:00 Admit Day/Time Admission Date: 02/02/25 Admission Time: 19:16 Reason for Admission Chief Complaint: SEPSIS,SUPER THERAPEUTIC INR, PNEUMONIA Hospital Provider Hospital Provider: PEE RUCKER PA-C, [facility] Primary Care Physician Primary Care Physician: CASEY CARRILLO APRN History of Present Illness History of Present Illness: Patient is a 79 year old male with pmhx of PVD s/p right AKA, recurrent CVAs, right upper ext contracture, seizure disorder, chronic anticoagulation with warfarin who presents to ER with abnormal labs. Patient reportedly had been more confused, lethargic, not eating and drinking per his usual. Baseline labs were checked and wbc was 20, hgb lower than baseline, and INR elevated. Labs repeated in ER showing INR of 11. CXR showing RUL pneumonia. UA indicative of UTI. Patient given zoysn and vitamin K 10 mg IV. No signs of bleeding. CT head negative for acute findings. Patient admitted to med surg. INR 1.4 today. WBC count improved to 13.7. UA growing GNR. Case Discussed With Case Discussed With: Patient's case was discussed with the ER Physicians, Dr. Painting. [facility] Medical History Generalized weakness R53.1 - Weakness (ICD-10) Repeated falls R29.6 - Repeated falls (ICD-10) Other hyperlipidemia E78.49 - Other hyperlipidemia (ICD-10) Muscle weakness (generalized) M62.81 - Muscle weakness (generalized) (ICD-10) Hemiplegia and hemiparesis following cerebral infarction affecting right dominant side I69.351 - Hemiplegia and hemiparesis following cerebral infarction affecting right dominant side (ICD-10) Gastro-esophageal reflux disease without esophagitis K21.9 - Gastro-esophageal reflux disease without esophagitis (ICD-10) Contracture, right hand M24.541 - Contracture, right hand (ICD-10) Alcohol abuse, uncomplicated F10.10 - Alcohol abuse, uncomplicated (ICD-10) Unspecified convulsions R56.9 - Unspecified convulsions (ICD-10) Peripheral vascular disease, unspecified I73.9 - Peripheral vascular disease, unspecified (ICD-10) Nicotine dependence, unspecified, uncomplicated F17.200 - Nicotine dependence, unspecified, uncomplicated (ICD-10) prison (current) use of anticoagulants Z79.01 - prison (current) use of anticoagulants (ICD-10) Generalized anxiety disorder F41.1 - Generalized anxiety disorder (ICD-10) Essential (primary) hypertension I10 - Essential (primary) hypertension (ICD-10) Contracture, right shoulder M24.511 - Contracture, right shoulder (ICD-10) Contracture, right elbow M24.521 - Contracture, right elbow (ICD-10) Cerebral infarction, unspecified I63.9 - Cerebral infarction, unspecified (ICD-10) 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.611 - Acquired absence of right leg above knee (ICD-10) Diverticulosis K57.90 - Diverticulosis of intestine, part unspecified, without perforation or abscess without bleeding (ICD-10) Alcohol abuse F10.10 - Alcohol abuse, uncomplicated (ICD-10) History of compression fracture of spine L2 (2018), L4 (2019) Z87.81 - Personal history of (healed) traumatic fracture (ICD-10) History of pelvic fracture 2018 Z87.81 - Personal history of (healed) traumatic fracture (ICD-10) Dyslipidemia E78.5 - Hyperlipidemia, unspecified (ICD-10) Depression F32.9 - Major depressive disorder, single episode, unspecified (ICD-10) GERD (gastroesophageal reflux disease) K21.9 - Gastro-esophageal reflux disease without esophagitis (ICD-10) History of femur fracture Right Femoral Head and Neck fracture with repair - 2018 Z87.81 - Personal history of (healed) traumatic fracture (ICD-10) Hemiparesis, right G81.91 - Hemiplegia, unspecified affecting right dominant side (ICD-10) Anemia D64.9 - Anemia, unspecified (ICD-10) Hypertension I10 - Essential (primary) hypertension (ICD-10) Seizure R56.9 - Unspecified convulsions (ICD-10) COPD (chronic obstructive pulmonary disease) J44.9 - Chronic obstructive pulmonary disease, unspecified (ICD-10) CVA (cerebral vascular accident) I63.9 - Cerebral infarction, unspecified (ICD-10) Surgical History History of right above knee amputation Z89.611 - Acquired absence of right leg above knee (ICD-10) History of hip surgery Z98.890 - Other specified postprocedural states (ICD-10) Family History Mother Heart attack FATHER Lung cancer Social History Smoking and tobacco status: Current every day smoker Tobacco type: cigarettes Smoking packs per day: 3 Smoking cigarettes per day: 60.0 Years smoked: 60 Smoking pack-years: 180.00 Alcohol intake: current Alcohol intake frequency: former alcohol drinker Alcohol type: beer Allergies Allergies Allergy/AdvReac Type Severity Reaction Status Date / Time No Known Allergies Allergy Verified 02/02/25 17:44 Current Medications Home Medications Acetaminophen (Acetaminophen 325 Mg Tablet) 650 mg PO Q4H PRN PRN Reason: Mild Pain Budesonide/Formoterol Fumarate (Budesonide/Formoterol Fumarate 160/4.5 Mcg Inhaler) 2 puff IH BID [facility] Last Admin: 02/03/25 08:14 Dose: 2 puff Buspirone HCl (Buspirone Hcl 10 Mg Tablet) 5 mg PO BEDTIME [facility] Last Admin: 02/02/25 20:57 Dose: 5 mg Doxycycline Hyclate (Doxycycline Hyclate 100 Mg Capsule) 100 mg PO Q12HR [facility] Stop: 02/07/25 09:01 Last Admin: 02/03/25 08:14 Dose: 100 mg Ezetimibe (Ezetimibe 10 Mg Tablet) 10 mg PO DAILY [facility] Last Admin: 02/03/25 08:14 Dose: 10 mg Enoxaparin Sodium (Enoxaparin Sodium 60 Mg/0.6 Ml Syr) 60 mg SUBCUT Q12HR [facility] Last Admin: 02/03/25 09:50 Dose: 60 mg Ferrous Sulfate (Ferrous Sulfate 324 Mg Tablet.Dr) 324 mg PO DAILY [facility] Last Admin: 02/03/25 08:14 Dose: 324 mg CEFTRIAXONE/D5W 1 GM PREMIX (Rocephin 1 Gm/50 Ml D5w) 1 gm in 50 mls @ 100 mls/hr IV BEDTIME [facility]ELINDA Stop: 02/05/25 20:59 Last Admin: 02/02/25 20:57 Dose: 100 mls/hr Losartan Potassium (Losartan Potassium 100 Mg Tablet) 100 mg PO DAILY [facility] Last Admin: 02/03/25 08:13 Dose: 100 mg Metoprolol Tartrate (Metoprolol Tartrate 25 Mg Tablet) 25 mg PO 2XD [facility] Last Admin: 02/03/25 08:13 Dose: 25 mg Mirtazapine (Mirtazapine 15 Mg Tablet) 7.5 mg PO BEDTIME [facility] Last Admin: 02/02/25 20:57 Dose: 7.5 mg Ondansetron HCl (Ondansetron Hcl/Pf 4 Mg/2 Ml Sdv) 4 mg IVP Q6H PRN PRN Reason: Nausea / Vomiting Pantoprazole Sodium (Pantoprazole Sodium 40 Mg Tablet.Dr) 40 mg PO BIDAC2 [facility] Last Admin: 02/03/25 08:13 Dose: 40 mg Phenytoin Sodium (Phenytoin Cap 100 Mg Capsule) 100 mg PO BID [facility] Last Admin: 02/03/25 08:13 Dose: 100 mg Simvastatin (Simvastatin 40 Mg Tablet) 40 mg PO BEDTIME [facility] Last Admin: 02/02/25 20:56 Dose: 40 mg Sodium Chloride (0.9% Sodium Chloride 10 Ml Disp.Syrin) 1 syr IVF PRN PRN PRN Reason: To flush IV phenytoin sodium extended 100 mg capsule 100 mg PO BID 07/21/16 [History Confirmed 02/02/25] ferrous sulfate 325 mg (65 mg iron) tablet 325 mg PO DAILY 04/28/17 [History Confirmed 02/02/25] pantoprazole 40 mg tablet,delayed release 40 mg PO BID 04/28/17 [History Confirmed 02/02/25] losartan 100 mg tablet (Cozaar) 100 mg PO DAILY #30 tabs 02/28/21 [Rx Confirmed 02/02/25] acetaminophen 650 mg tablet 650 mg PO Q4H PRN general discomfort 06/06/22 [History Confirmed 02/02/25] bisacodyl 10 mg rectal suppository 10 mg [place] DAILY PRN Constipation 06/06/22 [History Confirmed 02/02/25] ezetimibe 10 mg tablet 10 mg PO DAILY 06/06/22 [History Confirmed 02/02/25] magnesium hydroxide 400 mg/5 mL oral suspension (Milk of Magnesia) 30 ml PO DAILY PRN Constipation 06/06/22 [History Confirmed 02/02/25] simvastatin 40 mg tablet 40 mg PO BEDTIME 06/06/22 [History Confirmed 02/02/25] budesonide-formoterol HFA 160 mcg-4.5 mcg/actuation aerosol inhaler (Symbicort) 2 puff inhalation BID 06/08/22 [Rx Confirmed 02/02/25] buspirone 5 mg tablet 5 mg PO BID 08/08/23 [History Confirmed 02/02/25] aspirin 81 mg chewable tablet 81 mg PO DAILY 02/02/25 [History Confirmed 02/02/25] metoprolol tartrate 25 mg tablet 25 mg PO 2XD 02/02/25 [History Confirmed ] mirtazapine 7.5 mg tablet 7.5 mg PO BEDTIME 02/02/25 [History Confirmed 02/02/25] warfarin 1 mg tablet 1 mg PO DAILY 02/02/25 [History Confirmed 02/02/25] Opioid Naive vs. Tolerant Does Patient Take Opioids?: No Is Patient Opioid Naive?: Yes What is Opioid Naive?: *Opioid Naive implies the patient is not already taking opioids or not chronically receiving opioids on a daily basis. *PRN dosing is not "usually" associated with tolerance. *Patients are at higher risk of over-sedation and aspiration. Is Patient Opioid Tolerant?: No What is Opioid Tolerant?: *Opioid Tolerance implies less than the expected response to an opioid. *Acquired tolerance is defined by the patient taking 60mg of oral morphine daily (or equianalgesic dose of another opioid) for 1 week or more. *Often associated with chronic pain. *May take more than usual dose to achieve desired pain control. Review of Systems Constitutional: Reports Fatigue, Weakness and Loss of appetite; Denies Fever Head: Reports Normocephalic and Atraumatic Cardiovascular: Denies Chest pain Respiratory: Denies Cough or Shortness of air Gastrointestinal: Denies Nausea, Vomiting, Diarrhea, Abdominal pain or Melena Genitourinary: Denies Dysuria Neurological: Reports Weakness; Denies Headache, Dizziness or Syncope Physical examination Most Recent Vital Signs: Most Recent Vital Signs Temperature 97.8 F 02/03/25 10:00 Temperature Source Temporal Artery Scan 02/03/25 10:00 Temperature Source Infrared 02/02/25 16:23 Pulse Rate 60 02/03/25 10:00 Respiratory Rate 20 02/03/25 10:00 Blood Pressure 112/67 02/03/25 10:00 Blood Pressure Mean 82 02/03/25 10:00 Blood Pressure Left Arm 118/86 02/02/25 19:59 Blood Pressure Location Left Arm 02/03/25 10:00 Blood Pressure Position Supine 02/03/25 10:00 O2 Sat by Pulse Oximetry 98 02/03/25 10:00 Oxygen Delivery Method Room Air 02/03/25 10:00 Height 5 ft 9 in 02/02/25 19:59 Weight 57.1 kg 02/02/25 19:59 Telemetry Type Remote Telemetry 02/03/25 07:00 Telemetry Monitoring Continues 02/03/25 07:00 Telemetry Heart Rate 70 02/03/25 07:00 Telemetry SPO2 99 02/03/25 07:00 EKG [place] Interval 0.17 02/03/25 07:00 EKG QRS Interval 0.07 02/03/25 07:00 Telemetry Strip Reading NSR 02/03/25 07:00 Appearance: Positive No Apparent Distress and Other (+Alert, oriented to self) Skin: Positive [place], Warm and Good Turgor HEENT: Positive Normocephalic and Atraumatic Neck: Positive Supple and Midline Trachea Chest/Lungs: Positive Clear to Auscultation Bilaterally; Negative Rales, Rhonci or Wheezes Heart: Positive RRR GI/: Positive Soft, Nontender, Bowel Sounds Normal and No Distention Extremities: Positive Amputations (RLE ) and Contractures (RUE ); Negative Edema Neurological: Positive Alert, Disorinted and Other (+generalized weakness ) Labs This Visit Labs This Visit: Labs This Visit 02/02/25 02/02/25 02/02/25 16:58 17:04 17:10 WBC 14.85 H RBC 3.51 L Hgb 10.4 L D Hct 34.4 L D MCV 98.0 H MCH 29.6 MCHC 30.2 L RDW Coeff of Audrey 14.6 Plt Count 559 H Immature Gran % (Auto) 0.7 Neut % (Auto) 80.1 H Lymph % (Auto) 12.2 [place] % (Auto) 6.4 Eos % (Auto) 0.3 Baso % (Auto) 0.3 Neut # (Auto) 11.9 H Lymph # (Auto) 1.8 [place] # (Auto) 1.0 Eos # (Auto) 0.1 Baso # (Auto) 0.1 Immature Gran # (Auto) 0.1 PT 102.5 H INR 11.31 H* APTT 78.0 H Sodium 141.4 Potassium 3.86 Chloride 112.0 H Carbon Dioxide 22.6 Anion Gap 10.66 BUN 41.7 H Creatinine 1.03 Estimated GFR (MDRD) 70.00 BUN/Creatinine Ratio 40.48 Glucose 111.0 H Lactic Acid 2.51 H Calcium 9.33 Total Bilirubin 0.59 AST 35.4 ALT 39.0 Alkaline Phosphatase 166.2 H Troponin I 0.012 NT-Pro-B Natriuret Pep 1070 H Total Protein 7.05 Albumin 3.60 Globulin 3.45 Albumin/Globulin Ratio 1.04 Urine Color Urine Clarity Urine pH Ur Specific [place] Urine Protein Urine Glucose (UA) Urine Ketones Urine Blood Urine Nitrite Urine Bilirubin Urine Urobilinogen Ur Leukocyte Esterase Urine Microscopic WBC Ur Squamous Epith Cells Urine Opiates Screen Ur Oxycodone Screen Urine Methadone Screen Ur Barbiturates Screen U Tricyclic Antidepress Ur Phencyclidine Scrn Ur Amphetamine Screen U Methamphetamines Scrn U Benzodiazepines Scrn Urine Cocaine Screen U Cannabinoids Screen Influ A Molecular Assay Influ B Molecular Assay RSV Antigen SARS CoV-2 RNA Rapid SHAYY 02/02/25 02/02/25 02/03/25 17:20 17:35 05:11 WBC 13.75 H RBC 3.21 L Hgb 9.5 L Hct 30.9 L MCV 96.3 H MCH 29.6 MCHC 30.7 L RDW Coeff of Audrey 14.4 Plt Count 484 H Immature Gran % (Auto) 0.7 Neut % (Auto) 81.1 H Lymph % (Auto) 9.9 L [place] % (Auto) 7.5 Eos % (Auto) 0.4 Baso % (Auto) 0.4 Neut # (Auto) 11.2 H Lymph # (Auto) 1.4 [place] # (Auto) 1.0 Eos # (Auto) 0.1 Baso # (Auto) 0.1 Immature Gran # (Auto) 0.1 PT 14.2 H D INR 1.40 D APTT Sodium 141.0 Potassium 3.99 Chloride 111.5 H Carbon Dioxide 26.0 Anion Gap 7.49 BUN 36.9 H Creatinine 0.99 Estimated GFR (MDRD) 73.00 BUN/Creatinine Ratio 37.27 Glucose 123.1 H Lactic Acid Calcium 9.24 Total Bilirubin 0.55 AST 29.9 ALT 34.4 Alkaline Phosphatase 148.0 H Troponin I NT-Pro-B Natriuret Pep Total Protein 6.54 Albumin 3.24 L Globulin 3.30 Albumin/Globulin Ratio 0.98 Urine Color Dark Urine Clarity Cloudy Urine pH 7.0 Ur Specific [place] 1.020 Urine Protein 2+ H Urine Glucose (UA) Negative Urine Ketones Trace H Urine Blood Trace-intact H Urine Nitrite Negative Urine Bilirubin 1+ H Urine Urobilinogen 1.0 H Ur Leukocyte Esterase 3+ H Urine Microscopic WBC Tntc Ur Squamous Epith Cells Not present Urine Opiates Screen Negative Ur Oxycodone Screen Negative Urine Methadone Screen Negative Ur Barbiturates Screen Positive H U Tricyclic Antidepress Negative Ur Phencyclidine Scrn Negative Ur Amphetamine Screen Negative U Methamphetamines Scrn Negative U Benzodiazepines Scrn Negative Urine Cocaine Screen Negative U Cannabinoids Screen Negative Influ A Molecular Assay Negative by naat Influ B Molecular Assay Negative by naat RSV Antigen Negative by naat SARS CoV-2 RNA Rapid SHAYY Negative Microbiology This Visit 02/02/25 17:42 Urine,Random Urine Culture - Preliminary Imaging Imaging: EXAM: CT HEAD WITHOUT CONTRAST. HISTORY: Altered mental status COMPARISON: 06/06/2022 CT head. TECHNIQUE: Axial CT imaging of the brain was performed without contrast. Sagittal and coronal re-formations were obtained. FINDINGS: No acute large vessel distribution infarction, intracranial bleed or focal mass. Unchanged left MCA distribution encephalomalacia. Scattered periventricular and subcortical hypodensities are seen. The cerebral sulci are enlarged. The ventricles are enlarged and midline in position. There is no midline shift or mass effect. The basilar cisterns are patent. No displaced skull fracture. No air-fluid levels are seen in the paranasal sinuses. The mastoid air cells are well aerat ed. IMPRESSION: No acute intracranial process. Stable chronic findings. EXAM: CHEST ONE-VIEW HISTORY: Chest pain and shortness of breath COMPARISON: AP chest from 08/08/2023 FINDINGS: The right is chronically elevated with subjacent atelectasis. There is suggestion of increased opacity in the right upper lobe. There are decreased bronchovascular markings in the lungs. The cardiomediastinal silhouette is normal. The pulmonary vasculature is normal. Old healed right rib fractures are noted. No pneumothoraces or pleural effusions. IMPRESSION: 1. Atelectasis and/or infiltrate suggested in the right upper lobe. 2. Chronic elevation of the right hemidiaphragm with subjacent atelectasis. 3. Suggestion of emphysema. Review Statement Review Statement: I have independently reviewed and interpreted the labs/EKGs/imaging that were ordered by the ER provider. I have reviewed all outside records that are brittany ilable currently in our EMR including imaging/notes/labs from previous visits. Plan Plan: 1. Acute metabolic encephalopathy in setting of UTI/CAP - Improved, more alert today, cont abx 2. UTI - UC showing GNR. Cont rocephin. 3. CAP, RUL - Will cover with rocephin and doxy 4. Supratherapeutic INR - >11 in ER, received vit K 10 mg IV, now 1.4. Will cover with 1mg/kg lovenox q12hrs until INR is 2-3. Restart his warfarin 1 mg this evening. Considered changing to DOAC however after discussing with pharmacy, with him being on dilantin it is a category X, warfarin is cat C interaction. Will continue warfarin. 5. Hyperlipidemia - Cont home meds 6. Hypertension - Cont home meds 7. Mood disorder - Cont home meds 8. Seizure disorder - Cont home meds DVT Prophylaxis: Lovenox/warfarin Time Spent: Greater than 80 minutes spent with patient, 50% of the time spent with this patient was devoted to counseling and coordination of care. [facility]annin minutes spent discussing advance care planning. Admit to: Inpt Discussed Plan of Care with Dr. Jazzy Judd. Discussed plan of care with son Peter. Medications Medication Orders: Medications Ordered Category Date Time Status 0.9 % Sodium Chloride [Saline Flush] Meds 02/02/25 16:38 Active 1 syr IVF PRN PRN Acetaminophen [Tylenol] Meds 02/02/25 19:34 Active 650 mg PO Q4H PRN Budesonide/Formoterol Fumarate [Symbicort 160-4.5 Mcg Meds 02/02/25 21:00 Active Inhaler] 2 puff IH BID Buspirone HCl [Buspar] Meds 02/02/25 21:00 Active 5 mg PO BEDTIME Ceftriaxone/D5w 1 gm Premix [Rocephin 1 gm/50 ml D5w] Meds 02/02/25 21:00 Acti ve 1 gm in 50 ml IV BEDTIME Doxycycline Hyclate [Doxycycline] Meds 02/02/25 21:00 Active 100 mg PO Q12HR Enoxaparin Sodium [Lovenox] Meds 02/03/25 09:00 Active 60 mg SUBCUT Q12HR Ezetimibe [Zetia] Meds 02/03/25 09:00 Active 10 mg PO DAILY Ferrous Sulfate Meds 02/03/25 09:00 Active 324 mg PO DAILY Losartan Potassium [Cozaar] Meds 02/03/25 09:00 Active 100 mg PO DAILY Metoprolol Tartrate [Lopressor] Meds 02/02/25 21:00 Active 25 mg PO 2XD Mirtazapine [Remeron] Meds 02/02/25 21:00 Active 7.5 mg PO BEDTIME Ondansetron HCl/Pf [Zofran Sdv] Meds 02/02/25 19:34 Active 4 mg IVP Q6H PRN Pantoprazole Sodium [Protonix] Meds 02/03/25 07:30 Active 40 mg PO BIDAC2 Phenytoin Cap [Dilantin] Meds 02/02/25 21:00 Active 100 mg PO BID Simvastatin [Zocor] Meds 02/02/25 21:00 Active 40 mg PO BEDTIME
[2025-02-03] MEDS: COUMADIN PO SCH (18:12)
[2025-02-04 05:23] LABS: IMMATURE GRANULOCYTE # (AUTO) 0.1 (0.0-1.0); IMMATURE GRANULOCYTE % (AUTO) 0.9 % (0.0-5.0); RDW COEFFICIENT OF VARIATION 14.2 % (11.6-14.8)
[2025-02-04 05:36] LABS: INR 1.24 SI (0.0-3.9)
[2025-02-04 05:37] LABS: CREATININE 0.71 mg/dL (0.60-1.10)
--- NOTE | 2025-02-04 09:28 | PCM.PROG ---
Date/Time Seen Date Seen by Provider: 02/04/25 Time Seen by Provider: 09:00 Provider Provider: [facility]EE [facility] Chief Complaint Chief Complaint: SEPSIS,SUPER THERAPEUTIC INR, PNEUMONIA Subjective Subjective: Patient has no complaints today. He is laying calmly in bed and does not seem to be agitated. He has an episode of agitation last night but has not had any behavioral issues since then. He denies any dyspnea, chest pain, cough, or urinary symptoms. He is eating and drinking well. He is having normal urination and bowel movements. Objective Appearance: Positive Well-appearing, No Apparent Distress and Alert and Oriented x3 (difficult to understand at times ) Chest/Lungs: Positive Symmetrical With Equal Breath Sounds and Clear to Auscultation Bilaterally; Negative Rales, Rhonci or Wheezes Heart: Positive RRR; Negative Murmur, Irregular Rhythm, Tachycardia or Bracycardia GI/: Positive Soft, Nontender and Bowel Sounds Normal Musculoskeletal: Positive Other (Right AKA, right upper ext contracture ) Neurological: Positive Motor intact, Cranial Nerves Intact, Alert and Oriented Vital Signs Vital Signs: Vital Signs: Last 24 Hours 02/03/25 10:00 02/03/25 10:00 02/03/25 13:00 Temperature 97.8 F Temperature Source Temporal Artery Scan Pulse Rate 60 Respiratory Rate 20 Blood Pressure 112/67 Blood Pressure Mean 82 Blood Pressure Location Left Arm Blood Pressure Position Supine O2 Sat by Pulse Oximetry 98 Oxygen Delivery Method Room Air Room Air Telemetry Type Remote Telemetry Telemetry Monitoring Continues Telemetry Heart Rate 63 Telemetry SPO2 99 EKG NE Interval 0.12 EKG QRS Interval 0.06 Telemetry Strip Reading SR 02/03/25 14:00 02/03/25 14:00 02/03/25 18:00 Temperature 97.9 F 97.4 F L Temperature Source Temporal Artery Scan Temporal Artery Scan Pulse Rate 74 72 Respiratory Rate 19 18 Blood Pressure 146/87 H 117/74 Blood Pressure Mean 106 88 Blood Pressure Location Left Arm Left Arm Blood Pressure Position Supine Supine O2 Sat by Pulse Oximetry 98 100 Oxygen Delivery Method Room Air Room Air Room Air Telemetry Type Telemetry Monitoring Telemetry Heart Rate Telemetry SPO2 EKG NE Interval EKG QRS Interval Telemetry Strip Reading 02/03/25 19:00 02/03/25 19:20 02/03/25 20:00 Temperature Temperature Source Pulse Rate Respiratory Rate 16 Blood Pressure Blood Pressure Mean Blood Pressure Location Blood Pressure Position O2 Sat by Pulse Oximetry 100 Oxygen Delivery Method Room Air Room Air Telemetry Type Remote Telemetry Telemetry Monitoring Continues Telemetry Heart Rate 72 Telemetry SPO2 100 EKG NE Interval 0.19 EKG QRS Interval 0.06 Telemetry Strip Reading SR 02/03/25 21:16 02/04/25 01:00 02/04/25 05:20 Temperature 97.3 F L Temperature Source Tympanic Pulse Rate 70 Respiratory Rate 16 Blood Pressure 112/67 Blood Pressure Mean 82 Blood Pressure Location Left Arm Blood Pressure Position Supine O2 Sat by Pulse Oximetry 99 98 Oxygen Delivery Method Room Air Room Air Telemetry Type Remote Telemetry Telemetry Monitoring Continues Telemetry Heart Rate Telemetry SPO2 96 EKG NE Interval EKG QRS Interval Telemetry Strip Reading PT REFUSING TLM AT THIS TIME 02/04/25 07:00 02/04/25 07:54 Temperature Temperature Source Pulse Rate Respiratory Rate 18 Blood Pressure Blood Pressure Mean Blood Pressure Location Blood Pressure Position O2 Sat by Pulse Oximetry Oxygen Delivery Method Room Air Telemetry Type Telemetry Monitoring Telemetry Heart Rate Telemetry SPO2 EKG NE Interval EKG QRS Interval Telemetry Strip Reading REFUSES Lab Results Lab Results: Lab Results: Last 24 Hours 02/04/25 05:18 WBC 14.64 H RBC 3.17 L Hgb 9.5 L Hct 30.1 L MCV 95.0 H MCH 30.0 MCHC 31.6 L RDW Coeff of Audrey 14.2 Plt Count 447 H Immature Gran % (Auto) 0.9 Neut % (Auto) 79.6 H Lymph % (Auto) 11.5 [place] % (Auto) 7.1 Eos % (Auto) 0.6 Baso % (Auto) 0.3 Neut # (Auto) 11.7 H Lymph # (Auto) 1.7 [place] # (Auto) 1.0 Eos # (Auto) 0.1 Baso # (Auto) 0.1 Immature Gran # (Auto) 0.1 PT 12.7 H INR 1.24 Sodium 135.4 Potassium 3.78 Chloride 111.0 H Carbon Dioxide 23.8 Anion Gap 4.38 BUN 33.8 H Creatinine 0.71 Estimated GFR (MDRD) 107.00 BUN/Creatinine Ratio 47.60 Glucose 108.5 H Calcium 9.01 Total Bilirubin 0.48 AST 27.0 ALT 28.9 Alkaline Phosphatase 140.7 H Total Protein 6.41 Albumin 3.10 L Globulin 3.31 Albumin/Globulin Ratio 0.93 Additional Comments Additional Comments: I have independently reviewed and interpreted the labs/EKGs/imaging ordered during this hospital stay. I have reviewed outside records that are available in our EMR that pertain to medical stay including imaging/notes/labs from previous visits. Active Medications Active Medications: Medications Generic Name Dose Route Start Last Admin Trade Name Freq PRN Reason Stop Dose Admin Acetaminophen 650 mg 02/02/25 19:34 Acetaminophen 325 Mg Tablet PO Q4H PRN Mild Pain Budesonide/Formoterol Fumarate 2 puff 02/02/25 21:00 02/03/25 20:25 Budesonide/Formoterol Fumarate 160/4.5 Mcg Inhaler IH 2 puff BID MELINDA Administration Buspirone HCl 5 mg 02/02/25 21:00 02/03/25 20:26 Buspirone Hcl 10 Mg Tablet PO 5 mg BEDTIME MELINDA Administration Doxycycline Hyclate 100 mg 02/02/25 21:00 02/03/25 20:26 Doxycycline Hyclate 100 Mg Capsule PO 02/07/25 09:01 100 mg Q12HR MELINDA Administration Ezetimibe 10 mg 02/03/25 09:00 02/03/25 08:14 Ezetimibe 10 Mg Tablet PO 10 mg DAILY MELINDA Administration Enoxaparin Sodium 60 mg 02/03/25 09:00 02/03/25 20:25 Enoxaparin Sodium 60 Mg/0.6 Ml Syr SUBCUT 60 mg Q12HR MELINDA Administration Ferrous Sulfate 324 mg 02/03/25 09:00 02/03/25 08:14 Ferrous Sulfate 324 Mg Tablet. PO 324 mg DAILY MELINDA Administration CEFTRIAXONE/D5W 1 GM PREMIX 1 gm in 50 mls @ 100 mls/hr 02/02/25 21:00 02/03/25 20:42 Rocephin 1 Gm/50 Ml D5w IV 02/05/25 20:59 100 mls/hr BEDTIME MELINDA Administration Losartan Potassium 100 mg 02/03/25 09:00 02/03/25 08:13 Losartan Potassium 100 Mg Tablet PO 100 mg DAILY MELINDA Administration Metoprolol Tartrate 25 mg 02/02/25 21:00 02/03/25 20:26 Metoprolol Tartrate 25 Mg Tablet PO 25 mg 2XD MELINDA Administration Mirtazapine 7.5 mg 02/02/25 21:00 02/03/25 20:26 Mirtazapine 15 Mg Tablet PO 7.5 mg BEDTIME MELINDA Administration Ondansetron HCl 4 mg 02/02/25 19:34 Ondansetron Hcl/Pf 4 Mg/2 Ml Sdv IVP Q6H PRN Nausea / Vomiting Pantoprazole Sodium 40 mg 02/03/25 07:30 02/04/25 05:15 Pantoprazole Sodium 40 Mg Tablet.Dr OLIVIA Not Given BIDAC2 MELINDA Phenytoin Sodium 100 mg 02/02/25 21:00 02/03/25 20:26 Phenytoin Cap 100 Mg Capsule PO 100 mg BID MELINDA Administration Simvastatin 40 mg 02/02/25 21:00 02/03/25 20:26 Simvastatin 40 Mg Tablet PO 40 mg BEDTIME MELINDA Administration Sodium Chloride 1 syr 02/03/25 21:00 02/04/25 05:15 0.9% Sodium Chloride 10 Ml Disp.Syrin IVF 1 syr Q8H MELINDA Administration Warfarin Sodium 1 mg 02/03/25 18:00 02/03/25 18:12 Warfarin Sodium 1 Mg Tablet PO 1 mg QPM MELINDA Administration Plan Plan: 1. Acute metabolic encephalopathy in setting of UTI/CAP - Improved, more alert today, cont abx 2. UTI due to E coli - Cont rocephin. 3. CAP, RUL - Covered with rocephin and doxy 4. Supratherapeutic INR - >11 in ER, received vit K 10 mg IV and INR went down to 1.4. Is 1.24 today. Continue to cover with 1mg/kg lovenox q12hrs until INR is 2-3. Will give warfarin 2 mg this evening. Considered changing to DOAC however after discussing with pharmacy, with him being on dilantin it is a category X, warfarin is cat C interaction. Will continue warfarin. 5. Hyperlipidemia - Cont home meds 6. Hypertension - Cont home meds 7. Mood disorder - Cont home meds 8. Seizure disorder - Cont home meds DVT Prophylaxis: Lovenox/warfarin Discussed Plan of Care with Dr. Jazzy Judd. Review Statement Review Statement: I have personally discussed and reviewed the patient's visit/currently labs/imaging/decision making with Dr. Judd, my supervising attending. Greater that 50 minutes spent with patient, 50% of the time spent with this patient was devoted to counseling and coordination of care.
[2025-02-04] MEDS: NICODERM 21 MG TD SCH (10:42)
[2025-02-04] MEDS: COUMADIN PO SCH (17:00)
[2025-02-04] MEDS ORDERED: COUMADIN PO SCH (17:00)
[2025-02-05 05:41] LABS: IMMATURE GRANULOCYTE # (AUTO) 0.1 (0.0-1.0); IMMATURE GRANULOCYTE % (AUTO) 1.0 % (0.0-5.0); RDW COEFFICIENT OF VARIATION 14.0 % (11.6-14.8)
[2025-02-05 05:52] LABS: CREATININE 0.87 mg/dL (0.60-1.10); INR 1.64 SI (0.0-3.9)
--- NOTE | 2025-02-05 11:02 | PCM.PROG ---
Date/Time Seen Date Seen by Provider: 02/05/25 Time Seen by Provider: 08:30 Provider [facility] Chief Complaint Chief Complaint: SEPSIS,SUPER THERAPEUTIC INR, PNEUMONIA Subjective Subjective: Patient is alert, cussing at staff, but otherwise doesn't voice any complaints. Objective Appearance: Positive No Apparent Distress and Alert and Oriented x3 (difficult to understand at times ) Chest/Lungs: Positive Symmetrical With Equal Breath Sounds and Clear to Auscultation Bilaterally; Negative Rales, Rhonci or Wheezes Heart: Positive RRR; Negative Murmur, Irregular Rhythm, Tachycardia or Bracycardia GI/: Positive Soft, Nontender and Bowel Sounds Normal Musculoskeletal: Positive Other (Right AKA, right upper ext contracture ) Neurological: Positive Motor intact, Cranial Nerves Intact, Alert and Oriented Vital Signs Vital Signs: Vital Signs: Last 24 Hours 02/04/25 13:00 02/04/25 14:00 02/04/25 14:00 Temperature 96.8 F L Temperature Source Temporal Artery Scan Pulse Rate 69 Respiratory Rate 16 Blood Pressure 106/51 L Blood Pressure Mean 69 Blood Pressure Location Left Arm Blood Pressure Position O2 Sat by Pulse Oximetry 96 95 Oxygen Delivery Method Nasal Cannula Room Air Telemetry Type Remote Telemetry Telemetry Strip Reading Patient continues to refuse telemetry 02/04/25 18:00 02/04/25 19:00 02/04/25 20:00 Temperature 97.8 F Temperature Source Oral Pulse Rate 70 Respiratory Rate 16 Blood Pressure 149/78 H Blood Pressure Mean 101 Blood Pressure Location Left Arm Blood Pressure Position Supine O2 Sat by Pulse Oximetry 95 Oxygen Delivery Method Room Air Room Air Telemetry Type Remote Telemetry Telemetry Strip Reading Refuses 02/04/25 20:00 02/04/25 21:17 02/05/25 01:00 Temperature 97.7 F Temperature Source Tympanic Pulse Rate 74 Respiratory Rate 18 Blood Pressure 107/70 Blood Pressure Mean 82 Blood Pressure Location Left Arm Blood Pressure Position Supine O2 Sat by Pulse Oximetry 93 L Oxygen Delivery Method Room Air Room Air Telemetry Type Remote Telemetry Telemetry Strip Reading Continues to refuse 02/05/25 02:00 02/05/25 05:05 02/05/25 05:20 Temperature 98.6 F Temperature Source Tympanic Pulse Rate 87 Respiratory Rate 20 Blood Pressure 120/64 Blood Pressure Mean 82 Blood Pressure Location Left Arm Blood Pressure Position Supine O2 Sat by Pulse Oximetry 91 L Oxygen Delivery Method Room Air Room Air Room Air Telemetry Type Telemetry Strip Reading 02/05/25 07:00 02/05/25 08:00 02/05/25 10:00 Temperature 97.1 F L Temperature Source Temporal Artery Scan Pulse Rate 81 Respiratory Rate 16 Blood Pressure 118/77 Blood Pressure Mean 90 Blood Pressure Location Right Arm Blood Pressure Position Supine O2 Sat by Pulse Oximetry 96 Oxygen Delivery Method Room Air Room Air Telemetry Type Remote Telemetry Telemetry Strip Reading Patient refuses Lab Results Lab Results: Lab Results: Last 24 Hours 02/05/25 05:36 WBC 13.38 H RBC 3.26 L Hgb 9.7 L Hct 31.7 L MCV 97.2 H MCH 29.8 MCHC 30.6 L RDW Coeff of Audrey 14.0 Plt Count 513 H Immature Gran % (Auto) 1.0 Neut % (Auto) 79.6 H Lymph % (Auto) 11.1 [place] % (Auto) 7.2 Eos % (Auto) 0.7 Baso % (Auto) 0.4 Neut # (Auto) 10.6 H Lymph # (Auto) 1.5 [place] # (Auto) 1.0 Eos # (Auto) 0.1 Baso # (Auto) 0.1 Immature Gran # (Auto) 0.1 PT 16.5 H INR 1.64 Sodium 133.7 L Potassium 3.81 Chloride 104.7 Carbon Dioxide 24.2 Anion Gap 8.61 BUN 35.3 H Creatinine 0.87 Estimated GFR (MDRD) 85.00 BUN/Creatinine Ratio 40.57 Glucose 101.3 Calcium 8.82 Total Bilirubin 0.45 AST 26.3 ALT 26.2 Alkaline Phosphatase 137.6 H Total Protein 6.30 Albumin 3.20 L Globulin 3.10 Albumin/Globulin Ratio 1.03 Additional Comments Additional Comments: I have independently reviewed and interpreted the labs/EKGs/imaging ordered during this hospital stay. I have reviewed outside records that are available in our EMR that pertain to medical stay including imaging/notes/labs from previous visits. Active Medications Active Medications: Medications Generic Name Dose Route Start Last Admin Trade Name Freq PRN Reason Stop Dose Admin Acetaminophen 650 mg 02/02/25 19:34 Acetaminophen 325 Mg Tablet PO Q4H PRN Mild Pain Budesonide/Formoterol Fumarate 2 puff 02/02/25 21:00 02/05/25 09:25 Budesonide/Formoterol Fumarate 160/4.5 Mcg Inhaler IH 2 puff BID MELINDA Administration Buspirone HCl 5 mg 02/02/25 21:00 02/04/25 22:05 Buspirone Hcl 10 Mg Tablet PO 5 mg BEDTIME MELINDA Administration Cefuroxime Axetil 200 mg 02/05/25 17:00 Cefpodoxime Proxetil 200 Mg Tablet PO 02/07/25 07:31 BIDWM2 MELINDA Doxycycline Hyclate 100 mg 02/02/25 21:00 02/05/25 09:07 Doxycycline Hyclate 100 Mg Capsule PO 02/07/25 09:01 100 mg Q12HR MELINDA Administration Ezetimibe 10 mg 02/03/25 09:00 02/05/25 09:07 Ezetimibe 10 Mg Tablet PO 10 mg DAILY MELINDA Administration Enoxaparin Sodium 60 mg 02/03/25 09:00 02/05/25 09:08 Enoxaparin Sodium 60 Mg/0.6 Ml Syr SUBCUT 60 mg Q12HR MELINDA Administration Ferrous Sulfate 324 mg 02/03/25 09:00 02/05/25 09:07 Ferrous Sulfate 324 Mg Tablet.Dr PO 324 mg DAILY MELINDA Administration CEFTRIAXONE/D5W 1 GM PREMIX 1 gm in 50 mls @ 100 mls/hr 02/02/25 21:00 02/04/25 22:07 Rocephin 1 Gm/50 Ml D5w IV 02/05/25 20:59 100 mls/hr BEDTIME MELINDA Administration Losartan Potassium 100 mg 02/03/25 09:00 02/05/25 09:08 Losartan Potassium 100 Mg Tablet PO 100 mg DAILY MELINDA Administration Metoprolol Tartrate 25 mg 02/02/25 21:00 02/05/25 09:08 Metoprolol Tartrate 25 Mg Tablet PO 25 mg 2XD MELINDA Administration Mirtazapine 7.5 mg 02/02/25 21:00 02/04/25 22:04 Mirtazapine 15 Mg Tablet PO 7.5 mg BEDTIME MELINDA Administration Nicotine 1 patch 02/04/25 10:15 02/05/25 09:16 Nicotine 21 Mg Patch.Td24 TD 1 patch DAILY MELINDA Administration Ondansetron HCl 4 mg 02/02/25 19:34 Ondansetron Hcl/Pf 4 Mg/2 Ml Sdv IVP Q6H PRN Nausea / Vomiting Pantoprazole Sodium 40 mg 02/03/25 07:30 02/05/25 05:09 Pantoprazole Sodium 40 Mg Tablet. PO 40 mg BIDAC2 MELINDA Administration Phenytoin Sodium 100 mg 02/02/25 21:00 02/05/25 09:08 Phenytoin Cap 100 Mg Capsule PO 100 mg BID MELINDA Administration Simvastatin 40 mg 02/02/25 21:00 02/04/25 22:05 Simvastatin 40 Mg Tablet PO 40 mg BEDTIME MELINDA Administration Sodium Chloride 1 syr 02/03/25 21:00 02/05/25 05:08 0.9% Sodium Chloride 10 Ml Disp.Syrin IVF 1 syr Q8H MELINDA Administration Warfarin Sodium 2 mg 02/04/25 17:00 02/04/25 17:00 Warfarin Sodium 2 Mg Tablet PO 2 mg QPM MELINDA Administration Plan Plan: 1. Acute metabolic encephalopathy in setting of UTI/CAP - resolved, cont abx 2. UTI due to E coli - Transition to cefpodoxime 3. CAP, RUL - Transition to cefpodoxime and doxy 4. Supratherapeutic INR - >11 in ER, received vit K 10 mg IV and INR went down to 1.4. Is 1.6 today. Continue to cover with 1mg/kg lovenox q12hrs until INR is 2-3. Will give warfarin 2 mg this evening. Considered changing to DOAC however after discussing with pharmacy, with him being on dilantin it is a category X, warfarin is cat C interaction. Will continue warfarin. 5. Hyperlipidemia - Cont home meds 6. Hypertension - Cont home meds 7. Mood disorder - Cont home meds 8. Seizure disorder - Cont home meds DVT Prophylaxis: Lovenox/warfarin Discussed Plan of Care with Dr. Jazzy Judd. Dispo: Will keep patient another day in hopes of INR being therapeutic, it would be difficult for detention to manage warfarin/lovenox/inrs on such short notice. Possible discharge tomorrow. Discussed plan of care with son Peter. Review Statement Review Statement: I have personally discussed and reviewed the patient's visit/currently labs/imaging/decision making with Dr. Judd, my supervising attending. Greater that 50 minutes spent with patient, 50% of the time spent with this patient was devoted to counseling and coordination of care.
[2025-02-05] MEDS: CEFPODOXIME PROXETIL PO SCH (17:53)
[2025-02-06 05:27] LABS: IMMATURE GRANULOCYTE # (AUTO) 0.1 (0.0-1.0); IMMATURE GRANULOCYTE % (AUTO) 0.9 % (0.0-5.0); RDW COEFFICIENT OF VARIATION 14.1 % (11.6-14.8)
[2025-02-06 05:33] LABS: INR 2.45 SI (0.0-3.9)
[2025-02-06 05:39] LABS: CREATININE 0.79 mg/dL (0.60-1.10)
--- NOTE | 2025-02-06 09:10 | DCSUM ---
Admission Date Admission Date: 02/02/25 Discharge Date Discharge Date: 02/06/25 Admission Diagnosis Admission Diagnosis: 1. Acute metabolic encephalopathy in setting of UTI/CAP 2. UTI due to E coli 3. CAP, RUL 4. Supratherapeutic INR Discharge Diagnosis Discharge Diagnosis: 1. Acute metabolic encephalopathy in setting of UTI/CAP - resolved 2. UTI due to E coli 3. CAP, RUL 4. Supratherapeutic INR, resolved 5. Hyperlipidemia - Cont home meds 6. Hypertension - Cont home meds 7. Mood disorder - Cont home meds 8. Seizure disorder - Cont home meds Hospital Provider Hospital Provider[facility] Primary Care Physician Primary Care Physician: CASEY CARRILLO APRN Summary of History and Physical Summary of History and Physical: Patient is a 79 year old male with pmhx of PVD s/p right AKA, recurrent CVAs, right upper ext contracture, seizure disorder, chronic anticoagulation with warfarin who presents to ER with abnormal labs. Patient reportedly had been more confused, lethargic, not eating and drinking per his usual. Baseline labs were checked and wbc was 20, hgb lower than baseline, and INR elevated. Labs repeated in ER showing INR of 11. CXR showing RUL pneumonia. UA indicative of UTI. Patient given zoysn and vitamin K 10 mg IV. No signs of bleeding. CT head negative for acute findings. Patient admitted to med surg. INR 1.4 today. WBC count improved to 13.7. UA growing GNR. Hospital Course Subjective: Patient has done well. He's been on RA. He's received rocephin and doxy, transitioned to oral antibiotics. He was felt to be back to his baseline mentally. Has been eating and drinking well. Regarding his INR, it went from 11 to 1.4. He has since been bridged with lovenox and restarted warfarin, his INR is now 2.45. [facility]in 1 mg daily, repeat inr in 3 days on 02/09. Will also send for remainder of abx of cefpodoxime and doxy. Appearance: No Apparent Distress and Alert HEENT: MMM CVS: Other (RRR) Abdomen: Soft, Non-Tender and No Distention Respiratory: No Accessory Muscle Use Extremities: No Edema Additional Findings: R AKA, right upper ext contracture Vital Signs: Most Recent Vital Signs Temperature 97.3 F L 02/06/25 05:20 Temperature Source Temporal Artery Scan 02/06/25 05:20 Temperature Source Infrared 02/02/25 16:23 Pulse Rate 73 02/06/25 05:20 Respiratory Rate 18 02/06/25 05:20 Blood Pressure 108/75 02/06/25 05:20 Blood Pressure Mean 86 02/06/25 05:20 Blood Pressure Left Arm 118/86 02/02/25 19:59 Blood Pressure Location Left Arm 02/06/25 05:20 Blood Pressure Position Supine 02/06/25 05:20 O2 Sat by Pulse Oximetry 98 02/06/25 05:20 Oxygen Delivery Method Room Air 02/06/25 05:31 Height 5 ft 9 in 02/02/25 19:59 Weight 57.1 kg 02/02/25 19:59 Telemetry Type Remote Telemetry 02/06/25 01:00 Telemetry Monitoring Continues 02/04/25 01:00 Telemetry Heart Rate 72 02/03/25 19:00 Telemetry SPO2 96 02/04/25 01:00 EKG SC Interval 0.19 02/03/25 19:00 EKG QRS Interval 0.06 02/03/25 19:00 Telemetry Strip Reading Patient refuses 02/06/25 01:00 Imaging: EXAM: CT HEAD WITHOUT CONTRAST. HISTORY: Altered mental status COMPARISON: 06/06/2022 CT head. TECHNIQUE: Axial CT imaging of the brain was performed without contrast. Sagittal and coronal re-formations were obtained. FINDINGS: No acute large vessel distribution infarction, intracranial bleed or focal mass. Unchanged left MCA distribution encephalomalacia. Scattered periventricular and subcortical hypodensities are seen. The cerebral sulci are enlarged. The ventricles are enlarged and midline in position. There is no midline shift or mass effect. The basilar cisterns are patent. No displaced skull fracture. No air-fluid levels are seen in the paranasal sinuses. The mastoid air cells are well aerated. IMPRESSION: No acute intracranial process. Stable chronic findings. EXAM: CHEST ONE-VIEW HISTORY: Chest pain and shortness of breath COMPARISON: AP chest from 08/08/2023 FINDINGS: The right is chronically elevated with subjacent atelectasis. There is suggestion of increased opacity in the right upper lobe. There are decreased bronchovascular markings in the lungs. The cardiomediastinal silhouette is normal. The pulmonary vasculature is normal. Old healed right rib fractures are noted. No pneumothoraces or pleural effusions. IMPRESSION: 1. Atelectasis and/or infiltrate suggested in the right upper lobe. 2. Chronic elevation of the right hemidiaphragm with subjacent atelectasis. 3. Suggestion of emphysema. Lab Results Last 24 Hours: 02/06/25 05:12 WBC 15.21 H RBC 3.28 L Hgb 9.7 L Hct 30.1 L MCV 91.8 D MCH 29.6 MCHC 32.2 RDW Coeff of Audrey 14.1 Plt Count 496 H Immature Gran % (Auto) 0.9 Neut % (Auto) 77.9 H Lymph % (Auto) 12.0 [place] % (Auto) 8.6 Eos % (Auto) 0.5 Baso % (Auto) 0.1 Neut # (Auto) 11.9 H Lymph # (Auto) 1.8 [place] # (Auto) 1.3 Eos # (Auto) 0.1 Baso # (Auto) 0.0 Immature Gran # (Auto) 0.1 PT 24.0 H D INR 2.45 Sodium 131.3 L Potassium 3.62 Chloride 104.7 Carbon Dioxide 21.0 L Anion Gap 9.22 BUN 35.3 H Creatinine 0.79 Estimated GFR (MDRD) 95.00 BUN/Creatinine Ratio 44.68 Glucose 94.9 Calcium 8.73 Total Bilirubin 0.47 AST 19.1 ALT 20.6 Alkaline Phosphatase 136.6 H Total Protein 6.27 L Albumin 2.99 L Globulin 3.28 Albumin/Globulin Ratio 0.91 Discharge Instructions Discharge Planning: Discharge Planning > [address] Jazzy Judd. Discharge Medications: Medications at Discharge (Home Meds & RX) phenytoin sodium extended 100 mg capsule 100 mg PO BID 07/21/16 ferrous sulfate 325 mg (65 mg iron) tablet 325 mg PO DAILY 04/28/17 pantoprazole 40 mg tablet,delayed release 40 mg PO BID 04/28/17 losartan 100 mg tablet (Cozaar) 100 mg PO DAILY #30 tabs 02/28/21 acetaminophen 650 mg tablet 650 mg PO Q4H PRN general discomfort 06/06/22 bisacodyl 10 mg rectal suppository 10 mg SC DAILY PRN Constipation 06/06/22 ezetimibe 10 mg tablet 10 mg PO DAILY 06/06/22 magnesium hydroxide 400 mg/5 mL oral suspension (Milk of Magnesia) 30 ml PO DAILY PRN Constipation 06/06/22 simvastatin 40 mg tablet 40 mg PO BEDTIME 06/06/22 budesonide-formoterol HFA 160 mcg-4.5 mcg/actuation aerosol inhaler (Symbicort) 2 puff inhalation BID 06/08/22 buspirone 5 mg tablet 5 mg PO BID 08/08/23 aspirin 81 mg chewable tablet 81 mg PO DAILY 02/02/25 metoprolol tartrate 25 mg tablet 25 mg PO 2XD 02/02/25 mirtazapine 7.5 mg tablet 7.5 mg PO BEDTIME 02/02/25 warfarin 1 mg tablet 1 mg PO DAILY 02/02/25 cefpodoxime 200 mg tablet 200 mg PO BIDWM2 #3 tabs 02/06/25 doxycycline hyclate 100 mg capsule 100 mg PO Q12HR #3 caps 02/06/25 Discharge Plan Discharge Discharge Orders: Discharge Patient (ONCE); Ordered 02/06/25 Ordered By: PEE RUCKER Activity Restrictions/Additional Instructions: DISCHARGE TO SNF DX: UTI, PNA, SUPRATHERAPEUTIC INR 3 DOSES LEFT OF CEFPODOXIME AND DOXY , STARTING TONIGHT INR 2.45 TODAY, CONTINUE 1 MG WARFARIN DAILY, REPEAT INR BY 02/09 DIET: HEART HEALTHY Patient Disposition: TRANSFER SNF Prescriptions: New doxycycline hyclate 100 mg Capsule 100 mg PO Q12HR Qty: 3 0RF cefpodoxime 200 mg Tablet 200 mg PO BIDWM2 Qty: 3 0RF Continued phenytoin sodium extended 100 MG capsule 100 mg PO BID pantoprazole 40 MG tablet,delayed release (DR/EC) 40 mg PO BID ferrous sulfate 325 MG tablet 325 mg PO DAILY losartan [Cozaar] 100 mg Tablet 100 mg PO DAILY Qty: 30 1RF acetaminophen 650 mg Tablet 650 mg PO Q4H PRN (Reason: general discomfort) magnesium hydroxide [Milk of Magnesia] 400 mg/5 mL Suspension 30 ml PO DAILY PRN (Reason: Constipation) bisacodyl 10 mg Suppository 10 mg SC DAILY PRN (Reason: Constipation) ezetimibe 10 mg tablet 10 mg PO DAILY simvastatin 40 mg tablet 40 mg PO BEDTIME budesonide-formoterol [Symbicort] 160-4.5 mcg/actuation Hfa Aerosol Inhaler 2 puff inhalation BID 0RF Rx Instructions: USE WITH SPACER aspirin 81 mg tablet,chewable 81 mg PO DAILY warfarin 1 mg tablet 1 mg PO DAILY metoprolol tartrate 25 mg tablet 25 mg PO 2XD mirtazapine 7.5 mg tablet 7.5 mg PO BEDTIME buspirone 5 mg tablet 5 mg PO BID Did you review [place] [employer] for ALL controlled substances?: Not Applicable Discussed opioids are addictive and Narcan is available by prescription or from pharmacy.: No Condition: Stable
[2025-02-06 11:33] VITALS: BP 90/52; PULSE 79; RESP 16; TEMP 96.6
== END 2025-02-06 11:20 | DRG 70 ==
LOC: ED 16:18 → MEDSURG B 19:29
PROVIDERS: ADMIT Hospitalist; ATTEND Physician Assistant